=== PATIENT | female | born 1970 | race Caucasian/White ===

== ENCOUNTER 2023-05-10 13:44 | Emergency (ER) | payer OTHER ==
[2023-05-10 14:14] VITALS: RESP 20
[2023-05-10] MEDS ORDERED: IPRATROPIUM-ALBUTEROL 3 ML NEB INHALATION STA (14:31)
[2023-05-10] MEDS ORDERED: methylPREDNISolone SOD SUCCI 125 MG/2 ML VIAL IV STA (14:32)
--- NOTE | 2023-05-10 14:54 | ED ---
General Adult HPI - General Chief complaint: Shortness of Breath Stated complaint: SOB,Cough,Bodyaches Time Seen by Provider: 05/10/23 14:15 Source: patient, RN notes reviewed Mode of arrival: wheelchair Limitations: no limitations - History of Present Illness Initial comments: 53-year-old female presents emergency Department chief complaint of shortness of breath. Patient states she's been sick for last 10 days has progressively worse she's bilaterally. She states she's had some right-sided chest tightness and discomfort. She does not that she's had prior lung disease including COPD. She reports possible fevers. Denies any GI symptoms. Denies any prior cardiac stents no history of CHF. - Related Data Previous Rx's Medication Instructions Recorded Azithromycin [Zithromax Z Pack] 0 tab PO DIRECTED #6 tab 05/10/23 Ipratropium-Albuterol Nebulize 3 ml INHALATION QID #25 each 05/10/23 [Duoneb 0.5 mg-3 mg/3 ml Soln] predniSONE 50 mg PO DAILY #5 tab 05/10/23 Allergies Allergy/AdvReac Type Severity Reaction Status Date / Time No Known Allergies Allergy Verified 05/10/23 13:54 Review of Systems ROS Statement: Those systems with pertinent positive or pertinent negative responses have been documented in the HPI. ROS Other: All systems not noted in ROS Statement are negative. Past Medical History Past Medical History: COPD, Hypertension History of Any Multi-Drug Resistant Organisms: None Reported Past Surgical History: No Surgical Hx Reported Past Psychological History: Anxiety, Depression Smoking Status: Current every day smoker Past Alcohol Use History: Occasional Past Drug Use History: Marijuana General Exam Limitations: no limitations General appearance: alert, in no apparent distress Head exam: Present: atraumatic, normocephalic, normal inspection Eye exam: Present: normal appearance, PERRL, EOMI. Absent: scleral icterus, conjunctival injection, periorbital swelling ENT exam: Present: normal exam, mucous membranes moist Neck exam: Present: normal inspection. Absent: tenderness, meningismus, lymph adenopathy Respiratory exam: Present: wheezes, decreased breath sounds. Absent: normal lung sounds bilaterally, respiratory distress, rales, rhonchi, stridor Cardiovascular Exam: Present: normal rhythm, tachycardia, normal heart sounds. Absent: systolic murmur, diastolic murmur, rubs, gallop, clicks GI/Abdominal exam: Present: soft, normal bowel sounds. Absent: distended, tenderness, guarding, rebound, rigid Extremities exam: Present: pedal edema Neurological exam: Present: alert Course Vital Signs 05/10/23 05/10/23 05/10/23 13:49 14:45 16:11 Temperature Pulse Rate 107 H 109 H Respiratory 20 20 22 Rate Blood Pressure 172/87 O2 Sat by Pulse 93 L Oximetry 05/10/23 05/10/23 05/10/23 16:22 16:36 17:18 Temperature 97.8 F 97.8 F Pulse Rate 111 H 112 H 72 Respiratory 20 20 20 Rate Blood Pressure 187/104 178/92 O2 Sat by Pulse 93 L 97 Oximetry EKG Findings - EKG Comments: EKG Findings:: EKG poor at 14:40 sinus tachycardia rate of 12 [place] 136 QRS 65 QT/QTC 333/392 - EKG Results: EKG: interpreted by CONSUELO Medical Decision Making - Medical Decision Making Was pt. sent in by a medical professional or institution (, PA, [employer], urgent care, hospital, or prison...) When possible be specific @ -No Did you speak to anyone other than the patient for history (EMS, parent, family, police, friend...)? What history was obtained from this source @ -No Did you review nursing and triage notes (agree or disagree)? Why? @ -I reviewed and agree with nursing and triage notes Were old charts reviewed (outside hosp., previous admission, EMS record, old EKG, old radiological studies, urgent care reports/EKG's, prison records)? Report findings @ -No old charts were reviewed Differential Diagnosis (chest pain, altered mental status, abdominal pain women, abdominal pain men, vaginal bleeding, weakness, fever, dyspnea, syncope, headache, dizziness, GI bleed, back pain, seizure, CVA, palpatations, mental health, musculoskeletal)? @ -COVID 19, RSV, influenza, pneumonia, acute bronchitis, URI, this list is not all inclusive EKG interpreted by me (3pts min.). @ -None X-rays interpreted by me (1pt min.). @ -Chest x-ray shows right lower lobe, possible nodule CT interpreted by me (1pt min.). @ -None done U/S interpreted by me (1pt. min.). @ -None done What testing was considered but not performed or refused? (CT, X-rays, U/S, labs)? Why? @ -None What meds were considered but not given or refused? Why? @ -None Did you discuss the management of the patient with other professionals (professionals i.e. , PA, [employer], lab, RT, psych nurse, social work professor, internet media planner, teacher, custody officer, counter caser)? Give summary @ -No Was smoking cessation discussed for >3mins.? @ -No Was critical care preformed (if so, how long)? @ -No Were there social determinants of health that impacted care today? How? (Homelessness, low income, unemployed, alcoholism, drug addiction, transportation, low edu. Level, literacy, decrease access to med. care, shelter, rehab)? @ -No Was there de-escalation of care discussed even if they declined (Discuss DNR or withdrawal of care, Hospice)? DNR status @ -No What co-morbidities impacted this encounter? (DM, HTN, Smoking, COPD, CAD, Cancer, CVA, ARF, Chemo, Hep., AIDS, mental health diagnosis, sleep apnea, morbid obesity)? @ -COPD Was patient admitted / discharged? Hospital course, mention meds given and route, prescriptions, significant lab abnormalities, going to OR and other pertinent info. @ -Discharge patient's found to have RSV positive, chest x-ray shows right lower lobe pneumonia. Patient is a 9 COPD pulse ox around 93%. Patient is given breathing treatment, steroids states she feels greatly improved and did offer admission for further treatment, management workup of her lung nodule patient declines stating that she felt improved she felt comfortable close follow palpation. Undiagnosed new problem with uncertain prognosis? @ -No Drug Therapy requiring intensive monitoring for toxicity (Heparin, Nitro, Insulin, Cardizem)? @ -No Were any procedures done? @ -No Diagnosis/symptom? @ -RSV, pneumonia, COPD exacerbation Acute, or Chronic, or Acute on Chronic? @ -Acute Uncomplicated (without systemic symptoms) or Complicated (systemic symptoms)? @ -[Complicated Side effects of treatment? @ -No Exacerbation, Progression, or Severe Exacerbation? @ -Exacerbation Poses a threat to life or bodily function? How? (Chest pain, [place], [place], pneumonia, PE, COPD, DKA, ARF, appy, cholecystitis, CVA, Diverticulitis, Homicidal, Suicidal, threat to staff... and all critical care pts) @ -Yes pneumonia, COPD - Lab Data Result diagrams: 05/10/23 14:59 05/10/23 14:59 Lab Results 05/10/23 05/10/23 05/10/23 Range/Units 14:59 14:59 14:59 WBC 12.4 H (3.8-10.6) k/uL RBC 4.66 (3.80-5.40) m/uL Hgb 16.1 H (11.4-16.0) gm/dL Hct 46.7 H (34.0-46.0) % MCV 100.1 H (80.0-100.0) fL MCH 34.5 (25.0-35.0) pg MCHC 34.4 (31.0-37.0) g/dL RDW 13.3 (11.5-15.5) % Plt Count 305 (150-450) k/uL MPV 7.7 Neutrophils % 73 % Lymphocytes % 19 % Monocytes % 5 % Eosinophils % 1 % Basophils % 1 % Neutrophils # 9.1 H (1.3-7.7) k/uL Lymphocytes # 2.4 (1.0-4.8) k/uL Monocytes # 0.6 (0-1.0) k/uL Eosinophils # 0.1 (0-0.7) k/uL Basophils # 0.1 (0-0.2) k/uL PT 9.4 L (10.0-12.5) sec INR 0.8 (<1.2) APTT 24.0 (22.0-30.0) sec Sodium 139 (137-145) mmol/L Potassium 4.0 (3.5-5.1) mmol/L Chloride 101 (98-107) mmol/L Carbon Dioxide 28 (22-30) mmol/L Anion Gap 10 mmol/L BUN 3 L (7-17) mg/dL Creatinine 0.51 L (0.52-1.04) mg/dL Est GFR (CKD-EPI)AfAm >90 (>60 ml/min/1.73 sqM) Est GFR (CKD-EPI)NonAf >90 (>60 ml/min/1.73 sqM) Glucose 91 (74-99) mg/dL Calcium 8.9 (8.4-10.2) mg/dL Magnesium 2.1 (1.6-2.3) mg/dL Total Bilirubin 0.8 (0.2-1.3) mg/dL AST 139 H (14-36) U/L ALT 141 H (4-34) U/L Alkaline Phosphatase 257 H (38-126) U/L Troponin I (0.000-0.034) ng/mL NT-Pro-B Natriuret Pep 308 pg/mL Total Protein 7.3 (6.3-8.2) g/dL Albumin 3.7 (3.5-5.0) g/dL Influenza Type A (PCR) (Not Detectd) Influenza Type B (PCR) (Not Detectd) RSV (PCR) (Not Detectd) SARS-CoV-2 (PCR) (Not Detectd) 05/10/23 05/10/23 Range/Units 14:59 14:59 WBC (3.8-10.6) k/uL RBC (3.80-5.40) m/uL Hgb (11.4-16.0) gm/dL Hct (34.0-46.0) % MCV (80.0-100.0) fL MCH (25.0-35.0) pg MCHC (31.0-37.0) g/dL RDW (11.5-15.5) % Plt Count (150-450) k/uL MPV Neutrophils % % Lymphocytes % % Monocytes % % Eosinophils % % Basophils % % Neutrophils # (1.3-7.7) k/uL Lymphocytes # (1.0-4.8) k/uL Monocytes # (0-1.0) k/uL Eosinophils # (0-0.7) k/uL Basophils # (0-0.2) k/uL PT (10.0-12.5) sec INR (<1.2) APTT (22.0-30.0) sec Sodium (137-145) mmol/L Potassium (3.5-5.1) mmol/L Chloride (98-107) mmol/L Carbon Dioxide (22-30) mmol/L Anion Gap mmol/L BUN (7-17) mg/dL Creatinine (0.52-1.04) mg/dL Est GFR (CKD-EPI)AfAm (>60 ml/min/1.73 sqM) Est GFR (CKD-EPI)NonAf (>60 ml/min/1.73 sqM) Glucose (74-99) mg/dL Calcium (8.4-10.2) mg/dL Magnesium (1.6-2.3) mg/dL Total Bilirubin (0.2-1.3) mg/dL AST (14-36) U/L ALT (4-34) U/L Alkaline Phosphatase (38-126) U/L Troponin I <0.012 (0.000-0.034) ng/mL NT-Pro-B Natriuret Pep pg/mL Total Protein (6.3-8.2) g/dL Albumin (3.5-5.0) g/dL Influenza Type A (PCR) Not Detected (Not Detectd) Influenza Type B (PCR) Not Detected (Not Detectd) RSV (PCR) Detected A (Not Detectd) SARS-CoV-2 (PCR) Not Detected (Not Detectd) Disposition Clinical Impression: Pneumonia, COPD exacerbation, RSV infection Disposition: HOME SELF-CARE Condition: Stable Instructions (If sedation given, give patient instructions): Respiratory Syncytial Virus (ED) Additional Instructions: Please return to the Emergency Department if symptoms worsen or any other concerns. Prescriptions: Ipratropium-Albuterol Nebulize [Duoneb 0.5 mg-3 mg/3 ml Soln] 3 ml INHALATION QID #25 each predniSONE 50 mg PO DAILY #5 tab Azithromycin [Zithromax Z Pack] 0 tab PO DIRECTED #6 tab Is patient prescribed a controlled substance at d/c from ED?: No Referrals: Lashay Coello MD [Primary Care Provider] - 1-2 days Forms: Work/School Release / Restrict Time of Disposition: 16:45
[2023-05-10 15:15] LABS: Basophils # (A) 0.1 k/uL (0-0.2); Basophils % (A) 1 %; Eosinophils # (A) 0.1 k/uL (0-0.7); Eosinophils % (A) 1 %; HCT 46.7 % (34.0-46.0); HGB 16.1 gm/dL (11.4-16.0); Lymphocytes # (A) 2.4 k/uL (1.0-4.8); Lymphocytes % (A) 19 %; MCH 34.5 pg (25.0-35.0); MCHC 34.4 g/dL (31.0-37.0); MCV 100.1 fL (80.0-100.0); Mean Platelet Volume 7.7; Monocytes # (A) 0.6 k/uL (0-1.0); Monocytes % (A) 5 %; Neutrophils # (A) 9.1 k/uL (1.3-7.7); Neutrophils % (A) 73 %; Platelet Count 305 k/uL (150-450); RBC 4.66 m/uL (3.80-5.40); RDW 13.3 % (11.5-15.5); WBC 12.4 k/uL (3.8-10.6)
[2023-05-10 15:22] LABS: INR 0.8 (<1.2); Prothrombin Time 9.4 sec (10.0-12.5)
--- NOTE | 2023-05-10 15:30 | XR ---
EXAMINATION TYPE: XR chest 2V DATE OF EXAM: 05/10/2023 COMPARISON: 11/13/2012 INDICATION: Difficulty breathing cough congestion short of breath TECHNIQUE: Frontal and lateral views of the chest are obtained. FINDINGS: The heart size is normal. The pulmonary vasculature is normal. Right lower lobe infiltrate is present. There is a rounded filtrate or nodule measuring 2.9 cm in the right peripheral midlung. Findings are an interval change.. IMPRESSION: 1. Right lower lobe infiltrate. Correlate for pneumonia. 2. Additional rounded density lateral right midlung may be an infiltrate or nodule. Follow-up to [facility] is recommended.
[2023-05-10 15:36] LABS: NT-Pro-B-Type Natriuretic Pept 308 pg/mL
[2023-05-10 16:04] LABS: ALT 141 U/L (4-34); AST 139 U/L (14-36); African American GFR (CKD) >90 (>60 ml/min/1.73 sqM); Albumin 3.7 g/dL (3.5-5.0); Alkaline Phosphatase 257 U/L (38-126); Anion Gap 10 mmol/L; Blood Urea Nitrogen 3 mg/dL (7-17); Calcium 8.9 mg/dL (8.4-10.2); Carbon Dioxide 28 mmol/L (22-30); Chloride 101 mmol/L (98-107); Glucose 91 mg/dL (74-99); Magnesium 2.1 mg/dL (1.6-2.3); Non-African American GFR(CKD) >90 (>60 ml/min/1.73 sqM); Sodium 139 mmol/L (137-145); Total Bilirubin 0.8 mg/dL (0.2-1.3); Total Protein 7.3 g/dL (6.3-8.2)
[2023-05-10] MEDS ORDERED: cefTRIAXone IN SWFI 1,000 MG/10 ML SYRINGE IVP STA (16:43)
[2023-05-10 16:56] VITALS: TEMP 97.8
[2023-05-10 19:06] VITALS: BP 178/92; PULSE 72
== END 2023-05-10 17:18 | disposition home or self-care (01) ==
LOC: EC 13:44
DX: J44.1 Chronic obstructive pulmonary disease with (acute) exacerbation (principal); J18.9 Pneumonia, unspecified organism; B97.4 Respiratory syncytial virus as the cause of diseases classified elsewhere; R00.0 Tachycardia, unspecified; I10 Essential (primary) hypertension; F17.200 Nicotine dependence, unspecified, uncomplicated; F12.90 Cannabis use, unspecified, uncomplicated; Z20.822 Contact with and (suspected) exposure to COVID-19
CPT/HCPCS: 36415; 94640; 93005; 83880; 80053; 83735; 84484; 85025; 85610; 85730; 87636; 71046; 99285; 96374; 96375; J2930; J0696

== ENCOUNTER 2023-07-06 15:29 | Inpatient (IN) | payer OTHER ==
--- NOTE | 2023-07-06 17:33 | ED ---
Alcohol HPI - General Source: patient, RN notes reviewed Mode of arrival: ambulatory Limitations: no limitations <Stefani Mcgrath - Last Filed: 07/06/23 17:35> <Armani Richard - Last Filed: 07/06/23 20:53> - General Chief Complaint: Alcohol Stated Complaint: withdrawl from alcohol/ seizure Time Seen by Provider: 07/06/23 17:33 - History of Present Illness Initial Comments: Quick note: Patient is a 53-year-old female presented to ER with a chief complaint of alcohol intoxication. Patient sent here from PCPs office for evaluation. She reports she has a history of seizures with alcohol withdrawal. (Stefani Mcgrath) This is a 53-year-old female who presents to the emergency department c omplaining that she is an alcoholic and thinks she has been having withdrawals. Patient states she did have a drink at noon today because she started having the shakes and become nauseated and just not feeling well. Patient also complains of some epigastric abdominal pain. Patient denies any fever chills per patient is any back pain. Patient has any recent trauma. (Armani Richard) - Related Data Previous Rx's Medication Instructions Recorded Azithromycin [Zithromax Z Pack] 0 tab PO DIRECTED #6 tab 05/10/23 Ipratropium-Albuterol Nebulize 3 ml INHALATION QID #25 each 05/10/23 [Duoneb 0.5 mg-3 mg/3 ml Soln] predniSONE 50 mg PO DAILY #5 tab 05/10/23 Allergies Allergy/AdvReac Type Severity Reaction Status Date / Time No Known Allergies Allergy Verified 07/06/23 15:58 Review of Systems ROS Other: All systems not noted in ROS Statement are negative. <Stefani Mcgrath - Last Filed: 07/06/23 17:35> ROS Other: All systems not noted in ROS Statement are negative. <Armani Richard - Last Filed: 07/06/23 20:53> ROS Statement: Those systems with pertinent positive or pertinent negative responses have been documented in the HPI. Past Medical History Past Medical History: COPD, Hypertension Additional Past Medical History / Comment(s): seizures. alcohol abuse. History of Any Multi-Drug Resistant Organisms: None Reported Past Surgical History: No Surgical Hx Reported Past Psychological History: Anxiety, Depression Smoking Status: Current every day smoker Past Alcohol Use History: Occasional Past Drug Use History: Marijuana <Stefani Mcgrath - Last Filed: 07/06/23 17:35> General Exam Limitations: no limitations <Stefani Mcgrath - Last Filed: 07/06/23 17:35> <Armani Richard - Last Filed: 07/06/23 20:53> - General Exam Comments Initial Comments: Visual Physical Exam Vital signs reviewed General: Well-appearing, nontoxic, no acute distress. Head: Normocephalic, atraumatic Eyes: PERRLA, EOMI ENT: Airway patent Chest: Nonlabored breathing Skin: No visual rash, normal skin tone Neuro: Alert and oriented 3 Musculoskeletal: No gross abnormalities (Stefani Mcgrath) GENERAL: Patient is well-developed and well-nourished. Patient is nontoxic and well- hydrated and is in mild distress. ENT: Neck is soft and supple. No significant lymphadenopathy is noted. Oropharynx is clear. Moist mucous membranes. Neck has full range of motion without eliciting any pain. EYES: The sclera were anicteric and conjunctiva were pink and moist. Extraocular movements were intact and pupils were equal round and reactive to light. Eyelids were unremarkable. PULMONARY: Unlabored respirations. Good breath sounds bilaterally. No audible rales rhonchi or wheezing was noted. CARDIOVASCULAR: There is a regular rate and rhythm without any murmurs gallops or rubs. ABDOMEN: Patient has mild epigastric abdominal pain SKIN: Skin is clear with no lesions or rashes and otherwise unremarkable. NEUROLOGIC: Patient is alert and oriented x3. Cranial nerves II through XII are grossly intact. Motor and sensory are also intact. Normal speech, volume and content. Symmetrical smile. MUSCULOSKELETAL: Normal extremities with adequate strength and full range of motion. No lower extremity swelling or edema. No calf tenderness. LYMPHATICS: No significant lymphadenopathy is noted PSYCHIATRIC: Normal psychiatric evaluation. (Armani Richard) Course Vital Signs 07/06/23 07/06/23 07/06/23 15:55 18:54 19:23 Temperature 98.4 F 98.7 F Pulse Rate 102 H 99 103 H Respiratory 20 18 18 Rate Blood Pressure 182/130 185/127 185/118 O2 Sat by Pulse 95 98 92 L Oximetry 07/06/23 20:25 Temperature Pulse Rate 117 H Respiratory 20 Rate Blood Pressure 184/97 O2 Sat by Pulse 93 L Oximetry Medical Decision Making <Stefani Mcgrath - Last Filed: 07/06/23 17:35> - Lab Data Result diagrams: 07/06/23 18:46 07/06/23 19:30 <Armani Richard - Last Filed: 07/06/23 20:53> - Medical Decision Making I performed the quick note portion of this chart. Electronically signed by Stefani Mcgrath PA-C (Stefani Mcgrath) EKG is interpreted by myself read EKG shows a sinus rhythm at 93 bpm DC interval 143 QRS of 66 QT interval 351 QTc is 402. Patient EKG shows no ST segment ovation or depression. Was pt. sent in by a medical professional or institution ([facility], [employer], urgent care, hospital, or penitentiary...) When possible be specific @ -No Did you speak to anyone other than the patient for history (EMS, parent, family, police, friend...)? What history was obtained from this source @ -No Did you review nursing and triage notes (agree or disagree)? Why? @ -I reviewed and agree with nursing and triage notes Were old charts reviewed (outside hosp., previous admission, EMS record, old EKG, old radiological studies, urgent care reports/EKG's, penitentiary records)? Report findings @ -I reviewed prior charts and prior lab work on this patient Differential Diagnosis (chest pain, altered mental status, abdominal pain women, abdominal pain men, vaginal bleeding, weakness, fever, dyspnea, syncope, headache, dizziness, GI bleed, back pain, seizure, CVA, palpatations, mental health, musculoskeletal)? @ -Hypertensive urgency, alcohol withdrawal, alcohol intoxication, intercerebral bleed, subarachnoid, this is not an all-inclusive list EKG interpreted by me (3pts min.). @ -As above X-rays interpreted by me (1pt min.). @ -None done CT interpreted by me (1pt min.). @ -CT of the brain shows no acute abnormality U/S interpreted by me (1pt. min.). @ -None done What testing was considered but not performed or refused? (CT, X-rays, U/S, labs)? Why? @ -None What meds were considered but not given or refused? Why? @ -None Did you discuss the management of the patient with other professionals (professionals i.e. , PA, [employer], lab, RT, psych nurse, older adult social work specialist, fulfillment associate, teacher, health officer, pillowcase folder)? Give summary @ -I spoke with Dr. Donis and he agreed to admit the patient admit the patient wrote admitting orders Was smoking cessation discussed for >3mins.? @ -No Was critical care preformed (if so, how long)? @ -No Were there social determinants of health that impacted care today? How? (Homelessness, low income, unemployed, alcoholism, drug addiction, transportation, low edu. Level, literacy, decrease access to med. care, senior living, rehab)? @ -No Was there de-escalation of care discussed even if they declined (Discuss DNR or withdrawal of care, Hospice)? DNR status @ -No What co-morbidities impacted this encounter? (DM, HTN, Smoking, COPD, CAD, Cancer, CVA, ARF, Chemo, Hep., AIDS, mental health diagnosis, sleep apnea, morbid obesity)? @ -None Was patient admitted / discharged? Hospital course, mention meds given and route, prescriptions, significant lab abnormalities, going to OR and other pertinent info. @ -Patient was having the shakes and so I gave the patient Ativan which did not help her. Patient also got some fluid because she is an alcoholic. Patient blood pressure was elevated I did give her 20 of hyd[address]azine. Patient had CT scans and showed no acute abnormality. Patient told nursing that she sometimes has thoughts of harming her grandkids so psychiatric services will be contacted Undiagnosed new problem with uncertain prognosis? @ -No Drug Therapy requiring intensive monitoring for toxicity (Heparin, Nitro, Insulin, Cardizem)? @ -No Were any procedures done? @ -No Diagnosis/symptom? @ -Alcohol withdrawal Acute, or Chronic, or Acute on Chronic? @ -Acute Uncomplicated (without systemic symptoms) or Complicated (systemic symptoms)? @ -Complicated Side effects of treatment? @ -No Exacerbation, Progression, or Severe Exacerbation? @ -No Poses a threat to life or bodily function? How? (Chest pain, [place], [place], pneumonia, PE, COPD, DKA, ARF, appy, cholecystitis, CVA, Diverticulitis, Homicidal, Suicidal, threat to staff... and all critical care pts) @ -Patient could have alcohol withdrawal seizures. Diagnosis/symptom? @ -Hypertensive urgency Acute, or Chronic, or Acute on Chronic? @ -Acute Uncomplicated (without systemic symptoms) or Complicated (systemic symptoms)? @ -Complicated Side effects of treatment? @ -None Exacerbation, Progression, or Severe Exacerbation] @ -No Poses a threat to life or bodily function? @ -No Diagnosis/symptom? @ -Homicidal ideations Acute, or Chronic, or Acute on Chronic? @ -Acute Uncomplicated (without systemic symptoms) or Complicated (systemic symptoms)? @ -Complicated Side effects of treatment? @ -None Exacerbation, Progression, or Severe Exacerbation] @ -No Poses a threat to life or bodily function? @ -No (Armani Richard) - Lab Data Lab Results 07/06/23 07/06/23 Range/Units 18:46 19:30 WBC 7.7 (3.8-10.6) k/uL RBC 4.45 (3.80-5.40) m/uL Hgb 15.3 (11.4-16.0) gm/dL Hct 45.2 (34.0-46.0) % MCV 101.6 H (80.0-100.0) fL MCH 34.4 (25.0-35.0) pg MCHC 33.9 (31.0-37.0) g/dL RDW 13.9 (11.5-15.5) % Plt Count 306 (150-450) k/uL MPV 9.0 Macrocytosis Slight Sodium 140 (137-145) mmol/L Potassium 4.3 (3.5-5.1) mmol/L Chloride 106 (98-107) mmol/L Carbon Dioxide 31 H (22-30) mmol/L Anion Gap 3 mmol/L BUN 13 (7-17) mg/dL Creatinine 0.62 (0.52-1.04) mg/dL Est GFR (CKD-EPI)AfAm >90 (>60 ml/min/1.73 sqM) Est GFR (CKD-EPI)NonAf >90 (>60 ml/min/1.73 sqM) Glucose 94 (74-99) mg/dL Calcium 8.6 (8.4-10.2) mg/dL Magnesium 1.8 (1.6-2.3) mg/dL Total Bilirubin 0.8 (0.2-1.3) mg/dL AST 118 H (14-36) U/L ALT 89 H (4-34) U/L Alkaline Phosphatase 191 H (38-126) U/L Total Protein 7.2 (6.3-8.2) g/dL Albumin 3.7 (3.5-5.0) g/dL Amylase 67 (30-110) U/L Lipase 178 (23-300) U/L Serum Alcohol 55 mg/dL Disposition <Stefani Mcgrath - Last Filed: 07/06/23 17:35> Time of Disposition: 20:53 <Armani Richard - Last Filed: 07/06/23 20:53> Clinical Impression: Alcohol withdrawal syndrome, Hypertensive urgency, Homicidal ideation Disposition: ADMITTED IP TO THIS HOSP Referrals: Lashay Coello MD [Primary Care Provider] - 1-2 days
[2023-07-06] MEDS: SODIUM CHLORIDE 0.9% 1,000 ML IV ONE ×3 (19:12→22:22)
[2023-07-06] MEDS: LORazepam 2 MG/ML INJ IV STA ×2 (19:12→20:51)
[2023-07-06 19:13] LABS: HCT 45.2 % (34.0-46.0); HGB 15.3 gm/dL (11.4-16.0); MCH 34.4 pg (25.0-35.0); MCHC 33.9 g/dL (31.0-37.0); MCV 101.6 fL (80.0-100.0); Macrocytosis Slight; Platelet Count 306 k/uL (150-450); RBC 4.45 m/uL (3.80-5.40); RDW 13.9 % (11.5-15.5); WBC 7.7 k/uL (3.8-10.6)
[2023-07-06] MEDS: ONDANSETRON 4 MG/2 ML VIAL IVP STA (19:17)
[2023-07-06 20:03] LABS: ALT 89 U/L (4-34); AST 118 U/L (14-36); African American GFR (CKD) >90 (>60 ml/min/1.73 sqM); Albumin 3.7 g/dL (3.5-5.0); Alcohol 55 mg/dL; Alkaline Phosphatase 191 U/L (38-126); Amylase 67 U/L (30-110); Anion Gap 3 mmol/L; Blood Urea Nitrogen 13 mg/dL (7-17); Calcium 8.6 mg/dL (8.4-10.2); Carbon Dioxide 31 mmol/L (22-30); Chloride 106 mmol/L (98-107); Glucose 94 mg/dL (74-99); Lipase 178 U/L (23-300); Magnesium 1.8 mg/dL (1.6-2.3); Non-African American GFR(CKD) >90 (>60 ml/min/1.73 sqM); Potassium 4.3 mmol/L (3.5-5.1); Sodium 140 mmol/L (137-145); Total Bilirubin 0.8 mg/dL (0.2-1.3); Total Protein 7.2 g/dL (6.3-8.2)
[2023-07-06] MEDS: hydrALAZINE HCL 20 MG/ML 1 ML VIAL IVP STA (20:51)
--- NOTE | 2023-07-06 20:51 | CT ---
EXAMINATION TYPE: CT brain wo con DATE OF EXAM: 07/06/2023 HISTORY: headache, ETOH CT DLP: 1150.4 mGycm. Automated Exposure Control for Dose Reduction was Utilized. TECHNIQUE: CT scan of the head is performed without contrast. COMPARISON: None. FINDINGS: There is no acute intracranial hemorrhage. No mass or mass effect. No definite acute attenuation defe ct. The globes are intact and the paranasal sinuses and middle ear cavities and mastoid sinus air terrence ls are clear. IMPRESSION: No acute process.
[2023-07-06] MEDS ORDERED: LORazepam 1 MG TAB PO PRN (20:54)
[2023-07-06] MEDS ORDERED: LORazepam 2 MG/ML INJ IV PRN (20:54)
[2023-07-07] MEDS: LORazepam 2 MG/ML INJ IV PRN ×2 (01:10→07:03)
[2023-07-07] MEDS: THIAMINE 100 MG/ML 2 ML VIAL IM STA (01:10)
--- NOTE | 2023-07-07 01:43 | P.HPIM ---
History of Present Illness H&P Date: 07/06/23 Chief Complaint: Alcohol withdrawal 53-year-old female with COPD not on home oxygen Patient coming in for alcohol withdrawal she quit drinking around noon yesterday she has history of withdrawal seizures and severe withdrawal symptoms in the past she admits to alcohol dependence with heavy drinking Currently patient seems to be feeling okay she denies any headache changes in vision or any new focal neurodeficits denies any chest pain trouble breathing denies abdominal pain changes in bowel or urinary habit denies any GI bleeding ER noted that she was sent in here from her PCP office for evaluation. She also added having negative thoughts toward her granddaughter who she loves dearly but when she is intoxicated she starts ruminating with negative thoughts regarding hurting her she claims that she never tried to do anything to hurt her granddaughter Patient also admits to tobacco smoking and marijuana review of systems Pertinent positives as noted in HPI. All other systems were reviewed and are negative on exam Constitutional: No acute distress, cooperative Eyes: Anicteric sclerae, moist conjunctiva, Pupils equal round reactive to light ENMT: NC/AT Oropharynx clear, no erythema, or exudates Neck: Supple, no masses, or JVD No carotid bruits No thyromegaly Lungs: Diffuse wheezing otherwise audible breath sounds throughout Clear to percussion Normal respiratory effort, no accessory muscle use Cardiovascular: Heart regular in rate and rhythm, No murmurs, gallops, or rubs No peripheral edema Abdominal: Soft Nontender, no guarding, rebound or rigidity Abdomen moving with respiration Normoactive bowel sounds v Extremities: No digital cyanosis No clubbing Pedal pulses intact and symmetrical Radial pulses intact and symmetrical No calf tenderness Psychiatric: Alert and oriented to person, place and time Neuro Muscles Strength 5/5 in all 4 extremities Sensation to light touch grossly present throughout Cranial nerves II-XII grossly intact Past Medical History Past Medical History: COPD, Hypertension Additional Past Medical History / Comment(s): seizures. alcohol abuse. History of Any Multi-Drug Resistant Organisms: None Reported Past Surgical History: No Surgical Hx Reported Past Psychological History: Anxiety, Depression Smoking Status: Current every day smoker Past Alcohol Use History: Occasional Past Drug Use History: Marijuana Medications and Allergies Home Medications Medication Instructions Recorded Confirmed Type Unable To Assess [Unable to Assess] 07/06/23 07/06/23 History Allergies Allergy/AdvReac Type Severity Reaction Status Date / Time No Known Allergies Allergy Verified 07/06/23 15:58 Physical Exam Vitals: Vital Signs Temp Pulse Resp BP Pulse Ox 07/06/23 22:15 119 H 22 94/65 94 L 07/06/23 22:00 115 H 21 105/64 94 L 07/06/23 21:45 109 H 19 104/79 94 L 07/06/23 21:30 109 H 20 125/78 94 L 07/06/23 21:15 103/78 07/06/23 20:59 117 H 22 158/83 96 07/06/23 20:54 120 H 176/116 90 L 07/06/23 20:25 117 H 20 184/97 93 L 07/06/23 19:23 103 H 18 185/118 92 L 07/06/23 18:54 98.7 F 99 18 185/127 98 07/06/23 15:55 98.4 F 102 H 20 182/130 95 Intake and Output 07/06/23 07/06/23 07/06/23 06:59 14:59 22:59 Other: Weight 107.955 kg Results CBC & Chem 7: 07/06/23 18:46 07/06/23 19:30 Labs: Abnormal Lab Results - Last 24 Hours (Table) 07/06/23 07/06/23 Range/Units 18:46 19:30 MCV 101.6 H (80.0-100.0) fL Carbon Dioxide 31 H (22-30) mmol/L AST 118 H (14-36) U/L ALT 89 H (4-34) U/L Alkaline Phosphatase 191 H (38-126) U/L Assessment and Plan Assessment: 53-year-old female with COPD not on home oxygen, alcohol dependence with history of severe withdrawal symptoms and withdrawal seizures she was sent in here from her primary care doctor office for evaluation as she was trying to quit alcohol and already having severe withdrawal symptoms feeling nauseous anxious and restless I discussed case with ED doctor and accepted the admission for alcohol withdrawal symptoms and for psych evaluation due to report of negative thoughts toward her granddaughter when intoxicated with anticipated length of stay more than 2 midnights Alcohol dependence with alcohol withdrawal symptoms History of severe alcohol withdrawal with seizures Seizure precautions Fall precautions Benzos per CIWA scale IV fluid hydration with normal saline Thiamine p.o. daily Patient counseled to quit drinking EtOH level 55 Blood work overall unremarkable white count 7.7 hemoglobin 15.3 Renal function unremarkable to 140 potassium 4.3 BUN 13 creatinine 0.6 Transaminitis most likely secondary to alcohol abuse AST 118 ALT 89 continue to monitor liver enzymes Full code DVT prophylaxis heparin subcu 3 times daily GI prophylaxis Protonix p.o. 40 mg daily
[2023-07-07] MEDS: IPRATROPIUM-ALBUTEROL 3 ML NEB INHALATION PRN (07:44)
[2023-07-07 09:32] LABS: HCT 42.8 % (34.0-46.0); HGB 14.1 gm/dL (11.4-16.0); MCH 34.6 pg (25.0-35.0); MCHC 32.8 g/dL (31.0-37.0); MCV 105.6 fL (80.0-100.0); Macrocytosis Moderate; Mean Platelet Volume 7.6; Platelet Count 247 k/uL (150-450); RBC 4.06 m/uL (3.80-5.40); WBC 8.8 k/uL (3.8-10.6)
[2023-07-07 09:54] LABS: ALT 66 U/L (4-34); AST 100 U/L (14-36); African American GFR (CKD) >90 (>60 ml/min/1.73 sqM); Albumin 3.2 g/dL (3.5-5.0); Alkaline Phosphatase 177 U/L (38-126); Anion Gap 5 mmol/L; Blood Urea Nitrogen 16 mg/dL (7-17); Carbon Dioxide 24 mmol/L (22-30); Chloride 109 mmol/L (98-107); Glucose 108 mg/dL (74-99); Magnesium 1.6 mg/dL (1.6-2.3); Non-African American GFR(CKD) >90 (>60 ml/min/1.73 sqM); Potassium 3.8 mmol/L (3.5-5.1); Sodium 138 mmol/L (137-145); Total Bilirubin 1.3 mg/dL (0.2-1.3); Total Protein 6.2 g/dL (6.3-8.2)
[2023-07-07] MEDS: MULTIVITAMINS, THERA 1 EACH TAB PO SCH (09:54)
[2023-07-07] MEDS: NICOTINE 21MG/24HR PATCH TRANSDERM SCH (09:54)
[2023-07-07] MEDS: FOLIC ACID 1 MG TAB PO SCH (09:54)
[2023-07-07] MEDS: HEPARIN SODIUM,PORCINE 5,000 UNIT/ML 1 ML VIAL SQ SCH (09:54)
[2023-07-07] MEDS: PANTOPRAZOLE 40 MG TABLET PO SCH (09:54)
[2023-07-07] MEDS: THIAMINE 100 MG TAB PO SCH (09:54)
--- NOTE | 2023-07-07 10:14 | P.CN ---
Psychiatric Consult - . Consult date: 07/07/23 Consult:: 07/07/23 10:07 This is a psychiatric consultation on Sendy Humphrey who is a 53-year-old female and was currently hospitalized on the unit for alcohol detox Patient admits that she has a long history of alcohol dependency for years and that she cannot keep track of how much she drinks She states that she also has a history of depression and anxiety in the past but is most likely related to her alcohol use She says that she had seen a psychiatrist in the past and have attended few AA meetings She also reports that she has gone through an inpatient treatment program but did not stick with the program She admits that she needs to get back into some help She says that she has 4 adult children and 8 grandchildren and she enjoys her time with them She denies any thoughts of wanting to hurt herself or others but states that she occasionally had thoughts of lashing out when she was drunk but denies that she would do anything to harm herself Patient denies any history of any self abusive behavior or hurting anyone else Patient also uses marijuana gum is from time to time but did not give any exact amount She reports that she is really motivated to get proper treatment for alcohol abuse and is open to going into inpatient programs Mental status examination: Reveals a middle-aged female who looks much older for age Patient was sleeping soundly but was easily aroused She was able to interact fairly well and comes across as somewhat tremulous and anxious anxious Patient is alert and oriented to time place and person Speech is clear coherent and relevant Thought processes are goal-directed sequential and logical There is no evidence of any overt psychosis Formal judgment appears to be fair Operational judgment appears to be fair Patient admits to having low self esteem and confidence in control and request for appropriate intervention for her substance use problems Patient denies any suicidal or homicidal ideations Suicide risk assessment: Remains low Diagnostic impression: Adjustment disorder with mixed emotional features Mood disorder by history Alcohol use disorder chronic severe Plan: The patient does not meet the criteria for inpatient psychiatric hospitalization Would recommend continuation of the intervention for detox with close monitoring with the CIWA score an appropriate intervention Recommend inpatient substance use program after medical stabilization and detox patient services specialist should be involved to start making those arrangements at this time Thank you very much for your kind referral please feel free to contact me if any further questions Mark Cardenas M.D.
--- NOTE | 2023-07-07 15:35 | P.PN ---
Subjective Progress Note Date: 07/07/23 Hospital course: Patient is a very pleasant 53-year-old female with a past medical history of hypertension, COPD not home oxygen dependent, anxiety and depression, alcohol abuse with previous alcohol withdrawal seizures, cannabinoid use, and nicotine dependence. She presented to the emergency department 07/06/2023 for alcohol withdrawal and experiencing negative thoughts of harming her granddaughter. She underwent full evaluation in the emergency department. Vital signs upon arrival show blood pressure 182/130, heart rate 102, respiratory rate 20, temp 98.4 F, and SpO2 of 95% on room air. EKG completed showing normal sinus rhythm at [address] head completed negative for acute intracranial process. Labs completed and reviewed. CBC showing macrocytosis with MCV of 101.6 otherwise normal findings. BMP revealing hypercarbia with bicarb of 31. Liver profile showing transaminitis with AST of 118, ALT of 89, and alkaline phosphatase of 191. Lipase normal findings at 178. Serum alcohol 55. Patient was admitted under our services for alcohol withdrawal and consultation was placed to psychiatry for evaluation due to reported homicidal ideations. Physical exam: Patient seen and fully evaluated at the bedside. She reports having bad thoughts about harming her 2-year-old granddaughter. She reports she does not live with her granddaughter. Sitter remains at bedside maintaining patient's safety. Psychiatry consulted. Vital signs reviewed and stable. General: Nontoxic, no distress and appears stated age. Derm: Skin warm and dry, normal coloration for ethnicity. Head: Atraumatic, normocephalic and symmetric. Eyes: EOMs intact, no lid lag, and anicteric sclera Mouth: no lip lesions, mucus membranes moist Cardiovascular: regular rate and rhythm with normal S1S2, no murmur, positive posterior tibial pulses bilaterally, and cap refill < 2 seconds. Lungs: Respirations even, regular, and unlabored on room air. Lungs CTA bilaterally, no rhonchi, no rales, no wheezing, and no accessory muscle usage. Abdominal: soft, nontender to palpation, no guarding, no appreciable organomegaly Ext: ROM intact. No gross muscle atrophy, no edema, no contractures Neuro: Speech clear, face symmetrical and CN II-XII grossly intact with no noted focal neuro deficits Psych: Alert and oriented to person, place, time, and situation. Appropriate and pleasant affect. Assessment and Plan of Care: Alcohol withdrawal and active alcoholic with history of detox tremens and withdrawal seizures Transaminitis, secondary to daily alcohol abuse -Continue monitoring of CIWA scores and patient to be medicated with Ativan 0.5 mg every 4 hours as needed for CIWA score of 4-5, Ativan 1 mg every 4 hours for CIWA score of 6-7, Ativan 2 mg every 3 hours CIWA score of 8-9, and Ativan 2 mg every 2 hours forr CIWA score of 10 or greater. -Continuous IV hydration. -Thiamine 100 mg daily, Multivitamin daily, and Folate 1 mg daily. -Continue seizure, fall, elopement and suicide precautions. -Urine drug screen, TSH with reflex free T4, and repeat CBC, CMP, and magnesium were ordered.. -Continued close monitoring of electrolytes and replace as needed. -Telemetry monitoring. Homicidal ideations -Per documentation in chart patient reported having negative thoughts towards her granddaughter and thoughts of harming her. -Consult placed to psychiatry for evaluation -Patient was placed on suicide precautions and elopement precautions. Hypomagnesemia Magnesium 1.6 orders placed for magnesium sulfate 2 g IVPB x 1 dose. We will continue to monitor with repeat a.m. labs and replace abnormal electrolyte values if indicated based upon these results. Nicotine dependence Cannabinoid use disorder -Recommend stopping smoking as well as quitting cannabis use. -Order placed for nicotine patch 21 mg daily. Hypertensive urgency -Patient with hypertensive urgency upon arrival with initial blood pressure 182/130 and heart rate 102. This was likely secondary to alcohol withdraw with current blood pressure stable with blood pressure 128/79 and heart rate 116. -Recommend continued treatment for alcohol withdraw with symptom triggered benzodiazepines for administration. Data reviewed: -Morning labs reviewed. CBC showing macrocytosis with MCV of 105.6 otherwise normal findings. BMP showing mild hyperchloremia with chloride of 109 and resolution of hypercarbia with bicarb decreasing from 31 down to 24. Magnesium slightly low at 1.6. Liver profile showing AST 100, ALT 66, and alkaline phosphatase of 177. TSH was 2.670. -Vital signs reviewed. Blood pressure 128/79, heart rate 116, respiratory rate 19, temp 97.7 F, and SpO2 of 94% on 2 L. CODE STATUS: Full code DVT prophylaxis: Heparin Anticipated discharge date: Clinical course to determine Anticipated discharge place: Clinical course to determine Patient was seen independently by Nurse Pracitioner. This document was prepared using [employer] dictation software. Please allow for errors in maintenance worker house trailer, while rare they do occur. José Antonio Cosme, BOX COVERER HAND rendered care for this patient independently, reviewed the findings and plan as documented in the note above. I did not physically speak with or examine the patient on this date. Objective - Vital Signs Vital signs: Vital Signs Temp 97.7 F 07/07/23 05:02 Pulse 112 H 07/07/23 07:55 Resp 19 07/07/23 05:02 BP 128/79 07/07/23 07:01 Pulse Ox 94 L 07/07/23 07:48 FiO2 Intake & Output 07/06/23 07/07/23 07/07/23 18:59 06:59 18:59 Weight 107.955 kg - Labs CBC & Chem 7: 07/07/23 09:16 07/07/23 09:16 Labs: Abnormal Lab Results - Last 24 Hours (Table) 07/06/23 07/06/23 Range/Units 18:46 19:30 MCV 101.6 H (80.0-100.0) fL Carbon Dioxide 31 H (22-30) mmol/L AST 118 H (14-36) U/L ALT 89 H (4-34) U/L Alkaline Phosphatase 191 H (38-126) U/L
[2023-07-07] MEDS: MAGNESIUM SULFATE-D5W PMX 1 GM in DEXTROSE/WATER 1 100ML.BAG IVPB SCH (16:24)
[2023-07-07 21:43] LABS: Amphetamine Screen,Urine Not Detected (NotDetected); Barbiturate Screen,Urine Not Detected (NotDetected); Benzodiazepines Screen,Urine Detected (NotDetected); Cocaine Screen,Urine Not Detected (NotDetected); Methadone Screen, Urine Not Detected (NotDetected); Opiate Screen,Urine Not Detected (NotDetected); Oxycodone Screen, Urine Not Detected (NotDetected); Phencyclidine Screen,Urine Not Detected (NotDetected); Tricyclic Antidepressant,Urine Not Detected (NotDetected); Urn Cannabinoid Scrn Detected (NotDetected)
[2023-07-08 09:39] LABS: HCT 40.2 % (37.2-46.3); HGB 13.2 g/dL (12.0-15.0); MCH 34.3 pg (27.0-32.0); MCHC 32.8 g/dL (32.0-37.0); MCV 104.4 FL (80.0-97.0); Mean Platelet Volume 9.9 FL (9.5-12.2); NRBC Per 100 WBC 0 X 10*3/uL (0.00-0.01); Platelet Count 217 X 10*3/uL (140-440); RBC 3.85 X 10*6/uL (4.10-5.20); RDW 14.3 % (11.5-14.5); WBC 7.31 X 10*3/uL (4.50-10.00)
[2023-07-08 10:16] LABS: ALT 62 U/L (8-44); AST 100 U/L (13-35); Albumin 3.3 g/dL (3.8-4.9); Albumin/Globulin Ratio 1.18 Ratio (1.60-3.17); Alkaline Phosphatase 168 U/L (41-126); BUN/Creat Ratio 17.43 Ratio (12.00-20.00); Blood Urea Nitrogen 12.2 mg/dL (9.0-27.0); Calcium 8.3 mg/dL (8.7-10.3); Chloride 104 mmol/L (96-109); Globulin 2.8 g/dL (1.6-3.3); Glucose 121 mg/dL (70-110); Magnesium 2.1 mg/dL (1.5-2.4); Sodium 139 mmol/L (135-145); Total Bilirubin 0.7 mg/dL (0.3-1.2); Total Protein 6.1 g/dL (6.2-8.2)
--- NOTE | 2023-07-08 15:21 | XR ---
EXAMINATION TYPE: XR chest 1V portable DATE OF EXAM: 07/08/2023 Comparison: 05/10/2023 Clinical History: 53-year-old female wheezing Findings: Heart upper limits of normal in size. Aorta and pulmonary vasculature are within normal limits. Hazy bilateral lung densities without consolidation or pleural effusion. Impression: Borderline heart size. No acute process seen.
[2023-07-08] MEDS: IPRATROPIUM-ALBUTEROL 3 ML NEB INHALATION SCH (15:29)
[2023-07-08] MEDS: ACETAMINOPHEN TAB 325 MG TAB PO PRN (15:35)
--- NOTE | 2023-07-08 15:35 | P.PN ---
Subjective Progress Note Date: 07/08/23 Hospital course: Patient is a very pleasant 53-year-old female with a past medical history of hypertension, COPD not home oxygen dependent, anxiety and depression, alcohol abuse with previous alcohol withdrawal seizures, cannabinoid use, and nicotine dependence. She presented to the emergency department 07/06/2023 for alcohol withdrawal and experiencing negative thoughts of harming her granddaughter. She underwent full evaluation in the emergency department. Vital signs upon arrival show blood pressure 182/130, heart rate 102, respiratory rate 20, temp 98.4 F, and SpO2 of 95% on room air. EKG completed showing normal sinus rhythm at [address] head completed negative for acute intracranial process. Labs completed and reviewed. CBC showing macrocytosis with MCV of 101.6 otherwise normal findings. BMP revealing hypercarbia with bicarb of 31. Liver profile showing transaminitis with AST of 118, ALT of 89, and alkaline phosphatase of 191. Lipase normal findings at 178. Serum alcohol 55. Patient was admitted under our services for alcohol withdrawal and consultation was placed to psychiatry for evaluation due to reported homicidal ideations. Physical exam: Patient seen and fully evaluated at the bedside. She reports having bad thoughts about harming her 2-year-old granddaughter. She reports she does not live with her granddaughter. Sitter remains at bedside maintaining patient's safety. Psychiatry consulted. Vital signs reviewed and stable. General: Nontoxic, no distress and appears stated age. Derm: Skin warm and dry, normal coloration for ethnicity. Head: Atraumatic, normocephalic and symmetric. Eyes: EOMs intact, no lid lag, and anicteric sclera Mouth: no lip lesions, mucus membranes moist Cardiovascular: regular rate and rhythm with normal S1S2, no murmur, positive posterior tibial pulses bilaterally, and cap refill < 2 seconds. Lungs: Respirations even, regular, and unlabored on room air. Lungs CTA bilaterally, no rhonchi, no rales, no wheezing, and no accessory muscle usage. Abdominal: soft, nontender to palpation, no guarding, no appreciable organomegaly Ext: ROM intact. No gross muscle atrophy, no edema, no contractures Neuro: Speech clear, face symmetrical and CN II-XII grossly intact with no noted focal neuro deficits Psych: Alert and oriented to person, place, time, and situation. Appropriate and pleasant affect. Assessment and Plan of Care: Alcohol withdrawal and active alcoholic with history of detox tremens and withdrawal seizures Transaminitis, secondary to daily alcohol abuse -Continue monitoring of CIWA scores and patient to be medicated with Ativan 0.5 mg every 4 hours as needed for CIWA score of 4-5, Ativan 1 mg every 4 hours for CIWA score of 6-7, Ativan 2 mg every 3 hours CIWA score of 8-9, and Ativan 2 mg every 2 hours forr CIWA score of 10 or greater. Patient has had a total of 7 mg of Ativan over the past 24 hours. -Thiamine 100 mg daily, Multivitamin daily, and Folate 1 mg daily. -Continue seizure, fall, elopement and suicide precautions. -Urine drug screen, TSH with reflex free T4, and repeat CBC, CMP, and magnesium were ordered.. -Continued close monitoring of electrolytes and replace as needed. -Telemetry monitoring. Low-grade temp and tachycardia -Believed to be signs/symptoms of acute alcohol withdrawal, however we will rule out other causes of low-grade temp and tachycardia. -TSH normal findings at 2.670. -Influenza A, influenza B, RSV, and COVID PCR were negative. -Order placed for chest x-ray, which was negative for acute cardiopulmonary process. -Order placed for D-dimer, urinalysis and blood culture. Will follow-up on results once available. -Tylenol 650 mg p.o. as needed for mild pain/fever. Homicidal ideations -Per documentation in chart patient reported having negative thoughts towards her granddaughter and thoughts of harming her. -Consult placed to psychiatry for evaluation -Patient was placed on suicide precautions and elopement precautions. Hypomagnesemia Magnesium 1.6 orders placed for magnesium sulfate 2 g IVPB x 1 dose. We will continue to monitor with repeat a.m. labs and replace abnormal electrolyte values if indicated based upon these results. COPD with continued nicotine dependence, not in acute exacerbation Cannabinoid use disorder -Recommend stopping smoking as well as quitting cannabis use. -DuoNebs as needed for wheezing/shortness of breath. -Order placed for nicotine patch 21 mg daily. Hypertensive urgency, improved -Patient with hypertensive urgency upon arrival with initial blood pressure 182/130 and heart rate 102. This was likely secondary to alcohol withdraw with current blood pressure stable with blood pressure 128/79 and heart rate 116. -Recommend continued treatment for alcohol withdraw with symptom triggered benzodiazepines for administration. Data reviewed: -Morning labs reviewed. CBC showing macrocytosis with MCV of 104.4 otherwise normal findings. BMP unremarkable. Magnesium normal findings at 2.1. Liver profile elevated but stable showing AST 100, ALT 62, and alkaline phosphatase of 168. -Vital signs reviewed. Blood pressure 143/83, heart rate 113, respiratory rate 22, temp 98.7 F, and SpO2 of 97% on 2 L. CODE STATUS: Full code DVT prophylaxis: Heparin Anticipated discharge date: Clinical course to determine Anticipated discharge place: Clinical course to determine Patient was seen independently by Nurse Pracitioner. This document was prepared using [employer]olphin dictation software. Please allow for errors in corporate executive, while rare they do occur. José Antonio Cosme NP rendered care for this patient independently, reviewed the findings and plan as documented in the note above. I did not physically speak with or examine the patient on this date. Objective - Vital Signs Vital signs: Vital Signs Temp 98.7 F 07/08/23 07:13 Pulse 113 H 07/08/23 07:13 Resp 22 07/08/23 07:13 BP 143/83 07/08/23 07:13 Pulse Ox 96 07/08/23 08:27 FiO2 Intake & Output 07/07/23 07/08/23 07/08/23 18:59 06:59 18:59 Intake Total 180 240 Output Total 300 Balance -120 240 Weight 107.955 kg Intake: Oral 180 240 Output: Urine 300 Other: Voiding Method Bedside Commode # Voids 2 3 1 # Bowel Movements 1 - Labs CBC & Chem 7: 07/08/23 05:24 07/08/23 05:24 Labs: Abnormal Lab Results - Last 24 Hours (Table) 07/07/23 07/07/23 07/07/23 Range/Units 09:16 09:16 21:20 MCV 105.6 H (80.0-100.0) fL Chloride 109 H (98-107) mmol/L Glucose 108 H (74-99) mg/dL Calcium 8.0 L (8.4-10.2) mg/dL AST 100 H (14-36) U/L ALT 66 H (4-34) U/L Alkaline Phosphatase 177 H (38-126) U/L Total Protein 6.2 L (6.3-8.2) g/dL Albumin 3.2 L (3.5-5.0) g/dL U Benzodiazepines Scrn Detected H (NotDetected) U Marijuana (THC) Screen Detected H (NotDetected)
[2023-07-08 23:22] LABS: Appearance,Urine Clear (Clear); Bilirubin,Urine Negative (Negative); Blood,Urine Negative (Negative); Color,Urine Yellow; Glucose,Urine (UA) Negative (Negative); Ketones,Urine Negative (Negative); Leukocyte Esterase,Urine Negative (Negative); Nitrite,Urine Negative (Negative); Protein,Urine Trace (Negative); Specific Gravity,Urine 1.029 (1.001-1.035)
[2023-07-08] MEDS: MELATONIN 5 MG TABLET PO PRN (23:42)
[2023-07-09] MEDS: LORazepam 0.5 MG TAB PO PRN (10:19)
--- NOTE | 2023-07-09 11:28 | P.PN ---
Subjective Progress Note Date: 07/09/23 Hospital course: Patient is a very pleasant 53-year-old female with a past medical history of hypertension, COPD not home oxygen dependent, anxiety and depression, alcohol abuse with previous alcohol withdrawal seizures, cannabinoid use, and nicotine dependence. She presented to the emergency department 07/06/2023 for alcohol withdrawal and experiencing negative thoughts of harming her granddaughter. She underwent full evaluation in the emergency department. Vital signs upon arrival show blood pressure 182/130, heart rate 102, respiratory rate 20, temp 98.4 F, and SpO2 of 95% on room air. EKG completed showing normal sinus rhythm at [address] head completed negative for acute intracranial process. Labs completed and reviewed. CBC showing macrocytosis with MCV of 101.6 otherwise normal findings. BMP revealing hypercarbia with bicarb of 31. Liver profile showing transaminitis with AST of 118, ALT of 89, and alkaline phosphatase of 191. Lipase normal findings at 178. Serum alcohol 55. Patient was admitted under our services for alcohol withdrawal and consultation was placed to psychiatry for evaluation due to reported homicidal ideations. Physical exam: Patient seen and fully evaluated at the bedside. Patient sitting up on the bedside this morning. She appears to be doing much better today. More awake and alert and showing less signs of withdrawal this morning. Patient currently adamantly denies having any homicidal or harmful thoughts towards her granddaughter. Patient reports she has 4 children and 8 grandchildren and has never laid a hand on any of them. Patient states that she had these awful thoughts in the past but that has only been when she was drinking and her mind was not right from withdrawal. Patient currently ANO x 4 and denies having any suicidal or homicidal ideations at this time. Patient was evaluated by psychiatry and psychiatry is clearing patient from their perspective. Vital signs reviewed and stable. General: Nontoxic, no distress and appears stated age. Derm: Skin warm and dry, normal coloration for ethnicity. Head: Atraumatic, normocephalic and symmetric. Eyes: EOMs intact, no lid lag, and anicteric sclera Mouth: no lip lesions, mucus membranes moist Cardiovascular: regular rate and rhythm with normal S1S2, no murmur, positive posterior tibial pulses bilaterally, and cap refill < 2 seconds. Lungs: Respirations even, regular, and unlabored on room air. Lungs CTA bilaterally, no rhonchi, no rales, no wheezing, and no accessory muscle usage. Abdominal: soft, nontender to palpation, no guarding, no appreciable organomegaly Ext: ROM intact. No gross muscle atrophy, no edema, no contractures Neuro: Speech clear, face symmetrical and CN II-XII grossly intact with no noted focal neuro deficits Psych: Alert and oriented to person, place, time, and situation. Appropriate and pleasant affect. Assessment and Plan of Care: Alcohol withdrawal and active alcoholic with history of detox tremens and withdrawal seizures Transaminitis, secondary to daily alcohol abuse -Continue monitoring of CIWA scores and patient to be medicated with Ativan 0.5 mg every 4 hours as needed for CIWA score of 4-5, Ativan 1 mg every 4 hours for CIWA score of 6-7, Ativan 2 mg every 3 hours CIWA score of 8-9, and Ativan 2 mg every 2 hours forr CIWA score of 10 or greater. Patient has had a total of 9 mg of Ativan over the past 24 hours. -Thiamine 100 mg daily, Multivitamin daily, and Folate 1 mg daily. -Continue seizure, fall, elopement and suicide precautions. -Urine drug screen, TSH with reflex free T4, and repeat CBC, CMP, and magnesium were ordered.. -Continued close monitoring of electrolytes and replace as needed. -Telemetry monitoring. Low-grade temp and tachycardia -Believed to be signs/symptoms of acute alcohol withdrawal, however we will rule out other causes of low-grade temp and tachycardia. -TSH normal findings at 2.670. -Influenza A, influenza B, RSV, and COVID PCR were negative. -Order placed for chest x-ray, which was negative for acute cardiopulmonary process. -Order placed for D-dimer, urinalysis and blood culture. Will follow-up on results once available. -Tylenol 650 mg p.o. as needed for mild pain/fever. Homicidal ideations, resolved. -Per documentation in chart patient reported having negative thoughts towards her granddaughter and thoughts of harming her. Patient states that she had these awful thoughts in the past but that has only been when she was drinking and her mind was not right from withdrawal. Patient currently A&O x 4 and denies having any suicidal or homicidal ideations at this time. -Patient was evaluated by psychiatry and psychiatry is clearing patient from their perspective. Hypomagnesemia, resolved Magnesium 2.1. COPD with continued nicotine dependence, not in acute exacerbation Cannabinoid use disorder -Recommend stopping smoking as well as quitting cannabis use. -DuoNebs as needed for wheezing/shortness of breath. -Order placed for nicotine patch 21 mg daily. Hypertensive urgency, improved -Patient with hypertensive urgency upon arrival with initial blood pressure 182/130 and heart rate 102. This was likely secondary to alcohol withdraw with current blood pressure elevated but stable at 150/92 with heart rate of 102. -We will continue to treat with alcohol withdrawal and patient has been started on metoprolol 25 mg twice daily. Data reviewed: -Vital signs reviewed. Blood pressure 150/92, heart rate 102, respiratory rate 20, temp 98.2 F, and SpO2 of 97% on 2 L. CODE STATUS: Full code DVT prophylaxis: Heparin Anticipated discharge date: Likely within the next 24 to [address]: Home versus drug and alcohol rehabilitation facility Patient was seen independently by Nurse Pracitioner. This document was prepared using [employer] dictation software. Please allow for errors in duck operator, while rare they do occur. José Antonio Cosme NP rendered care for this patient independently, reviewed the findings and plan as documented in the note above. I did not physically speak with or examine the patient on this date. Objective - Vital Signs Vital signs: Vital Signs Temp 98.2 F 07/09/23 07:09 Pulse 102 H 07/09/23 07:09 Resp 20 07/09/23 07:09 BP 150/92 07/09/23 07:09 Pulse Ox 96 07/09/23 08:34 FiO2 Intake & Output 07/08/23 07/09/23 07/09/23 17:59 06:59 18:59 Other: Voiding Method Toilet Bedside Commode # Voids # Bowel Movements - Labs CBC & Chem 7: 07/08/23 05:24 07/08/23 05:24 Labs: Abnormal Lab Results - Last 24 Hours (Table) 07/08/23 07/08/23 07/08/23 Range/Units 05:24 05:24 15:53 RBC 3.85 L (4.10-5.20) X 10*6/uL MCV 104.4 H (80.0-97.0) FL MCH 34.3 H (27.0-32.0) pg D-Dimer 0.85 H (<0.60) mg/L FEU Glucose 121 H (70-110) mg/dL Calcium 8.3 L (8.7-10.3) mg/dL AST 100 H (13-35) U/L ALT 62 H (8-44) U/L Alkaline Phosphatase 168 H (41-126) U/L Total Protein 6.1 L (6.2-8.2) g/dL Albumin 3.3 L (3.8-4.9) g/dL Albumin/Globulin Ratio 1.18 L (1.60-3.17) Ratio Urine Protein (Negative) 07/08/23 Range/Units 22:56 RBC (4.10-5.20) X 10*6/uL MCV (80.0-97.0) FL MCH (27.0-32.0) pg D-Dimer (<0.60) mg/L FEU Glucose (70-110) mg/dL Calcium (8.7-10.3) mg/dL AST (13-35) U/L ALT (8-44) U/L Alkaline Phosphatase (41-126) U/L Total Protein (6.2-8.2) g/dL Albumin (3.8-4.9) g/dL Albumin/Globulin Ratio (1.60-3.17) Ratio Urine Protein Trace H (Negative)
[2023-07-09] MEDS: METOPROLOL TARTRATE 25 MG TAB PO SCH (11:37)
[2023-07-09] MEDS: ONDANSETRON 4 MG/2 ML VIAL IVP PRN (16:11)
--- NOTE | 2023-07-09 16:36 | CT ---
EXAMINATION TYPE: CT chest angio for PE DATE OF EXAM: 07/09/2023 COMPARISON: Radiograph 07/08/2023 TECHNIQUE: Axial scanning of the chest performed with IV Contrast, patient injected with 100 mL of Is ovue 300. Coronal and sagittal MIP reconstructions performed. CT DLP: 612.5 mGycm Automated exposure control for dose reduction was used. FINDINGS: The heart is normal size without pericardial effusion. No flattening of the interventricular septum o r reflux of contrast into the hepatic veins. Aorta is normal caliber with conventional arch vessel branching anatomy. Borderline sized lower right paratracheal node and 9 mm. Right hilar node and 1.5 cm. Right bronchial node at 1.0 cm. These are likely reactive/post inflammatory. Satisfactory opacification the pulmonary canal system with some limitation due to breathing motion. N o definite pulmonary embolus. Scattered mild diffuse groundglass infiltrates throughout. Some reticular changes also present along with moderate diffuse bronchial wall thickening. No jory airspace disease or pleural effusion. Backg round moderate upper lung emphysema. Visualized upper abdomen shows generalized anasarca change in marked diminished attenuation of the he patic parenchyma. There is a lipid rich left adrenal adenoma measuring 2.0 cm. Similar finding on the right measuring 1 .8 cm. Bones: Scattered mild degenerative disc disease. IMPRESSION: 1. NO EVIDENCE FOR PULMONARY EMBOLUS. 2. DIFFUSE PATCHY GROUNDGLASS INFILTRATES THROUGHOUT WITH MODERATE DIFFUSE BRONCHIAL WALL THICKENING. CONSIDER POSSIBILITIES SUCH ATYPICAL/COVID PNEUMONIA, HYPERSENSITIVITY PNEUMONITIS, AND INTERSTIT IAL PNEUMONITIS (SUCH NSIP AND DAUB COLOR MIXER) SOME POSSIBLE DIFFERENTIALS. 3. BACKGROUND COPD WITH MODERATE UPPER LUNG EMPHYSEMA. 4. SUSPECT SOME REACTIVE/POST INFLAMMATORY RIGHT HILAR NODES MEASURING UP TO 1.5 CM. FOLLOW-UP IN 2-3 MONTHS TO ENSURE STABILITY/RESOLUTION. 5. MODERATE TO SEVERE HEPATIC STEATOSIS AND BILATERAL LIPID RICH ADRENAL ADENOMAS INCIDENTALLY NOTED.
[2023-07-10 03:14] VITALS: RESP 16
[2023-07-10 08:49] VITALS: BP 171/92; TEMP 98.3
[2023-07-10 12:20] VITALS: PULSE 89
--- NOTE | 2023-07-10 17:30 | P.DS ---
Providers Date of admission: 07/06/23 20:57 Expected date of discharge: 07/10/23 Attending physician: Dara Donis MD Consults: 07/06/23 20:53 Consult Physician Urgent Consulting Provider: Mesfin Quintero Consult Reason/Comments: Homicidal ideations Do you want consulting provider notified?: Already Contacted Primary care physician: [facility] Course: Discharge Diagnosis: Alcohol withdrawal in an active alcoholic with history of detox tremens and withdrawal seizures. Strongly recommended inpatient drug and alcohol rehabilitation facility, patient adamantly declines stating she is going home. Transaminitis, secondary to daily alcohol abuse. Low-grade temp and tachycardia, Believed to be secondary to alcohol withdrawal. Homicidal ideations, resolved. Patient was evaluated by psychiatry and psychiatry is clearing patient from their perspective. Hypomagnesemia, resolved. Magnesium 2.1. COPD with continued nicotine dependence, not in acute exacerbation. Strongly recommended smoking cessation. Cannabinoid use disorder. Strongly recommended cessation of use.. Hypertensive urgency, improved. Likely combination of alcohol withdraw and noncompliance with home medication losartan. Patient was prescribed 50 mg daily, however was only taking on an as needed basis. Patient educated on taking medication as prescribed 50 mg daily of losartan and metoprolol 25 mg twice daily. Hospital Course: Patient is a very pleasant 53-year-old female with a past medical history of hypertension, COPD not home oxygen dependent, anxiety and depression, alcohol abuse with previous alcohol withdrawal seizures, cannabinoid use, and nicotine dependence. She presented to the emergency department 07/06/2023 for alcohol withdrawal and experiencing negative thoughts of harming her granddaughter. She underwent full evaluation in the emergency department. Vital signs upon arrival show blood pressure 182/130, heart rate 102, respiratory rate 20, temp 98.4 F, and SpO2 of 95% on room air. EKG completed showing normal sinus rhythm at [address] head completed negative for acute intracranial process. Labs completed and reviewed. CBC showing macrocytosis with MCV of 101.6 otherwise normal findings. BMP revealing hypercarbia with bicarb of 31. Liver profile showing transaminitis with AST of 118, ALT of 89, and alkaline phosphatase of 191. Lipase normal findings at 178. Serum alcohol 55. Patient was admitted under our services for alcohol withdrawal and consultation was placed to psychiatry for evaluation due to reported homicidal ideations. Patient had 2 isolated episodes of low-grade temp it was believed to be secondary to alcohol withdrawal however other causes were ruled out for low-grade temp and tachycardia including TSH which was normal at 2.60. Influenza A, influenza B, RSV, and COVID PCR were negative. Chest x-ray which was negative for acute cardiopulmonary process. Urinalysis was negative for infection. And blood cultures showing no growth to date. Patient sitting up in chair this morning. Slightly agitated and states she is ready to go home. Patient now declining wanting to go to drug and alcohol rehabilitation facility. Discussed this with psychiatrist, and he again reported clearing patient from psychiatry standpoint. Patient is medically stable for discharge. She adamantly denies having any suicidal or homicidal ideations. She reports understanding of strong recommendations to avoid any and all alcohol use, cannabis use, and nicotine use. Patient educated on the importance of taking antihypertensive medications as prescribed and to follow-up outpatient with PCP in 1 to 2 days. Physical exam: Patient seen and fully evaluated at the bedside. Patient sitting up on the bedside this morning. She appears to be doing much better today. More awake and alert and showing less signs of withdrawal this morning. Patient currently adamantly denies having any homicidal or harmful thoughts towards her granddaughter. Patient reports she has 4 children and 8 grandchildren and has never laid a hand on any of them. Patient states that she had these awful thoughts in the past but that has only been when she was drinking and her mind was not right from withdrawal. Patient currently ANO x 4 and denies having any suicidal or homicidal ideations at this time. Patient was evaluated by psychiatry and psychiatry is clearing patient from their perspective. Vital signs reviewed and stable. General: Nontoxic, no distress and appears stated age. Derm: Skin warm and dry, normal coloration for ethnicity. Head: Atraumatic, normocephalic and symmetric. Eyes: EOMs intact, no lid lag, and anicteric sclera Mouth: no lip lesions, mucus membranes moist Cardiovascular: regular rate and rhythm with normal S1S2, no murmur, positive posterior tibial pulses bilaterally, and cap refill < 2 seconds. Lungs: Respirations even, regular, and unlabored on room air. Lungs CTA bilaterally, no rhonchi, no rales, no wheezing, and no accessory muscle usage. Abdominal: soft, nontender to palpation, no guarding, no appreciable organomegaly Ext: ROM intact. No gross muscle atrophy, no edema, no contractures Neuro: Speech clear, face symmetrical and CN II-XII grossly intact with no noted focal neuro deficits Psych: Alert and oriented to person, place, time, and situation. Appropriate and pleasant affect. A total of 35 minutes of time were spent preparing this complex discharge summary. Pt was discharged on 07/10/2023 at 11:51 AM. Patient was seen independently by Nurse Practitioner. This document was prepared using [employer] dictation software. Please allow for errors in instrumentation controls engineer while rare they do occur. José Antonio Cosme NP rendered care for this patient independently, reviewed the findings and plan as documented in the note above. I did not physically speak with or examine the patient on this date. Patient Condition at Discharge: Stable Plan - Discharge Summary Discharge Rx Participant: Yes New Discharge Prescriptions: New Nicotine 21Mg/24Hr Patch [Habitrol] 1 patch TRANSDERM DAILY 30 Days #30 patch Metoprolol Tartrate [Lopressor] 25 mg PO BID 30 Days #60 tab Continue Acetaminophen [Tylenol] 325 - 350 mg PO Q6H PRN PRN Reason: Fever And/ Or Pain Acamprosate Calcium [Campral] 666 mg PO DIRECTED ARIPiprazole [Abilify] 2 mg PO DIRECTED Montelukast Sodium 10 mg PO DIRECTED Ergocalciferol (Vitamin D2) [Drisdol (50,000 Iu)] 1,250 mcg PO DIRECTED Sertraline [Zoloft] 200 mg PO DIRECTED Pantoprazole [Protonix] 40 mg PO DIRECTED Changed Losartan [Cozaar] 50 mg PO DAILY 30 Days #30 tab Discharge Medication List ARIPiprazole [Abilify] 2 mg PO DIRECTED 07/07/23 [History] Acamprosate Calcium [Campral] 666 mg PO DIRECTED 07/07/23 [History] Acetaminophen [Tylenol] 325 - 350 mg PO Q6H PRN 07/07/23 [History] Ergocalciferol (Vitamin D2) [Drisdol (50,000 Iu)] 1,250 mcg PO DIRECTED 07/07/23 [History] Montelukast Sodium 10 mg PO DIRECTED 07/07/23 [History] Pantoprazole [Protonix] 40 mg PO DIRECTED 07/07/23 [History] Sertraline [Zoloft] 200 mg PO DIRECTED 07/07/23 [History] Losartan [Cozaar] 50 mg PO DAILY 30 Days #30 tab 07/10/23 [Rx] Metoprolol Tartrate [Lopressor] 25 mg PO BID 30 Days #60 tab 07/10/23 [Rx] Nicotine 21Mg/24Hr Patch [Habitrol] 1 patch TRANSDERM DAILY 30 Days #30 patch 07/10/23 [Rx] Follow up Appointment(s)/Referral(s): Lashay Coello MD [Primary Care Provider] - 1-2 days Patient Instructions/Handouts: Metoprolol (By mouth), Losartan (By mouth) Activity/Diet/Wound Care/Special Instructions: Activity: As tolerated. Take breaks as needed. Diet: Heart healthy and carb consistent diet. Avoid salts, or foods with hidden salts such as canned or boxed foods and frozen dinners. Extra salt makes your heart work harder and traps the fluid in your body for longer. Special Instructions: As we strongly discussed at bedside it is highly recommended you go to an inpatient drug and alcohol rehabilitation facility. At this time you are adamant on your discharge home and not to inpatient facility. Strongly advise you to stay away from any and all alcohol use and as discussed strongly recommend smoking cessation as the next step in your COPD will likely be home oxygen if you continue to smoke. Discharge/Stand Alone Forms: AA Meetings [facility] - [facility], AA Meetings [facility], Community Resources, Outpatient Counseling, Inp Substance Abuse Facilities Discharge Disposition: HOME SELF-CARE
== END 2023-07-10 12:45 | disposition home or self-care (01) | DRG 775 ==
LOC: EC 15:29 → 3SCARD 20:57 → 5NMEDONC 07-07 19:58
PROVIDERS: ADMIT Internal Medicine; ATTEND Internal Medicine
DX: F10.239 Alcohol dependence with withdrawal, unspecified (principal); I16.0 Hypertensive urgency; R45.850 Homicidal ideations; E83.42 Hypomagnesemia; F43.23 Adjustment disorder with mixed anxiety and depressed mood; J44.9 Chronic obstructive pulmonary disease, unspecified; F12.10 Cannabis abuse, uncomplicated; Z71.51 Drug abuse counseling and surveillance of drug abuser; T46.5X6A Underdosing of other antihypertensive drugs, initial encounter; Z91.128 Patient's intentional underdosing of medication regimen for other reason; Z71.6 Tobacco abuse counseling; F17.200 Nicotine dependence, unspecified, uncomplicated; F32.A Depression, unspecified; F41.9 Anxiety disorder, unspecified; I10 Essential (primary) hypertension; Y90.2 Blood alcohol level of 40-59 mg/100 ml; Z71.41 Alcohol abuse counseling and surveillance of alcoholic
CPT/HCPCS: 36415; 70450; 71045; 71275; 80053; 80306; 80320; 81003; 82150; 83690; 83735; 84443; 85027; 85379; 87040; 87636; 93005; 94640; 94760; 96361; 96365; 96366; 96372; 96375; 96376; 99285

== ENCOUNTER 2023-07-13 10:14 | Inpatient (IN) | payer OTHER ==
--- NOTE | 2023-07-13 11:01 | ED ---
SOB HPI - General Chief Complaint: Shortness of Breath Stated Complaint: SOB Time Seen by Provider: 07/13/23 10:25 Source: patient, family Mode of arrival: wheelchair Limitations: no limitations - History of Present Illness Initial Comments: 53-year-old female with past medical history of alcohol abuse, COPD not on home O2 who presents to the emergency department reporting shortness of breath. States that she has been short of breath which started 3 days ago and was worse today. She has a history of COPD. She took 3 breathing treatments at home continue to remain short of breath and therefore came into the hospital. Original oxygen saturations were found to be 80% with an increased respiratory rate. Patient has a low-grade fever. She denies any cardiac history. No history of congestive heart failure but does admit to lower extremity swelling. Recent hospitalization demonstrated that the patient was negative for viral panel. No other alleviating, precipitating modifying factors - Related Data Home Medications Medication Instructions Recorded Confirmed ARIPiprazole [Abilify] 2 mg PO DIRECTED 07/07/23 07/13/23 Acamprosate Calcium [Campral] 666 mg PO DIRECTED 07/07/23 07/13/23 Acetaminophen [Tylenol] 325 - 350 mg PO Q6H PRN 07/07/23 07/13/23 Ergocalciferol (Vitamin D2) 1,250 mcg PO DIRECTED 07/07/23 07/13/23 [Drisdol (50,000 Iu)] Montelukast Sodium 10 mg PO DIRECTED 07/07/23 07/13/23 Pantoprazole [Protonix] 40 mg PO DIRECTED 07/07/23 07/13/23 Sertraline [Zoloft] 200 mg PO DIRECTED 07/07/23 07/13/23 Previous Rx's Medication Instructions Recorded Losartan [Cozaar] 50 mg PO DAILY 30 Days #30 tab 07/10/23 Metoprolol Tartrate [Lopressor] 25 mg PO BID 30 Days #60 tab 07/10/23 Nicotine 21Mg/24Hr Patch [Habitrol] 1 patch TRANSDERM DAILY 30 Days 07/10/23 #30 patch Allergies Allergy/AdvReac Type Severity Reaction Status Date / Time No Known Allergies Allergy Verified 07/13/23 11:42 Review of Systems ROS Statement: Those systems with pertinent positive or pertinent negative responses have been documented in the HPI. ROS Other: All systems not noted in ROS Statement are negative. Past Medical History Past Medical History: COPD, Hypertension Additional Past Medical History / Comment(s): seizures. alcohol abuse. History of Any Multi-Drug Resistant Organisms: None Reported Past Surgical History: No Surgical Hx Reported Past Psychological History: Anxiety, Depression Smoking Status: Current every day smoker Past Alcohol Use History: Occasional General Exam Limitations: physical limitation General appearance: alert, in distress Head exam: Present: atraumatic, normocephalic, normal inspection Eye exam: Present: normal appearance, PERRL, EOMI. Absent: scleral icterus, conjunctival injection, periorbital swelling ENT exam: Present: normal exam, mucous membranes moist Neck exam: Present: normal inspection. Absent: tenderness, meningismus, lymphadenopathy Respiratory exam: Present: wheezes, accessory muscle use, decreased breath sounds Cardiovascular Exam: Present: normal rhythm, tachycardia GI/Abdominal exam: Present: soft, normal bowel sounds. Absent: distended, tenderness, guarding, rebound, rigid Neurological exam: Present: alert Psychiatric exam: Present: anxious Course Vital Signs 07/13/23 07/13/23 07/13/23 10:22 10:34 10:41 Temperature 100.2 F H Pulse Rate 113 H 110 H Respiratory 32 H 24 36 H Rate Blood Pressure 182/78 172/108 O2 Sat by Pulse 80 L 94 L Oximetry Fraction of Inspired Oxygen (FIO2) 07/13/23 07/13/23 07/13/23 10:55 11:00 11:02 Temperature Pulse Rate 108 H Respiratory 23 Rate Blood Pressure 172/105 O2 Sat by Pulse 98 Oximetry Fraction of 40 40 Inspired Oxygen (FIO2) 07/13/23 07/13/23 07/13/23 11:16 11:28 11:30 Temperature Pulse Rate 112 H 112 H 109 H Respiratory 28 H Rate Blood Pressure 151/101 O2 Sat by Pulse 98 Oximetry Fraction of Inspired Oxygen (FIO2) 07/13/23 07/13/23 07/13/23 12:00 12:13 12:30 Temperature Pulse Rate 101 H 104 H 101 H Respiratory 27 H 22 27 H Rate Blood Pressure 149/96 137/90 137/90 O2 Sat by Pulse 96 95 Oximetry Fraction of Inspired Oxygen (FIO2) 07/13/23 07/13/23 07/13/23 12:52 13:00 13:14 Temperature Pulse Rate 100 98 104 H Respiratory 19 Rate Blood Pressure 140/84 O2 Sat by Pulse 99 Oximetry Fraction of Inspired Oxygen (FIO2) 07/13/23 13:30 Temperature Pulse Rate 101 H Respiratory 34 H Rate Blood Pressure 141/94 O2 Sat by Pulse Oximetry Fraction of Inspired Oxygen (FIO2) Procedures - ABG Interpretation Ph: 7.37 PCO2: 54 PO2: 102 Bicarbonate: 31 Interpretation: normal Medical Decision Making - Medical Decision Making Was pt. sent in by a medical professional or institution (, PA, DOOR TO DOOR FUNDRAISING COLLECTOR, urgent care, hospital, or usp...) When possible be specific @ -No Did you speak to anyone other than the patient for history (EMS, parent, family, police, friend...)? What history was obtained from this source @ -No Did you review nursing and triage notes (agree or disagree)? Why? @ -I reviewed and agree with nursing and triage notes Were old charts reviewed (outside hosp., previous admission, EMS record, old EKG, old radiological studies, urgent care reports/EKG's, usp records)? Report findings @ -I reviewed patient's recent discharge summary from [facility] Differential Diagnosis (chest pain, altered mental status, abdominal pain women, abdominal pain men, vaginal bleeding, weakness, fever, dyspnea, syncope, headache, dizziness, GI bleed, back pain, seizure, CVA, palpatations, mental health, musculoskeletal)? @ -Differential Dyspnea: Coronary syndrome, arrhythmia, tamponade, asthma, COPD, pulmonary embolism, pneumonia, pneumothorax, pulmonary effusion, anaphylaxis, diabetic ketoacidosis, flailed chest, pulmonary contusion, diaphragmatic rupture, anemia, n euromuscular, this is not meant to be an all-inclusive list. EKG interpreted by me (3pts min.). @ -Yes and demonstrates sinus tachycardia with a rate of 114. [place] interval 129. QRS 68. QTc of 386. No acute ST segment elevation or depression X-rays interpreted by me (1pt min.). @ -Yes and demonstrates diffuse interstitial change CT interpreted by me (1pt min.). @ -None done U/S interpreted by me (1pt. min.). @ -None done What testing was considered but not performed or refused? (CT, X-rays, U/S, labs)? Why? @ -CT of the chest however patient just recently had imaging done What meds were considered but not given or refused? Why? @ -None Did you discuss the management of the patient with other professionals (professionals i.e. , PA, DOOR TO DOOR FUNDRAISING COLLECTOR, lab, RT, psych nurse, social welfare administrator, crochet machine operator, teacher, principal gifts officer, telephonic case manager)? Give summary @ -Spoke with Dr. Natarajan for admission Was smoking cessation discussed for >3mins.? @ -No Was critical care preformed (if so, how long)? @ -35 minutes for BiPAP management Were there social determinants of health that impacted care today? How? (Homelessness, low income, unemployed, alcoholism, drug addiction, transportation, low edu. Level, literacy, decrease access to med. care, [place] [facility], rehab)? @ -No Was there de-escalation of care discussed even if they declined (Discuss DNR or withdrawal of care, Hospice)? DNR status @ -No What co-morbidities impacted this encounter? (DM, HTN, Smoking, COPD, CAD, Cancer, CVA, ARF, Chemo, Hep., AIDS, mental health diagnosis, sleep apnea, morbid obesity)? @ -COPD Was patient admitted / discharged? Hospital course, mention meds given and route, prescriptions, significant lab abnormalities, going to OR and other pertinent info. @ -Upon arrival patient was placed into room 1. She arrives with an oxygen saturation of 80%. She is placed on 4 L of oxygen however has significant increased work of breathing. She is diffusely wheezy. Breathing treatment is ordered. Patient is placed on BiPAP. IV is established and laboratory studies are conducted. Chest x-ray was performed which demonstrates diffuse infiltrates. Patient is swabbed for influenza, COVID and RSV. She was given 125 mg Solu-Medrol and 1 g of magnesium. She is reevaluated and does have improved work of breathing. ABG was performed. Patient continues to be tachypneic and therefore BiPAP is left on. Patient will require admission. Spoke with Dr. Natarajan. Viral swab pending at this time. Antibiotics are considered however awaiting viral swab results. Patient was agreeable to admission and is awaiting a bed on the floor in stable condition Undiagnosed new problem with uncertain prognosis? @ -No Drug Therapy requiring intensive monitoring for toxicity (Heparin, Nitro, Insulin, Cardizem)? @ -No Were any procedures done? @ -No Diagnosis/symptom? @ -Acute BiPAP dependent respiratory failure, acute hypoxia, acute exacerbation of COPD, acute influenza Acute, or Chronic, or Acute on Chronic? @ -Acute Uncomplicated (without systemic symptoms) or Complicated (systemic symptoms)? @ -Complicated Side effects of treatment? @ -No Exacerbation, Progression, or Severe Exacerbation? @ -Yes Poses a threat to life or bodily function? How? (Chest pain, [place], NH, pneumonia, PE, COPD, DKA, ARF, appy, cholecystitis, CVA, Diverticulitis, Homicidal, Suicidal, threat to staff... and all critical care pts) @ -Yes as patient requires BiPAP - Lab Data Result diagrams: 07/13/23 10:48 07/13/23 10:48 Lab Results 07/13/23 07/13/23 07/13/23 Range/Units 10:48 10:48 10:48 WBC 5.6 (3.8-10.6) k/uL RBC 3.67 L (3.80-5.40) m/uL Hgb 12.8 (11.4-16.0) gm/dL Hct 38.1 (34.0-46.0) % MCV 103.8 H (80.0-100.0) fL MCH 34.7 (25.0-35.0) pg MCHC 33.5 (31.0-37.0) g/dL RDW 14.4 (11.5-15.5) % Plt Count 205 (150-450) k/uL MPV 8.3 Neutrophils % 80 % Lymphocytes % 12 % Monocytes % 6 % Eosinophils % 0 % Basophils % 1 % Neutrophils # 4.5 (1.3-7.7) k/uL Lymphocytes # 0.7 L (1.0-4.8) k/uL Monocytes # 0.3 (0-1.0) k/uL Eosinophils # 0.0 (0-0.7) k/uL Basophils # 0.1 (0-0.2) k/uL Macrocytosis Slight PT 9.8 L (10.0-12.5) sec INR 0.9 (<1.2) APTT 25.0 (22.0-30.0) sec Sodium 136 L (137-145) mmol/L Potassium 3.8 (3.5-5.1) mmol/L Chloride 101 (98-107) mmol/L Carbon Dioxide 24 (22-30) mmol/L Anion Gap 11 mmol/L BUN 5 L (7-17) mg/dL Creatinine 0.43 L (0.52-1.04) mg/dL Est GFR (CKD-EPI)AfAm >90 (>60 ml/min/1.73 sqM) Est GFR (CKD-EPI)NonAf >90 (>60 ml/min/1.73 sqM) Glucose 130 H (74-99) mg/dL Plasma Lactic Acid Chente (0.7-2.0) mmol/L Calcium 7.9 L (8.4-10.2) mg/dL Total Bilirubin 0.8 (0.2-1.3) mg/dL AST 91 H (14-36) U/L ALT 118 H (4-34) U/L Alkaline Phosphatase 155 H (38-126) U/L Troponin I (0.000-0.034) ng/mL NT-Pro-B Natriuret Pep 580 pg/mL Total Protein 6.6 (6.3-8.2) g/dL Albumin 3.4 L (3.5-5.0) g/dL Influenza Type A (PCR) (Not Detectd) Influenza Type B (PCR) (Not Detectd) RSV (PCR) (Not Detectd) SARS-CoV-2 (PCR) (Not Detectd) 07/13/23 07/13/23 07/13/23 Range/Units 10:48 10:48 12:14 WBC (3.8-10.6) k/uL RBC (3.80-5.40) m/uL Hgb (11.4-16.0) gm/dL Hct (34.0-46.0) % MCV (80.0-100.0) fL MCH (25.0-35.0) pg MCHC (31.0-37.0) g/dL RDW (11.5-15.5) % Plt Count (150-450) k/uL MPV Neutrophils % % Lymphocytes % % Monocytes % % Eosinophils % % Basophils % % Neutrophils # (1.3-7.7) k/uL Lymphocytes # (1.0-4.8) k/uL Monocytes # (0-1.0) k/uL Eosinophils # (0-0.7) k/uL Basophils # (0-0.2) k/uL Macrocytosis PT (10.0-12.5) sec INR (<1.2) APTT (22.0-30.0) sec Sodium (137-145) mmol/L Potassium (3.5-5.1) mmol/L Chloride (98-107) mmol/L Carbon Dioxide (22-30) mmol/L Anion Gap mmol/L BUN (7-17) mg/dL Creatinine (0.52-1.04) mg/dL Est GFR (CKD-EPI)AfAm (>60 ml/min/1.73 sqM) Est GFR (CKD-EPI)NonAf (>60 ml/min/1.73 sqM) Glucose (74-99) mg/dL Plasma Lactic Acid Chente 1.5 (0.7-2.0) mmol/L Calcium (8.4-10.2) mg/dL Total Bilirubin (0.2-1.3) mg/dL AST (14-36) U/L ALT (4-34) U/L Alkaline Phosphatase (38-126) U/L Troponin I 0.035 H* (0.000-0.034) ng/mL NT-Pro-B Natriuret Pep pg/mL Total Protein (6.3-8.2) g/dL Albumin (3.5-5.0) g/dL Influenza Type A (PCR) Detected A (Not Detectd) Influenza Type B (PCR) Not Detected (Not Detectd) RSV (PCR) Not Detected (Not Detectd) SARS-CoV-2 (PCR) Not Detected (Not Detectd) Disposition Clinical Impression: BiPAP (biphasic positive airway pressure) dependence, COPD (chronic obstructive pulmonary disease), CAP (community acquired pneumonia) Disposition: ADMITTED IP TO THIS [facility] Condition: Stable Is patient prescribed a controlled substance at d/c from ED?: No Time of Disposition: 12:19 Decision to Admit Reason: Admit from EC Decision Date: 07/13/23 Decision Time: 12:19
[2023-07-13 11:02] LABS: Basophils # (A) 0.1 k/uL (0-0.2); Basophils % (A) 1 %; Eosinophils % (A) 0 %; HCT 38.1 % (34.0-46.0); HGB 12.8 gm/dL (11.4-16.0); Lymphocytes # (A) 0.7 k/uL (1.0-4.8); Lymphocytes % (A) 12 %; MCH 34.7 pg (25.0-35.0); MCHC 33.5 g/dL (31.0-37.0); MCV 103.8 fL (80.0-100.0); Macrocytosis Slight; Mean Platelet Volume 8.3; Monocytes # (A) 0.3 k/uL (0-1.0); Monocytes % (A) 6 %; Neutrophils # (A) 4.5 k/uL (1.3-7.7); Neutrophils % (A) 80 %; Platelet Count 205 k/uL (150-450); RBC 3.67 m/uL (3.80-5.40); RDW 14.4 % (11.5-15.5); WBC 5.6 k/uL (3.8-10.6)
[2023-07-13] MEDS: LORazepam 2 MG/ML INJ IV STA (11:09)
[2023-07-13] MEDS: MAGNESIUM SULFATE-D5W PMX 1 GM in DEXTROSE/WATER 1 100ML.BAG IVPB ONE (11:10)
[2023-07-13] MEDS: methylPREDNISolone SOD SUCCI 125 MG/2 ML VIAL IV STA (11:11)
[2023-07-13 11:12] LABS: INR 0.9 (<1.2); Prothrombin Time 9.8 sec (10.0-12.5)
[2023-07-13] MEDS: ACETAMINOPHEN TAB 500 MG TAB PO STA (11:13)
[2023-07-13] MEDS: IPRATROPIUM-ALBUTEROL 3 ML NEB INHALATION STA ×2 (11:15→12:52)
[2023-07-13 11:17] LABS: ALT 118 U/L (4-34); AST 91 U/L (14-36); African American GFR (CKD) >90 (>60 ml/min/1.73 sqM); Albumin 3.4 g/dL (3.5-5.0); Alkaline Phosphatase 155 U/L (38-126); Anion Gap 11 mmol/L; Blood Urea Nitrogen 5 mg/dL (7-17); Calcium 7.9 mg/dL (8.4-10.2); Carbon Dioxide 24 mmol/L (22-30); Chloride 101 mmol/L (98-107); Glucose 130 mg/dL (74-99); Non-African American GFR(CKD) >90 (>60 ml/min/1.73 sqM); Potassium 3.8 mmol/L (3.5-5.1); Sodium 136 mmol/L (137-145); Total Bilirubin 0.8 mg/dL (0.2-1.3); Total Protein 6.6 g/dL (6.3-8.2)
[2023-07-13 11:25] LABS: NT-Pro-B-Type Natriuretic Pept 580 pg/mL
--- NOTE | 2023-07-13 11:57 | XR ---
EXAMINATION TYPE: XR chest 1V portable DATE OF EXAM: 07/13/2023 Comparison: 07/08/2023 Clinical History: 53 year-old female shortness of breath Findings: Heart upper limits of normal in size. Diffuse interstitial density. Additional hazy lower lung densit ies likely relating to overlying soft tissue. No consolidation or pleural effusion. Impression: Diffuse interstitial density has developed. Correlate for etiologies such as mild pulmonary vascular congestion, bronchitis, or atypical pneumonias.
[2023-07-13] MEDS ORDERED: NALOXONE 0.4 MG/ML 1 ML VIAL IV PRN (12:31)
[2023-07-13 13:42] LABS: ABG Base Excess 6.1 mmol/L; ABG HCO3 31 mmol/L (21-25); ABG PCO2 54 mmHg (35-45); ABG PH 7.37 (7.35-7.45); ABG PO2 102 mmHg (83-108); ABG TCO2 33 mmol/L (19-24); Allen Test Performed? Yes
[2023-07-13] MEDS ORDERED: IPRATROPIUM-ALBUTEROL 3 ML NEB INHALATION PRN (14:39)
[2023-07-13] MEDS ORDERED: LORazepam 2 MG/ML INJ IV PRN ×2 (14:41)
--- NOTE | 2023-07-13 14:53 | P.CNPUL ---
History of Present Illness Consult date: 07/13/23 Requesting physician: Caryn Lowe Reason for consult: dyspnea, COPD, hypoxemia Chief complaint: Shortness of breath History of present illness: This is a 53-year-old female patient with a known history of hypertension, schizophrenia, bipolar disorder, chronic and ongoing tobacco dependence, chronic alcohol abuse, obesity, chronic obstructive pulmonary disease. She presented here to the emergency room earlier today with complaints of increasing shortness of breath for the past 3 days. She took several breathing treatments at home without much improvement. Initial presentation on room air her O2 saturation was 80%. She was placed on BiPAP 12/6 and 40% FiO2. Chest x-ray reveals di ffuse interstitial densities. Mild pulmonary vascular congestion, bronchitis or atypical pneumonia is within the differential. White count 5.6. Hemoglobin 12.8. Platelets 205. INR 0.9. Sodium 136. Potassium 3.8. Bicarb 24. BUN 5. Creatinine 0.53. Glucose 130. AST 91. ALT 118. Troponin 0.035. proBNP 580. Viral screen is positive for influenza A. She is seen today in consultation in the emergency department. She is currently sitting up on the stretcher. Awake and alert. She is dyspneic with conversation. Dyspneic with minimal exertion. She is febrile with a temperature of 100.2. Slightly tachycardic. Arterial blood gases revealed a PaO2 of 102, pCO2 54 and a pH of 7.37. Continue BiPAP support for now. Review of Systems REVIEW OF SYSTEMS: CONSTITUTIONAL: Denies any recent significant weight loss or weight gain. EYES: Denies change in vision. EARS, NOSE, MOUTH, THROAT: Denies headaches, denies sore throat. CARDIOVASCULAR: Denies chest pain, palpitations or syncopal episodes. RESPIRATORY: Positive for shortness of breath, cough, congestion no hemoptysis. GASTROINTESTINAL: Denies change in appetite, denies abdominal pain GENITOURINARY: Denies hematuria, denies infections. MUSKULOSKELETAL: Denies pain, denies swelling. INTEGUMENTARY: Denies rash, denies eczema. NEUROLOGICAL: Denies recent memory loss, no recent seizure activity. PSYCHIATRIC: Denies anxiety, denies depression. HEMATOLOGIC/LYMPHATIC: Denies anemia, denies enlarged lymph nodes. Past Medical History Past Medical History: COPD, Hypertension Additional Past Medical History / Comment(s): seizures. alcohol abuse. History of Any Multi-Drug Resistant Organisms: None Reported Past Surgical History: No Surgical Hx Reported Past Psychological History: Anxiety, Depression Smoking Status: Current every day smoker Past Alcohol Use History: Occasional Medications and Allergies Home Medications Medication Instructions Recorded Confirmed Type ARIPiprazole [Abilify] 2 mg PO DIRECTED 07/07/23 07/13/23 History Acamprosate Calcium [Campral] 666 mg PO DIRECTED 07/07/23 07/13/23 History Acetaminophen [Tylenol] 325 - 350 mg PO Q6H PRN 07/07/23 07/13/23 History Ergocalciferol (Vitamin D2) 1,250 mcg PO DIRECTED 07/07/23 07/13/23 History [Drisdol (50,000 Iu)] Montelukast Sodium 10 mg PO DIRECTED 07/07/23 07/13/23 History Pantoprazole [Protonix] 40 mg PO DIRECTED 07/07/23 07/13/23 History Sertraline [Zoloft] 200 mg PO DIRECTED 07/07/23 07/13/23 History Losartan [Cozaar] 50 mg PO DAILY 30 Days #30 tab 07/10/23 07/13/23 Rx Metoprolol Tartrate [Lopressor] 25 mg PO BID 30 Days #60 tab 07/10/23 07/13/23 Rx Nicotine 21Mg/24Hr Patch [Habitrol] 1 patch TRANSDERM DAILY 30 Days 07/10/23 07/13/23 Rx #30 patch Allergies Allergy/AdvReac Type Severity Reaction Status Date / Time No Known Allergies Allergy Verified 07/13/23 11:42 Physical Exam Vitals: Vital Signs Temp Pulse Resp BP Pulse Ox FiO2 07/13/23 13:30 101 H 34 H 141/94 07/13/23 13:14 104 H 07/13/23 13:00 98 19 140/84 99 07/13/23 12:52 100 07/13/23 12:30 101 H 27 H 137/90 07/13/23 12:13 104 H 22 137/90 95 07/13/23 12:00 101 H 27 H 149/96 96 07/13/23 11:30 109 H 28 H 151/101 98 07/13/23 11:28 112 H 07/13/23 11:16 112 H 07/13/23 11:02 40 07/13/23 11:00 108 H 23 172/105 98 07/13/23 10:55 40 07/13/23 10:41 36 H 07/13/23 10:34 110 H 24 172/108 94 L 07/13/23 10:22 100.2 F H 113 H 32 H 182/78 80 L Intake and Output 07/12/23 07/13/23 07/13/23 22:59 06:59 14:59 Other: Weight 99.79 kg GENERAL EXAM: Alert, obese 53-year-old female on BiPAP 12/6 and 40% FiO2, fairly comfortable in mild respiratory distress. HEAD: Normocephalic. EYES: Normal reaction of pupils, equal size. NOSE: Clear with pink turbinates. THROAT: No erythema or exudates. NECK: No masses, no JVD. CHEST: No chest wall deformity. LUNGS: Equal air entry with coarse rhonchi bilaterally. CVS: S1 and S2 normal with no audible murmur, regular rhythm. ABDOMEN: No hepatosplenomegaly, normal bowel sounds, no guarding or rigidity. SPINE: No scoliosis or deformity SKIN: No rashes CENTRAL NERVOUS SYSTEM: No focal deficits, tone is normal in all 4 extremities. EXTREMITIES: There is no peripheral edema. No clubbing, no cyanosis. Peripheral pulses are intact. Results - Laboratory Findings CBC and BMP: 07/13/23 10:48 07/13/23 10:48 ABG ABG pH 7.37 (7.35-7.45) 07/13/23 13:39 ABG pCO2 54 mmHg (35-45) H 07/13/23 13:39 ABG pO2 102 mmHg (83-108) 07/13/23 13:39 ABG O2 Saturation 97.0 % (94-97) 07/13/23 13:39 PT/INR, D-dimer PT 9.8 sec (10.0-12.5) L 07/13/23 10:48 INR 0.9 (<1.2) 07/13/23 10:48 Abnormal lab findings: Abnormal Labs 07/13/23 07/13/23 07/13/23 10:48 10:48 10:48 RBC 3.67 L MCV 103.8 H Lymphocytes # 0.7 L PT 9.8 L ABG pCO2 ABG HCO3 ABG Total CO2 Sodium 136 L BUN 5 L Creatinine 0.43 L Glucose 130 H Calcium 7.9 L AST 91 H ALT 118 H Alkaline Phosphatase 155 H Troponin I Albumin 3.4 L Influenza Type A (PCR) 07/13/23 07/13/23 07/13/23 10:48 12:14 13:39 RBC MCV Lymphocytes # PT ABG pCO2 54 H ABG HCO3 31 H ABG Total CO2 33 H Sodium BUN Creatinine Glucose Calcium AST ALT Alkaline Phosphatase Troponin I 0.035 H* Albumin Influenza Type A (PCR) Detected A - Diagnostic Findings Chest x-ray: image reviewed Assessment and Plan Assessment: Acute hypoxemic respiratory failure secondary to an acute exacerbation of chronic obstructive pulmonary disease complicated by influenza A infection Influenza A Chronic and ongoing tobacco dependence History of significant alcohol use Transaminitis secondary to above Troponin leak, suspect oxygen supply and demand mismatch History of schizophrenia new History of bipolar disorder Hypertension Gastroesophageal reflux disease Obesity with a BMI of 35.5 kg/m Plan: The patient was seen and evaluated Chest x-ray, ABGs, labs and medications reviewed Continue BiPAP support / and 40% FiO2 Titrate the FiO2 as tolerated Initiate DuoNeb inhalations 4 times daily and as needed Add Symbicort, Singulair Add Solu-Medrol 60 mg every 6 hours Add Tamiflu Continue ceftriaxone and azithromycin Check a procalcitonin Educated regarding the importance of complete smoking cessation NicoDerm patch will be offered We will continue to follow and make further recommendations based on her clinical status I have personally seen and examined the patient, performed the documentation and the assessment and plan as written. Number of minutes spent on the visit: 20.
[2023-07-13] MEDS ORDERED: ACETAMINOPHEN TAB 325 MG TAB PO PRN (14:54)
--- NOTE | 2023-07-13 15:00 | P.HPIM ---
History of Present Illness H&P Date: 07/13/23 53-year-old female with a past medical history of hypertension, COPD not home oxygen dependent, anxiety and depression, alcohol abuse with previous alcohol withdrawal seizures, cannabinoid use, and nicotine dependence. Patient presents to the ED for shortness of breath. Patient was recently hospitalized from 07/05- 07/09 for alcohol withdrawal. Breathing has progressively getting worse over the past 3 days. Attempted nebulized treatments without relief. In the ED, she underwent extensive evaluation. BP 182/78, RR 32, HR 113, T1 100.2 F, 80% on RA. She was placed on BiPAP in the ED. CBC, coag panel and CMP was done significant for RBC 3.67, MCV 103.8, PT 9.8, sodium 136, BUN 5, creatinine 0.43, glucose 130, calcium 7.9, AST 91, ALT 118, alkaline phosphatase 155, albumin 3.3. BNP 580. Troponin 0.035. Lactic acid 1.5. ABG showed pH 7.37 with pCO2 of 54. Influenza A positive. EKG showed sinus tachycardia with PVCs. Chest x- ray showed diffuse interstitial density concerning for pneumonia. Patient is admitted for acute on chronic hypoxic respiratory failure secondary to pneumonia and COPD exacerbation with pulmonary on consult. General: non toxic, mild distress, appears at stated age on BiPAP Derm: warm, dry Head: atraumatic, normocephalic, symmetric Eyes: EOMI, no lid lag, anicteric sclera Mouth: no lip lesion, mucus membranes moist Cardiovascular: S1S2 tachy, no murmur Lungs: Diffuse expiratory wheezing bilateral, no rhonchi, no rales , + accessory muscle use Abdominal: soft, nontender to palpation, no guarding, no appreciable organomegaly Ext: no gross muscle atrophy, no edema, no contractures Neuro: CN II-XI grossly intact, no focal neuro deficits Psych: Alert, oriented, appropriate affect Based on my assessment of this patient, this patient meets a high complexity level of care. Patient has an acute diagnosis of acute hypoxic respiratory failure secondary to COPD exacerbation due to influenza A and possible bacterial pneumonia which poses a threat to life or bodily function. Acute hypoxic respiratory failure: Likely due to below. Sepsis: Likely due to below. Blood culture. Sputum culture. Legionella antigen. Normal sinus 75 mL per hour. Telemetry monitoring. Pro-calcitonin. Empirically start Rocephin 2 g IV and azithromycin 500 mg by mouth daily. Influenza A pneumonia: Tamiflu 75 mg by mouth twice a day. Acute on chronic COPD exacerbation: Solu-Medrol 40 mg IV every 8 hours. DuoNeb every 4 hours scheduled and as needed for shortness of breath and wheezing. Pulmonary consult. Troponin elevation: Likely demand ischemia from sepsis. Trend troponin/EKG to rule out acute coronary syndrome. Obtain echocardiogram. Transaminitis: Likely due to alcohol abuse. History of alcohol abuse: CIWA protocol with Ativan as needed. CODE STATUS: FULL CODE DVT Prophylaxis: Lovenox SQ GI Prophylaxis: Protonix Designated medical POA if patient is not able to make medical decisions for themselves: I have reviewed the following compensation consultant notes: ED note. I have reviewed the results of the following tests: As above. I have ordered the following tests: As above. I have discussed the care of this patient with the following independent histori an: I have independently interpreted the following test below: EKG I have discussed the management of this patient with the following physician: Past Medical History Past Medical History: COPD, Hypertension Additional Past Medical History / Comment(s): seizures. alcohol abuse. History of Any Multi-Drug Resistant Organisms: None Reported Past Surgical History: No Surgical Hx Reported Past Psychological History: Anxiety, Depression Smoking Status: Current every day smoker Past Alcohol Use History: Occasional Medications and Allergies Home Medications Medication Instructions Recorded Confirmed Type ARIPiprazole [Abilify] 2 mg PO DIRECTED 07/07/23 07/13/23 History Acamprosate Calcium [Campral] 666 mg PO DIRECTED 07/07/23 07/13/23 History Acetaminophen [Tylenol] 325 - 350 mg PO Q6H PRN 07/07/23 07/13/23 History Ergocalciferol (Vitamin D2) 1,250 mcg PO DIRECTED 07/07/23 07/13/23 History [Drisdol (50,000 Iu)] Montelukast Sodium 10 mg PO DIRECTED 07/07/23 07/13/23 History Pantoprazole [Protonix] 40 mg PO DIRECTED 07/07/23 07/13/23 History Sertraline [Zoloft] 200 mg PO DIRECTED 07/07/23 07/13/23 History Losartan [Cozaar] 50 mg PO DAILY 30 Days #30 tab 07/10/23 07/13/23 Rx Metoprolol Tartrate [Lopressor] 25 mg PO BID 30 Days #60 tab 07/10/23 07/13/23 Rx Nicotine 21Mg/24Hr Patch [Habitrol] 1 patch TRANSDERM DAILY 30 Days 07/10/23 07/13/23 Rx #30 patch Allergies Allergy/AdvReac Type Severity Reaction Status Date / Time No Known Allergies Allergy Verified 07/13/23 11:42 Physical Exam Vitals: Vital Signs Temp Pulse Resp BP Pulse Ox FiO2 07/13/23 13:30 101 H 34 H 141/94 07/13/23 13:14 104 H 07/13/23 13:00 98 19 140/84 99 07/13/23 12:52 100 07/13/23 12:30 101 H 27 H 137/90 07/13/23 12:13 104 H 22 137/90 95 07/13/23 12:00 101 H 27 H 149/96 96 07/13/23 11:30 109 H 28 H 151/101 98 07/13/23 11:28 112 H 07/13/23 11:16 112 H 07/13/23 11:02 40 07/13/23 11:00 108 H 23 172/105 98 07/13/23 10:55 40 07/13/23 10:41 36 H 07/13/23 10:34 110 H 24 172/108 94 L 07/13/23 10:22 100.2 F H 113 H 32 H 182/78 80 L Intake and Output 07/12/23 07/13/23 07/13/23 22:59 06:59 14:59 Other: Weight 99.79 kg Results CBC & Chem 7: 07/13/23 10:48 07/13/23 10:48 Labs: Abnormal Lab Results - Last 24 Hours (Table) 07/13/23 07/13/23 07/13/23 Range/Units 10:48 10:48 10:48 RBC 3.67 L (3.80-5.40) m/uL MCV 103.8 H (80.0-100.0) fL Lymphocytes # 0.7 L (1.0-4.8) k/uL PT 9.8 L (10.0-12.5) sec ABG pCO2 (35-45) mmHg ABG HCO3 (21-25) mmol/L ABG Total CO2 (19-24) mmol/L Sodium 136 L (137-145) mmol/L BUN 5 L (7-17) mg/dL Creatinine 0.43 L (0.52-1.04) mg/dL Glucose 130 H (74-99) mg/dL Calcium 7.9 L (8.4-10.2) mg/dL AST 91 H (14-36) U/L ALT 118 H (4-34) U/L Alkaline Phosphatase 155 H (38-126) U/L Troponin I (0.000-0.034) ng/mL Albumin 3.4 L (3.5-5.0) g/dL Influenza Type A (PCR) (Not Detectd) 07/13/23 07/13/23 07/13/23 Range/Units 10:48 12:14 13:39 RBC (3.80-5.40) m/uL MCV (80.0-100.0) fL Lymphocytes # (1.0-4.8) k/uL PT (10.0-12.5) sec ABG pCO2 54 H (35-45) mmHg ABG HCO3 31 H (21-25) mmol/L ABG Total CO2 33 H (19-24) mmol/L Sodium (137-145) mmol/L BUN (7-17) mg/dL Creatinine (0.52-1.04) mg/dL Glucose (74-99) mg/dL Calcium (8.4-10.2) mg/dL AST (14-36) U/L ALT (4-34) U/L Alkaline Phosphatase (38-126) U/L Troponin I 0.035 H* (0.000-0.034) ng/mL Albumin (3.5-5.0) g/dL Influenza Type A (PCR) Detected A (Not Detectd)
[2023-07-13] MEDS: IPRATROPIUM-ALBUTEROL 3 ML NEB INHALATION SCH (15:14)
[2023-07-13] MEDS: AZITHROMYCIN 500 MG TAB PO SCH (15:41)
[2023-07-13] MEDS: OSELTAMIVIR 75 MG CAP PO SCH (15:41)
[2023-07-13] MEDS: SODIUM CHLORIDE 0.9% 1,000 ML IV SCH (15:44)
[2023-07-13] MEDS ORDERED: IPRATROPIUM-ALBUTEROL 3 ML NEB INHALATION SCH (16:00)
[2023-07-13] MEDS ORDERED: methylPREDNISolone SOD SUCCI 40 MG/ML 1 ML VIAL IV SCH (17:00)
[2023-07-13] MEDS: methylPREDNISolone SOD SUCCI 125 MG/2 ML VIAL IV SCH (17:30)
[2023-07-13] MEDS: LORazepam 2 MG/ML INJ IV PRN (18:45)
[2023-07-13] MEDS: MONTELUKAST 10 MG TAB PO SCH (21:24)
[2023-07-13] MEDS: METOPROLOL TARTRATE 25 MG TAB PO SCH (21:24)
[2023-07-14] MEDS: PANTOPRAZOLE 40 MG TABLET PO SCH (06:47)
[2023-07-14] MEDS: SERTRALINE 100 MG TAB PO SCH (08:02)
[2023-07-14] MEDS: THIAMINE 100 MG TAB PO SCH (08:02)
[2023-07-14] MEDS: NICOTINE 21MG/24HR PATCH TRANSDERM SCH (08:02)
[2023-07-14] MEDS: LOSARTAN 50 MG TAB PO SCH (08:02)
[2023-07-14] MEDS: ENOXAPARIN 40 MG/0.4 ML SYRINGE SQ SCH (08:02)
--- NOTE | 2023-07-14 10:52 | P.PN ---
Subjective Progress Note Date: 07/14/23 Principal diagnosis: Shortness of breath. This is a 53-year-old female patient with a known history of hypertension, schizophrenia, bipolar disorder, chronic and ongoing tobacco dependence, chronic alcohol abuse, obesity, chronic obstructive pulmonary disease. She presented here to the emergency room earlier today with complaints of increasing shortness of breath for the past 3 days. She took several breathing treatments at home without much improvement. Initial presentation on room air her O2 saturation was 80%. She was placed on BiPAP 12/6 and 40% FiO2. Chest x-ray reveals diffuse interstitial densities. Mild pulmonary vascular congestion, bronchitis or atypical pneumonia is within the differential. White count 5.6. Hemoglobin 12.8. Platelets 205. INR 0.9. Sodium 136. Potassium 3.8. Bicarb 24. BUN 5. Creatinine 0.53. Glucose 130. AST 91. ALT 118. Troponin 0.035. proBNP 580. Viral screen is positive for influenza A. She is seen today in consultation in the emergency department. She is currently sitting up on the stretcher. Awake and alert. She is dyspneic with conversation. Dyspneic with minimal exertion. She is febrile with a temperature of 100.2. Slightly tachycardic. Arterial blood gases revealed a PaO2 of 102, pCO2 54 and a pH of 7.37. Continue BiPAP support for now. Progress note dated July 14, 2023. 53-year-old female seen yesterday in the emergency department, and seen today, in room 369. The patient has a history of hypertension, schizophrenia, bipolar disorder, ongoing tobacco dependence, chronic alcohol abuse, obesity, and COPD. The patient did test positive for influenza. She was started on Tamiflu. Yest erday, she was on BiPAP, today she is on 4 L. BiPAP settings of 12/6, and 40%. She is receiving saline at 75 cc an hour. She looks a bit more comfortable today than she did yesterday, in the emergency department. There is no new laboratory data to speak up. Urine Legionella antigen was negative. Objective - Vital Signs Vital signs: Vital Signs Temp 98.8 F 07/14/23 08:00 Pulse 100 07/14/23 08:30 Resp 22 07/14/23 08:00 BP 140/81 07/14/23 08:00 Pulse Ox 93 L 07/14/23 08:12 FiO2 40 07/13/23 11:02 Intake & Output 07/13/23 07/14/23 07/14/23 18:59 06:59 18:59 Intake Total 393 462 Output Total 200 Balance 193 462 Weight 99.79 kg Intake: Intake, IV Titration 275 Amount Sodium Chloride 0.9% 1, 225 000 ml @ 75 mls/hr IV . [id number] COLE Rx#:[id number] cefTRIAXone 2 gm In 50 Sodium Chloride 0.9% 50 ml @ 100 mls/hr IVPB Q24HR COLE Rx#:[id number] Oral 118 462 Output: Urine 200 Other: Voiding Method Bedside Commode Bedside Commode # Voids 3 1 # Bowel Movements 1 - Exam No acute distress, oriented 3. Currently on 4 L of oxygen. Saturations are 93%. No conversational dyspnea or use of accessory muscles. HEENT examination is grossly unremarkable. Mucous membranes are moist. No oral lesions. Neck supple. Full range of motion. No adenopathy thyromegaly or neck vein distention. Cardiovascular examination reveals regular rhythm rate. S1-S2 normal. No S3 or S4. No discernible murmur noted. Heart sounds are distant. Heart rate 100 bpm. Lungs reveal scattered inspiratory and expiratory rhonchi. Mild expiratory wheezes. No crackles. Breath sounds equal bilaterally. Abdomen soft bowel sounds are heard. No masses or tenderness. Extremities are intact. No cyanosis clubbing or edema. Skin is without rash or lesion. Neurologic examination is brief but nonfocal. - Labs CBC & Chem 7: 07/13/23 10:48 07/13/23 10:48 Labs: Abnormal Lab Results - Last 24 Hours (Table) 07/13/23 07/13/23 07/13/23 Range/Units 10:48 10:48 10:48 RBC 3.67 L (3.80-5.40) m/uL MCV 103.8 H (80.0-100.0) fL Lymphocytes # 0.7 L (1.0-4.8) k/uL PT 9.8 L (10.0-12.5) sec ABG pCO2 (35-45) mmHg ABG HCO3 (21-25) mmol/L ABG Total CO2 (19-24) mmol/L Sodium 136 L (137-145) mmol/L BUN 5 L (7-17) mg/dL Creatinine 0.43 L (0.52-1.04) mg/dL Glucose 130 H (74-99) mg/dL Calcium 7.9 L (8.4-10.2) mg/dL AST 91 H (14-36) U/L ALT 118 H (4-34) U/L Alkaline Phosphatase 155 H (38-126) U/L Troponin I (0.000-0.034) ng/mL Albumin 3.4 L (3.5-5.0) g/dL Influenza Type A (PCR) (Not Detectd) 07/13/23 07/13/23 07/13/23 Range/Units 10:48 12:14 13:39 RBC (3.80-5.40) m/uL MCV (80.0-100.0) fL Lymphocytes # (1.0-4.8) k/uL PT (10.0-12.5) sec ABG pCO2 54 H (35-45) mmHg ABG HCO3 31 H (21-25) mmol/L ABG Total CO2 33 H (19-24) mmol/L Sodium (137-145) mmol/L BUN (7-17) mg/dL Creatinine (0.52-1.04) mg/dL Glucose (74-99) mg/dL Calcium (8.4-10.2) mg/dL AST (14-36) U/L ALT (4-34) U/L Alkaline Phosphatase (38-126) U/L Troponin I 0.035 H* (0.000-0.034) ng/mL Albumin (3.5-5.0) g/dL Influenza Type A (PCR) Detected A (Not Detectd) 07/13/23 Range/Units 15:34 RBC (3.80-5.40) m/uL MCV (80.0-100.0) fL Lymphocytes # (1.0-4.8) k/uL PT (10.0-12.5) sec ABG pCO2 (35-45) mmHg ABG HCO3 (21-25) mmol/L ABG Total CO2 (19-24) mmol/L Sodium (137-145) mmol/L BUN (7-17) mg/dL Creatinine (0.52-1.04) mg/dL Glucose (74-99) mg/dL Calcium (8.4-10.2) mg/dL AST (14-36) U/L ALT (4-34) U/L Alkaline Phosphatase (38-126) U/L Troponin I 0.050 H* (0.000-0.034) ng/mL Albumin (3.5-5.0) g/dL Influenza Type A (PCR) (Not Detectd) Assessment and Plan Assessment: Acute hypoxemic respiratory failure secondary to an acute exacerbation of chronic obstructive pulmonary disease complicated by influenza A infection. Influenza A. Chronic and ongoing tobacco dependence. History of significant alcohol use. Transaminitis secondary to above. Troponin leak, suspect oxygen supply and demand mismatch History of schizophrenia. History of bipolar disorder. Hypertension. Gastroesophageal reflux disease. Obesity with a BMI of 35.5 kg/m. Plan: Plan dated July 14, 2023. The patient is currently on Zithromax and Rocephin. The patient is also receiving updrafts, with albuterol sulfate, and ipratropium bromide, and, getting Solu-Medrol 60 mg every 6 hours. The patient is also on a nicotine patch, and receiving Tamiflu, 75 mg twice a day for 5 days. Labs, x-rays, and medications are reviewed. Procalcitonin level is 0.07. We will discontinue the antibiotics. We add Symbicort to her regimen. Prognosis is guarded. The patient is counseled about the importance of smoking cessation. Time with Patient: Less than 30
--- NOTE | 2023-07-14 11:06 | CA ---
Transthoracic Echo Report Name: Dayana Humphrey Age: 53 Gender: F : 1970 Exam Date: 07/13/2023 14:47 Exam Location: [place] [facility] Ht (in): 66 Wt (lb): 220 Ordering Physician: Lester Wells MD Attending/Referring Phys: Solar Energy Consultant And Designer Alison Pal RCS Procedure CPT: Indications: trop Cardiac Hx: Technical Quality: Technically difficult study Contrast 1: Definity Total Dose (mL): 6 Contrast 2: Total Dose (mL): MEASUREMENTS (Male / Female) Normal Values 2D ECHO LA Volume 42.8 cm??? 18 - 58 / 22 - 52 cm??? LA Volume Index 19.5 cm???/m??? 16 - 28 cm???/m??? DOPPLER AV Peak Velocity 169.9 cm/s AV Peak Gradient 11.6 mmHg AV Mean Velocity 114.5 cm/s AV Mean Gradient 5.9 mmHg AV Velocity Time Integral 24.8 cm LVOT Peak Velocity 136.5 cm/s LVOT Peak Gradient 7.5 mmHg LVOT Velocity Time Integral 21.7 cm MV Area PHT 5.3 cm??? Mitral E Point Velocity 87.7 cm/s Mitral A Point Velocity 71.3 cm/s Mitral E to A Ratio 1.2 MV Deceleration Time 143.8 ms FINDINGS Left Ventricle Left ventricular ejection fraction is estimated at 55-60 %. Left ventricular cavity size normal. No obvious regional wall motion abnormalities. Right Ventricle Right ventricle not well visualized. Unable to estimate right ventricular systolic pressure. Right Atrium Normal right atrial size. Left Atrium Normal left atrial size. Mitral Valve Structurally normal mitral valve. No mitral stenosis, regurgitation or prolapse. Aortic Valve Trileaflet aortic valve. No aortic valve stenosis or regurgitation. Tricuspid Valve Structurally normal tricuspid valve. No tricuspid stenosis, regurgitation or prolapse. Pulmonic Valve Pulmonic valve not well visualized. No pulmonic stenosis. No pulmonic regurgitation. Pericardium No pericardial effusion. Aorta Aortic root and proximal ascending aorta not well visualized. CONCLUSIONS Technically difficult study for interpretation Normal LV systolic function The visualized intracardiac valves Previewed by: Dr. Kiran Hernandez MD (Electronically Signed) Final Date: 14 July 2023 11:05
--- NOTE | 2023-07-14 11:28 | P.PN ---
Subjective Progress Note Date: 07/14/23 53-year-old female with a past medical history of hypertension, COPD not home oxygen dependent, anxiety and depression, alcohol abuse with previous alcohol withdrawal seizures, cannabinoid use, and nicotine dependence. Patient presents to the ED for shortness of breath. Patient was recently hospitalized from 07/05- 07/09 for alcohol withdrawal. Breathing has progressively getting worse over the past 3 days. Attempted nebulized treatments without relief. In the ED, she underwent extensive evaluation. BP 182/78, RR 32, HR 113, T1 100.2 F, 80% on RA. She was placed on BiPAP in the ED. CBC, coag panel and CMP was done significant for RBC 3.67, MCV 103.8, PT 9.8, sodium 136, BUN 5, creatinine 0.43, glucose 130, calcium 7.9, AST 91, ALT 118, alkaline phosphatase 155, albumin 3.3. BNP 580. Troponin 0.035. Lactic acid 1.5. ABG showed pH 7.37 with pCO2 of 54. Influenza A positive. EKG showed sinus tachycardia with PVCs. Chest x- ray showed diffuse interstitial density concerning for pneumonia. Patient is admitted for acute on chronic hypoxic respiratory failure secondary to pneumonia and COPD exacerbation with pulmonary on consult. 07/13 Patient was seen and examined. No 4L NC. Improved breathing. Echo shows EF 55-60%. CBC and CMP pending. Procalcitonin negative. Troponin 0.05, 0.035. General: non toxic, no distress, appears at stated age on BiPAP Derm: warm, dry Head: atraumatic, normocephalic, symmetric Eyes: EOMI, no lid lag, anicteric sclera Mouth: no lip lesion, mucus membranes moist Cardiovascular: S1S2 tachy, no murmur Lungs: Diffuse expiratory wheezing bilateral, no rhonchi, no rales , no accessory muscle use Abdominal: soft, nontender to palpation, no guarding, no appreciable organomegaly Ext: no gross muscle atrophy, no edema, no contractures Neuro: CN II-XI grossly intact, no focal neuro deficits Psych: Alert, oriented, appropriate affect Based on my assessment of this patient, this patient meets a high complexity level of care. Patient has an acute diagnosis of acute hypoxic respiratory failure secondary to COPD exacerbation due to influenza A and possible bacterial pneumonia which poses a threat to life or bodily function. Acute hypoxic respiratory failure: Likely due to below. Sepsis: Likely due to below. Blood culture. Sputum culture. Legionella antigen. Normal sinus 75 mL per hour. Telemetry monitoring. Pro-calcitonin is negative, stop Rocephin/Azithromycin. Influenza A pneumonia: Tamiflu 75 mg by mouth twice a day. Acute on chronic COPD exacerbation: Solu-Medrol 40 mg IV every 8 hours. DuoNeb every 4 hours scheduled and as needed for shortness of breath and wheezing. Pulmonary consult. Troponin elevation: Likely demand ischemia from sepsis. Transaminitis: Likely due to alcohol abuse. History of alcohol abuse: CINC protocol with Ativan as needed. CODE STATUS: FULL CODE DVT Prophylaxis: Lovenox SQ GI Prophylaxis: Protonix Designated medical POA if patient is not able to make medical decisions for themselves: I have reviewed the following home sales consultant notes: Pulmonary note. I have reviewed the results of the following tests: Troponin x 2, Pro-marlin, Echo. I have ordered the following tests: CBC and CMP pending. I have discussed the care of this patient with the following independent historian: I have independently interpreted the following test below: I have discussed the management of this patient with the following physician: Objective - Vital Signs Vital signs: Vital Signs Temp 98.8 F 07/14/23 08:00 Pulse 83 07/14/23 11:09 Resp 20 07/14/23 11:09 BP 115/70 07/14/23 11:09 Pulse Ox 94 L 07/14/23 11:09 FiO2 40 07/13/23 11:02 Intake & Output 07/13/23 07/14/23 07/14/23 18:59 06:59 18:59 Intake Total 393 462 Output Total 200 Balance 193 462 Weight 99.79 kg Intake: Intake, IV Titration 275 Amount Sodium Chloride 0.9% 1, 225 000 ml @ 75 mls/hr IV . [id number] COLE Rx#:[id number] cefTRIAXone 2 gm In 50 Sodium Chloride 0.9% 50 ml @ 100 mls/hr IVPB Q24HR COLE Rx#:[id number] Oral 118 462 Output: Urine 200 Other: Voiding Method Bedside Commode Bedside Commode # Voids 3 1 # Bowel Movements 1 - Labs CBC & Chem 7: 07/13/23 10:48 07/13/23 10:48 Labs: Abnormal Lab Results - Last 24 Hours (Table) 07/13/23 07/13/23 07/13/23 Range/Units 10:48 12:14 13:39 ABG pCO2 54 H (35-45) mmHg ABG HCO3 31 H (21-25) mmol/L ABG Total CO2 33 H (19-24) mmol/L Troponin I 0.035 H* (0.000-0.034) ng/mL Influenza Type A (PCR) Detected A (Not Detectd) 07/13/23 Range/Units 15:34 ABG pCO2 (35-45) mmHg ABG HCO3 (21-25) mmol/L ABG Total CO2 (19-24) mmol/L Troponin I 0.050 H* (0.000-0.034) ng/mL Influenza Type A (PCR) (Not Detectd)
[2023-07-14 11:55] VITALS: BMI 35.5
[2023-07-14 13:01] LABS: ALT 110 U/L (4-34); AST 102 U/L (14-36); African American GFR (CKD) >90 (>60 ml/min/1.73 sqM); Albumin 3.3 g/dL (3.5-5.0); Alkaline Phosphatase 154 U/L (38-126); Anion Gap 7 mmol/L; Blood Urea Nitrogen 14 mg/dL (7-17); Calcium 8.3 mg/dL (8.4-10.2); Carbon Dioxide 29 mmol/L (22-30); Chloride 102 mmol/L (98-107); Glucose 142 mg/dL (74-99); Non-African American GFR(CKD) >90 (>60 ml/min/1.73 sqM); Potassium 4.7 mmol/L (3.5-5.1); Sodium 138 mmol/L (137-145); Total Bilirubin 0.6 mg/dL (0.2-1.3); Total Protein 6.4 g/dL (6.3-8.2)
[2023-07-14 13:17] LABS: Basophils % (A) 0 %; Eosinophils % (A) 0 %; HCT 42.5 % (34.0-46.0); Hypochromasia Slight; Lymphocytes # (A) 0.7 k/uL (1.0-4.8); Lymphocytes % (A) 11 %; MCH 33.1 pg (25.0-35.0); MCHC 30.5 g/dL (31.0-37.0); MCV 108.4 fL (80.0-100.0); Macrocytosis Marked; Mean Platelet Volume 8.5; Monocytes # (A) 0.4 k/uL (0-1.0); Monocytes % (A) 7 %; Neutrophils # (A) 4.9 k/uL (1.3-7.7); Neutrophils % (A) 80 %; Platelet Count 251 k/uL (150-450); RBC 3.92 m/uL (3.80-5.40); RDW 14.5 % (11.5-15.5); WBC 6.2 k/uL (3.8-10.6)
[2023-07-14] MEDS: SYMBICORT 160-4.5 MCG INHALER INHALATION SCH (20:57)
[2023-07-15 08:05] LABS: HCT 39.4 % (34.0-46.0); HGB 12.1 gm/dL (11.4-16.0); Hypochromasia Slight; MCH 32.9 pg (25.0-35.0); MCHC 30.6 g/dL (31.0-37.0); MCV 107.8 fL (80.0-100.0); Macrocytosis Moderate; Mean Platelet Volume 8.1; Platelet Count 258 k/uL (150-450); RBC 3.66 m/uL (3.80-5.40); RDW 14.1 % (11.5-15.5); WBC 5.7 k/uL (3.8-10.6)
[2023-07-15 08:41] LABS: ALT 110 U/L (4-34); AST 95 U/L (14-36); African American GFR (CKD) >90 (>60 ml/min/1.73 sqM); Albumin 3.1 g/dL (3.5-5.0); Alkaline Phosphatase 138 U/L (38-126); Anion Gap 4 mmol/L; Blood Urea Nitrogen 16 mg/dL (7-17); Calcium 8.2 mg/dL (8.4-10.2); Carbon Dioxide 31 mmol/L (22-30); Chloride 105 mmol/L (98-107); Glucose 141 mg/dL (74-99); Magnesium 2.6 mg/dL (1.6-2.3); Non-African American GFR(CKD) >90 (>60 ml/min/1.73 sqM); Potassium 4.9 mmol/L (3.5-5.1); Sodium 140 mmol/L (137-145); Total Bilirubin 0.5 mg/dL (0.2-1.3); Total Protein 6.2 g/dL (6.3-8.2)
--- NOTE | 2023-07-15 11:01 | P.PN ---
Subjective Progress Note Date: 07/15/23 53-year-old female with a past medical history of hypertension, COPD not home oxygen dependent, anxiety and depression, alcohol abuse with previous alcohol withdrawal seizures, cannabinoid use, and nicotine dependence. Patient presents to the ED for shortness of breath. Patient was recently hospitalized from 07/05- 07/09 for alcohol withdrawal. Breathing has progressively getting worse over the past 3 days. Attempted nebulized treatments without relief. In the ED, she underwent extensive evaluation. BP 182/78, RR 32, HR 113, T1 100.2 F, 80% on RA. She was placed on BiPAP in the ED. CBC, coag panel and CMP was done significant for RBC 3.67, MCV 103.8, PT 9.8, sodium 136, BUN 5, creatinine 0.43, glucose 130, calcium 7.9, AST 91, ALT 118, alkaline phosphatase 155, albumin 3.3. BNP 580. Troponin 0.035. Lactic acid 1.5. ABG showed pH 7.37 with pCO2 of 54. Influenza A positive. EKG showed sinus tachycardia with PVCs. Chest x- ray showed diffuse interstitial density concerning for pneumonia. Patient is admitted for acute on chronic hypoxic respiratory failure secondary to pneumonia and COPD exacerbation with pulmonary on consult. 07/13 Patient was seen and examined. On 4L NC. Improved breathing. Echo shows EF 55-60%. CBC MCV 108.4. CMP glu 142, Ca 8.3, AST 102, ALT 110, alk phos 154, alb 3.3. Urine legionella negative. Procalcitonin negative. Troponin 0.05, 0.035. 07/14 Patient was seen and examined. On 4L NC. Breathing more comfortably. CBC RBC 3.66, MCV 107.8. CMP bicarb 31, glu 141, Ca 8.2, AST 95, ALT 110, alk phos 138, alb 3.1. General: non toxic, no distress, appears at stated age on BiPAP Derm: warm, dry Head: atraumatic, normocephalic, symmetric Eyes: EOMI, no lid lag, anicteric sclera Mouth: no lip lesion, mucus membranes moist Cardiovascular: S1S2 tachy, no murmur Lungs: Decreased BS bilateral, no rhonchi, no rales , no accessory muscle use Abdominal: soft, nontender to palpation, no guarding, no appreciable organomegaly Ext: no gross muscle atrophy, no edema, no contractures Neuro: no focal neuro deficits Psych: Alert, oriented, appropriate affect Based on my assessment of this patient, this patient meets a high complexity level of care. Patient has an acute diagnosis of acute hypoxic respiratory failure secondary to COPD exacerbation due to influenza A and possible bacterial pneumonia which poses a threat to life or bodily function. Acute hypoxic respiratory failure: Likely due to below. Sepsis: Likely due to below. Blood culture prelim negative. Sputum culture. Legionella antigen negative. Normal sinus 75 mL per hour. Telemetry monitori ng. Pro-calcitonin is negative, stop Rocephin/Azithromycin. Influenza A pneumonia: Tamiflu 75 mg by mouth twice a day. Acute on chronic COPD exacerbation: Solu-Medrol 40 mg IV every 8 hours. DuoNeb every 4 hours scheduled and as needed for shortness of breath and wheezing. Pulmonary consult. Troponin elevation: Likely demand ischemia from sepsis. Transaminitis: Likely due to alcohol abuse. History of alcohol abuse: CIWA protocol with Ativan as needed. CODE STATUS: FULL CODE DVT Prophylaxis: Lovenox SQ GI Prophylaxis: Protonix Designated medical POA if patient is not able to make medical decisions for themselves: I have reviewed the following food consultant notes: Pulmonary note. I have reviewed the results of the following tests: CBC, CMP, BCx. I have ordered the following tests: I have discussed the care of this patient with the following independent historian: I have independently interpreted the following test below: I have discussed the management of this patient with the following physician: This patient meets a high level of care for the following reasons: Patient has increasing oxygen requirements more than baseline. Patient will need to be closely monitored for respiratory depression. Objective - Vital Signs Vital signs: Vital Signs Temp 98.5 F 07/15/23 08:00 Pulse 92 07/15/23 08:00 Resp 24 07/15/23 08:00 BP 129/86 07/15/23 08:00 Pulse Ox 96 07/15/23 08:00 FiO2 40 07/13/23 11:02 Intake & Output 07/14/23 07/15/23 07/15/23 18:59 06:59 18:59 Intake Total 684 180 Balance 684 180 Weight 99.79 kg Intake: Oral 684 180 Other: Voiding Method Bedside Commode Bedside Commode Bedside Commode # Voids 1 1 # Bowel Movements 1 - Labs CBC & Chem 7: 07/15/23 07:27 07/15/23 07:27 Labs: Abnormal Lab Results - Last 24 Hours (Table) 07/14/23 07/14/23 07/15/23 Range/Units 11:42 11:47 07:27 RBC 3.66 L (3.80-5.40) m/uL MCV 108.4 H 107.8 H (80.0-100.0) fL MCHC 30.5 L 30.6 L (31.0-37.0) g/dL Lymphocytes # 0.7 L (1.0-4.8) k/uL Macrocytosis Marked A Carbon Dioxide (22-30) mmol/L Glucose 142 H (74-99) mg/dL Calcium 8.3 L (8.4-10.2) mg/dL Magnesium (1.6-2.3) mg/dL AST 102 H (14-36) U/L ALT 110 H (4-34) U/L Alkaline Phosphatase 154 H (38-126) U/L Total Protein (6.3-8.2) g/dL Albumin 3.3 L (3.5-5.0) g/dL 07/15/23 Range/Units 07:27 RBC (3.80-5.40) m/uL MCV (80.0-100.0) fL MCHC (31.0-37.0) g/dL Lymphocytes # (1.0-4.8) k/uL Macrocytosis Carbon Dioxide 31 H (22-30) mmol/L Glucose 141 H (74-99) mg/dL Calcium 8.2 L (8.4-10.2) mg/dL Magnesium 2.6 H (1.6-2.3) mg/dL AST 95 H (14-36) U/L ALT 110 H (4-34) U/L Alkaline Phosphatase 138 H (38-126) U/L Total Protein 6.2 L (6.3-8.2) g/dL Albumin 3.1 L (3.5-5.0) g/dL Microbiology - Last 24 Hours (Table) 07/13/23 15:34 Blood Culture - Preliminary Blood
--- NOTE | 2023-07-15 11:39 | P.PN ---
Subjective Progress Note Date: 07/15/23 Principal diagnosis: Shortness of breath. This is a 53-year-old female patient with a known history of hypertension, schizophrenia, bipolar disorder, chronic and ongoing tobacco dependence, chronic alcohol abuse, obesity, chronic obstructive pulmonary disease. She presented here to the emergency room earlier today with complaints of increasing shortness of breath for the past 3 days. She took several breathing treatments at home without much improvement. Initial presentation on room air her O2 saturation was 80%. She was placed on BiPAP 12/6 and 40% FiO2. Chest x-ray reveals diffuse interstitial densities. Mild pulmonary vascular congestion, bronchitis or atypical pneumonia is within the differential. White count 5.6. Hemoglobin 12.8. Platelets 205. INR 0.9. Sodium 136. Potassium 3.8. Bicarb 24. BUN 5. Creatinine 0.53. Glucose 130. AST 91. ALT 118. Troponin 0.035. proBNP 580. Viral screen is positive for influenza A. She is seen today in consultation in the emergency department. She is currently sitting up on the stretcher. Awake and alert. She is dyspneic with conversation. Dyspneic with minimal exertion. She is febrile with a temperature of 100.2. Slightly tachycardic. Arterial blood gases revealed a PaO2 of 102, pCO2 54 and a pH of 7.37. Continue BiPAP support for now. Progress note dated July 14, 2023. 53-year-old female seen yesterday in the emergency department, and seen today, in room 369. The patient has a history of hypertension, schizophrenia, bipolar disorder, ongoing tobacco dependence, chronic alcohol abuse, obesity, and COPD. The patient did test positive for influenza. She was started on Tamiflu. Yest erday, she was on BiPAP, today she is on 4 L. BiPAP settings of 12/6, and 40%. She is receiving saline at 75 cc an hour. She looks a bit more comfortable today than she did yesterday, in the emergency department. There is no new laboratory data to speak up. Urine Legionella antigen was negative. Progress note dated July 15, 2023. This is a 53-year-old female who was initially seen in the emergency department, but is seen today in room 369. The patient remains on oxygen at 4 L by nasal c annula. She did not wear the BiPAP device last night, and refuses it, so it will be discontinued. In addition, the patient was getting saline IV, but she is refused that. She is getting Tamiflu 75 mg twice a day. The Solu-Medrol will be changed to prednisone. Labs today include a white count 5.7, hemoglobin 12.1, hematocrit 39.4, and a platelet count of 258,000. Sodium 140, potassium 4.9, chlorides 105, CO2 31, BUN 16, creatinine 0.55. Glucose is 141 calcium 8.2 magnesium 2.6 AST is 95, ALT 110, and alkaline phosphatase was 138. The patient's albumin is 3.1. Urine Legionella antigen was negative. Objective - Vital Signs Vital signs: Vital Signs Temp 98.5 F 07/15/23 08:00 Pulse 92 07/15/23 08:00 Resp 24 07/15/23 08:00 BP 129/86 07/15/23 08:00 Pulse Ox 96 07/15/23 08:00 FiO2 40 07/13/23 11:02 Intake & Output 07/14/23 07/15/23 07/15/23 18:59 06:59 18:59 Intake Total 684 180 Balance 684 180 Weight 99.79 kg Intake: Oral 684 180 Other: Voiding Method Bedside Commode Bedside Commode Bedside Commode # Voids 1 1 # Bowel Movements 1 - Exam No acute distress, oriented 3. Currently on 4 L of oxygen. Saturations are 93%. No conversational dyspnea or use of accessory muscles. HEENT examination is grossly unremarkable. Mucous membranes are moist. No oral lesions. Neck supple. Full range of motion. No adenopathy thyromegaly or neck vein distention. Cardiovascular examination reveals regular rhythm rate. S1-S2 normal. No S3 or S4. No discernible murmur noted. Heart sounds are distant. Heart rate 92 bpm. Lungs reveal scattered inspiratory and expiratory rhonchi. Mild expiratory wheezes. Breath sounds are much improved. No crackles. Breath sounds equal bilaterally. Abdomen soft bowel sounds are heard. No masses or tenderness. Extremities are intact. No cyanosis clubbing or edema. Skin is without rash or lesion. Neurologic examination is brief but nonfocal. - Labs CBC & Chem 7: 07/15/23 07:27 07/15/23 07:27 Labs: Abnormal Lab Results - Last 24 Hours (Table) 07/14/23 07/14/23 07/15/23 Range/Units 11:42 11:47 07:27 RBC 3.66 L (3.80-5.40) m/uL MCV 108.4 H 107.8 H (80.0-100.0) fL MCHC 30.5 L 30.6 L (31.0-37.0) g/dL Lymphocytes # 0.7 L (1.0-4.8) k/uL Macrocytosis Marked A Carbon Dioxide (22-30) mmol/L Glucose 142 H (74-99) mg/dL Calcium 8.3 L (8.4-10.2) mg/dL Magnesium (1.6-2.3) mg/dL AST 102 H (14-36) U/L ALT 110 H (4-34) U/L Alkaline Phosphatase 154 H (38-126) U/L Total Protein (6.3-8.2) g/dL Albumin 3.3 L (3.5-5.0) g/dL 07/15/23 Range/Units 07:27 RBC (3.80-5.40) m/uL MCV (80.0-100.0) fL MCHC (31.0-37.0) g/dL Lymphocytes # (1.0-4.8) k/uL Macrocytosis Carbon Dioxide 31 H (22-30) mmol/L Glucose 141 H (74-99) mg/dL Calcium 8.2 L (8.4-10.2) mg/dL Magnesium 2.6 H (1.6-2.3) mg/dL AST 95 H (14-36) U/L ALT 110 H (4-34) U/L Alkaline Phosphatase 138 H (38-126) U/L Total Protein 6.2 L (6.3-8.2) g/dL Albumin 3.1 L (3.5-5.0) g/dL Microbiology - Last 24 Hours (Table) 07/13/23 15:34 Blood Culture - Preliminary Blood Assessment and Plan Assessment: Acute hypoxemic respiratory failure secondary to an acute exacerbation of chronic obstructive pulmonary disease complicated by influenza A infection. Influenza A. Chronic and ongoing tobacco dependence. History of significant alcohol use. Transaminitis secondary to above. Troponin leak, suspect oxygen supply and demand mismatch History of schizophrenia. History of bipolar disorder. Hypertension. Gastroesophageal reflux disease. Obesity with a BMI of 35.5 kg/m. Plan: Plan dated July 14, 2023. The patient is currently on Zithromax and Rocephin. The patient is also receiving updrafts, with albuterol sulfate, and ipratropium bromide, and, getting Solu-Medrol 60 mg every 6 hours. The patient is also on a nicotine patch, and receiving Tamiflu, 75 mg twice a day for 5 days. Labs, x-rays, and medications are reviewed. Procalcitonin level is 0.07. We will discontinue the antibiotics. We add Symbicort to her regimen. Prognosis is guarded. The patient is counseled about the importance of smoking cessation. Plan dated July 15, 2023. The patient's procalcitonin level was normal, and so antibiotics were di scontinued. The patient does continue on Tamiflu. Labs, x-rays, and medications are reviewed. The patient is refusing her IV. The patient is also refusing BiPAP. Solu-Medrol is changed to prednisone p.o. We will continue to follow and make recommendations along the way. Prognosis is guarded. Clinically, the patient is improved. Time with Patient: Less than 30
[2023-07-16] MEDS: predniSONE 20 MG TAB PO SCH (08:14)
--- NOTE | 2023-07-16 10:07 | P.PN ---
Subjective Progress Note Date: 07/16/23 Principal diagnosis: Shortness of breath. This is a 53-year-old female patient with a known history of hypertension, schizophrenia, bipolar disorder, chronic and ongoing tobacco dependence, chronic alcohol abuse, obesity, chronic obstructive pulmonary disease. She presented here to the emergency room earlier today with complaints of increasing shortness of breath for the past 3 days. She took several breathing treatments at home without much improvement. Initial presentation on room air her O2 saturation was 80%. She was placed on BiPAP 12/6 and 40% FiO2. Chest x-ray reveals diffuse interstitial densities. Mild pulmonary vascular congestion, bronchitis or atypical pneumonia is within the differential. White count 5.6. Hemoglobin 12.8. Platelets 205. INR 0.9. Sodium 136. Potassium 3.8. Bicarb 24. BUN 5. Creatinine 0.53. Glucose 130. AST 91. ALT 118. Troponin 0.035. proBNP 580. Viral screen is positive for influenza A. She is seen today in consultation in the emergency department. She is currently sitting up on the stretcher. Awake and alert. She is dyspneic with conversation. Dyspneic with minimal exertion. She is febrile with a temperature of 100.2. Slightly tachycardic. Arterial blood gases revealed a PaO2 of 102, pCO2 54 and a pH of 7.37. Continue BiPAP support for now. Progress note dated July 14, 2023. 53-year-old female seen yesterday in the emergency department, and seen today, in room 369. The patient has a history of hypertension, schizophrenia, bipolar disorder, ongoing tobacco dependence, chronic alcohol abuse, obesity, and COPD. The patient did test positive for influenza. She was started on Tamiflu. Yest erday, she was on BiPAP, today she is on 4 L. BiPAP settings of 12/6, and 40%. She is receiving saline at 75 cc an hour. She looks a bit more comfortable today than she did yesterday, in the emergency department. There is no new laboratory data to speak up. Urine Legionella antigen was negative. Progress note dated July 15, 2023. This is a 53-year-old female who was initially seen in the emergency department, but is seen today in room 369. The patient remains on oxygen at 4 L by nasal c annula. She did not wear the BiPAP device last night, and refuses it, so it will be discontinued. In addition, the patient was getting saline IV, but she is refused that. She is getting Tamiflu 75 mg twice a day. The Solu-Medrol will be changed to prednisone. Labs today include a white count 5.7, hemoglobin 12.1, hematocrit 39.4, and a platelet count of 258,000. Sodium 140, potassium 4.9, chlorides 105, CO2 31, BUN 16, creatinine 0.55. Glucose is 141 calcium 8.2 magnesium 2.6 AST is 95, ALT 110, and alkaline phosphatase was 138. The patient's albumin is 3.1. Urine Legionella antigen was negative. Progress note dated July 16, 2023. 53-year-old female seen and examined, in room 369. The patient was seen in consultation, on July 12. The patient is currently doing much better. She is on 2 L of oxygen. Saturations are in the low 90s. She is not receiving any IV fluids. According to her nurse, she does get shortness of breath on exertion. Overall though, she is feeling much better. She continues on prednisone, Tamiflu, Symbicort, and DuoNebs. No new labs today. Labs from July 14 are reviewed. Chest x-ray today. Blood cultures are negative. Objective - Vital Signs Vital signs: Vital Signs Temp 98.4 F 07/16/23 08:05 Pulse 92 07/16/23 08:11 Resp 24 07/16/23 08:05 BP 167/90 07/16/23 08:05 Pulse Ox 96 07/16/23 08:05 FiO2 40 07/13/23 11:02 Intake & Output 07/15/23 07/16/23 07/16/23 18:59 06:59 18:59 Intake Total 180 120 Balance 180 120 Intake: Oral 180 120 Other: Voiding Method Bedside Commode Bedside Commode Bedside Commode # Voids 1 1 - Exam No acute distress, oriented 3. Currently on 2 L of oxygen. Saturations are 96 %. No conversational dyspnea or use of accessory muscles. HEENT examination is grossly unremarkable. Mucous membranes are moist. No oral lesions. Neck supple. Full range of motion. No adenopathy thyromegaly or neck vein distention. Cardiovascular examination reveals regular rhythm rate. S1-S2 normal. No S3 or S4. No discernible murmur noted. Heart sounds are distant. Heart rate 92 bpm. Lungs reveal scattered inspiratory and expiratory rhonchi. Mild expiratory wheezes. Breath sounds are much improved. No crackles. Breath sounds equal bilaterally. Abdomen soft bowel sounds are heard. No masses or tenderness. Extremities are intact. No cyanosis clubbing or edema. Skin is without rash or lesion. Neurologic examination is brief but nonfocal. - Labs CBC & Chem 7: 07/15/23 07:27 07/15/23 07:27 Labs: Microbiology - Last 24 Hours (Table) 07/13/23 15:34 Blood Culture - Preliminary Blood Assessment and Plan Assessment: Acute hypoxemic respiratory failure secondary to an acute exacerbation of chronic obstructive pulmonary disease complicated by influenza A infection. Influenza A. Chronic and ongoing tobacco dependence. History of significant alcohol use. Transaminitis secondary to above. Troponin leak, suspect oxygen supply and demand mismatch History of schizophrenia. History of bipolar disorder. Hypertension. Gastroesophageal reflux disease. Obesity with a BMI of 35.5 kg/m. Plan: Plan dated July 14, 2023. The patient is currently on Zithromax and Rocephin. The patient is also receiving updrafts, with albuterol sulfate, and ipratropium bromide, and, getting Solu-Medrol 60 mg every 6 hours. The patient is also on a nicotine patch, and receiving Tamiflu, 75 mg twice a day for 5 days. Labs, x-rays, and medications are reviewed. Procalcitonin level is 0.07. We will discontinue the antibiotics. We add Symbicort to her regimen. Prognosis is guarded. The patient is counseled about the importance of smoking cessation. Plan dated July 15, 2023. The patient's procalcitonin level was normal, and so antibiotics were discontinued. The patient does continue on Tamiflu. Labs, x-rays, and medications are reviewed. The patient is refusing her IV. The patient is also refusing BiPAP. Solu-Medrol is changed to prednisone p.o. We will continue to follow and make recommendations along the way. Prognosis is guarded. Clinically, the patient is improved. Plan dated July 16, 2023. The patient appears to be doing much better. The patient continues on appropriate medications including DuoNeb, Symbicort, Tamiflu, and prednisone. Labs, x-rays, and medications are reviewed. The patient is no longer using BiPAP. She is actually refusing it. In addition, her oxygen has been weaned down to 2 L. We will continue to follow and make recommendations along the way. Prognosis is guarded. Time with Patient: Less than 30
--- NOTE | 2023-07-16 10:44 | P.PN ---
Subjective Progress Note Date: 07/16/23 53-year-old female with a past medical history of hypertension, COPD not home oxygen dependent, anxiety and depression, alcohol abuse with previous alcohol withdrawal seizures, cannabinoid use, and nicotine dependence. Patient presents to the ED for shortness of breath. Patient was recently hospitalized from 07/05- 07/09 for alcohol withdrawal. Breathing has progressively getting worse over the past 3 days. Attempted nebulized treatments without relief. In the ED, she underwent extensive evaluation. BP 182/78, RR 32, HR 113, T1 100.2 F, 80% on RA. She was placed on BiPAP in the ED. CBC, coag panel and CMP was done significant for RBC 3.67, MCV 103.8, PT 9.8, sodium 136, BUN 5, creatinine 0.43, glucose 130, calcium 7.9, AST 91, ALT 118, alkaline phosphatase 155, albumin 3.3. BNP 580. Troponin 0.035. Lactic acid 1.5. ABG showed pH 7.37 with pCO2 of 54. Influenza A positive. EKG showed sinus tachycardia with PVCs. Chest x- ray showed diffuse interstitial density concerning for pneumonia. Patient is admitted for acute on chronic hypoxic respiratory failure secondary to pneumonia and COPD exacerbation with pulmonary on consult. 07/13 Patient was seen and examined. On 4L NC. Improved breathing. Echo shows EF 55-60%. CBC MCV 108.4. CMP glu 142, Ca 8.3, AST 102, ALT 110, alk phos 154, alb 3.3. Urine legionella negative. Procalcitonin negative. Troponin 0.05, 0.035. 07/14 Patient was seen and examined. On 4L NC. Breathing more comfortably. CBC RBC 3.66, MCV 107.8. CMP bicarb 31, glu 141, Ca 8.2, AST 95, ALT 110, alk phos 138, alb 3.1. 07/15 Patient was seen and examined. On 2L NC. Breathing is stable. No new labs done today. BCx is prelim negative so far. Currently on Tamiflu 75 mg PO BID (Dose 10/08). Maintained on bronchodilators and Prednisone. We will continue to wean down oxygen. She appears debilitated. Awaiting PT and OT evaluation. General: non toxic, no distress, appears at stated age on BiPAP Derm: warm, dry Head: atraumatic, normocephalic, symmetric Eyes: EOMI, no lid lag, anicteric sclera Mouth: no lip lesion, mucus membranes moist Cardiovascular: S1S2 tachy, no murmur Lungs: Decreased BS bilateral, no rhonchi, no rales , no accessory muscle use Abdominal: soft, nontender to palpation, no guarding, no appreciable organomegaly Ext: no gross muscle atrophy, no edema, no contractures Neuro: no focal neuro deficits Psych: Alert, oriented, appropriate affect Based on my assessment of this patient, this patient meets a moderate complexity level of care. Patient has an acute diagnosis of acute hypoxic respiratory failure secondary to COPD exacerbation due to influenza A and possible bacterial pneumonia which poses a threat to life or bodily function. Acute hypoxic respiratory failure: Likely due to below. Sepsis: Likely due to below. Blood culture prelim negative. Sputum culture pending. Legionella antigen negative. Telemetry monitoring. Pro-calcitonin is negative, stop Rocephin/Azithromycin. Influenza A pneumonia: Tamiflu 75 mg by mouth twice a day (dose 10/08). Acute on chronic COPD exacerbation: Prednisone 40 mg PO QD. DuoNeb every 4 ho urs scheduled and as needed for shortness of breath and wheezing. Symbicort 2 puff BID. Pulmonary consult. Troponin elevation: Likely demand ischemia from sepsis. Transaminitis: Likely due to alcohol abuse. History of alcohol abuse: CIWA protocol with Ativan as needed. CODE STATUS: FULL CODE DVT Prophylaxis: Lovenox SQ GI Prophylaxis: Protonix PO Designated medical POA if patient is not able to make medical decisions for themselves: I have reviewed the following mortgage consultant notes: Pulmonary note. I have reviewed the results of the following tests: BCx. I have ordered the following tests: CXR ordered for tomorrow. I have discussed the care of this patient with the following independent historian: I have independently interpreted the following test below: I have discussed the management of this patient with the following physician: Objective - Vital Signs Vital signs: Vital Signs Temp 97.4 F L 07/16/23 04:00 Pulse 84 07/16/23 04:00 Resp 18 07/16/23 04:00 BP 145/90 07/16/23 04:00 Pulse Ox 95 07/16/23 04:00 FiO2 40 07/13/23 11:02 Intake & Output 07/15/23 07/16/23 07/16/23 18:59 06:59 18:59 Intake Total 180 Balance 180 Intake: Oral 180 Other: Voiding Method Bedside Commode Bedside Commode # Voids 1 1 - Labs CBC & Chem 7: 07/15/23 07:27 07/15/23 07:27 Labs: Abnormal Lab Results - Last 24 Hours (Table) 07/15/23 07/15/23 Range/Units 07:27 07:27 RBC 3.66 L (3.80-5.40) m/uL MCV 107.8 H (80.0-100.0) fL MCHC 30.6 L (31.0-37.0) g/dL Carbon Dioxide 31 H (22-30) mmol/L Glucose 141 H (74-99) mg/dL Calcium 8.2 L (8.4-10.2) mg/dL Magnesium 2.6 H (1.6-2.3) mg/dL AST 95 H (14-36) U/L ALT 110 H (4-34) U/L Alkaline Phosphatase 138 H (38-126) U/L Total Protein 6.2 L (6.3-8.2) g/dL Albumin 3.1 L (3.5-5.0) g/dL Microbiology - Last 24 Hours (Table) 07/13/23 15:34 Blood Culture - Preliminary Blood
--- NOTE | 2023-07-17 07:52 | XR ---
EXAMINATION TYPE: XR chest 1V portable DATE OF EXAM: 07/17/2023 7:05 AM CLINICAL INDICATION:Female, 53 years old with history of Flu PNA; [facility] COMPARISON: Chest radiographs from 07/13/2023 TECHNIQUE: XR chest 1V portable Frontal view of the chest. FINDINGS: Lungs/Pleura: Similar airspace opacity/haziness to the lung bases. There is no evidence of pleural ef fusion, focal consolidation, or pneumothorax. Pulmonary vascularity: Unremarkable. Heart/mediastinum: Cardiomediastinal silhouette is unremarkable. Musculoskeletal: No acute osseous pathology. IMPRESSION: Stable exam with haziness to the lung bases.
--- NOTE | 2023-07-17 13:00 | P.PN ---
Subjective Progress Note Date: 07/17/23 53-year-old female with a past medical history of hypertension, COPD not home oxygen dependent, anxiety and depression, alcohol abuse with previous alcohol withdrawal seizures, cannabinoid use, and nicotine dependence. Patient presents to the ED for shortness of breath. Patient was recently hospitalized from 07/05- 07/09 for alcohol withdrawal. Breathing has progressively getting worse over the past 3 days. Attempted nebulized treatments without relief. In the ED, she underwent extensive evaluation. BP 182/78, RR 32, HR 113, T1 100.2 F, 80% on RA. She was placed on BiPAP in the ED. CBC, coag panel and CMP was done significant for RBC 3.67, MCV 103.8, PT 9.8, sodium 136, BUN 5, creatinine 0.43, glucose 130, calcium 7.9, AST 91, ALT 118, alkaline phosphatase 155, albumin 3.3. BNP 580. Troponin 0.035. Lactic acid 1.5. ABG showed pH 7.37 with pCO2 of 54. Influenza A positive. EKG showed sinus tachycardia with PVCs. Chest x- ray showed diffuse interstitial density concerning for pneumonia. Patient is admitted for acute on chronic hypoxic respiratory failure secondary to pneumonia and COPD exacerbation with pulmonary on consult. 07/13 Patient was seen and examined. On 4L NC. Improved breathing. Echo shows EF 55-60%. CBC MCV 108.4. CMP glu 142, Ca 8.3, AST 102, ALT 110, alk phos 154, alb 3.3. Urine legionella negative. Procalcitonin negative. Troponin 0.05, 0.035. 07/14 Patient was seen and examined. On 4L NC. Breathing more comfortably. CBC RBC 3.66, MCV 107.8. CMP bicarb 31, glu 141, Ca 8.2, AST 95, ALT 110, alk phos 138, alb 3.1. 07/15 Patient was seen and examined. On 2L NC. Breathing is stable. No new labs done today. BCx is prelim negative so far. Currently on Tamiflu 75 mg PO BID (Dose 10/08). Maintained on bronchodilators and Prednisone. We will continue to wean down oxygen. She appears debilitated. Awaiting PT and OT evaluation. 07/16 Patient was seen and examined. On 2L NC. Breathing is stable. Complains of cough. Currently on Tamiflu 75 mg PO BID (Dose 12/08). Maintained on bronchodilators and Prednisone. CXR done this morning shows similar bilateral patchy infiltrates. General: non toxic, no distress, appears at stated age on BiPAP Derm: warm, dry Head: atraumatic, normocephalic, symmetric Eyes: EOMI, no lid lag, anicteric sclera Mouth: no lip lesion, mucus membranes moist Cardiovascular: S1S2 tachy, no murmur Lungs: Expiratory wheezing bilateral, no rhonchi, no rales , no accessory muscle use Abdominal: soft, nontender to palpation, no guarding, no appreciable organomegaly Ext: no gross muscle atrophy, no edema, no contractures Neuro: no focal neuro deficits Psych: Alert, oriented, appropriate affect Based on my assessment of this patient, this patient meets a moderate complexity level of care. Patient has an acute diagnosis of acute hypoxic respiratory failure secondary to COPD exacerbation due to influenza A and possible bacterial pneumonia which poses a threat to life or bodily function. Acute hypoxic respiratory failure: Likely due to below. Sepsis: Likely due to below. Blood culture prelim negative. Sputum culture pending. Legionella antigen negative. Telemetry monitoring. Pro-calcitonin is negative, stop Rocephin/Azithromycin. Influenza A pneumonia: Tamiflu 75 mg by mouth twice a day (dose 12/08). Acute on chronic COPD exacerbation: Prednisone 40 mg PO QD. DuoNeb every 4 hours scheduled and as needed for shortness of breath and wheezing. Symbicort 2 puff BID. Pulmonary on board. Troponin elevation: Likely demand ischemia from sepsis. Transaminitis: Likely due to alcohol abuse. History of alcohol abuse: CIPR protocol with Ativan as needed. CODE STATUS: FULL CODE DVT Prophylaxis: Lovenox SQ GI Prophylaxis: Protonix PO Designated medical POA if patient is not able to make medical decisions for themselves: I have reviewed the following technology methodology consultant notes: Pulmonary note. I have reviewed the results of the following tests: I have ordered the following tests: I have discussed the care of this patient with the following independent historian: I have independently interpreted the following test below: CXR. I have discussed the management of this patient with the following physician: Objective - Vital Signs Vital signs: Vital Signs Temp 98.2 F 07/16/23 20:40 Pulse 76 07/17/23 04:00 Resp 20 07/17/23 04:00 BP 148/91 07/17/23 04:00 Pulse Ox 94 L 07/17/23 08:23 FiO2 40 07/13/23 11:02 Intake & Output 07/16/23 07/17/23 07/17/23 18:59 06:59 18:59 Intake Total 360 Balance 360 Intake: Oral 360 Other: Voiding Method Bedside Commode Bedside Commode # Voids 2 1 - Labs CBC & Chem 7: 07/15/23 07:27 07/15/23 07:27 Labs: Microbiology - Last 24 Hours (Table) 07/13/23 15:34 Blood Culture - Preliminary Blood
--- NOTE | 2023-07-17 13:22 | P.PN ---
Subjective Progress Note Date: 07/17/23 This is a 53-year-old female patient with a known history of hypertension, schizophrenia, bipolar disorder, chronic and ongoing tobacco dependence, chronic alcohol abuse, obesity, chronic obstructive pulmonary disease. She presented here to the emergency room earlier today with complaints of increasing shortness of breath for the past 3 days. She took several breathing treatments at home without much improvement. Initial presentation on room air her O2 saturation was 80%. She was placed on BiPAP 12/6 and 40% FiO2. Chest x-ray reveals diffuse interstitial densities. Mild pulmonary vascular congestion, bronchitis or atypical pneumonia is within the differential. White count 5.6. Hemoglobin 12.8. Platelets 205. INR 0.9. Sodium 136. Potassium 3.8. Bicarb 24. BUN 5. Creatinine 0.53. Glucose 130. AST 91. ALT 118. Troponin 0.035. proBNP 580. Viral screen is positive for influenza A. She is seen today in consultation in the emergency department. She is currently sitting up on the stretcher. Awake and alert. She is dyspneic with conversation. Dyspneic with minimal exertion. She is febrile with a temperature of 100.2. Slightly tachycardic. Arterial blood gases revealed a PaO2 of 102, pCO2 54 and a pH of 7.37. Continue BiPAP support for now. Progress note dated July 14, 2023. 53-year-old female seen yesterday in the emergency department, and seen today, in room 369. The patient has a history of hypertension, schizophrenia, bipolar disorder, ongoing tobacco dependence, chronic alcohol abuse, obesity, and COPD. The patient did test positive for influenza. She was started on Tamiflu. Yesterday, she was on BiPAP, today she is on 4 L. BiPAP settings of 12/6, and 40%. She is receiving saline at 75 cc an hour. She looks a bit more comfortable today than she did yesterday, in the emergency department. There is no new laboratory data to speak up. Urine Legionella antigen was negative. Progress note dated July 15, 2023. This is a 53-year-old female who was initially seen in the emergency department, but is seen today in room 369. The patient remains on oxygen at 4 L by nasal cannula. She did not wear the BiPAP device last night, and refuses it, so it will be discontinued. In addition, the patient was getting saline IV, but she is refused that. She is getting Tamiflu 75 mg twice a day. The Solu-Medrol will be changed to prednisone. Labs today include a white count 5.7, hemoglobin 12.1, hematocrit 39.4, and a platelet count of 258,000. Sodium 140, potassium 4.9, chlorides 105, CO2 31, BUN 16, creatinine 0.55. Glucose is 141 calcium 8.2 magnesium 2.6 AST is 95, ALT 110, and alkaline phosphatase was 138. The patient's albumin is 3.1. Urine Legionella antigen was negative. Progress note dated July 16, 2023. 53-year-old female seen and examined, in room 369. The patient was seen in consultation, on July 12. The patient is currently doing much better. She is on 2 L of oxygen. Saturations are in the low 90s. She is not receiving any IV fluids. According to her nurse, she does get shortness of breath on exertion. Overall though, she is feeling much better. She continues on prednisone, Tamiflu, Symbicort, and DuoNebs. No new labs today. Labs from July 14 are reviewed. Chest x-ray today. Blood cultures are negative. On today's evaluation of 07/17/2023, seen the patient for a follow-up. The patient is a 53-year-old female who is currently being treated for an acute COPD exacerbation acute influenza A infection. She is quite short of breath bronchospastic and wheezy and she is still on a combination of treatment including DuoNeb updrafts and she is also on a prednisone at a dose of 40 mg p.o. daily. She is also maintained on Symbicort. Blood work from 07/15/2023 was reviewed and the patient a hemoglobin of 12, electrolytes and renal function were normal, and mild disturbance in the liver function test. Unable to bring up much of sputum. Blood culture from this current admission is negative and the patient is currently on 2 L of O2 nasal cannula with a pulse ox of 94%. She is known to have schizophrenia/bipolar disorder patient is a chronic smoker along with history of COPD. She has previous history of alcohol abuse and she is obese with a BMI of 35. She is known to have COPD and hypertension. Objective - Vital Signs Vital signs: Vital Signs Temp 96.9 F L 07/17/23 09:35 Pulse 89 03/18/24 09:35 Resp 18 07/17/23 09:35 BP 195/105 07/17/23 09:35 Pulse Ox 92 L 07/17/23 09:55 FiO2 40 07/13/23 11:02 Intake & Output 07/16/23 07/17/23 07/17/23 18:59 06:59 18:59 Intake Total 360 Balance 360 Intake: Oral 360 Other: Voiding Method Bedside Commode Bedside Commode # Voids 2 1 1 - Exam No acute distress, oriented 3. Currently on 2 L of oxygen. Saturations are 96 %. No conversational dyspnea or use of accessory muscles. Head exam was generally normal. There was no scleral icterus or corneal arcus. Mucous membranes were moist. HEENT examination is grossly unremarkable. Mucous membranes are moist. No oral lesions. Neck supple. Full range of motion. No adenopathy thyromegaly or neck vein distention. Cardiovascular examination reveals regular rhythm rate. S1-S2 normal. No S3 or S4. No discernible murmur noted. Heart sounds are distant Lungs reveal scattered inspiratory and expiratory rhonchi. Mild expiratory wheezes. Breath sounds are much improved. No crackles. Breath sounds equal bilaterally. Abdomen soft bowel sounds are heard. No masses or tenderness. Extremities are intact. No cyanosis clubbing or edema. Skin is without rash or lesion. Neurologic examination is brief but nonfocal. - Labs CBC & Chem 7: 07/15/23 07:27 07/15/23 07:27 Labs: Microbiology - Last 24 Hours (Table) 07/13/23 15:34 Blood Culture - Preliminary Blood Assessment and Plan Plan: Acute hypoxemic respiratory failure secondary to an acute exacerbation of chronic obstructive pulmonary disease complicated by influenza A infection. Patient remains on O2 at 2 L/min nasal cannula Influenza A infection with secondary stroke exacerbation, maintained on Tamiflu and prednisone and bronchodilators COPD exacerbation secondary to above Shortness of breath secondary to above Chronic and ongoing tobacco dependence. History of significant alcohol use. Transaminitis secondary to above. Troponin leak, suspect oxygen supply and demand mismatch History of schizophrenia. History of bipolar disorder. Hypertension. Gastroesophageal reflux disease. Obesity with a BMI of 35.5 kg/m Plan Recovery is slow Still bronchospastic and wheezy and the patient will benefit from bronchodilator and steroid treatment and she will be completing her Tamiflu course Continue same management for now. Provide incentive spirometer Will continue to follow
[2023-07-17 20:00] VITALS: RESP 18
--- NOTE | 2023-07-18 10:40 | P.PN ---
Subjective Progress Note Date: 07/18/23 53-year-old female with a past medical history of hypertension, COPD not home oxygen dependent, anxiety and depression, alcohol abuse with previous alcohol withdrawal seizures, cannabinoid use, and nicotine dependence. Patient presents to the ED for shortness of breath. Patient was recently hospitalized from 07/05- 07/09 for alcohol withdrawal. Breathing has progressively getting worse over the past 3 days. Attempted nebulized treatments without relief. In the ED, she underwent extensive evaluation. BP 182/78, RR 32, HR 113, T1 100.2 F, 80% on RA. She was placed on BiPAP in the ED. CBC, coag panel and CMP was done significant for RBC 3.67, MCV 103.8, PT 9.8, sodium 136, BUN 5, creatinine 0.43, glucose 130, calcium 7.9, AST 91, ALT 118, alkaline phosphatase 155, albumin 3.3. BNP 580. Troponin 0.035. Lactic acid 1.5. ABG showed pH 7.37 with pCO2 of 54. Influenza A positive. EKG showed sinus tachycardia with PVCs. Chest x- ray showed diffuse interstitial density concerning for pneumonia. Patient is admitted for acute on chronic hypoxic respiratory failure secondary to pneumonia and COPD exacerbation with pulmonary on consult. 07/13 Patient was seen and examined. On 4L NC. Improved breathing. Echo shows EF 55-60%. CBC MCV 108.4. CMP glu 142, Ca 8.3, AST 102, ALT 110, alk phos 154, alb 3.3. Urine legionella negative. Procalcitonin negative. Troponin 0.05, 0.035. 07/14 Patient was seen and examined. On 4L NC. Breathing more comfortably. CBC RBC 3.66, MCV 107.8. CMP bicarb 31, glu 141, Ca 8.2, AST 95, ALT 110, alk phos 138, alb 3.1. 07/15 Patient was seen and examined. On 2L NC. Breathing is stable. No new labs done today. BCx is prelim negative so far. Currently on Tamiflu 75 mg PO BID (Dose 10/08). Maintained on bronchodilators and Prednisone. We will continue to wean down oxygen. She appears debilitated. Awaiting PT and OT evaluation. 07/16 Patient was seen and examined. On 2L NC. Breathing is stable. Complains of cough. Currently on Tamiflu 75 mg PO BID (Dose 12/08). Maintained on bronchodilators and Prednisone. CXR done this morning shows similar bilateral patchy infiltrates. 07/17 Patient was seen and examined. On 2L NC. She feels better today with regard to her breathing. Pulmonary note reviewed, still bronchospastic and wheezy, continue present management. Completed 10 doses of Tamiflu today. Maintained on bronchodilators and Prednisone. Home O2 eval ordered today. Discussed with Dr. Benavides OK for discharge tomorrow. General: non toxic, no distress, appears at stated age Derm: warm, dry Head: atraumatic, normocephalic, symmetric Eyes: EOMI, no lid lag, anicteric sclera Mouth: no lip lesion, mucus membranes moist Cardiovascular: S1S2 tachy, no murmur Lungs: Expiratory wheezing bilateral, no rhonchi, no rales , no accessory muscle use Ext: no gross muscle atrophy, no edema, no contractures Neuro: no focal neuro deficits Psych: Alert, oriented, appropriate affect Based on my assessment of this patient, this patient meets a moderate complexity level of care. Patient has an acute diagnosis of acute hypoxic respiratory failure secondary to COPD exacerbation due to influenza A and possible bacterial pneumonia which poses a threat to life or bodily function. Acute hypoxic respiratory failure: Likely due to below. Sepsis: Likely due to below. Blood culture negative. Sputum culture pending. Legionella antigen negative. Telemetry monitoring. Pro-calcitonin is negative, stop Rocephin/Azithromycin. Influenza A pneumonia: Completed course of Tamiflu. Acute on chronic COPD exacerbation: Prednisone 40 mg PO QD. DuoNeb every 4 hours scheduled and as needed for shortness of breath and wheezing. Symbicort 2 puff BID. Pulmonary on board. Troponin elevation: Likely demand ischemia from sepsis. Transaminitis: Likely due to alcohol abuse. History of alcohol abuse: CIWA protocol with Ativan as needed. CODE STATUS: FULL CODE DVT Prophylaxis: Lovenox SQ GI Prophylaxis: Protonix PO Designated medical POA if patient is not able to make medical decisions for themselves: I have reviewed the following customer relations consultant notes: Pulmonary note. I have reviewed the results of the following tests: I have ordered the following tests: I have discussed the care of this patient with the following independent historian: I have independently interpreted the following test below: I have discussed the management of this patient with the following physician: Dr. Benavides Objective - Vital Signs Vital signs: Vital Signs Temp 96.9 F L 07/17/23 09:35 Pulse 78 07/18/23 04:00 Resp 18 07/18/23 04:00 BP 158/93 07/18/23 04:00 Pulse Ox 98 07/18/23 04:00 FiO2 40 07/13/23 11:02 Intake & Output 07/17/23 07/18/23 07/18/23 18:59 06:59 18:59 Intake Total 370 Balance 370 Intake: Oral 370 Other: Voiding Method Toilet # Voids 1 - Labs CBC & Chem 7: 07/15/23 07:27 07/15/23 07:27
--- NOTE | 2023-07-18 10:57 | P.PN ---
Subjective Progress Note Date: 07/18/23 This is a 53-year-old female patient with a known history of hypertension, schizophrenia, bipolar disorder, chronic and ongoing tobacco dependence, chronic alcohol abuse, obesity, chronic obstructive pulmonary disease. She presented here to the emergency room earlier today with complaints of increasing shortness of breath for the past 3 days. She took several breathing treatments at home without much improvement. Initial presentation on room air her O2 saturation was 80%. She was placed on BiPAP 12/6 and 40% FiO2. Chest x-ray reveals diffuse interstitial densities. Mild pulmonary vascular congestion, bronchitis or atypical pneumonia is within the differential. White count 5.6. Hemoglobin 12.8. Platelets 205. INR 0.9. Sodium 136. Potassium 3.8. Bicarb 24. BUN 5. Creatinine 0.53. Glucose 130. AST 91. ALT 118. Troponin 0.035. proBNP 580. Viral screen is positive for influenza A. She is seen today in consultation in the emergency department. She is currently sitting up on the stretcher. Awake and alert. She is dyspneic with conversation. Dyspneic with minimal exertion. She is febrile with a temperature of 100.2. Slightly tachycardic. Arterial blood gases revealed a PaO2 of 102, pCO2 54 and a pH of 7.37. Continue BiPAP support for now. Progress note dated July 14, 2023. 53-year-old female seen yesterday in the emergency department, and seen today, in room 369. The patient has a history of hypertension, schizophrenia, bipolar disorder, ongoing tobacco dependence, chronic alcohol abuse, obesity, and COPD. The patient did test positive for influenza. She was started on Tamiflu. Yesterday, she was on BiPAP, today she is on 4 L. BiPAP settings of 12/6, and 40%. She is receiving saline at 75 cc an hour. She looks a bit more comfortable today than she did yesterday, in the emergency department. There is no new laboratory data to speak up. Urine Legionella antigen was negative. Progress note dated July 15, 2023. This is a 53-year-old female who was initially seen in the emergency department, but is seen today in room 369. The patient remains on oxygen at 4 L by nasal cannula. She did not wear the BiPAP device last night, and refuses it, so it will be discontinued. In addition, the patient was getting saline IV, but she is refused that. She is getting Tamiflu 75 mg twice a day. The Solu-Medrol will be changed to prednisone. Labs today include a white count 5.7, hemoglobin 12.1, hematocrit 39.4, and a platelet count of 258,000. Sodium 140, potassium 4.9, chlorides 105, CO2 31, BUN 16, creatinine 0.55. Glucose is 141 calcium 8.2 magnesium 2.6 AST is 95, ALT 110, and alkaline phosphatase was 138. The patient's albumin is 3.1. Urine Legionella antigen was negative. Progress note dated July 16, 2023. 53-year-old female seen and examined, in room 369. The patient was seen in consultation, on July 12. The patient is currently doing much better. She is on 2 L of oxygen. Saturations are in the low 90s. She is not receiving any IV fluids. According to her nurse, she does get shortness of breath on exertion. Overall though, she is feeling much better. She continues on prednisone, Tamiflu, Symbicort, and DuoNebs. No new labs today. Labs from July 14 are reviewed. Chest x-ray today. Blood cultures are negative. On today's evaluation of 07/17/2023, seen the patient for a follow-up. The patient is a 53-year-old female who is currently being treated for an acute COPD exacerbation acute influenza A infection. She is quite short of breath bronchospastic and wheezy and she is still on a combination of treatment including DuoNeb updrafts and she is also on a prednisone at a dose of 40 mg p.o. daily. She is also maintained on Symbicort. Blood work from 07/15/2023 was reviewed and the patient a hemoglobin of 12, electrolytes and renal function were normal, and mild disturbance in the liver function test. Unable to bring up much of sputum. Blood culture from this current admission is negative and the patient is currently on 2 L of O2 nasal cannula with a pulse ox of 94%. She is known to have schizophrenia/bipolar disorder patient is a chronic smoker along with history of COPD. She has previous history of alcohol abuse and she is obese with a BMI of 35. She is known to have COPD and hypertension. On today's evaluation of 07/18/2023, patient is being seen for a follow-up. Clinically improved and the patient is less bronchospastic and wheezy compared to yesterday. No chest pain. No pleurisy or hemoptysis. The patient has no specific complaints otherwise for now. She remains on prednisone orally. She is completing her Tamiflu course today. In terms of her oxygenation, she r emains on 2 L of O2 nasal cannula with a pulse ox of 88%. She is afebrile and hemodynamically stable. The white cell count of 5.7 with a hemoglobin of 12.1 and a platelet count of 258. Sodium is at 140, BUN is at 16 with a creatinine of 0.5. Legionella urine antigen has been negative. Potassium level is at 4.7 with a sodium level 140. Objective - Vital Signs Vital signs: Vital Signs Temp 96.9 F L 07/17/23 09:35 Pulse 78 07/18/23 04:00 Resp 18 07/18/23 04:00 BP 158/93 07/18/23 04:00 Pulse Ox 98 07/18/23 04:00 FiO2 40 07/13/23 11:02 Intake & Output 07/17/23 07/18/23 07/18/23 18:59 06:59 18:59 Intake Total 370 Balance 370 Intake: Oral 370 Other: Voiding Method Toilet # Voids 1 - Exam No acute distress, oriented 3. Currently on 2 L of oxygen. Saturations are 96 %. No conversational dyspnea or use of accessory muscles. Head exam was generally normal. There was no scleral icterus or corneal arcus. Mucous membranes were moist. HEENT examination is grossly unremarkable. Mucous membranes are moist. No oral lesions. Neck supple. Full range of motion. No adenopathy thyromegaly or neck vein distention. Cardiovascular examination reveals regular rhythm rate. S1-S2 normal. No S3 or S4. No discernible murmur noted. Heart sounds are distant Lungs reveal scattered inspiratory and expiratory rhonchi. Mild expiratory wheezes. Breath sounds are much improved. No crackles. Breath sounds equal bilaterally. Abdomen soft bowel sounds are heard. No masses or tenderness. Extremities are intact. No cyanosis clubbing or edema. Skin is without rash or lesion. Neurologic examination is brief but nonfocal. - Labs CBC & Chem 7: 07/15/23 07:27 07/15/23 07:27 Assessment and Plan Plan: Acute hypoxemic respiratory failure secondary to an acute exacerbation of chronic obstructive pulmonary disease complicated by influenza A infection. Patient remains on O2 at 2 L/min nasal cannula Influenza A infection with secondary stroke exacerbation, maintained on Tamiflu and prednisone and bronchodilators COPD exacerbation secondary to above, improving Shortness of breath secondary to above, improving Chronic and ongoing tobacco dependence. History of significant alcohol use. Transaminitis secondary to above. Troponin leak, suspect oxygen supply and demand mismatch History of schizophrenia. History of bipolar disorder. Hypertension. Gastroesophageal reflux disease. Obesity with a BMI of 35.5 kg/m Plan Clinically much improved compared to yesterday and the patient is currently on oral prednisone Still bronchospastic and wheezy and the patient continues to benefit from bronchodilator and steroid treatment and she will be completing her Tamiflu course today Continue same management for now. Provide incentive spirometer Will continue to follow
[2023-07-19 09:41] VITALS: TEMP 98.4
--- NOTE | 2023-07-19 10:47 | P.DS ---
Providers Date of admission: 07/13/23 12:35 Expected date of discharge: 07/19/23 Attending physician: Caryn Lowe DO Consults: 07/13/23 12:31 Consult Physician Urgent Consulting Provider: Jesus Negrete Reason/Comments: acute bipap dependant resp failure, aecopd Do you want consulting provider notified?: Yes Primary care physician: Stated None Hospital Course: 53-year-old female with a past medical history of hypertension, COPD not home oxygen dependent, anxiety and depression, alcohol abuse with previous alcohol withdrawal seizures, cannabinoid use, and nicotine dependence. Patient presents to the ED for shortness of breath. Patient was recently hospitalized from 07/05- 07/09 for alcohol withdrawal. Breathing has progressively getting worse over the past 3 days. Attempted nebulized treatments without relief. In the ED, she underwent extensive evaluation. BP 182/78, RR 32, HR 113, T1 100.2 F, 80% on RA. She was placed on BiPAP in the ED. CBC, coag panel and CMP was done significant for RBC 3.67, MCV 103.8, PT 9.8, sodium 136, BUN 5, creatinine 0.43, glucose 130, calcium 7.9, AST 91, ALT 118, alkaline phosphatase 155, albumin 3.3. BNP 580. Troponin 0.035. Lactic acid 1.5. ABG showed pH 7.37 with pCO2 of 54. Influenza A positive. EKG showed sinus tachycardia with PVCs. Chest x- ray showed diffuse interstitial density concerning for pneumonia. Patient is admitted for acute on chronic hypoxic respiratory failure secondary to pneumonia and COPD exacerbation with pulmonary on consult. 07/13 On 4L NC. Improved breathing. Echo shows EF 55-60%. Urine legionella negative. Procalcitonin negative. Troponin 0.05, 0.035. 07/14 On 4L NC. Breathing more comfortably. 07/15 On 2L NC. Breathing is stable. Currently on Tamiflu 75 mg PO BID (Dose 10/08 ). Maintained on bronchodilators and Prednisone. 07/16 On 2L NC. Breathing is stable. Complains of cough. Currently on Tamiflu 75 mg PO BID (Dose /). Maintained on bronchodilators and Prednisone. CXR done this morning shows similar bilateral patchy infiltrates. 07/17 On 2L NC. Pulmonary note reviewed, still bronchospastic and wheezy, continue present management. Completed 10 doses of Tamiflu today. Maintained on bronchodilators and Prednisone. 07/18 Patient was seen and examined. Currently 99% on 2L NC. Finished course of Tamiflu. Home O2 eval done, she will need home oxygen to go home with. Discussed with Dr. Benavides, cleared for discharge. Plans for discharge home today. General: non toxic, no distress, appears at stated age Derm: warm, dry Head: atraumatic, normocephalic, symmetric Eyes: EOMI, no lid lag, anicteric sclera Mouth: no lip lesion, mucus membranes moist Cardiovascular: S1S2 reg, no murmur Lungs: End expiratory wheezing bilateral, no rhonchi, no rales , no accessory muscle use Ext: no gross muscle atrophy, no edema, no contractures Neuro: no focal neuro deficits Psych: Alert, oriented, appropriate affect Discharge Diagnosis: Acute hypoxic respiratory failure Sepsis due to Influenza A pneumonia Acute on chronic COPD exacerbation Troponin elevation Transaminitis History of alcohol abuse This complex discharge took 35 minutes to complete. Patient Condition at Discharge: Stable Plan - Discharge Summary Discharge Rx Participant: No New Discharge Prescriptions: New Ipratropium-Albuterol Nebulize [Duoneb 0.5 mg-3 mg/3 ml Soln] 3 ml INHALATION RT-QID PRN #120 each PRN Reason: Shortness Of Breath Or Wheezing Budesonide-Formot 160-4.5 Mcg [Symbicort 160-4.5 Mcg Inhaler] 2 puff INHALATION RT-BID #1 each predniSONE See Taper PO DIRECTED #30 tab Continue Acetaminophen [Tylenol] 325 - 350 mg PO Q6H PRN PRN Reason: Fever And/ Or Pain Acamprosate Calcium [Campral] 666 mg PO DIRECTED ARIPiprazole [Abilify] 2 mg PO DIRECTED Montelukast Sodium 10 mg PO DIRECTED Nicotine 21Mg/24Hr Patch [Habitrol] 1 patch TRANSDERM DAILY 30 Days #30 patch Ergocalciferol (Vitamin D2) [Drisdol (50,000 Iu)] 1,250 mcg PO DIRECTED Sertraline [Zoloft] 200 mg PO DIRECTED Pantoprazole [Protonix] 40 mg PO DIRECTED Metoprolol Tartrate [Lopressor] 25 mg PO BID 30 Days #60 tab Losartan [Cozaar] 50 mg PO DAILY 30 Days #30 tab Discharge Medication List ARIPiprazole [Abilify] 2 mg PO DIRECTED 07/07/23 [History] Acamprosate Calcium [Campral] 666 mg PO DIRECTED 07/07/23 [History] Acetaminophen [Tylenol] 325 - 350 mg PO Q6H PRN 07/07/23 [History] Ergocalciferol (Vitamin D2) [Drisdol (50,000 Iu)] 1,250 mcg PO DIRECTED 07/07/23 [History] Montelukast Sodium 10 mg PO DIRECTED 07/07/23 [History] Pantoprazole [Protonix] 40 mg PO DIRECTED 07/07/23 [History] Sertraline [Zoloft] 200 mg PO DIRECTED 07/07/23 [History] Losartan [Cozaar] 50 mg PO DAILY 30 Days #30 tab 07/10/23 [Rx] Metoprolol Tartrate [Lopressor] 25 mg PO BID 30 Days #60 tab 07/10/23 [Rx] Nicotine 21Mg/24Hr Patch [Habitrol] 1 patch TRANSDERM DAILY 30 Days #30 patch 07/10/23 [Rx] Budesonide-Formot 160-4.5 Mcg [Symbicort 160-4.5 Mcg Inhaler] 2 puff INHALATION RT-BID #1 each 07/19/23 [Rx] Ipratropium-Albuterol Nebulize [Duoneb 0.5 mg-3 mg/3 ml Soln] 3 ml INHALATION RT-QID PRN #120 each 07/19/23 [Rx] predniSONE See Taper PO DIRECTED #30 tab 07/19/23 [Rx] Follow up Appointment(s)/Referral(s): Jesus Negrete DO [Doctor of Osteopathic Medicine] - 07/28/23 9:15 am None,Stated [Primary Care Provider] - 1-2 days Discharge Disposition: HOME SELF-CARE
--- NOTE | 2023-07-19 11:43 | P.PN ---
Subjective Progress Note Date: 07/19/23 This is a 53-year-old female patient with a known history of hypertension, schizophrenia, bipolar disorder, chronic and ongoing tobacco dependence, chronic alcohol abuse, obesity, chronic obstructive pulmonary disease. She presented here to the emergency room earlier today with complaints of increasing shortness of breath for the past 3 days. She took several breathing treatments at home without much improvement. Initial presentation on room air her O2 saturation was 80%. She was placed on BiPAP 12/6 and 40% FiO2. Chest x-ray reveals diffuse interstitial densities. Mild pulmonary vascular congestion, bronchitis or atypical pneumonia is within the differential. White count 5.6. Hemoglobin 12.8. Platelets 205. INR 0.9. Sodium 136. Potassium 3.8. Bicarb 24. BUN 5. Creatinine 0.53. Glucose 130. AST 91. ALT 118. Troponin 0.035. proBNP 580. Viral screen is positive for influenza A. She is seen today in consultation in the emergency department. She is currently sitting up on the stretcher. Awake and alert. She is dyspneic with conversation. Dyspneic with minimal exertion. She is febrile with a temperature of 100.2. Slightly tachycardic. Arterial blood gases revealed a PaO2 of 102, pCO2 54 and a pH of 7.37. Continue BiPAP support for now. Progress note dated July 14, 2023. 53-year-old female seen yesterday in the emergency department, and seen today, in room 369. The patient has a history of hypertension, schizophrenia, bipolar disorder, ongoing tobacco dependence, chronic alcohol abuse, obesity, and COPD. The patient did test positive for influenza. She was started on Tamiflu. Yesterday, she was on BiPAP, today she is on 4 L. BiPAP settings of 12/6, and 40%. She is receiving saline at 75 cc an hour. She looks a bit more comfortable today than she did yesterday, in the emergency department. There is no new laboratory data to speak up. Urine Legionella antigen was negative. Progress note dated July 15, 2023. This is a 53-year-old female who was initially seen in the emergency department, but is seen today in room 369. The patient remains on oxygen at 4 L by nasal cannula. She did not wear the BiPAP device last night, and refuses it, so it will be discontinued. In addition, the patient was getting saline IV, but she is refused that. She is getting Tamiflu 75 mg twice a day. The Solu-Medrol will be changed to prednisone. Labs today include a white count 5.7, hemoglobin 12.1, hematocrit 39.4, and a platelet count of 258,000. Sodium 140, potassium 4.9, chlorides 105, CO2 31, BUN 16, creatinine 0.55. Glucose is 141 calcium 8.2 magnesium 2.6 AST is 95, ALT 110, and alkaline phosphatase was 138. The patient's albumin is 3.1. Urine Legionella antigen was negative. Progress note dated July 16, 2023. 53-year-old female seen and examined, in room 369. The patient was seen in consultation, on July 12. The patient is currently doing much better. She is on 2 L of oxygen. Saturations are in the low 90s. She is not receiving any IV fluids. According to her nurse, she does get shortness of breath on exertion. Overall though, she is feeling much better. She continues on prednisone, Tamiflu, Symbicort, and DuoNebs. No new labs today. Labs from July 14 are reviewed. Chest x-ray today. Blood cultures are negative. On today's evaluation of 07/17/2023, seen the patient for a follow-up. The patient is a 53-year-old female who is currently being treated for an acute COPD exacerbation acute influenza A infection. She is quite short of breath bronchospastic and wheezy and she is still on a combination of treatment including DuoNeb updrafts and she is also on a prednisone at a dose of 40 mg p.o. daily. She is also maintained on Symbicort. Blood work from 07/15/2023 was reviewed and the patient a hemoglobin of 12, electrolytes and renal function were normal, and mild disturbance in the liver function test. Unable to bring up much of sputum. Blood culture from this current admission is negative and the patient is currently on 2 L of O2 nasal cannula with a pulse ox of 94%. She is known to have schizophrenia/bipolar disorder patient is a chronic smoker along with history of COPD. She has previous history of alcohol abuse and she is obese with a BMI of 35. She is known to have COPD and hypertension. On today's evaluation of 07/18/2023, patient is being seen for a follow-up. Clinically improved and the patient is less bronchospastic and wheezy compared to yesterday. No chest pain. No pleurisy or hemoptysis. The patient has no specific complaints otherwise for now. She remains on prednisone orally. She is completing her Tamiflu course today. In terms of her oxygenation, she r emains on 2 L of O2 nasal cannula with a pulse ox of 88%. She is afebrile and hemodynamically stable. The white cell count of 5.7 with a hemoglobin of 12.1 and a platelet count of 258. Sodium is at 140, BUN is at 16 with a creatinine of 0.5. Legionella urine antigen has been negative. Potassium level is at 4.7 with a sodium level 140. On today's evaluation of 07/19/2023, the patient is feeling much better and she has no specific complaints. Her shortness of breath is improved considerably. No fever. No chills. No altered mentation. The patient is currently on prednisone as part of a burst taper and the patient also on Symbicort. The patient completed the course of Tamiflu. Objective - Vital Signs Vital signs: Vital Signs Temp 98.5 F 07/18/23 19:50 Pulse 76 07/19/23 04:32 Resp 18 07/19/23 04:32 BP 144/80 07/19/23 04:32 Pulse Ox 94 L 07/19/23 07:44 FiO2 40 07/13/23 11:02 Intake & Output 07/18/23 07/19/23 07/19/23 18:59 06:59 18:59 Intake Total 720 540 Balance 720 540 Intake: Oral 720 540 Other: Voiding Method Bedside Commode # Voids 3 - Exam No acute distress, oriented 3. Currently on room air oxygen. Saturations are 96 %. No conversational dyspnea or use of accessory muscles. Head exam was generally normal. There was no scleral icterus or corneal arcus. Mucous membranes were moist. HEENT examination is grossly unremarkable. Mucous membranes are moist. No oral lesions. Neck supple. Full range of motion. No adenopathy thyromegaly or neck vein distention. Cardiovascular examination reveals regular rhythm rate. S1-S2 normal. No S3 or S4. No discernible murmur noted. Heart sounds are distant Lungs reveal scattered inspiratory and expiratory rhonchi. Mild expiratory wheezes. Breath sounds are much improved. No crackles. Breath sounds equal bilaterally. Abdomen soft bowel sounds are heard. No masses or tenderness. Extremities are intact. No cyanosis clubbing or edema. Skin is without rash or lesion. Neurologic examination is brief but nonfocal. - Labs CBC & Chem 7: 07/15/23 07:27 07/15/23 07:27 Labs: Microbiology - Last 24 Hours (Table) 07/18/23 21:44 Gram Stain - Preliminary Sputum 07/13/23 15:34 Blood Culture - Final Blood Assessment and Plan Plan: Acute hypoxemic respiratory failure secondary to an acute exacerbation of chronic obstructive pulmonary disease complicated by influenza A infection. Patient remains on room air oxygen Influenza A infection with secondary stroke exacerbation, maintained on Tamiflu and prednisone and bronchodilators, completed course of Tamiflu and the patient is currently on a prednisone burst taper starting with 40 mg. COPD exacerbation secondary to above, improving Shortness of breath secondary to above, improving Chronic and ongoing tobacco dependence. History of significant alcohol use. Transaminitis secondary to above. Troponin leak, suspect oxygen supply and demand mismatch History of schizophrenia. History of bipolar disorder. Hypertension. Gastroesophageal reflux disease. Obesity with a BMI of 35.5 kg/m Plan Clinically much improved compared to yesterday and the patient is currently on oral prednisone, the patient can be discharged home on a prednisone burst taper. She completed a course of Tamiflu. Overall respiratory status is back to her baseline. Continue same management for now. Provide incentive spirometer Will continue to follow, possible discharge home today.
[2023-07-19 12:14] VITALS: BP 145/87; PULSE 66
== END 2023-07-19 15:07 | disposition home or self-care (01) | DRG 720 ==
LOC: EC 10:14 → 3SCARD 12:35
PROVIDERS: ADMIT Internal Medicine; ATTEND Internal Medicine
PROC: 5A09357 Assistance with Respiratory Ventilation, Less than 24 Consecutive Hours, Continuous Positive Airway Pressure (ICD-10-PCS; principal; 2023-07-13)
DX: A41.89 Other specified sepsis (principal); J44.1 Chronic obstructive pulmonary disease with (acute) exacerbation; J96.21 Acute and chronic respiratory failure with hypoxia; F20.9 Schizophrenia, unspecified; F31.9 Bipolar disorder, unspecified; I24.89 Other forms of acute ischemic heart disease; I10 Essential (primary) hypertension; F10.10 Alcohol abuse, uncomplicated; E66.9 Obesity, unspecified; J10.1 Influenza due to other identified influenza virus with other respiratory manifestations; J10.01 Influenza due to other identified influenza virus with the same other identified influenza virus pneumonia; F17.210 Nicotine dependence, cigarettes, uncomplicated; F41.9 Anxiety disorder, unspecified; I49.3 Ventricular premature depolarization; K21.9 Gastro-esophageal reflux disease without esophagitis; Z68.35 Body mass index [BMI] 35.0-35.9, adult; Z79.899 Other long term (current) drug therapy
CPT/HCPCS: 36415; 36600; 71045; 80053; 82805; 83605; 83735; 83880; 84145; 84484; 85025; 85027; 85610; 85730; 87040; 87070; 87205; 87449; 87636; 93005; 93306; 94640; 94660; 94760; 96365; 96367; 96375; 99291

== ENCOUNTER 2023-07-27 16:15 | Emergency (ER) | payer OTHER ==
[2023-07-27 16:41] VITALS: RESP 20
--- NOTE | 2023-07-27 17:04 | ED ---
General Adult HPI - General Chief complaint: Skin/Abscess/Foreign Body Stated complaint: L arm numbness Time Seen by Provider: 07/27/23 16:33 Source: patient Mode of arrival: ambulatory Limitations: no limitations - History of Present Illness Initial comments: 53-year-old female with a past medical history significant for hypertension, schizophrenia, bipolar disorder, ongoing tobacco dependence, chronic alcohol abuse, obesity, COPD presenting to the ED with a chief complaint of skin problem. Patient previously seen here and discharged on 07/19/2023 secondary to COPD exacerbation due to influenza infection requiring BiPAP. Throughout her course here had improvement of dyspnea and was discharged home after completing course of Tamiflu with prednisone burst taper and incentive spirometer. Patient reports at discharge had some dry, cracked skin of her left palm. States over the last 2 days has noticed pain and redness of her left upper extremity. States that 2 days ago noticed some pain and swelling to her left elbow with some redness. States since then this redness has spread up and down her left arm. Reports that secondary to pain is having difficulties moving her left arm. Also states that the dry and cracked skin of her palms have significantly worsened over the past 4 to 5 days. However denies pain of this. Denies any vesicle or blister formation prior to skin changes. Does note some associated chills. No fever. In terms of breathing, she reports feeling overall improved however still some ongoing issues with dyspnea on exertion. No chest pain. No other complaints at this time - Related Data Home Medications Medication Instructions Recorded Confirmed ARIPiprazole [Abilify] 2 mg PO DIRECTED 07/07/23 07/13/23 Acamprosate Calcium [Campral] 666 mg PO DIRECTED 07/07/23 07/13/23 Acetaminophen [Tylenol] 325 - 350 mg PO Q6H PRN 07/07/23 07/13/23 Ergocalciferol (Vitamin D2) 1,250 mcg PO DIRECTED 07/07/23 07/13/23 [Drisdol (50,000 Iu)] Montelukast Sodium 10 mg PO DIRECTED 07/07/23 07/13/23 Pantoprazole [Protonix] 40 mg PO DIRECTED 07/07/23 07/13/23 Sertraline [Zoloft] 200 mg PO DIRECTED 07/07/23 07/13/23 Previous Rx's Medication Instructions Recorded Losartan [Cozaar] 50 mg PO DAILY 30 Days #30 tab 07/10/23 Metoprolol Tartrate [Lopressor] 25 mg PO BID 30 Days #60 tab 07/10/23 Nicotine 21Mg/24Hr Patch [Habitrol] 1 patch TRANSDERM DAILY 30 Days 07/10/23 #30 patch Budesonide-Formot 160-4.5 Mcg 2 puff INHALATION RT-BID #1 each 07/19/23 [Symbicort 160-4.5 Mcg Inhaler] Ipratropium-Albuterol Nebulize 3 ml INHALATION RT-QID PRN #120 07/19/23 [Duoneb 0.5 mg-3 mg/3 ml Soln] each predniSONE See Taper PO DIRECTED #30 tab 07/19/23 Apixaban [Eliquis Starter Pack 0 mg PO DIRECTED 30 Days #1 07/27/23 (for VTE)] packet Apixaban [Eliquis] 0 mg PO DIRECTED #60 tablet 07/27/23 Allergies Allergy/AdvReac Type Severity Reaction Status Date / Time No Known Allergies Allergy Verified 07/27/23 16:22 Review of Systems ROS Statement: Those systems with pertinent positive or pertinent negative responses have been documented in the HPI. ROS Other: All systems not noted in ROS Statement are negative. Past Medical History Past Medical History: COPD, Hypertension Additional Past Medical History / Comment(s): seizures. alcohol abuse. History of Any Multi-Drug Resistant Organisms: None Reported Past Surgical History: No Surgical Hx Reported Past Anesthesia/Blood Transfusion Reactions: No Reported Reaction Past Psychological History: Anxiety, Depression Smoking Status: Current every day smoker Past Alcohol Use History: Daily Past Drug Use History: Marijuana - Past Family History Mother History Unknown: Yes General Exam Limitations: no limitations General appearance: alert, in no apparent distress Eye exam: Present: normal appearance ENT exam: Present: other (No intraoral lesions.) Neck exam: Present: normal inspection Respiratory exam: Present: wheezes. Absent: accessory muscle use Cardiovascular Exam: Present: regular rate GI/Abdominal exam: Present: soft Extremities exam: Present: other (Erythema, warmth, tenderness to palpation on the anterior aspect of the left upper extremity. There does appear to be a fluctuant area to the left AC.) Neurological exam: Present: alert, oriented X3 Skin exam: Present: warm, dry Course Vital Signs 07/27/23 16:18 Temperature 98.0 F Pulse Rate 122 H Respiratory 20 Rate Blood Pressure 133/76 O2 Sat by Pulse 95 Oximetry Medical Decision Making - Medical Decision Making Was pt. sent in by a medical professional or institution (, [facility], INJECTION MOLDING OPERATOR, urgent care, hospital, or usp...) When possible be specific @ -No Did you speak to anyone other than the patient for history (EMS, parent, family, police, friend...)? What history was obtained from this source @ -No Did you review nursing and triage notes (agree or disagree)? Why? @ -I reviewed and agree with nursing and triage notes Were old charts reviewed (outside hosp., previous admission, EMS record, old EKG, old radiological studies, urgent care reports/EKG's, usp records)? Report findings @ -Reviewed prior admission. For further details please HPI. Differential Diagnosis (chest pain, altered mental status, abdominal pain women, abdominal pain men, vaginal bleeding, weakness, fever, dyspnea, syncope, headache, dizziness, GI bleed, back pain, seizure, CVA, palpatations, mental health, musculoskeletal)? @ -SJS, TEN, cellulitis, MRSA, scalded skin syndrome, TSS, DVT, SVT, phlebitis. This not meant to be an all-inclusive list. EKG interpreted by me (3pts min.). @ -None X-rays interpreted by me (1pt min.). @ -Chest x-ray interpreted me which revealed no evidence of acute finding. CT interpreted by me (1pt min.). @ -None done U/S interpreted by me (1pt. min.). @ -Ultrasound of the left upper extremity inter by me which does show findings consistent with venous thrombosis of the left brachial and basilic veins as well as vein on the left forearm. What testing was considered but not performed or refused? (CT, X-rays, U/S, labs)? Why? @ -None What meds were considered but not given or refused? Why? @ -None Did you discuss the management of the patient with other professionals (professionals i.e. CARROL Whitney, INJECTION MOLDING OPERATOR, lab, RT, psych nurse, social science instructor, print room worker, teacher, weapons officer naval activity, immigration case worker)? Give summary @ -No Was smoking cessation discussed for >3mins.? @ -No Was critical care preformed (if so, how long)? @ -No Were there social determinants of health that impacted care today? How? (Homelessness, low income, unemployed, alcoholism, drug addiction, transportation, low edu. Level, literacy, decrease access to med. care, longterm, rehab)? @ -No Was there de-escalation of care discussed even if they declined (Discuss DNR or withdrawal of care, Hospice)? DNR status @ -No What co-morbidities impacted this encounter? (DM, HTN, Smoking, COPD, CAD, Cancer, CVA, ARF, Chemo, Hep., AIDS, mental health diagnosis, sleep apnea, morbid obesity)? @ -Obesity, recent hospitalization Was patient admitted / discharged? Hospital course, mention meds given and route, prescriptions, significant lab abnormalities, going to OR and other pertinent info. @ -Discharge 53-year-old female presenting to the ED with complaints of left upper extremity warmth and swelling over the last 2 days. Laboratory studies reviewed. CBC does show some elevations in white blood cell count at 15.4, chemistry panel shows some transaminitis as well. Ultrasound of the left upper extremity does show findings consistent with venous thrombosis of the left brachial and basilic veins as well as vein of the left forearm. On examination radial pulse is palpable. Left upper extremity does have warmth, erythema and tenderness to palpation to the anterior aspect of her left upper extremity. Patient was provided a dose of Lovenox here in the ED. Discharged home with Lovenox and advised close follow-up with her primary care provider. Discussed strict return precautions with patient who verbalized agreement. Undiagnosed new problem with uncertain prognosis? @ -No Drug Therapy requiring intensive monitoring for toxicity (Heparin, Nitro, Insulin, Cardizem)? @ -No Were any procedures done? @ -No Diagnosis/symptom? @ -Venous thrombosis of the left brachial and basilic veins Acute, or Chronic, or Acute on Chronic? @ -Acute Uncomplicated (without systemic symptoms) or Complicated (systemic symptoms)? @ -Uncomplicated Side effects of treatment? @ -No Exacerbation, Progression, or Severe Exacerbation? @ -No Poses a threat to life or bodily function? How? (Chest pain, [place], ID, pneumonia, PE, COPD, DKA, ARF, appy, cholecystitis, CVA, Diverticulitis, Homicidal, Suicidal, threat to staff... and all critical care pts) @ -Possibly, however at this time unlikely. - Lab Data Result diagrams: 07/27/23 17:42 07/27/23 17:42 Lab Results 07/27/23 07/27/23 07/27/23 Range/Units 17:42 17:42 17:42 WBC 15.4 H (3.8-10.6) k/uL RBC 4.57 (3.80-5.40) m/uL Hgb 15.1 D (11.4-16.0) gm/dL Hct 46.0 (34.0-46.0) % MCV 100.6 H D (80.0-100.0) fL MCH 33.0 (25.0-35.0) pg MCHC 32.8 (31.0-37.0) g/dL RDW 14.2 (11.5-15.5) % Plt Count 358 (150-450) k/uL MPV 8.2 Neutrophils % 77 % Lymphocytes % 17 % Monocytes % 4 % Eosinophils % 1 % Basophils % 0 % Neutrophils # 11.8 H (1.3-7.7) k/uL Lymphocytes # 2.6 (1.0-4.8) k/uL Monocytes # 0.7 (0-1.0) k/uL Eosinophils # 0.1 (0-0.7) k/uL Basophils # 0.1 (0-0.2) k/uL Macrocytosis Slight ESR Cancelled Sodium 139 (137-145) mmol/L Potassium 3.8 (3.5-5.1) mmol/L Chloride 106 (98-107) mmol/L Carbon Dioxide 21 L (22-30) mmol/L Anion Gap 12 mmol/L BUN 7 (7-17) mg/dL Creatinine 0.52 (0.52-1.04) mg/dL Est GFR (CKD-EPI)AfAm >90 (>60 ml/min/1.73 sqM) Est GFR (CKD-EPI)NonAf >90 (>60 ml/min/1.73 sqM) Glucose 111 H (74-99) mg/dL Calcium 8.8 (8.4-10.2) mg/dL Total Bilirubin 0.6 (0.2-1.3) mg/dL AST 37 H (14-36) U/L ALT 53 H (4-34) U/L Alkaline Phosphatase 185 H (38-126) U/L C-Reactive Protein 3.2 H (<1.0) mg/dL Total Protein 6.7 (6.3-8.2) g/dL Albumin 3.5 (3.5-5.0) g/dL Group A Strep (PCR) NOT DETECTED (Not Detectd) Disposition Clinical Impression: Deep vein thrombosis (DVT) of brachial vein Disposition: HOME SELF-CARE Condition: Good Additional Instructions: Please return to the Emergency Department if symptoms worsen or any other concerns. Please take Eliquis as prescribed and follow-up with your primary care provider. Prescriptions: Apixaban [Eliquis] 0 mg PO DIRECTED #60 tablet Apixaban [Eliquis Starter Pack (for VTE)] 0 mg PO DIRECTED 30 Days #1 packet Is patient prescribed a controlled substance at d/c from ED?: No Referrals: Lashay Coello MD [Primary Care Provider] - 1-2 days Time of Disposition: 20:30
[2023-07-27] MEDS: HYDROmorphone 0.5 MG/0.5 ML SYRINGE IVP STA (17:49)
--- NOTE | 2023-07-27 18:05 | XR ---
EXAMINATION TYPE: XR chest 2V DATE OF EXAM: 07/27/2023 5:55 PM CLINICAL INDICATION:Female, 53 years old with history of r/o pna; [facility] COMPARISON: Chest radiographs from 07/17/2023 TECHNIQUE: XR chest 2V Frontal and lateral views of the chest. FINDINGS: Lungs/Pleura: There is no evidence of pleural effusion, focal consolidation, or pneumothorax. Pulmonary vascularity: Unremarkable. Heart/mediastinum: Cardiomediastinal silhouette is unremarkable. Musculoskeletal: No acute osseous pathology. IMPRESSION: No acute cardiopulmonary disease/process.
[2023-07-27 18:18] LABS: ALT 53 U/L (4-34); AST 37 U/L (14-36); African American GFR (CKD) >90 (>60 ml/min/1.73 sqM); Albumin 3.5 g/dL (3.5-5.0); Alkaline Phosphatase 185 U/L (38-126); Anion Gap 12 mmol/L; Blood Urea Nitrogen 7 mg/dL (7-17); C Reactive Protein 3.2 mg/dL (<1.0); Calcium 8.8 mg/dL (8.4-10.2); Carbon Dioxide 21 mmol/L (22-30); Chloride 106 mmol/L (98-107); Glucose 111 mg/dL (74-99); Non-African American GFR(CKD) >90 (>60 ml/min/1.73 sqM); Potassium 3.8 mmol/L (3.5-5.1); Sodium 139 mmol/L (137-145); Total Bilirubin 0.6 mg/dL (0.2-1.3); Total Protein 6.7 g/dL (6.3-8.2)
[2023-07-27 18:51] LABS: Basophils # (A) 0.1 k/uL (0-0.2); Basophils % (A) 0 %; Eosinophils # (A) 0.1 k/uL (0-0.7); Eosinophils % (A) 1 %; Lymphocytes # (A) 2.6 k/uL (1.0-4.8); Lymphocytes % (A) 17 %; MCHC 32.8 g/dL (31.0-37.0); Macrocytosis Slight; Mean Platelet Volume 8.2; Monocytes # (A) 0.7 k/uL (0-1.0); Monocytes % (A) 4 %; Neutrophils # (A) 11.8 k/uL (1.3-7.7); Neutrophils % (A) 77 %; Platelet Count 358 k/uL (150-450); RBC 4.57 m/uL (3.80-5.40); RDW 14.2 % (11.5-15.5); WBC 15.4 k/uL (3.8-10.6)
[2023-07-27 18:56] LABS: HGB 15.1 gm/dL (11.4-16.0); MCV 100.6 fL (80.0-100.0)
--- NOTE | 2023-07-27 19:42 | US ---
EXAMINATION TYPE: US venous doppler duplex UE LT DATE OF EXAM: 07/27/2023 COMPARISON: NONE CLINICAL INDICATION: Female, 53 years old with history of r/o dvt; Pain, redness, and swelling in lef t arm x 3 days. Pt was in the hospital and had an IV in her left arm a few days ago. No hx of DVT. SIDE PERFORMED: Left Grayscale, color doppler, spectral doppler imaging performed of the deep veins of the upper extremiti es. Left Arm: Echogenic material with absence of color Doppler flow seen in the brachial veins down to th e elbow and basilic vein down to the elbow. There are echoes seen in a vein in the forearm as well. N oncompressibility also demonstrated. IMPRESSION: Findings consistent with venous thrombosis of the left brachial and basilic veins, as well as vein in the left forearm.
[2023-07-27 21:02] LABS: INR 0.9 (<1.2); Partial Thromboplastin Time 23.1 sec (22.0-30.0); Prothrombin Time 10.3 sec (10.0-12.5)
[2023-07-27] MEDS: ENOXAPARIN 100 MG/ML SYRINGE SQ STA (21:04)
[2023-07-27 21:37] VITALS: BP 111/71; PULSE 115; TEMP 98.4
== END 2023-07-27 21:11 | disposition home or self-care (01) ==
LOC: EC 16:15
DX: I82.622 Acute embolism and thrombosis of deep veins of left upper extremity (principal); R74.01 Elevation of levels of liver transaminase levels; E66.9 Obesity, unspecified; F17.200 Nicotine dependence, unspecified, uncomplicated; Z68.38 Body mass index [BMI] 38.0-38.9, adult
CPT/HCPCS: 36415; 87651; 80053; 85652; 85025; 85610; 85730; 86140; 87040; 87081; 71046; 93971; 99284; 96374; 96372; J1650; J1170

== ENCOUNTER 2023-08-14 15:21 | Emergency (ER) | payer OTHER ==
--- NOTE | 2023-08-14 15:52 | ED ---
General Adult HPI - General Chief complaint: Dizziness Stated complaint: Hypertension Time Seen by Provider: 08/14/23 15:38 Source: patient, RN notes reviewed Mode of arrival: ambulatory Limitations: no limitations - History of Present Illness Initial comments: 53-year-old female presents emergency department for elevated blood pressures. Patient states that she was sent by her primary care provider. Patient reports feelings of dizziness, lightheadedness, and changes in vision the last few days. Patient is on Eliquis for DVT of the left arm. Patient has history of COPD and wears 2 L of oxygen nasal cannula at home while ambulating. She states that at home blood pressure medication regimen was recently changed and increasing the dosage of losartan. Additionally patient has reporting feelings of chills associated worsening cough and pruritus, congestion for the past few days. - Related Data Home Medications Medication Instructions Recorded Confirmed ARIPiprazole [Abilify] 2 mg PO HS 07/07/23 08/14/23 Acetaminophen [Tylenol] 325 - 650 mg PO Q6H PRN 07/07/23 08/14/23 Ergocalciferol (Vitamin D2) 1,250 mcg PO HUTCHINSON 07/07/23 08/14/23 [Drisdol (50,000 Iu)] Montelukast Sodium 10 mg PO DAILY 07/07/23 08/14/23 Pantoprazole [Protonix] 40 mg PO DIRECTED 07/07/23 08/14/23 Sertraline [Zoloft] 200 mg PO DAILY 07/07/23 08/14/23 Apixaban [Eliquis] See Taper PO DIRECTED 08/14/23 08/14/23 Nicotine 14Mg/24Hr Patch [Habitrol 1 patch TRANSDERM DAILY 08/14/23 08/14/23 14Mg/24Hr Patch] amLODIPine [Norvasc] 5 mg PO DAILY 08/14/23 08/14/23 Previous Rx's Medication Instructions Recorded Losartan [Cozaar] 50 mg PO DAILY 30 Days #30 tab 07/10/23 Metoprolol Tartrate [Lopressor] 25 mg PO BID 30 Days #60 tab 07/10/23 Budesonide-Formot 160-4.5 Mcg 2 puff INHALATION RT-BID #1 each 07/19/23 [Symbicort 160-4.5 Mcg Inhaler] Ipratropium-Albuterol Nebulize 3 ml INHALATION RT-QID PRN #120 07/19/23 [Duoneb 0.5 mg-3 mg/3 ml Soln] each Amoxic-Pot Clav 875-125Mg 1 tab PO Q12HR #20 tab 08/14/23 [Augmentin 875-125] Azithromycin [Zithromax] 500 mg PO DAILY #5 tab 08/14/23 predniSONE 50 mg PO DAILY #5 tab 08/14/23 Allergies Allergy/AdvReac Type Severity Reaction Status Date / Time No Known Allergies Allergy Verified 08/14/23 17:34 Review of Systems ROS Statement: Those systems with pertinent positive or pertinent negative responses have been documented in the HPI. ROS Other: All systems not noted in ROS Statement are negative. Past Medical History Past Medical History: COPD, Hypertension Additional Past Medical History / Comment(s): seizures. alcohol abuse. History of Any Multi-Drug Resistant Organisms: None Reported Past Surgical History: No Surgical Hx Reported Past Anesthesia/Blood Transfusion Reactions: No Reported Reaction Past Psychological History: Anxiety, Depression Smoking Status: Current every day smoker Past Alcohol Use History: Daily Past Drug Use History: Marijuana - Past Family History Mother History Unknown: Yes General Exam - General Exam Comments Initial Comments: Visual Physical Exam Vital signs reviewed General: Well-appearing, nontoxic, no acute distress. Head: Normocephalic, atraumatic Eyes: PERRLA, EOMI ENT: Airway patent Chest: Nonlabored breathing Skin: No visual rash, normal skin tone Neuro: Alert and oriented 3 Musculoskeletal: No gross abnormalities Limitations: no limitations General appearance: alert, in no apparent distress Head exam: Present: atraumatic, normocephalic, normal inspection Eye exam: Present: normal appearance, PERRL, EOMI. Absent: scleral icterus, conjunctival injection, periorbital swelling ENT exam: Present: normal exam, mucous membranes moist Neck exam: Present: normal inspection. Absent: tenderness, meningismus, lymphadenopathy Respiratory exam: Present: wheezes, decreased breath sounds. Absent: normal jason ng sounds bilaterally Cardiovascular Exam: Present: regular rate, normal rhythm, tachycardia, normal heart sounds. Absent: systolic murmur, diastolic murmur, rubs, gallop, clicks GI/Abdominal exam: Present: soft, normal bowel sounds. Absent: distended, tenderness, guarding, rebound, rigid Extremities exam: Present: normal inspection, full ROM, normal capillary refill. Absent: tenderness, pedal edema, joint swelling, calf tenderness Back exam: Present: normal inspection Neurological exam: Present: alert, oriented X3, CN II-XII intact Psychiatric exam: Present: normal affect, normal mood Skin exam: Present: warm, dry, intact, normal color. Absent: rash Course Vital Signs 08/14/23 08/14/23 08/14/23 15:31 16:55 17:00 Temperature 98.2 F Pulse Rate 105 H 98 99 Respiratory 18 24 20 Rate Blood Pressure 159/86 151/101 165/104 O2 Sat by Pulse 94 L 97 97 Oximetry 08/14/23 08/14/23 08/14/23 17:30 18:00 18:18 Temperature Pulse Rate 101 H 95 98 Respiratory 20 22 20 Rate Blood Pressure 151/101 170/113 166/99 O2 Sat by Pulse 97 96 97 Oximetry 08/14/23 18:49 Temperature 97.8 F Pulse Rate 91 Respiratory 16 Rate Blood Pressure 170/98 O2 Sat by Pulse Oximetry Medical Decision Making - Medical Decision Making Was pt. sent in by a medical professional or institution (, PA, ROLL UP OPERATOR, urgent care, hospital, or usp...) When possible be specific @ -No Did you speak to anyone other than the patient for history (EMS, parent, family, police, friend...)? What history was obtained from this source @ -No Did you review nursing and triage notes (agree or disagree)? Why? @ -I reviewed and agree with nursing and triage notes Were old charts reviewed (outside hosp., previous admission, EMS record, old EKG, old radiological studies, urgent care reports/EKG's, usp records)? Report findings @ -No old charts were reviewed Differential Diagnosis (chest pain, altered mental status, abdominal pain women, abdominal pain men, vaginal bleeding, weakness, fever, dyspnea, syncope, headache, dizziness, GI bleed, back pain, seizure, CVA, palpatations, mental health, musculoskeletal)? @ -Differential Dyspnea: Coronary syndrome, arrhythmia, tamponade, asthma, COPD, pulmonary embolism, pneumonia, pneumothorax, pulmonary effusion, anaphylaxis, diabetic ketoacidosis, flailed chest, pulmonary contusion, diaphragmatic rupture, anemia, bishnu romuscular, this is not meant to be an all-inclusive list. EKG interpreted by me (3pts min.). @ -As above X-rays interpreted by me (1pt min.). @ -Patient's chest x-ray reveals a possible early developing right basilar pneumonia with background COPD CT interpreted by me (1pt min.). @ -None done U/S interpreted by me (1pt. min.). @ -None done What testing was considered but not performed or refused? (CT, X-rays, U/S, labs)? Why? @ -None What meds were considered but not given or refused? Why? @ -None Did you discuss the management of the patient with other professionals ( professionals i.e. DrJacek, PA, ROLL UP OPERATOR, lab, RT, psych nurse, social work supervisor, reproduction production manager, teacher, building drafting officer, child support case officer)? Give summary @ -No Was smoking cessation discussed for >3mins.? @ -No Was critical care preformed (if so, how long)? @ -No Were there social determinants of health that impacted care today? How? (Homelessness, low income, unemployed, alcoholism, drug addiction, transportation, low edu. Level, literacy, decrease access to med. care, correction, rehab)? @ -No Was there de-escalation of care discussed even if they declined (Discuss DNR or withdrawal of care, Hospice)? DNR status @ -No What co-morbidities impacted this encounter? (DM, HTN, Smoking, COPD, CAD, Cancer, CVA, ARF, Chemo, Hep., AIDS, mental health diagnosis, sleep apnea, morbid obesity)? @ -smoking, COPD, obesity Was patient admitted / discharged? Hospital course, mention meds given and route, prescriptions, significant lab abnormalities, going to OR and other pertinent info. @ -53-year-old female with complaint of elevated blood pressures. On physical examination patient was noted to be tachycardic no murmurs appreciated. Pulmonary examination revealed decreased breath sounds diffusely. Patient's lab oratory results remarkable for leukocytosis of 11.8 and left shift of 8.8 neutrophils. Patient presents urinalysis negative. Chemistry profile results reveal kidney liver function within normal limits, no evidence for acute organ dysfunction. Physical examination of the patient reveals no acute neurological deficits. Due to patient send hypertension emergency department given dose of IV labetalol helped to slightly normalize her pressures. Upon reviewing with the patient it was reported by her primary care physician to continue the dose of Norvasc, metoprolol, losartan. Patient was instructed to increase her losartan to 2 times a day. Discussed with patient states that she has not sta rted taking this medication 2 times a day. Recommend that patient continue with at home regimen prescribed by her primary care provider for hypertensive control and follow-up within the next week for reevaluation. Additionally, due to patient's clinical presentation chest x-ray she will be treated for pneumonia outpatient. Patient given shot of Rocephin in addition to Solu-Medrol. She will be discharged home with biotics and steroids. Patient states that she has adequate albuterol for breathing treatments at home. Strict return parameters with the patient in regard to her blood pressure and pulmonary symptoms, she is in agreement and understanding. Discussed with Dr. Judge Undiagnosed new problem with uncertain prognosis? @ -No Drug Therapy requiring intensive monitoring for toxicity (Heparin, Nitro, Insulin, Cardizem)? @ -No Were any procedures done? @ -No Diagnosis/symptom? @ -pneumonia, hypertension Acute, or Chronic, or Acute on Chronic? @ -acute Uncomplicated (without systemic symptoms) or Complicated (systemic symptoms)? @ -uncomplicated Side effects of treatment? @ -No Exacerbation, Progression, or Severe Exacerbation? @ -No Poses a threat to life or bodily function? How? (Chest pain, [place], [place], pneumonia, PE, COPD, DKA, ARF, appy, cholecystitis, CVA, Diverticulitis, Homicidal, Suicidal, threat to staff... and all critical care pts) @ -No - Lab Data Result diagrams: 08/14/23 15:57 08/14/23 15:57 Lab Results 08/14/23 08/14/23 08/14/23 Range/Units 15:57 15:57 15:57 WBC 11.8 H (3.8-10.6) k/uL RBC 4.71 (3.80-5.40) m/uL Hgb 15.0 (11.4-16.0) gm/dL Hct 46.8 H (34.0-46.0) % MCV 99.4 (80.0-100.0) fL MCH 31.8 (25.0-35.0) pg MCHC 32.0 (31.0-37.0) g/dL RDW 14.6 (11.5-15.5) % Plt Count 388 (150-450) k/uL MPV 7.9 Neutrophils % 75 % Lymphocytes % 19 % Monocytes % 3 % Eosinophils % 1 % Basophils % 1 % Neutrophils # 8.8 H (1.3-7.7) k/uL Lymphocytes # 2.2 (1.0-4.8) k/uL Monocytes # 0.4 (0-1.0) k/uL Eosinophils # 0.1 (0-0.7) k/uL Basophils # 0.1 (0-0.2) k/uL PT 10.2 (10.0-12.5) sec INR 0.9 (<1.2) APTT 23.1 (22.0-30.0) sec Sodium 140 (137-145) mmol/L Potassium 4.2 (3.5-5.1) mmol/L Chloride 108 H (98-107) mmol/L Carbon Dioxide 23 (22-30) mmol/L Anion Gap 9 mmol/L BUN 6 L (7-17) mg/dL Creatinine 0.52 (0.52-1.04) mg/dL Est GFR (CKD-EPI)AfAm >90 (>60 ml/min/1.73 sqM) Est GFR (CKD-EPI)NonAf >90 (>60 ml/min/1.73 sqM) Glucose 117 H (74-99) mg/dL Calcium 8.9 (8.4-10.2) mg/dL Magnesium 1.6 (1.6-2.3) mg/dL Total Bilirubin 0.7 (0.2-1.3) mg/dL AST 55 H (14-36) U/L ALT 53 H (4-34) U/L Alkaline Phosphatase 123 (38-126) U/L Troponin I (0.000-0.034) ng/mL Total Protein 7.4 (6.3-8.2) g/dL Albumin 3.8 (3.5-5.0) g/dL Urine Color Urine Appearance (Clear) Urine pH (5.0-8.0) Ur Specific [place] (1.001-1.035) Urine Protein (Negative) Urine Glucose (UA) (Negative) Urine Ketones (Negative) Urine Blood (Negative) Urine Nitrite (Negative) Urine Bilirubin (Negative) Urine Urobilinogen (<2.0) mg/dL Ur Leukocyte Esterase (Negative) 08/14/23 08/14/23 Range/Units 15:57 16:52 WBC (3.8-10.6) k/uL RBC (3.80-5.40) m/uL Hgb (11.4-16.0) gm/dL Hct (34.0-46.0) % MCV (80.0-100.0) fL MCH (25.0-35.0) pg MCHC (31.0-37.0) g/dL RDW (11.5-15.5) % Plt Count (150-450) k/uL MPV Neutrophils % % Lymphocytes % % Monocytes % % Eosinophils % % Basophils % % Neutrophils # (1.3-7.7) k/uL Lymphocytes # (1.0-4.8) k/uL Monocytes # (0-1.0) k/uL Eosinophils # (0-0.7) k/uL Basophils # (0-0.2) k/uL PT (10.0-12.5) sec INR (<1.2) APTT (22.0-30.0) sec Sodium (137-145) mmol/L Potassium (3.5-5.1) mmol/L Chloride (98-107) mmol/L Carbon Dioxide (22-30) mmol/L Anion Gap mmol/L BUN (7-17) mg/dL Creatinine (0.52-1.04) mg/dL Est GFR (CKD-EPI)AfAm (>60 ml/min/1.73 sqM) Est GFR (CKD-EPI)NonAf (>60 ml/min/1.73 sqM) Glucose (74-99) mg/dL Calcium (8.4-10.2) mg/dL Magnesium (1.6-2.3) mg/dL Total Bilirubin (0.2-1.3) mg/dL AST (14-36) U/L ALT (4-34) U/L Alkaline Phosphatase (38-126) U/L Troponin I <0.012 (0.000-0.034) ng/mL Total Protein (6.3-8.2) g/dL Albumin (3.5-5.0) g/dL Urine Color Light Yellow Urine Appearance Clear (Clear) Urine pH 6.5 (5.0-8.0) Ur Specific [place] 1.011 (1.001-1.035) Urine Protein Negative (Negative) Urine Glucose (UA) Negative (Negative) Urine Ketones Negative (Negative) Urine Blood Negative (Negative) Urine Nitrite Negative (Negative) Urine Bilirubin Negative (Negative) Urine Urobilinogen <2.0 (<2.0) mg/dL Ur Leukocyte Esterase Negative (Negative) Disposition Clinical Impression: Pneumonia, Hypertension Narrative: Please return to the Emergency Department if symptoms worsen or any other co ncerns. Please complete full course of both antibiotics as prescribed in addition to steroids. Follow-up with your primary care provider within the next week for further evaluation of blood pressure control and resolution of pneumonia. Continue with regimen prescribed by primary care provider for blood pressure control as follows: losartan 50 mg two times a day, amlodipine 5 mg once a day, and metoprolol titrate 25 mg two times a day. Disposition: HOME SELF-CARE Condition: Good Instructions (If sedation given, give patient instructions): Hypertension (ED) Prescriptions: Amoxic-Pot Clav 875-125Mg [Augmentin 875-125] 1 tab PO Q12HR #20 tab predniSONE 50 mg PO DAILY #5 tab Azithromycin [Zithromax] 500 mg PO DAILY #5 tab Is patient prescribed a controlled substance at d/c from ED?: No Referrals: Lashay Coello MD [Primary Care Provider] - 1-2 days Time of Disposition: 18:45
[2023-08-14 16:11] LABS: Basophils # (A) 0.1 k/uL (0-0.2); Basophils % (A) 1 %; Eosinophils # (A) 0.1 k/uL (0-0.7); Eosinophils % (A) 1 %; HCT 46.8 % (34.0-46.0); Lymphocytes # (A) 2.2 k/uL (1.0-4.8); Lymphocytes % (A) 19 %; MCH 31.8 pg (25.0-35.0); MCV 99.4 fL (80.0-100.0); Mean Platelet Volume 7.9; Monocytes # (A) 0.4 k/uL (0-1.0); Monocytes % (A) 3 %; Neutrophils # (A) 8.8 k/uL (1.3-7.7); Neutrophils % (A) 75 %; Platelet Count 388 k/uL (150-450); RBC 4.71 m/uL (3.80-5.40); RDW 14.6 % (11.5-15.5); WBC 11.8 k/uL (3.8-10.6)
[2023-08-14 16:19] LABS: INR 0.9 (<1.2); Partial Thromboplastin Time 23.1 sec (22.0-30.0); Prothrombin Time 10.2 sec (10.0-12.5)
[2023-08-14 16:21] LABS: ALT 53 U/L (4-34); African American GFR (CKD) >90 (>60 ml/min/1.73 sqM); Anion Gap 9 mmol/L; Blood Urea Nitrogen 6 mg/dL (7-17); Calcium 8.9 mg/dL (8.4-10.2); Carbon Dioxide 23 mmol/L (22-30); Chloride 108 mmol/L (98-107); Glucose 117 mg/dL (74-99); Non-African American GFR(CKD) >90 (>60 ml/min/1.73 sqM); Sodium 140 mmol/L (137-145)
--- NOTE | 2023-08-14 16:27 | XR ---
EXAMINATION TYPE: XR chest 2V DATE OF EXAM: 08/14/2023 COMPARISON: 07/27/2023 HISTORY: 53-year-old female with chest pain TECHNIQUE: PA and lateral views FINDINGS: Heart normal size. Aorta and pulmonary vasculature within normal limits. Mild bronchial cuffing. Some patchy opacity at the right lower lung without pleural effusion. Hyperinflation. IMPRESSION: Possible early developing right basilar pneumonia. Background COPD.
[2023-08-14 16:28] LABS: AST 55 U/L (14-36); Albumin 3.8 g/dL (3.5-5.0); Alkaline Phosphatase 123 U/L (38-126); Magnesium 1.6 mg/dL (1.6-2.3); Potassium 4.2 mmol/L (3.5-5.1); Total Bilirubin 0.7 mg/dL (0.2-1.3); Total Protein 7.4 g/dL (6.3-8.2)
[2023-08-14 17:05] LABS: Appearance,Urine Clear (Clear); Bilirubin,Urine Negative (Negative); Blood,Urine Negative (Negative); Color,Urine Light Yellow; Glucose,Urine (UA) Negative (Negative); Ketones,Urine Negative (Negative); Leukocyte Esterase,Urine Negative (Negative); Nitrite,Urine Negative (Negative); PH, Urine 6.5 (5.0-8.0); Protein,Urine Negative (Negative); Specific Gravity,Urine 1.011 (1.001-1.035); Urobilinogen,Urine <2.0 mg/dL (<2.0)
[2023-08-14] MEDS: methylPREDNISolone SOD SUCCI 125 MG/2 ML VIAL IV STA (17:54)
[2023-08-14] MEDS: cefTRIAXone IN SWFI 1,000 MG/10 ML SYRINGE IVP STA (17:54)
[2023-08-14] MEDS: KETOROLAC 15 MG/ML 1 ML VIAL IVP STA (17:54)
[2023-08-14] MEDS: LABETALOL 5 MG/ML VIAL MDV IVP STA (18:04)
[2023-08-14] MEDS: SODIUM CHLORIDE 0.9% 500 ML 500 ML IV STA (18:06)
[2023-08-14 19:21] VITALS: BP 170/98; PULSE 91; RESP 16; TEMP 97.8
== END 2023-08-14 18:50 | disposition home or self-care (01) ==
LOC: EC 15:21
DX: J18.9 Pneumonia, unspecified organism (principal); I10 Essential (primary) hypertension; F17.200 Nicotine dependence, unspecified, uncomplicated; F12.90 Cannabis use, unspecified, uncomplicated; J44.9 Chronic obstructive pulmonary disease, unspecified; E66.9 Obesity, unspecified; Z68.35 Body mass index [BMI] 35.0-35.9, adult
CPT/HCPCS: 36415; 93005; 80053; 83735; 84484; 85025; 85610; 85730; 81003; 71046; 99284; 96374; 96375 ×3; 96361; J0696; J1885; J1920; J2919

== ENCOUNTER 2023-09-24 01:46 | Observation (INO) | payer OTHER ==
[2023-09-24 02:31] LABS: Anisocytosis Slight; Basophils # (A) 0.1 k/uL (0-0.2); Basophils % (A) 1 %; Eosinophils # (A) 0.2 k/uL (0-0.7); Eosinophils % (A) 2 %; HCT 42.1 % (34.0-46.0); HGB 13.4 gm/dL (11.4-16.0); Lymphocytes % (A) 23 %; MCH 32.1 pg (25.0-35.0); MCHC 31.9 g/dL (31.0-37.0); MCV 100.8 fL (80.0-100.0); Macrocytosis Moderate; Mean Platelet Volume 7.8; Monocytes # (A) 0.5 k/uL (0-1.0); Monocytes % (A) 5 %; Neutrophils # (A) 5.9 k/uL (1.3-7.7); Neutrophils % (A) 67 %; Platelet Count 209 k/uL (150-450); RBC 4.17 m/uL (3.80-5.40); RDW 19.4 % (11.5-15.5); WBC 8.7 k/uL (3.8-10.6)
[2023-09-24 02:44] LABS: ALT 39 U/L (4-34); AST 46 U/L (14-36); African American GFR (CKD) >90 (>60 ml/min/1.73 sqM); Albumin 3.5 g/dL (3.5-5.0); Alkaline Phosphatase 176 U/L (38-126); Anion Gap 5 mmol/L; Blood Urea Nitrogen 12 mg/dL (7-17); Calcium 8.4 mg/dL (8.4-10.2); Carbon Dioxide 26 mmol/L (22-30); Chloride 105 mmol/L (98-107); Glucose 98 mg/dL (74-99); Lipase 177 U/L (23-300); Magnesium 1.8 mg/dL (1.6-2.3); Non-African American GFR(CKD) >90 (>60 ml/min/1.73 sqM); Potassium 3.4 mmol/L (3.5-5.1); Sodium 136 mmol/L (137-145); Total Bilirubin 0.7 mg/dL (0.2-1.3); Total Protein 6.6 g/dL (6.3-8.2)
[2023-09-24 02:51] LABS: NT-Pro-B-Type Natriuretic Pept 79 pg/mL
--- NOTE | 2023-09-24 03:18 | XR ---
EXAM: XR Chest, 2 Views CLINICAL HISTORY: ITS.REASON XR Reason: Chest Pain TECHNIQUE: Frontal and lateral views of the chest. COMPARISON: No relevant prior studies available. FINDINGS: Lungs: No consolidation or mass. Pleural space: No effusion. Heart: No cardiomegaly. Bones/joints: No acute findings. IMPRESSION: No acute cardiopulmonary process.
[2023-09-24 04:06] LABS: INR 0.9 (<1.2); Prothrombin Time 9.8 sec (10.0-12.5)
--- NOTE | 2023-09-24 04:49 | ED ---
Chest Pain HPI - General Chief Complaint: Chest Pain Stated Complaint: Chest Pain Time Seen by Provider: 09/24/23 02:09 Source: EMS Mode of arrival: EMS Limitations: no limitations - History of Present Illness Initial Comments: Barbara is a 53-year-old female with a history of COPD oxygen dependent, obesity who presents the ER today via ambulance for evaluation of chest pain. Patient reports she was relaxing at home when she had sudden onset of severe pressure and stabbing-like pain in the middle of her chest. Pain was associated with nausea without vomiting patient also reports she is feeling more short of breath and got lightheaded during this pain. Patient reports the pain resolved spontaneously and she is pain-free upon arrival. - Related Data Home Medications Medication Instructions Recorded Confirmed ARIPiprazole [Abilify] 2 mg PO HS 07/07/23 08/14/23 Acetaminophen [Tylenol] 325 - 650 mg PO Q6H PRN 07/07/23 08/14/23 Ergocalciferol (Vitamin D2) 1,250 mcg PO HUTCHINSON 07/07/23 08/14/23 [Drisdol (50,000 Iu)] Montelukast Sodium 10 mg PO DAILY 07/07/23 08/14/23 Pantoprazole [Protonix] 40 mg PO DIRECTED 07/07/23 08/14/23 Sertraline [Zoloft] 200 mg PO DAILY 07/07/23 08/14/23 Apixaban [Eliquis] See Taper PO DIRECTED 08/14/23 08/14/23 Nicotine 14Mg/24Hr Patch [Habitrol 1 patch TRANSDERM DAILY 08/14/23 08/14/23 14Mg/24Hr Patch] amLODIPine [Norvasc] 5 mg PO DAILY 08/14/23 08/14/23 Previous Rx's Medication Instructions Recorded Losartan [Cozaar] 50 mg PO DAILY 30 Days #30 tab 07/10/23 Metoprolol Tartrate [Lopressor] 25 mg PO BID 30 Days #60 tab 07/10/23 Budesonide-Formot 160-4.5 Mcg 2 puff INHALATION RT-BID #1 each 07/19/23 [Symbicort 160-4.5 Mcg Inhaler] Ipratropium-Albuterol Nebulize 3 ml INHALATION RT-QID PRN #120 07/19/23 [Duoneb 0.5 mg-3 mg/3 ml Soln] each Amoxic-Pot Clav 875-125Mg 1 tab PO Q12HR #20 tab 08/14/23 [Augmentin 875-125] Azithromycin [Zithromax] 500 mg PO DAILY #5 tab 08/14/23 predniSONE 50 mg PO DAILY #5 tab 08/14/23 Allergies Allergy/AdvReac Type Severity Reaction Status Date / Time No Known Allergies Allergy Verified 08/14/23 17:34 Review of Systems ROS Statement: Those systems with pertinent positive or pertinent negative responses have been documented in the HPI. ROS Other: All systems not noted in ROS Statement are negative. EKG Findings - EKG Comments: EKG Findings:: EKG interpreted by me, EKG obtained due to complaint of chest pain EKG obtained at 155 rate is 87 rhythm is sinus normal axis normal intervals, CA 136 QRS 92 QTc [address] elevations or depressions no evidence of ischemia or infarction. Past Medical History Past Medical History: COPD, Hypertension Additional Past Medical History / Comment(s): seizures. alcohol abuse. History of Any Multi-Drug Resistant Organisms: None Reported Past Surgical History: No Surgical Hx Reported Past Anesthesia/Blood Transfusion Reactions: No Reported Reaction Past Psychological History: Anxiety, Depression Smoking Status: Current every day smoker Past Alcohol Use History: Daily Past Drug Use History: Marijuana - Past Family History Mother History Unknown: Yes General Exam - General Exam Comments Initial Comments: Physical Exam GENERAL: Obese female no acute distress HENT: Normocephalic, Atraumatic. EYES: PERRL, EOMI PULMONARY: Unlabored respirations. No audible rales rhonchi or wheezing was noted. CARDIOVASCULAR: There is a regular rate and rhythm without any murmurs gallops or rubs. ABDOMEN: Soft and nontender with normal bowel sounds. SKIN: Skin is clear with no lesions or rashes and otherwise unremarkable. : Deferred NEUROLOGIC: Patient is alert and oriented x3. Moving all extremities spontaneously MUSCULOSKELETAL: Normal extremities with adequate strength and full range of motion. No lower extremity swelling or edema. No calf tenderness. PSYCHIATRIC: Normal psychiatric evaluation. Limitations: no limitations Course Vital Signs 09/24/23 01:47 Temperature 98.3 F Pulse Rate 92 Respiratory 22 Rate Blood Pressure 116/76 O2 Sat by Pulse 97 Oximetry Chest Pain MDM - MDM Was pt. sent in by a medical professional or institution (CARROL Whitney, FAMILY SPECIALIST, urgent care, hospital, or assisted...) When possible be specific @ -No Did you speak to anyone other than the patient for history (EMS, parent, family, police, friend...)? What history was obtained from this source @ -EMS Did you review nursing and triage notes (agree or disagree)? Why? @ -I reviewed and agree with nursing and triage notes Were old charts reviewed (outside hosp., previous admission, EMS record, old EKG, old radiological studies, urgent care reports/EKG's, assisted records)? Report findings @ -No old charts were reviewed Differential Diagnosis (chest pain, altered mental status, abdominal pain women, abdominal pain men, vaginal bleeding, weakness, fever, dyspnea, syncope, headache, dizziness, GI bleed, back pain, seizure, CVA, palpatations, mental health)? @ -Not applicable EKG interpreted by me (3pts min.). @ -As above X-rays interpreted by me (1pt min.). @ -No acute findings CT interpreted by me (1pt min.). @ -None done U/S interpreted by me (1pt. min.). @ -None done What testing was considered but not performed or refused? (CT, X-rays, U/S, labs)? Why? @ -None What meds were considered but not given or refused? Why? @ -None Did you discuss the management of the patient with other professionals (pro fessionals i.e. CARROL Whitney, FAMILY SPECIALIST, lab, RT, psych nurse, director social, remote mortgage underwriter, teacher, emergency communications officer, behavioral health case manager)? Give summary @ -No Was smoking cessation discussed for >3mins.? @ -No Was critical care preformed (if so, how long)? @ -No Were there social determinants of health that impacted care today? How? (Homelessness, low income, unemployed, alcoholism, drug addiction, transportation, low edu. Level, literacy, decrease access to med. care, retirement, rehab)? @ -No Was there de-escalation of care discussed even if they declined (Discuss DNR or withdrawal of care, Hospice)? DNR status @ -No What co-morbidities impacted this encounter? (DM, HTN, Smoking, COPD, CAD, Cancer, CVA, ARF, Chemo, Hep., AIDS, mental health diagnosis, sleep apnea, morbid obesity)? @ -None Was patient admitted / discharged? Hospital course, mention meds given and route, prescriptions, significant lab abnormalities, going to OR and other pertinent info. @ -Admit to observation Patient was seen and evaluated history was obtained from patient. Patient with multiple risk factors for cardiac disease including 2 brothers and father who have had MIs, patient presenting after episode of chest pain. Cardiac workup initially was negative however given the patient's risk factors we will place the patient in observation to trend troponin and have evaluation by cardiology. Dr. Moore accepts the admission. Undiagnosed new problem with uncertain prognosis? @ -No Drug Therapy requiring intensive monitoring for toxicity (Heparin, Nitro, Insulin, Cardizem)? @ -No Were any procedures done? @ -No Diagnosis/symptom? @ -High risk chest pain Acute, or Chronic, or Acute on Chronic? @ -Acute Uncomplicated (without systemic symptoms) or Complicated (systemic symptoms)? @ -Default Side effects of treatment? @ -No Exacerbation, Progression, or Severe Exacerbation? @ -No Poses a threat to life or bodily function? How? (Chest pain, [place], [place], pneumonia, PE, COPD, DKA, ARF, appy, cholecystitis, CVA, Diverticulitis, Homicidal, Suicidal, threat to staff... and all critical care pts) @ Potentially Disposition Clinical Impression: Chest pain Disposition: ADMITTED IP TO THIS HOSP Condition: Stable Is patient prescribed a controlled substance at d/c from ED?: No Referrals: Lashay Coello MD [Primary Care Provider] - 1-2 days
[2023-09-24 04:51] LABS: Partial Thromboplastin Time 19.8 sec (22.0-30.0)
[2023-09-24] MEDS ORDERED: NITROGLYCERIN SL TABS 0.4 MG TAB SUBLINGUAL PRN (05:04)
[2023-09-24] MEDS ORDERED: IPRATROPIUM-ALBUTEROL 3 ML NEB INHALATION PRN (05:54)
--- NOTE | 2023-09-24 05:56 | P.HPIM ---
History of Present Illness H&P Date: 09/24/23 Chief Complaint: Chest pain 53-year-old female with hypertension, COPD oxygen dependent Patient coming in for sudden onset chest pain that started around 10 PM last night described as central chest pain stabbing in nature with retrosternal pressure radiating to the back. It was getting worse by laying down episodes usually last for few minutes eases down and then comes back associated with worsening shortness of breath, which also has been getting worse recently with a ctivity just walking to the bathroom and back. With the recurrent episodes she started feeling dizzy and weak but denies any nausea vomiting denies any GI bleeding denies any abdominal pain denies any history of coronary artery disease denies any diabetes mellitus. She also endorses bilateral lower extremity edema which is new to her this been going on for the past 3 days, today she noticed both legs are slightly red and getting heavy difficult to walk around. At baseline she has exertional dyspnea which was getting worse, she also endorses orthopnea but this is not new to her. Patient was recently admitted in June 2023 for viral pneumonia and COPD exacerbation later that month she was diagnosed with acute deep vein thrombosis of the left upper extremity for which she has been on Eliquis since then Otherwise patient denies any fevers chills runny nose sore throat denies any changes in her baseline cough from COPD denies any abdominal pain changes in urinary or bowel habits Patient does admit to tobacco smoking denies any alcohol or drugs review of systems Pertinent positives as noted in HPI. All other systems were reviewed and are negative on exam Constitutional: No acute distress, cooperative Eyes: Anicteric sclerae, moist conjunctiva, Pupils equal round reactive to light ENMT: NC/AT Oropharynx clear, no erythema, or exudates Neck: Supple, no masses, or JVD No carotid bruits No thyromegaly Lungs: Diminished breath sounds with expiratory rhonchi Clear to percussion Normal respiratory effort, no accessory muscle use Cardiovascular: Heart regular in rate and rhythm, No murmurs, gallops, or rubs +2 peripheral edema bilateral legs Abdominal: Soft Nontender, no guarding, rebound or rigidity Abdomen moving with respiration Normoactive bowel sounds Extremities: No digital cyanosis Pedal pulses intact and symmetrical Radial pulses intact and symmetrical No calf tenderness, however she was tender bilateral legs and feet with severe edema Psychiatric: Alert and oriented to person, place and time Appropriate affect fair judgement Neuro Muscles Strength 4/5 in all 4 extremities Sensation to light touch grossly present throughout Cranial nerves II-XII grossly intact Past Medical History Past Medical History: COPD, Hypertension Additional Past Medical History / Comment(s): seizures. alcohol abuse. History of Any Multi-Drug Resistant Organisms: None Reported Past Surgical History: No Surgical Hx Reported Past Anesthesia/Blood Transfusion Reactions: No Reported Reaction Past Psychological History: Anxiety, Depression Smoking Status: Current every day smoker Past Alcohol Use History: Daily Past Drug Use History: Marijuana - Past Family History Mother History Unknown: Yes Medications and Allergies Home Medications Medication Instructions Recorded Confirmed Type ARIPiprazole [Abilify] 2 mg PO HS 07/07/23 08/14/23 History Acetaminophen [Tylenol] 325 - 650 mg PO Q6H PRN 07/07/23 08/14/23 History Ergocalciferol (Vitamin D2) 1,250 mcg PO [place]SON 07/07/23 08/14/23 History [Drisdol (50,000 Iu)] Montelukast Sodium 10 mg PO DAILY 07/07/23 08/14/23 History Pantoprazole [Protonix] 40 mg PO DIRECTED 07/07/23 08/14/23 History Sertraline [Zoloft] 200 mg PO DAILY 07/07/23 08/14/23 History Losartan [Cozaar] 50 mg PO DAILY 30 Days #30 tab 07/10/23 08/14/23 Rx Metoprolol Tartrate [Lopressor] 25 mg PO BID 30 Days #60 tab 07/10/23 08/14/23 Rx Budesonide-Formot 160-4.5 Mcg 2 puff INHALATION RT-BID #1 each 07/19/23 08/14/23 Rx [Symbicort 160-4.5 Mcg Inhaler] Ipratropium-Albuterol Nebulize 3 ml INHALATION RT-QID PRN #120 07/19/23 08/14/23 Rx [Duoneb 0.5 mg-3 mg/3 ml Soln] each Amoxic-Pot Clav 875-125Mg 1 tab PO Q12HR #20 tab 08/14/23 Rx [Augmentin 875-125] Apixaban [Eliquis] See Taper PO DIRECTED 08/14/23 08/14/23 History Azithromycin [Zithromax] 500 mg PO DAILY #5 tab 08/14/23 Rx Nicotine 14Mg/24Hr Patch [Habitrol 1 patch TRANSDERM DAILY 08/14/23 08/14/23 History 14Mg/24Hr Patch] amLODIPine [Norvasc] 5 mg PO DAILY 08/14/23 08/14/23 History predniSONE 50 mg PO DAILY #5 tab 08/14/23 Rx Allergies Allergy/AdvReac Type Severity Reaction Status Date / Time No Known Allergies Allergy Verified 08/14/23 17:34 Physical Exam Vitals: Vital Signs Temp Pulse Resp BP Pulse Ox 09/24/23 01:47 98.3 F 92 22 116/76 97 Intake and Output 09/23/23 09/23/23 09/24/23 14:59 22:59 06:59 Other: Weight 104.326 kg Results CBC & Chem 7: 09/24/23 02:12 09/24/23 02:12 Labs: Abnormal Lab Results - Last 24 Hours (Table) 09/24/23 09/24/23 09/24/23 Range/Units 02:12 02:12 03:35 MCV 100.8 H (80.0-100.0) fL RDW 19.4 H (11.5-15.5) % PT 9.8 L (10.0-12.5) sec APTT 19.8 L (22.0-30.0) sec D-Dimer 0.61 H (<0.60) mg/L FEU Sodium 136 L (137-145) mmol/L Potassium 3.4 L (3.5-5.1) mmol/L AST 46 H (14-36) U/L ALT 39 H (4-34) U/L Alkaline Phosphatase 176 H (38-126) U/L Assessment and Plan Assessment: 53-year-old female with COPD on home oxygen hypertension, recently diagnosed with left upper extremity DVT 2 months ago currently on Eliquis, she is coming in for new onset chest pain and bilateral lower extremity edema I discussed the case with ED doctor and accepted the admission for chest pain to rule out acute coronary syndrome with anticipated length of stay less than 2 midnights Atypical chest pain rule out ACS EKG shows no acute ST changes Troponins negative continue to trend Cardiac monitoring Monitor vital signs Elevated D-dimer Venous Doppler ultrasound bilateral lower extremity due to new onset bilateral edema Continue with Eliquis which was started 2 months ago for left upper extremity DVT Continue with aspirin 325 mg p.o. daily Cardiology consult Check lipid panel Nitro as needed for chest pain Continue with metoprolol 25 mg p.o. twice daily One-time dose of Lasix 40 mg IV push to help with bilateral lower extremity kenn ma Check echocardiogram Daily weights Fluid restriction 2 L daily Hypertension, controlled Continue amlodipine and metoprolol and losartan home medications COPD with chronic hypoxic respiratory failure, currently compensated Continue supplemental oxygen Continue with Symbicort twice daily Continue with Singulair daily DuoNebs scheduled and as needed Blood work showing white count 8.7 hemoglobin 13.4 unremarkable Sodium 136 potassium 3.4 BUN 12 creatinine 0.7 unremarkable Chest x-ray shows no acute cardiopulmonary process Full code DVT prophylaxis on Eliquis 5 mg p.o. twice daily for recent diagnosis of left upper extremity DVT GI prophylaxis continue with Protonix 40 mg p.o. daily
[2023-09-24] MEDS: PANTOPRAZOLE 40 MG TABLET PO SCH (06:23)
[2023-09-24] MEDS: FUROSEMIDE 10 MG/ML 4 ML VIAL IV STA (06:23)
[2023-09-24] MEDS: ASPIRIN 81 MG PO STA (06:25)
[2023-09-24] MEDS: amLODIPine 5 MG TAB PO SCH (08:43)
[2023-09-24] MEDS: APIXABAN 5 MG TAB PO SCH (08:43)
[2023-09-24] MEDS: MONTELUKAST 10 MG TAB PO SCH (08:43)
[2023-09-24] MEDS: LOSARTAN 50 MG TAB PO SCH (08:43)
[2023-09-24] MEDS: IPRATROPIUM-ALBUTEROL 3 ML NEB INHALATION SCH (08:52)
[2023-09-24] MEDS: SYMBICORT 160-4.5 MCG INHALER INHALATION SCH (08:53)
--- NOTE | 2023-09-24 10:00 | US ---
EXAMINATION TYPE: US venous doppler duplex LE DATE OF EXAM: 09/24/2023 9:34 AM COMPARISON: NONE CLINICAL INDICATION: Female, 53 years old with history of rule out DVT; Hx of DVT on blood thinners SIDE PERFORMED: Bilateral TECHNIQUE: The lower extremity deep venous system is examined utilizing real time linear array sonog mak with graded compression, doppler sonography and color-flow sonography. VESSELS IMAGED: Common Femoral Vein Deep Femoral Vein Greater Saphenous Vein * Femoral Vein Popliteal Vein Small Saphenous Vein * Proximal Calf Veins (* superficial vessels) Right Leg: Negative for DVT Left Leg: Negative for DVT IMPRESSION: 1. Bilateral lower extremity ultrasound negative for deep venous thrombosis.
[2023-09-24] MEDS: NICOTINE 21MG/24HR PATCH TRANSDERM SCH (10:25)
--- NOTE | 2023-09-24 11:26 | P.CRDCN ---
History of Present Illness Consult date: 09/24/23 Consult reason: chest pain Chief complaint: Chest pain and shortness of breath History of present illness: History of present illness: Patient is a pleasant 53-year-old female with significant past medical history of hypertension, COPD on home oxygen, left upper extremity DVT who presented with complaints of chest pain. 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 She smokes about 4 cig a day, + ETOH use. She reports that yesterday evening around 10 PM she was playing on her phone and she developed severe chest pain and pressure. This pain was worse with deep breathing. The episode lasted approximately 30 minutes. She also had worsening shortness of breath. She has been having swelling in her legs that has been getting worse over the past 2 weeks. He feels like her breathing is terrible today, she reports that she does have good days and bad days with her breathing. She has been on home oxygen for the past 2 months. She is feeling better in regards to chest pain today. She does have a significant family history of dad having an ND at age 45 and her brother having an ND at the age 55. She did have a prior echocardiogram during admission in June 2023 with a EF 55-60%, no significant valve issues. She has not had any prior stress testing. EKG today shows sinus rhythm. Labs reviewed: Sodium 136, potassium 3.4, creatinine 0.7, AST 46, ALT 39, alk phos 176, troponin negative x 2, BNP 79. Chest x-ray with no acute findings. She reports that she has only missed 12 doses of her Eliquis. REVIEW OF SYSTEMS: No fever or chills. No diaphoresis. Patient denies headache, dizziness, blurred vision, double vision. Patient denies any stomach discomfort. No nausea, vomiting. No hematochezia. No hematemesis. Denies any black stools or blood in his stools. Denies dysuria or hematuria. No muscle weakness or numbness. Reports chest pain or pressure. Reports shortness of breath and lower extremity edema. PHYSICAL EXAMINATION: This is a 53-year-old female in no apparent distress at the time of my examination. HEENT: Head is atraumatic, normocephalic. Pupils are equal, round. Sclerae anicteric. Conjunctivae are clear. Mucous membranes of the mouth are moist. Neck is supple. There is no jugular venous distention. No carotid bruit is heard. CHEST EXAMINATION: Lungs with rhonchi and scattered wheezes, breath sounds throughout. Slight chest wall tenderness is noted on palpation. HEART EXAMINATION: Heart regular rate and rhythm. S1, S2 heard. No murmurs, gallops or rub. ABDOMEN: Soft, nontender. Bowel sounds are heard. EXTREMITIES: 2+ peripheral pulses, +1 bilateral lower extremity edema. NEUROLOGIC EXAMINATION: Patient is awake, alert and oriented x3. IMPRESSION AND PLAN: Hypertension COPD Remedy DVT, on Eliquis currently Chest pain Shortness of breath Lower extremity edema PLAN: She did have lower extremity venous ultrasound that was negative for bilat LE DVT. Lower extremity edema may be related to amlodipine or prednisone. Stop amlodipine, monitor blood pressure at home. BNP normal. Discussed outpatient follow up for stress testing or staying in hospital and planning for stress testing on Monday. Smoking cessation strongly advised. OK to DC home with outpatient stress test. If symptoms worsen, return to ER. Follow up in office in 1 week. I am dictating on behalf of Dr. Olu Lord's history/physical and assessment/plan. Past Medical History Past Medical History: COPD, Hypertension Additional Past Medical History / Comment(s): seizures. alcohol abuse. History of Any Multi-Drug Resistant Organisms: None Reported Past Surgical History: No Surgical Hx Reported Past Anesthesia/Blood Transfusion Reactions: No Reported Reaction Past Psychological History: Anxiety, Depression Smoking Status: Current every day smoker Past Alcohol Use History: Daily Past Drug Use History: Marijuana - Past Family History Mother History Unknown: Yes Medications and Allergies Home Medications Medication Instructions Recorded Confirmed Type Acetaminophen [Tylenol] 325 - 650 mg PO Q6H PRN 07/07/23 09/24/23 History Ergocalciferol (Vitamin D2) 1,250 mcg PO [place]SON 07/07/23 09/24/23 History [Drisdol (50,000 Iu)] Montelukast Sodium 10 mg PO DAILY 07/07/23 09/24/23 History Pantoprazole [Protonix] 40 mg PO DAILY 07/07/23 09/24/23 History Sertraline [Zoloft] 200 mg PO DAILY 07/07/23 09/24/23 History Losartan [Cozaar] 50 mg PO DAILY 30 Days #30 tab 07/10/23 09/24/23 Rx Metoprolol Tartrate [Lopressor] 25 mg PO BID 30 Days #60 tab 07/10/23 09/24/23 Rx Budesonide-Formot 160-4.5 Mcg 2 puff INHALATION RT-BID #1 each 07/19/23 09/24/23 Rx [Symbicort 160-4.5 Mcg Inhaler] Apixaban [Eliquis] 5 mg PO BID 08/14/23 09/24/23 History Nicotine 14Mg/24Hr Patch [Habitrol 1 patch TRANSDERM DAILY 08/14/23 09/24/23 History 14Mg/24Hr Patch] ARIPiprazole [Abilify] 5 mg PO HS 09/24/23 09/24/23 History Furosemide [Lasix] 20 mg PO BID 09/24/23 09/24/23 History Ipratropium-Albuterol Nebulize 3 ml INHALATION RT-Q4H 09/24/23 09/24/23 History [Duoneb 0.5 mg-3 mg/3 ml Soln] Potassium Chloride ER [K-Dur 20] 20 meq PO DAILY 09/24/23 09/24/23 History amLODIPine [Norvasc] 10 mg PO DAILY 09/24/23 09/24/23 History Allergies Allergy/AdvReac Type Severity Reaction Status Date / Time No Known Allergies Allergy Verified 09/24/23 09:40 Physical Exam Vitals: Vital Signs Temp Pulse Pulse Resp BP BP Pulse Ox 09/24/23 09:04 76 09/24/23 08:54 73 09/24/23 06:55 97.9 F 91 19 117/65 96 09/24/23 06:00 83 22 111/64 95 09/24/23 05:00 83 21 105/66 95 09/24/23 04:00 77 22 105/90 95 09/24/23 03:00 81 23 116/76 97 09/24/23 01:47 98.3 F 92 22 116/76 97 Intake and Output 09/23/23 09/24/23 09/24/23 22:59 06:59 14:59 Other: # Voids 1 Weight 104.326 kg Results 09/24/23 02:12 09/24/23 02:12 Cardiac Enzymes 09/24/23 09/24/23 09/24/23 Range/Units 02:12 02:12 05:49 AST 46 H (14-36) U/L Troponin I <0.012 <0.012 (0.000-0.034) ng/mL Coagulation 09/24/23 Range/Units 03:35 PT 9.8 L (10.0-12.5) sec APTT 19.8 L (22.0-30.0) sec CBC 09/24/23 Range/Units 02:12 WBC 8.7 (3.8-10.6) k/uL RBC 4.17 (3.80-5.40) m/uL Hgb 13.4 (11.4-16.0) gm/dL Hct 42.1 (34.0-46.0) % Plt Count 209 (150-450) k/uL Comprehensive Metabolic Panel 09/24/23 Range/Units 02:12 Sodium 136 L (137-145) mmol/L Potassium 3.4 L (3.5-5.1) mmol/L Chloride 105 (98-107) mmol/L Carbon Dioxide 26 (22-30) mmol/L BUN 12 (7-17) mg/dL Creatinine 0.70 (0.52-1.04) mg/dL Glucose 98 (74-99) mg/dL Calcium 8.4 (8.4-10.2) mg/dL AST 46 H (14-36) U/L ALT 39 H (4-34) U/L Alkaline Phosphatase 176 H (38-126) U/L Total Protein 6.6 (6.3-8.2) g/dL Albumin 3.5 (3.5-5.0) g/dL Current Medications Generic Name Dose Route Start Last Admin Trade Name Freq PRN Reason Stop Dose Admin Albuterol/Ipratropium 3 ml 09/24/23 05:54 Ipratropium-Albuterol 3 Ml Neb INHALATION RT-QID PRN Shortness Of Breath Or Wheezing Albuterol/Ipratropium 3 ml 09/24/23 08:00 09/24/23 08:52 Ipratropium-Albuterol 3 Ml Neb INHALATION 3 ml RT-QID COLE Administration Amlodipine Besylate 5 mg 09/24/23 09:00 09/24/23 08:43 Amlodipine 5 Mg Tab PO 5 mg DAILY [facility]LE Administration Apixaban 5 mg 09/24/23 09:00 09/24/23 08:43 Apixaban 5 Mg Tab PO 5 mg BID [facility] Administration Protocol Aspirin 81 mg 09/25/23 09:00 Aspirin 81 Mg PO DAILY [facility] Budesonide/Formoterol Fumarate 2 puff 09/24/23 08:00 09/24/23 08:53 Symbicort 160-4.5 Mcg Inhaler INHALATION 2 puff RT-BID [facility] Administration Losartan Potassium 50 mg 09/24/23 09:00 09/24/23 08:43 Losartan 50 Mg Tab PO 50 mg DAILY [facility] Administration Metoprolol Tartrate 25 mg 09/24/23 09:00 Metoprolol Tartrate 25 Mg Tab PO BID [facility] Montelukast Sodium 10 mg 09/24/23 09:00 09/24/23 08:43 Montelukast 10 Mg Tab PO 10 mg DAILY [facility] Administration Nicotine 1 patch 09/24/23 09:00 Nicotine 21mg/24hr Patch TRANSDERM DAILY [facility] Nitroglycerin 0.4 mg 09/24/23 05:04 Nitroglycerin Sl Tabs 0.4 Mg Tab SUBLINGUAL Q5M PRN Chest Pain Pantoprazole Sodium 40 mg 09/24/23 05:45 09/24/23 06:23 Pantoprazole 40 Mg Tablet PO 40 mg DIRECTED [facility] Administration Intake and Output 09/23/23 09/24/23 09/24/23 22:59 06:59 14:59 Other: # Voids 1 Weight 104.326 kg 09/24/23 02:12 09/24/23 02:12
[2023-09-24] MEDS: METOPROLOL TARTRATE 25 MG TAB PO SCH (12:17)
--- NOTE | 2023-09-24 12:34 | P.PN ---
Subjective Progress Note Date: 09/24/23 Hospital course: Patient is a 53-year-old female with a past medical history of hypertension, COPD with continued nicotine dependence, history of DVT on anticoagulation with Eliquis and chronic hypoxic respiratory failure home oxygen dependent. She presented to the emergency department with a chief complaint of chest pain to midsternal/subcentral chest described as stabbing in nature accompanied by retrosternal pressure radiating into her back, worsening shortness of breath, and newly developed lower extremity edema. Patient reported this pain and shortness of breath is worse when lying down. Upon arrival to our facility, patient underwent evaluation in the emergency department. Vital signs upon arrival show blood pressure 116/76, heart rate 92, respiratory rate 22, temp 98.3 F, and SpO2 of 97% on 2 L. EKG was completed showing normal sinus rhythm at 87 bpm with no noted T wave or ST abnormalities showing no signs of acute ischemia upon personal review and interpretation. Chest x-ray was negative for acute cardiopulmonary process. Labs were completed and reviewed. CBC showing macrocytosis with MCV of 100.8 otherwise normal findings. BMP revealing mild hypokalemia with potassium of 3.4. Magnesium normal findings at 1.8. Liver profile showing transaminitis with AST of 46, ALT of 39, and alkaline phosphatase of 176. Troponin was negative at less than 0.012 and proBNP was 79. Coagulation profile showing PT of 9.8, PTT of 19.8, and D-dimer of 0.61. Patient was admitted under our services with consultation to cardiology. Troponins trended resulting at less than 0.012 x 3 draws.Venous Doppler negative for lower extremity DVTs bilaterally. Physical exam: Vital signs reviewed and stable. General: Nontoxic, no distress and appears stated age. Derm: Skin warm and dry, normal coloration for ethnicity. Head: Atraumatic, normocephalic and symmetric. Eyes: EOMs intact, no lid lag, and anicteric sclera Mouth: no lip lesions, mucus membranes moist Cardiovascular: regular rate and rhythm with normal S1S2, no murmur, positive posterior tibial pulses bilaterally, and cap refill < 2 seconds. Lungs: Respirations even, regular, and unlabored on 2 L O2. Lungs with diffuse expiratory wheezes bilaterally. No rhonchi, rales, or crackles noted. Abdominal: soft, nontender to palpation, no guarding, no appreciable organ omegaly Ext: ROM intact. No gross muscle atrophy, no edema, no contractures Neuro: Speech clear, face symmetrical and CN II-XII grossly intact with no noted focal neuro deficits Psych: Alert and oriented to person, place, time, and situation. Appropriate and pleasant affect. Assessment and Plan of Care: Chest pain and shortness of breath, acute coronary event ruled out Minimally elevated D-dimer COPD with chronic hypoxic respiratory failure, not in acute exacerbation Hypertension Nicotine dependence Transaminitis, chronic History of DVT -Cardiology consulted, appreciate recommendations -Telemetry monitoring -Troponins trended and negative at less than 0.012 x 3 draws. EKG showing normal sinus mechanism with no significant T wave or ST abnormalities. -Cardiac diet with fluid restriction of 2 L daily -Continue daily medication regimen with aspirin 81 mg daily, Eliquis 5 mg twice daily, amlodipine 5 mg daily, losartan 50 mg daily, and metoprolol 25 mg twice daily. -Patient received single dose of Lasix 40 mg IVP. -Patient started on DuoNebs scheduled 4 times daily and as needed for wheezing/shortness of breath. -Continue Symbicort 160-4.5 mcg inhaler 2 puffs twice daily and montelukast 10 mg daily. -Continue supplemental oxygen to maintain SpO2 equal to or greater than 90%. -Lipid profile with a.m. labs. -Echocardiogram -Bilateral lower extremity Dopplers were completed and negative for DVT. -Recommend smoking cessation and order placed for nicotine patch 21 mg daily. Data and imaging reviewed: Vital signs reviewed. Blood pressure 117/65, heart rate 91, respiratory rate 19, temp 97.9 F, and SpO2 of 96% on 2 L. Labs reviewed. Troponins trended resulting at less than 0.012 x 3 draws. Venous Doppler negative for lower extremity DVTs bilaterally. CODE STATUS: Full code DVT prophylaxis: Eliquis Anticipated discharge date: Pending clinical course Anticipated discharge place: Home Patient was seen independently by Nurse Pracitioner. This document was prepared using [employer] dictation software. Please allow for errors in security control room officer, while rare they do occur. José Antonio Cosme NP rendered care for this patient independently, reviewed the findings and plan as documented in the note above. I did not physically speak with or examine the patient on this date. Objective - Vital Signs Vital signs: Vital Signs Temp 97.9 F 09/24/23 06:55 Pulse 91 09/24/23 06:55 Resp 19 09/24/23 06:55 BP 117/65 09/24/23 06:55 Pulse Ox 96 09/24/23 06:55 FiO2 Intake & Output 09/23/23 09/24/23 09/24/23 18:59 06:59 18:59 Weight 104.326 kg Other: # Voids 1 - Labs CBC & Chem 7: 09/24/23 02:12 09/24/23 02:12 Labs: Abnormal Lab Results - Last 24 Hours (Table) 09/24/23 09/24/23 09/24/23 Range/Units 02:12 02:12 03:35 MCV 100.8 H (80.0-100.0) fL RDW 19.4 H (11.5-15.5) % PT 9.8 L (10.0-12.5) sec APTT 19.8 L (22.0-30.0) sec D-Dimer 0.61 H (<0.60) mg/L FEU Sodium 136 L (137-145) mmol/L Potassium 3.4 L (3.5-5.1) mmol/L AST 46 H (14-36) U/L ALT 39 H (4-34) U/L Alkaline Phosphatase 176 H (38-126) U/L
[2023-09-25] MEDS ORDERED: ASPIRIN 325 MG TAB PO SCH (09:00)
[2023-09-25 09:24] LABS: HCT 41.1 % (37.2-46.3); HGB 13.2 g/dL (12.0-15.0); MCH 32.2 pg (27.0-32.0); MCHC 32.1 g/dL (32.0-37.0); MCV 100.2 FL (80.0-97.0); Mean Platelet Volume 9.8 FL (9.5-12.2); NRBC Per 100 WBC 0 X 10*3/uL (0.00-0.01); Platelet Count 208 X 10*3/uL (140-440); WBC 8.22 X 10*3/uL (4.50-10.00)
[2023-09-25 09:35] LABS: ALT 38 U/L (8-44); AST 46 U/L (13-35); Albumin 3.6 g/dL (3.8-4.9); Albumin/Globulin Ratio 1.33 Ratio (1.60-3.17); Alkaline Phosphatase 163 U/L (41-126); BUN/Creat Ratio 13.43 Ratio (12.00-20.00); Blood Urea Nitrogen 9.4 mg/dL (9.0-27.0); Calcium 8.8 mg/dL (8.7-10.3); Carbon Dioxide 31.5 mmol/L (21.6-31.8); Chloride 102 mmol/L (96-109); Chol/HDL Ratio 3.28 Ratio; Globulin 2.7 g/dL (1.6-3.3); Glucose 102 mg/dL (70-110); LDL Cholesterol,Calculated 150.1 mg/dL (0.0-131.0); Magnesium 2.1 mg/dL (1.5-2.4); Potassium 3.7 mmol/L (3.5-5.5); Sodium 143 mmol/L (135-145); Total Bilirubin 0.5 mg/dL (0.3-1.2); Total Protein 6.3 g/dL (6.2-8.2)
[2023-09-25] MEDS: ASPIRIN 81 MG PO SCH (09:57)
[2023-09-25] MEDS ORDERED: REGADENOSON 0.4 MG/5 ML SYRINGE IV PRN (12:53)
--- NOTE | 2023-09-25 13:05 | P.PN ---
Subjective Progress Note Date: 09/25/23 History of present illness: Patient is a pleasant 53-year-old female with significant past medical history of hypertension, COPD on home oxygen, left upper extremity DVT who presented with complaints of chest pain. 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 She smokes about 4 cig a day, + ETOH use. She reports that yesterday evening around 10 PM she was playing on her phone and she developed severe chest pain and pressure. This pain was worse with deep breathing. The episode lasted approximately 30 minutes. She also had worsening shortness of breath. She has been having swelling in her legs that has been getting worse over the past 2 weeks. He feels like her breathing is terrible today, she reports that she does have good days and bad days with her breathing. She has been on home oxygen for the past 2 months. She is feeling better in regards to chest pain today. She does have a significant family history of dad having an IN at age 45 and her brother having an IN at the age 55. She did have a prior echocardiogram during admission in June 2023 with a EF 55-60%, no significant valve issues. She has not had any prior stress testing. EKG today shows sinus rhythm. Labs reviewed: Sodium 136, potassium 3.4, creatinine 0.7, AST 46, ALT 39, alk phos 176, troponin negative x 2, BNP 79. Chest x-ray with no acute findings. She reports that she has only missed 12 doses of her Eliquis. 09/25/23 And out of bed in chair. Reports she is feeling a little better today. Denies any actual chest pain however has had some discomfort. Her breathing is slightly better today. Still with slight edema on bilateral lower extremities. Blood pressure has been controlled. She states she does walk with a walker at home. PHYSICAL EXAMINATION: This is a 53-year-old female in no apparent distress at the time of my examination. HEENT: Head is atraumatic, normocephalic. Pupils are equal, round. Sclerae anicteric. Conjunctivae are clear. Mucous membranes of the mouth are moist. Neck is supple. There is no jugular venous distention. No carotid bruit is heard. CHEST EXAMINATION: Lungs with rhonchi and scattered wheezes, breath sounds throughout. Slight chest wall tenderness is noted on palpation. HEART EXAMINATION: Heart regular rate and rhythm. S1, S2 heard. No murmurs, gallops or rub. ABDOMEN: Soft, nontender. Bowel sounds are heard. EXTREMITIES: 2+ peripheral pulses, +1 bilateral lower extremity edema. NEUROLOGIC EXAMINATION: Patient is awake, alert and oriented x3. IMPRESSION AND PLAN: Hypertension COPD Recent DVT, on Eliquis currently Chest pain Shortness of breath Lower extremity edema PLAN: Continue to hold amlodipine. She would like to stay and have stress testing done tomorrow 09/25. Smoking cessation strongly advised. NPO after midnight for stress testing. Monitor blood pressure. Will follow. I am dictating on behalf of Dr. Olu Lord's history/physical and assessment/plan. Objective - Vital Signs Vital signs: Vital Signs Temp 98.8 F 09/25/23 07:00 Pulse 81 09/25/23 07:00 Resp 18 09/25/23 07:00 BP 116/72 09/25/23 07:00 Pulse Ox 98 09/25/23 07:00 FiO2 Intake & Output 09/24/23 09/25/23 09/25/23 18:59 06:59 18:59 Intake Total 240 Balance 240 Weight 109.7 kg Intake: Oral 240 Other: # Voids 2 3 - Labs CBC & Chem 7: 09/25/23 06:11 09/25/23 06:11 Labs: Abnormal Lab Results - Last 24 Hours (Table) 09/25/23 09/25/23 Range/Units 06:11 06:11 MCV 100.2 H (80.0-97.0) FL MCH 32.2 H (27.0-32.0) pg RDW 20.0 H (11.5-14.5) % AST 46 H (13-35) U/L Alkaline Phosphatase 163 H (41-126) U/L Albumin 3.6 L (3.8-4.9) g/dL Albumin/Globulin Ratio 1.33 L (1.60-3.17) Ratio Cholesterol 248.00 H (0.00-200.00) mg/dL LDL Cholesterol, Calc 150.1 H (0.0-131.0) mg/dL HDL Cholesterol 75.50 H (40.00-60.00) mg/dL
--- NOTE | 2023-09-25 15:02 | P.PN ---
Subjective Progress Note Date: 09/25/23 Hospital course: Patient is a 53-year-old female with a past medical history of hypertension, COPD with continued nicotine dependence, history of DVT on anticoagulation with Eliquis and chronic hypoxic respiratory failure home oxygen dependent. She presented to the emergency department with a chief complaint of chest pain to midsternal/subcentral chest described as stabbing in nature accompanied by retrosternal pressure radiating into her back, worsening shortness of breath, and newly developed lower extremity edema. Patient reported this pain and shortness of breath is worse when lying down. Upon arrival to our facility, patient underwent evaluation in the emergency department. Vital signs upon arrival show blood pressure 116/76, heart rate 92, respiratory rate 22, temp 98.3 F, and SpO2 of 97% on 2 L. EKG was completed showing normal sinus rhythm at 87 bpm with no noted T wave or ST abnormalities showing no signs of acute ischemia upon personal review and interpretation. Chest x-ray was negative for acute cardiopulmonary process. Labs were completed and reviewed. CBC showing macrocytosis with MCV of 100.8 otherwise normal findings. BMP revealing mild hypokalemia with potassium of 3.4. Magnesium normal findings at 1.8. Liver profile showing transaminitis with AST of 46, ALT of 39, and alkaline phosphatase of 176. Troponin was negative at less than 0.012 and proBNP was 79. Coagulation profile showing PT of 9.8, PTT of 19.8, and D-dimer of 0.61. Patient was admitted under our services with consultation to cardiology. Troponins trended resulting at less than 0.012 x 3 draws.Venous Doppler negative for lower extremity DVTs bilaterally. Physical exam: Vital signs reviewed and stable. General: Nontoxic, no distress and appears stated age. Derm: Skin warm and dry, normal coloration for ethnicity. Head: Atraumatic, normocephalic and symmetric. Eyes: EOMs intact, no lid lag, and anicteric sclera Mouth: no lip lesions, mucus membranes moist Cardiovascular: regular rate and rhythm with normal S1S2, no murmur, positive posterior tibial pulses bilaterally, and cap refill < 2 seconds. Lungs: Respirations even, regular, and unlabored on 2 L O2. Lungs with diffuse expiratory wheezes bilaterally. No rhonchi, rales, or crackles noted. Abdominal: soft, nontender to palpation, no guarding, no appreciable organ omegaly Ext: ROM intact. No gross muscle atrophy, no edema, no contractures Neuro: Speech clear, face symmetrical and CN II-XII grossly intact with no noted focal neuro deficits Psych: Alert and oriented to person, place, time, and situation. Appropriate and pleasant affect. Assessment and Plan of Care: Chest pain and shortness of breath, acute coronary event ruled out Minimally elevated D-dimer COPD with chronic hypoxic respiratory failure, not in acute exacerbation Hypertension Nicotine dependence Transaminitis, chronic History of DVT -Cardiology consulted, recommending holding amlodipine secondary to lower extremity edema. Patient scheduled undergo cardiac stress test tomorrow. -Telemetry monitoring -Troponins trended and negative at less than 0.012 x 3 draws. EKG showing normal sinus mechanism with no significant T wave or ST abnormalities. -Cardiac diet with fluid restriction of 2 L daily -Continue daily medication regimen with aspirin 81 mg daily, Eliquis 5 mg twice daily, losartan 50 mg daily, and metoprolol 25 mg twice daily. -Patient received single dose of Lasix 40 mg IVP. -Continue DuoNebs scheduled 4 times daily and as needed for wheezing/shortness of breath. -Continue Symbicort 160-4.5 mcg inhaler 2 puffs twice daily and montelukast 10 mg daily. -Continue supplemental oxygen to maintain SpO2 equal to or greater than 90%. -Lipid profile showing elevated total cholesterol of 248 and LDL of 150.1. Patient started on atorvastatin 20 mg nightly. -Echocardiogram -Bilateral lower extremity Dopplers were completed and negative for DVT. -Recommend smoking cessation and order placed for nicotine patch 21 mg daily. Data and imaging reviewed: Vital signs reviewed. Blood pressure 116/72, heart rate 81, respiratory rate 18, temp 98.8 F, and SpO2 of 98% on 3 L. Labs reviewed. CBC showing macrocytosis with MCV of 100.2. BMP unremarkable. Magnesium 2.1. Liver profile showing elevated AST of 46 and elevated alkaline phosphatase of 163. Lipid profile showing elevated total cholesterol of 248 and LDL of 150.1. Venous Doppler negative for lower extremity DVTs bilaterally. CODE STATUS: Full code DVT prophylaxis: Eliquis Anticipated discharge date: Pending clinical course Anticipated discharge place: Home Patient was seen independently by Nurse Pracitioner. This document was prepared using Enish dictation software. Please allow for errors in veterinary technology instructor, while rare they do occur. I reviewed the documentation as provided by the AURELIANO above, who is the original author of this note. I agree with the documented assessment and plan, with the following changes: none Objective - Vital Signs Vital signs: Vital Signs Temp 98.8 F 09/25/23 07:00 Pulse 81 09/25/23 07:00 Resp 18 09/25/23 07:00 BP 116/72 09/25/23 07:00 Pulse Ox 98 09/25/23 07:00 FiO2 Intake & Output 09/24/23 09/25/23 09/25/23 18:59 06:59 18:59 Weight 109.7 kg Other: # Voids 2 3 - Labs CBC & Chem 7: 09/25/23 06:11 09/25/23 06:11
[2023-09-25] MEDS: ATORVASTATIN 20 MG TAB PO SCH (21:15)
[2023-09-25] MEDS: LIDOCAINE 4% PATCH TOPICAL SCH (22:31)
[2023-09-25] MEDS: valACYclovir HCL 1,000 MG TABLET PO SCH (22:31)
--- NOTE | 2023-09-25 23:23 | P.PN ---
Progress Note - Text Progress Note Date: 09/25/23 left proximal inner thigh vesicular rash, painful tender, no bleeding , no open vesicles. suspicious of zoster initiate valacyclovir 1000 mg PO tid lidocaine patch for pain
[2023-09-26] MEDS ORDERED: CAFFEINE CITRATE 60 MG/3 ML VIAL IV PRN (06:00)
[2023-09-26] MEDS ORDERED: AMINOPHYLLINE 500 MG/20 ML VIAL IV PRN (06:00)
[2023-09-26] MEDS ORDERED: REGADENOSON 0.4 MG/5 ML SYRINGE IV PRN (06:00)
[2023-09-26 08:48] VITALS: RESP 18
--- NOTE | 2023-09-26 10:03 | P.PN ---
Subjective Progress Note Date: 09/26/23 History of present illness: Patient is a pleasant 53-year-old female with significant past medical history of hypertension, COPD on home oxygen, left upper extremity DVT who presented with complaints of chest pain. 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 She smokes about 4 cig a day, + ETOH use. She reports that yesterday evening around 10 PM she was playing on her phone and she developed severe chest pain and pressure. This pain was worse with deep breathing. The episode lasted approximately 30 minutes. She also had worsening shortness of breath. She has been having swelling in her legs that has been getting worse over the past 2 weeks. He feels like her breathing is terrible today, she reports that she does have good days and bad days with her breathing. She has been on home oxygen for the past 2 months. She is feeling better in regards to chest pain today. She does have a significant family history of dad having an OR at age 45 and her brother having an OR at the age 55. She did have a prior echocardiogram during admission in June 2023 with a EF 55-60%, no significant valve issues. She has not had any prior stress testing. EKG today shows sinus rhythm. Labs reviewed: Sodium 136, potassium 3.4, creatinine 0.7, AST 46, ALT 39, alk phos 176, troponin negative x 2, BNP 79. Chest x-ray with no acute findings. She reports that she has only missed 12 doses of her Eliquis. 09/25/23 And out of bed in chair. Reports she is feeling a little better today. Denies any actual chest pain however has had some discomfort. Her breathing is slightly better today. Still with slight edema on bilateral lower extremities. Blood pressure has been controlled. She states she does walk with a walker at home. 09/25 Patient is scheduled for Lexiscan stress test today. She denies having any chest pain. Blood pressure 114/68, heart rate 69, pulse ox 97% on 3 L nasal cannula. PHYSICAL EXAMINATION: This is a 53-year-old female in no apparent distress at the time of my examination. HEENT: Head is atraumatic, normocephalic. Pupils are equal, round. Sclerae anicteric. Conjunctivae are clear. Mucous membranes of the mouth are moist. Neck is supple. There is no jugular venous distention. No carotid bruit is heard. CHEST EXAMINATION: Lungs with rhonchi and scattered wheezes, breath sounds throughout. Slight chest wall tenderness is noted on palpation. HEART EXAMINATION: Heart regular rate and rhythm. S1, S2 heard. No murmurs, gallops or rub. ABDOMEN: Soft, nontender. Bowel sounds are heard. EXTREMITIES: 2+ peripheral pulses, +1 bilateral lower extremity edema. NEUROLOGIC EXAMINATION: Patient is awake, alert and oriented x3. IMPRESSION AND PLAN: Hypertension COPD Recent DVT, on Eliquis currently Chest pain Shortness of breath Lower extremity edema PLAN: Continue to hold amlodipine. Complete Lexiscan Cardiolite stress test. If this is within normal limits, patient is cleared for discharge from cardiology and may follow-up in the office in 1 week. Nurse practitioner note has been reviewed, I agree with documented findings and plan of care. Patient was seen and examined. Objective - Vital Signs Vital signs: Vital Signs Temp 98.3 F 09/26/23 02:00 Pulse 74 09/26/23 07:44 Resp 15 09/26/23 02:00 BP 114/68 09/26/23 02:00 Pulse Ox 100 09/26/23 07:44 FiO2 Intake & Output 09/25/23 09/26/23 09/26/23 18:59 06:59 18:59 Intake Total 980 Balance 980 Weight 109.8 kg Intake: Oral 980 Other: # Voids 7 2 # Bowel Movements 4 - Labs CBC & Chem 7: 09/25/23 06:11 09/25/23 06:11 Labs: Abnormal Lab Results - Last 24 Hours (Table) 09/25/23 09/25/23 Range/Units 06:11 06:11 MCV 100.2 H (80.0-97.0) FL MCH 32.2 H (27.0-32.0) pg RDW 20.0 H (11.5-14.5) % AST 46 H (13-35) U/L Alkaline Phosphatase 163 H (41-126) U/L Albumin 3.6 L (3.8-4.9) g/dL Albumin/Globulin Ratio 1.33 L (1.60-3.17) Ratio Cholesterol 248.00 H (0.00-200.00) mg/dL LDL Cholesterol, Calc 150.1 H (0.0-131.0) mg/dL HDL Cholesterol 75.50 H (40.00-60.00) mg/dL
--- NOTE | 2023-09-26 12:50 | NM ---
EXAMINATION TYPE: NM stress lexiscan cardiolite DATE OF EXAM: 09/26/2023 COMPARISON: NONE CLINICAL INDICATION: Female, 53 years old with history of chest pain; TECHNIQUE: After the intravenous administration of 10.3 mCi Tc 99m Sestamibi - Cardiolite resting SP ECT images acquired 70 minutes post injection. The patient received 0.4mg Lexiscan, 24.5 mCi Tc 99m Sestamibi - Stress images obtained [address] injection FINDINGS: Review of stress and rest SPECT images demonstrates fixed decreased perfusion along the mid to apical anterior wall. No corresponding defect on polar maps. No discrete reversibility is seen. Gated ajay sis shows normal wall motion with an estimated left ventricular ejection fraction of 62 %. TID is ca lculated at 1.11, upper limits of normal. IMPRESSION: Fixed perfusion defect mid to apical anterior wall favored to represent attenuation artifact rather t mckeon old infarct. Clinically correlate. No scintigraphic evidence for reversible ischemia.
--- NOTE | 2023-09-26 14:47 | P.DS ---
Providers Date of admission: 09/24/23 05:04 Expected date of discharge: 09/26/23 Attending physician: Dara Donis MD Consults: 09/24/23 05:04 Consult Physician Urgent Consulting Provider: Olu Lord Consult Reason/Comments: chest pain Do you want consulting provider notified?: Yes, Notify in am 09/24/23 05:40 Consult Physician Routine Consulting Provider: Kiran Hernandez Consult Reason/Comments: chest pain Do you want consulting provider notified?: Yes Primary care physician: [facility] Course: Discharge Diagnosis: Chest pain and shortness of breath, acute coronary event ruled out. Minimally elevated D-dimer and BLE Edema. Bilateral lower extremity Dopplers negative for DVT. Patient to continue with Eliquis 5 mg twice daily as scheduled. Amlodipine was discontinued secondary to lower extremity edema. COPD with chronic hypoxic respiratory failure, not in acute exacerbation. Strongly recommend smoking cessation. Hypertension. Patient to continue losartan 50 mg daily metoprolol 25 mg twice daily. Nicotine dependence. Strongly recommended smoking cessation.. Patient to continue Transaminitis, chronic. History of DVT. Bilateral lower extremity Dopplers negative for DVT. Patient to continue with Eliquis 5 mg twice daily as scheduled. Hospital course: Patient is a 53-year-old female with a past medical history of hypertension, COPD with continued nicotine dependence, history of DVT on anticoagulation with Eliquis and chronic hypoxic respiratory failure home oxygen dependent. She presented to the emergency department with a chief complaint of chest pain to midsternal/subcentral chest described as stabbing in nature accompanied by retrosternal pressure radiating into her back, worsening shortness of breath, and newly developed lower extremity edema. Patient reported this pain and shortness of breath is worse when lying down. Upon arrival to our facility, patient underwent evaluation in the emergency department. Vital signs upon arrival show blood pressure 116/76, heart rate 92, respiratory rate 22, temp 98.3 F, and SpO2 of 97% on 2 L. EKG was completed showing normal sinus rhythm at 87 bpm with no noted T wave or ST abnormalities showing no signs of acute ischemia upon personal review and interpretation. Chest x-ray was negative for acute cardiopulmonary process. Labs were completed and reviewed. CBC showing macrocytosis with MCV of 100.8 otherwise normal findings. BMP revealing mild hypokalemia with potassium of 3.4. Magnesium normal findings at 1.8. Liver profile showing transaminitis with AST of 46, ALT of 39, and alkaline phosphatase of 176. Troponin was negative at less than 0.012 and proBNP was 79. Coagulation profile showing PT of 9.8, PTT of 19.8, and D-dimer of 0.61. Patient was admitted under our services with consultation to cardiology. Troponins trended resulting at less than 0.012 x 3 draws.Venous Doppler negative for lower extremity DVTs bilaterally. Lexiscan stress test was completed showing a fixed perfusion defect mid to apical anterior wall favored to represent attenuation artifact rather than old infarct otherwise showing no scintigraphic evidence for reversible ischemia. Cardiology clearing patient from their perspective recommending outpatient follow-up with PCP in 1 to 2 days and with ribbon lapper tender in 1 week. Cardiology is stating no need to repeat echocardiogram at this time. Physical exam: Vital signs reviewed and stable. General: Nontoxic, no distress and appears stated age. Derm: Skin warm and dry, normal coloration for ethnicity. Head: Atraumatic, normocephalic and symmetric. Eyes: EOMs intact, no lid lag, and anicteric sclera Mouth: no lip lesions, mucus membranes moist Cardiovascular: regular rate and rhythm with normal S1S2, no murmur, positive posterior tibial pulses bilaterally, and cap refill < 2 seconds. Lungs: Respirations even, regular, and unlabored on 2 L O2. Lungs with diffuse expiratory wheezes bilaterally. No rhonchi, rales, or crackles noted. Abdominal: soft, nontender to palpation, no guarding, no appreciable organomegaly Ext: ROM intact. No gross muscle atrophy, no edema, no contractures Neuro: Speech clear, face symmetrical and CN II-XII grossly intact with no noted focal neuro deficits Psych: Alert and oriented to person, place, time, and situation. Appropriate and pleasant affect. A total of 31 minutes of time were spent preparing this complex discharge summary. Pt was discharged on 09/26/2023 at 2:46 PM. Patient was seen independently by Nurse Practitioner. This document was prepared using [employer] dictation software. Please allow for errors in pharmacoepidemiologist while rare they do occur. José Antonio Cosme NP rendered care for this patient independently, reviewed the findings and plan as documented in the note above. I did not physically speak with or examine the patient on this date. Patient Condition at Discharge: Stable Plan - Discharge Summary New Discharge Prescriptions: New Atorvastatin [Lipitor] 20 mg PO HS 30 Days #30 tab valACYclovir HCL [Valtrex] 1,000 mg PO TID 6 Days #18 tab Continue Acetaminophen [Tylenol] 325 - 650 mg PO Q6H PRN PRN Reason: Fever And/ Or Pain Montelukast Sodium 10 mg PO DAILY Budesonide-Formot 160-4.5 Mcg [Symbicort 160-4.5 Mcg Inhaler] 2 puff INHALATION RT-BID #1 each Apixaban [Eliquis] 5 mg PO BID ARIPiprazole [Abilify] 5 mg PO HS Ergocalciferol (Vitamin D2) [Drisdol (50,000 Iu)] 1,250 mcg PO HUTCHINSON Sertraline [Zoloft] 200 mg PO DAILY Pantoprazole [Protonix] 40 mg PO DAILY Metoprolol Tartrate [Lopressor] 25 mg PO BID 30 Days #60 tab Losartan [Cozaar] 50 mg PO DAILY 30 Days #30 tab Nicotine 14Mg/24Hr Patch [Habitrol] 1 patch TRANSDERM DAILY Potassium Chloride ER [K-Dur 20] 20 meq PO DAILY Furosemide [Lasix] 20 mg PO BID Ipratropium-Albuterol Nebulize [Duoneb 0.5 mg-3 mg/3 ml Soln] 3 ml INHALATION RT-Q4H Discontinued amLODIPine [Norvasc] 10 mg PO DAILY Discharge Medication List Acetaminophen [Tylenol] 325 - 650 mg PO Q6H PRN 07/07/23 [History] Ergocalciferol (Vitamin D2) [Drisdol (50,000 Iu)] 1,250 mcg PO HUTCHINSON 07/07/23 [History] Montelukast Sodium 10 mg PO DAILY 07/07/23 [History] Pantoprazole [Protonix] 40 mg PO DAILY 07/07/23 [History] Sertraline [Zoloft] 200 mg PO DAILY 07/07/23 [History] Losartan [Cozaar] 50 mg PO DAILY 30 Days #30 tab 07/10/23 [Rx] Metoprolol Tartrate [Lopressor] 25 mg PO BID 30 Days #60 tab 07/10/23 [Rx] Budesonide-Formot 160-4.5 Mcg [Symbicort 160-4.5 Mcg Inhaler] 2 puff INHALATION RT-BID #1 each 07/19/23 [Rx] Apixaban [Eliquis] 5 mg PO BID 08/14/23 [History] Nicotine 14Mg/24Hr Patch [Habitrol] 1 patch TRANSDERM DAILY 08/14/23 [History] ARIPiprazole [Abilify] 5 mg PO HS 09/24/23 [History] Furosemide [Lasix] 20 mg PO BID 09/24/23 [History] Ipratropium-Albuterol Nebulize [Duoneb 0.5 mg-3 mg/3 ml Soln] 3 ml INHALATION RT-Q4H 09/24/23 [History] Potassium Chloride ER [K-Dur 20] 20 meq PO DAILY 09/24/23 [History] Atorvastatin [Lipitor] 20 mg PO HS 30 Days #30 tab 09/26/23 [Rx] valACYclovir HCL [Valtrex] 1,000 mg PO TID 6 Days #18 tab 09/26/23 [Rx] Follow up Appointment(s)/Referral(s): Ted Ruth MD [Medical Doctor] - 1 Week (Office will call with appointment time and date.) Lashay Coello MD [Primary Care Provider] - 1-2 days Patient Instructions/Handouts: Chest Pain (DC), How to Stop Smoking (DC), Shing les (DC) Activity/Diet/Wound Care/Special Instructions: Activity: As tolerated. Take breaks as needed. Diet: Heart healthy and carb consistent diet. Avoid salts, or foods with hidden salts such as canned or boxed foods and frozen dinners. Extra salt makes your heart work harder and traps the fluid in your body for longer. Special Instructions: Take all of your medications as directed and remember to keep all of your doctor's appointments and follow-up as needed. Thank you for allowing us to participate in your care, it was truly a pleasure having you for our patient!!! Discharge Disposition: HOME SELF-CARE
[2023-09-26 15:41] VITALS: BP 118/80; PULSE 86; TEMP 97.8
--- NOTE | 2023-09-26 18:19 | CA ---
Lexiscan Nuclear Stress Test Report Name: Dayana Humphrey Exam Date: 09/26/2023 10:32 Exam Location: [facility] Ht (in): 65 Wt (lb): 242 BSA: 2.15 Ordering Phys: Samantha Doyt Referring Phys: LISSY Technologist: Miriam Herrera RDCS Age: 53 Gender: F : 1970 Procedure CPT: Indications: Reflex order-Stress test ICD-10 Codes: Patient History: CP, MASHA, PALP, HTN, CHOL, FMAILY HX, TOB, COPD Medications: SEE CHART Meds past 24 hrs: Pretest Chest Pain: STRESS TEST Lexiscan Protocol Exercise Duration (min:sec): 01:[address] Depressions (mm): Angina Score: Heller Score: Resting HR (bpm): 71 Peak HR (bpm): 96 Resting BP (mmHg): 139 / 87 Peak BP (mmHg): 135 / 79 MPHR: 167 Target HR: 142 % MPHR: 57 METS: 1.0 Total Dose: Peak Dose: Atropine: Double Product: 32274 BP Response: Stress Termination: END OF DOSE Stress Symptoms: No chest pain or symptoms Stress Summary: ECG ANALYSIS Resting ECG: Stress ECG: CONCLUSIONS RESTING EKG: [Normal sinus rhythm, normal EKG] , Heart rate 72 BPM Patient recieved IV infusion of Lexiscan 0.4mg and at peak infusion STRESS EKG showed: [No significant ST-T wave changes diagnostic for ischemia by ST segment analysis] ARRYTHMIAS: [No ectopic rhythms or sustained arrythmias] CONCLUSION: 1. Normal hemodynamic and clinical response to Lexiscan infusion. 2. Non-ischemic EKG response to lexiscan infusion Please refer to the nuclear imaging portion of this stress test for complete interpretation of the study. Dr Ted Ruth (Electronically Signed) Final Date: 26 Sep 2023 18:18
== END 2023-09-26 15:58 | disposition home or self-care (01) ==
LOC: EC 01:46 → 6NMEDSUR 05:04
PROVIDERS: ADMIT Internal Medicine; ATTEND Internal Medicine
DX: R07.89 Other chest pain (principal); J96.11 Chronic respiratory failure with hypoxia; E87.6 Hypokalemia; B02.9 Zoster without complications; J44.9 Chronic obstructive pulmonary disease, unspecified; I10 Essential (primary) hypertension; E66.9 Obesity, unspecified; Z68.41 Body mass index [BMI] 40.0-44.9, adult; R60.0 Localized edema; R79.89 Other specified abnormal findings of blood chemistry; D75.89 Other specified diseases of blood and blood-forming organs; R74.01 Elevation of levels of liver transaminase levels; R74.8 Abnormal levels of other serum enzymes; Z99.81 Dependence on supplemental oxygen; F17.210 Nicotine dependence, cigarettes, uncomplicated; Z79.01 Long term (current) use of anticoagulants; Z79.51 Long term (current) use of inhaled steroids; Z79.899 Other long term (current) drug therapy; Z86.718 Personal history of other venous thrombosis and embolism; Z87.01 Personal history of pneumonia (recurrent); Z82.49 Family history of ischemic heart disease and other diseases of the circulatory system
CPT/HCPCS: 96374; 99285; 36415; 94640 ×4; 94760; 93005; 93017; 85379; 83880; 80061; 80053 ×2; 83690; 83735 ×2; 84484; 85025; 85027; 85610; 85730; 71046; 93970; 78452; G0378 ×3; A9500; S4990 ×3; J1940; J2785

== ENCOUNTER 2023-11-09 22:32 | Observation (INO) | payer OTHER ==
[2023-11-10 00:03] LABS: ALT 45 U/L (4-34); AST 86 U/L (14-36); African American GFR (CKD) >90 (>60 ml/min/1.73 sqM); Albumin 3.5 g/dL (3.5-5.0); Alkaline Phosphatase 104 U/L (38-126); Anion Gap 7 mmol/L; Blood Urea Nitrogen 12 mg/dL (7-17); Calcium 8.5 mg/dL (8.4-10.2); Carbon Dioxide 25 mmol/L (22-30); Chloride 110 mmol/L (98-107); Glucose 93 mg/dL (74-99); Lipase 340 U/L (23-300); Magnesium 1.7 mg/dL (1.6-2.3); Non-African American GFR(CKD) >90 (>60 ml/min/1.73 sqM); Potassium 4.6 mmol/L (3.5-5.1); Sodium 142 mmol/L (137-145); Total Bilirubin 0.5 mg/dL (0.2-1.3); Total Protein 6.4 g/dL (6.3-8.2)
[2023-11-10 00:10] LABS: Anisocytosis Slight; Basophils % (A) 1 %; Eosinophils # (A) 0.2 k/uL (0-0.7); Eosinophils % (A) 2 %; HCT 42.5 % (34.0-46.0); HGB 13.6 gm/dL (11.4-16.0); Lymphocytes # (A) 2.5 k/uL (1.0-4.8); Lymphocytes % (A) 36 %; MCH 31.2 pg (25.0-35.0); MCHC 32.1 g/dL (31.0-37.0); MCV 97.3 fL (80.0-100.0); Macrocytosis Slight; Mean Platelet Volume 8.1; Monocytes # (A) 0.4 k/uL (0-1.0); Monocytes % (A) 6 %; Neutrophils # (A) 3.6 k/uL (1.3-7.7); Neutrophils % (A) 53 %; Platelet Count 274 k/uL (150-450); RBC 4.37 m/uL (3.80-5.40); RDW 18.3 % (11.5-15.5); WBC 6.8 k/uL (3.8-10.6)
[2023-11-10 00:15] LABS: INR 0.9 (<1.2); Partial Thromboplastin Time 23.9 sec (22.0-30.0); Prothrombin Time 9.8 sec (10.0-12.5)
[2023-11-10] MEDS ORDERED: NALOXONE 0.4 MG/ML 1 ML VIAL IV PRN (01:32)
--- NOTE | 2023-11-10 01:32 | ED ---
GI Bleed HPI - General Chief complaint: GI Bleed Stated complaint: GI Bleed, Light headed, Dizzy Time Seen by Provider: 11/09/23 22:40 Source: patient Mode of arrival: wheelchair Limitations: no limitations - History of Present Illness Initial comments: 53-year-old female with past medical history of COPD on home O2, DVT on Eliquis who presents emergency department reporting GI bleed. States that she had 3 bowel movements at home all of which were bright red in coloration. Also admits to some dark clots. She has lower, suprapubic abdominal pain. Patient was started on Eliquis 1 month ago due to DVT in her left upper extremity. She d enies history of previous GI bleeding. No history of ulcers. Denies alcohol or NSAID use. She denies any rectal pain. Patient was feeling lightheaded before coming in. Reports to some lower extremity edema. Does have a history of congestive heart failure. Patient takes Lasix at home. No other alleviating, precipitating or modifying factors - Related Data Home Medications Medication Instructions Recorded Confirmed Acetaminophen [Tylenol] 325 - 650 mg PO Q6H PRN 07/07/23 09/24/23 Ergocalciferol (Vitamin D2) 1,250 mcg PO HUTCHINSON 07/07/23 09/24/23 [Drisdol (50,000 Iu)] Montelukast Sodium 10 mg PO DAILY 07/07/23 09/24/23 Pantoprazole [Protonix] 40 mg PO DAILY 07/07/23 09/24/23 Sertraline [Zoloft] 200 mg PO DAILY 07/07/23 09/24/23 Apixaban [Eliquis] 5 mg PO BID 08/14/23 09/24/23 Nicotine 14Mg/24Hr Patch [Habitrol] 1 patch TRANSDERM DAILY 08/14/23 09/24/23 ARIPiprazole [Abilify] 5 mg PO HS 09/24/23 09/24/23 Furosemide [Lasix] 20 mg PO BID 09/24/23 09/24/23 Ipratropium-Albuterol Nebulize 3 ml INHALATION RT-Q4H 09/24/23 09/24/23 [Duoneb 0.5 mg-3 mg/3 ml Soln] Potassium Chloride ER [K-Dur 20] 20 meq PO DAILY 09/24/23 09/24/23 Previous Rx's Medication Instructions Recorded Losartan [Cozaar] 50 mg PO DAILY 30 Days #30 tab 07/10/23 Metoprolol Tartrate [Lopressor] 25 mg PO BID 30 Days #60 tab 07/10/23 Budesonide-Formot 160-4.5 Mcg 2 puff INHALATION RT-BID #1 each 07/19/23 [Symbicort 160-4.5 Mcg Inhaler] Atorvastatin [Lipitor] 20 mg PO HS 30 Days #30 tab 09/26/23 valACYclovir HCL [Valtrex] 1,000 mg PO TID 6 Days #18 tab 09/26/23 Allergies Allergy/AdvReac Type Severity Reaction Status Date / Time No Known Allergies Allergy Verified 09/24/23 09:40 Review of Systems ROS Statement: Those systems with pertinent positive or pertinent negative responses have been documented in the HPI. ROS Other: All systems not noted in ROS Statement are negative. Past Medical History Past Medical History: COPD, Deep Vein Thrombosis (DVT), Hypertension Additional Past Medical History / Comment(s): seizures. alcohol abuse. History of Any Multi-Drug Resistant Organisms: None Reported Past Surgical History: No Surgical Hx Reported Past Anesthesia/Blood Transfusion Reactions: No Reported Reaction Past Psychological History: Anxiety, Depression Smoking Status: Current every day smoker Past Alcohol Use History: Daily Past Drug Use History: Marijuana - Past Family History Mother History Unknown: Yes General Exam Limitations: no limitations General appearance: alert, in no apparent distress Head exam: Present: atraumatic, normocephalic, normal inspection ENT exam: Present: normal exam, mucous membranes moist Respiratory exam: Present: wheezes, decreased breath sounds Cardiovascular Exam: Present: normal rhythm, tachycardia GI/Abdominal exam: Present: soft, tenderness (llq), normal bowel sounds. Absent: distended, guarding, rebound, rigid Rectal exam: Present: heme (+) stool, hemorrhoids (appears to have some mild prolapse of rectum). Absent: black stool, bloody stool Extremities exam: Present: pedal edema Neurological exam: Present: alert, oriented X3, CN II-XII intact Psychiatric exam: Present: normal affect, normal mood Skin exam: Present: warm, dry, intact, normal color. Absent: rash Course Vital Signs 11/09/23 11/09/23 11/09/23 22:36 22:50 23:47 Temperature 98.1 F Pulse Rate 107 H 97 96 Respiratory 20 24 20 Rate Blood Pressure 175/109 128/83 125/71 O2 Sat by Pulse 97 99 97 Oximetry 11/10/23 11/10/23 11/10/23 04:00 04:08 04:15 Temperature Pulse Rate 90 96 100 Respiratory 18 Rate Blood Pressure 130/77 O2 Sat by Pulse 98 Oximetry Medical Decision Making - Medical Decision Making Was pt. sent in by a medical professional or institution (, PA, MOTORS ASSEMBLER, urgent care, hospital, or group home...) When possible be specific @ -No Did you speak to anyone other than the patient for history (EMS, parent, family, police, friend...)? What history was obtained from this source @ -No Did you review nursing and triage notes (agree or disagree)? Why? @ -I reviewed and agree with nursing and triage notes Were old charts reviewed (outside hosp., previous admission, EMS record, old EKG, old radiological studies, urgent care reports/EKG's, group home records)? Report findings @ -No old charts were reviewed Differential Diagnosis (chest pain, altered mental status, abdominal pain women, abdominal pain men, vaginal bleeding, weakness, fever, dyspnea, syncope, headache, dizziness, GI bleed, back pain, seizure, CVA, palpatations, mental health, musculoskeletal)? @ -Differential GI Bleed: Esophageal varices, aortoenteric fistula, Noelle-Rosas, gastritis, peptic ulcer disease, diverticulosis, inflammatory bowel disease, hemorrhoids, fissure, colitis, malignancy, Meckels diverticulum, this is not meant to be an all- inclusive list. EKG interpreted by me (3pts min.). @ -Yes and demonstrates sinus rhythm with a rate of 96. NJ interval 142. QRS 77. QTc of 391. No acute ST segment elevations or depressions X-rays interpreted by me (1pt min.). @ -None done CT interpreted by me (1pt min.). @ -Yes and demonstrates some diverticulosis U/S interpreted by me (1pt. min.). @ -None done What testing was considered but not performed or refused? (CT, X-rays, U/S, labs)? Why? @ -None What meds were considered but not given or refused? Why? @ -None Did you discuss the management of the patient with other professionals (professionals i.e. DrJacek, PA, MOTORS ASSEMBLER, lab, RT, psych nurse, social media analyst, foot press operator, teacher, promotions officer, case management rn)? Give summary @ -Spoke with Dr. Donis for admission Was smoking cessation discussed for >3mins.? @ -No Was critical care preformed (if so, how long)? @ -No Were there social determinants of health that impacted care today? How? (Homelessness, low income, unemployed, alcoholism, drug addiction, transportation, low edu. Level, literacy, decrease access to med. care, [facility], rehab)? @ -No Was there de-escalation of care discussed even if they declined (Discuss DNR or withdrawal of care, Hospice)? DNR status @ -No What co-morbidities impacted this encounter? (DM, HTN, Smoking, COPD, CAD, Cancer, CVA, ARF, Chemo, Hep., AIDS, mental health diagnosis, sleep apnea, morbid obesity)? @ -DVT on Eliquis Was patient admitted / discharged? Hospital course, mention meds given and route, prescriptions, significant lab abnormalities, going to OR and other pertinent info. @ -Upon arrival patient seen and evaluated in room 10. Thorough history and physical exam was performed. Rectal exam was performed. I do get back a scant amount of brown stool. It is occult positive. Laboratory studies are conducted. CT was performed due to abdominal pain which demonstrates some diverticulosis. Patient does have slight rectal prolapse. As the patient is on Eliquis I did recommend admission for observation. I will consult GI and hold the Eliquis at this time. I spoke with Dr. Donis for the admission Undiagnosed new problem with uncertain prognosis? @ -No Drug Therapy requiring intensive monitoring for toxicity (Heparin, Nitro, Insulin, Cardizem)? @ -No Were any procedures done? @ -No Diagnosis/symptom? @ -Acute hematochezia, Eliquis coagulopathy Acute, or Chronic, or Acute on Chronic? @ -Acute Uncomplicated (without systemic symptoms) or Complicated (systemic symptoms)? @ -Complicated Side effects of treatment? @ -No Exacerbation, Progression, or Severe Exacerbation? @ -No Poses a threat to life or bodily function? How? (Chest pain, [place], [place], pneumonia, PE, COPD, DKA, ARF, appy, cholecystitis, CVA, Diverticulitis, Homicidal, Suicidal, threat to staff... and all critical care pts) @ -No - Lab Data Result diagrams: 11/09/23 23:33 11/09/23 23:33 Lab Results 11/09/23 11/09/23 11/09/23 Range/Units 00:24 23:33 23:33 WBC 6.8 (3.8-10.6) k/uL RBC 4.37 (3.80-5.40) m/uL Hgb 13.6 (11.4-16.0) gm/dL Hct 42.5 (34.0-46.0) % MCV 97.3 (80.0-100.0) fL MCH 31.2 (25.0-35.0) pg MCHC 32.1 (31.0-37.0) g/dL RDW 18.3 H (11.5-15.5) % Plt Count 274 (150-450) k/uL MPV 8.1 Neutrophils % 53 % Lymphocytes % 36 % Monocytes % 6 % Eosinophils % 2 % Basophils % 1 % Neutrophils # 3.6 (1.3-7.7) k/uL Lymphocytes # 2.5 (1.0-4.8) k/uL Monocytes # 0.4 (0-1.0) k/uL Eosinophils # 0.2 (0-0.7) k/uL Basophils # 0.0 (0-0.2) k/uL Anisocytosis Slight Macrocytosis Slight PT 9.8 L (10.0-12.5) sec INR 0.9 (<1.2) APTT 23.9 (22.0-30.0) sec Sodium (137-145) mmol/L Potassium (3.5-5.1) mmol/L Chloride (98-107) mmol/L Carbon Dioxide (22-30) mmol/L Anion Gap mmol/L BUN (7-17) mg/dL Creatinine (0.52-1.04) mg/dL Est GFR (CKD-EPI)AfAm (>60 ml/min/1.73 sqM) Est GFR (CKD-EPI)NonAf (>60 ml/min/1.73 sqM) Glucose (74-99) mg/dL Plasma Lactic Acid Chente (0.7-2.0) mmol/L Calcium (8.4-10.2) mg/dL Magnesium (1.6-2.3) mg/dL Total Bilirubin (0.2-1.3) mg/dL AST (14-36) U/L ALT (4-34) U/L Alkaline Phosphatase (38-126) U/L Troponin I (0.000-0.034) ng/mL Total Protein (6.3-8.2) g/dL Albumin (3.5-5.0) g/dL Lipase (23-300) U/L Stool Occult Blood Positive H (Negative) 11/09/23 11/09/23 11/09/23 Range/Units 23:33 23:33 23:33 WBC (3.8-10.6) k/uL RBC (3.80-5.40) m/uL Hgb (11.4-16.0) gm/dL Hct (34.0-46.0) % MCV (80.0-100.0) fL MCH (25.0-35.0) pg MCHC (31.0-37.0) g/dL RDW (11.5-15.5) % Plt Count (150-450) k/uL MPV Neutrophils % % Lymphocytes % % Monocytes % % Eosinophils % % Basophils % % Neutrophils # (1.3-7.7) k/uL Lymphocytes # (1.0-4.8) k/uL Monocytes # (0-1.0) k/uL Eosinophils # (0-0.7) k/uL Basophils # (0-0.2) k/uL Anisocytosis Macrocytosis PT (10.0-12.5) sec INR (<1.2) APTT (22.0-30.0) sec Sodium 142 (137-145) mmol/L Potassium 4.6 (3.5-5.1) mmol/L Chloride 110 H (98-107) mmol/L Carbon Dioxide 25 (22-30) mmol/L Anion Gap 7 mmol/L BUN 12 (7-17) mg/dL Creatinine 0.52 (0.52-1.04) mg/dL Est GFR (CKD-EPI)AfAm >90 (>60 ml/min/1.73 sqM) Est GFR (CKD-EPI)NonAf >90 (>60 ml/min/1.73 sqM) Glucose 93 (74-99) mg/dL Plasma Lactic Acid Chente 1.6 (0.7-2.0) mmol/L Calcium 8.5 (8.4-10.2) mg/dL Magnesium 1.7 (1.6-2.3) mg/dL Total Bilirubin 0.5 (0.2-1.3) mg/dL AST 86 H (14-36) U/L ALT 45 H (4-34) U/L Alkaline Phosphatase 104 (38-126) U/L Troponin I <0.012 (0.000-0.034) ng/mL Total Protein 6.4 (6.3-8.2) g/dL Albumin 3.5 (3.5-5.0) g/dL Lipase 340 H (23-300) U/L Stool Occult Blood (Negative) Disposition Clinical Impression: Hematochezia Disposition: ADMITTED IP TO THIS [facility] Condition: Stable Is patient prescribed a controlled substance at d/c from ED?: No Time of Disposition: Decision to Admit Reason: Admit from EC Decision Date: 11/10/23 Decision Time: 32
[2023-11-10] MEDS ORDERED: IPRATROPIUM-ALBUTEROL 3 ML NEB INHALATION PRN (03:00)
--- NOTE | 2023-11-10 03:18 | CT ---
EXAM: CT Abdomen and Pelvis With Intravenous Contrast CLINICAL HISTORY: ITS.REASON CT Reason: gi bleed, pain, on thinners TECHNIQUE: Axial computed tomography images of the abdomen and pelvis with intravenous contrast. CTDI is 41.4 mGy and DLP is 1966.9 mGy-cm. This CT exam was performed using one or more of the following dose reduction techniques: automated exposure control, adjustment of the mA and/or kV according to patient size, and/or use of iterative reconstruction technique. COMPARISON: No relevant prior studies available. FINDINGS: Lung bases: Unremarkable. No mass. No consolidation. ABDOMEN: Liver: Hepatic steatosis. Gallbladder and bile ducts: Unremarkable. No calcified stones. No ductal dilation. Pancreas: Unremarkable. No mass. No ductal dilation. Spleen: Unremarkable. No splenomegaly. Adrenals: LEFT adrenal nodule measures 2.2 cm, likely an adenoma. This may be confirmed on noncontrast CT scan. Kidneys and ureters: Unremarkable. No solid mass. No hydronephrosis. Stomach and bowel: Diverticulosis, without acute diverticulitis. No small bowel obstruction. No free intraperitoneal air. PELVIS: Appendix: No findings to suggest acute appendicitis. Bladder: Unremarkable. No mass. Reproductive: Unremarkable as visualized. ABDOMEN and PELVIS: Intraperitoneal space: Unremarkable. No free air. No significant fluid collection. Bones/joints: Degenerative changes of the spine. No acute fracture. No dislocation. Soft tissues: Unremarkable. Vasculature: Atherosclerotic changes of the aorta. No abdominal aortic aneurysm. Lymph nodes: Unremarkable. No enlarged lymph nodes. IMPRESSION: 1. LEFT adrenal nodule measures 2.2 cm, likely an adenoma. This may be confirmed on noncontrast CT scan. 2. Diverticulosis, without acute diverticulitis. No small bowel obstruction. No free intraperitoneal air.
[2023-11-10] MEDS: IPRATROPIUM-ALBUTEROL 3 ML NEB INHALATION STA (04:06)
--- NOTE | 2023-11-10 04:11 | P.HPIM ---
History of Present Illness H&P Date: 11/10/23 Chief Complaint: Hematochezia, lower GI bleed Patient is a 53-year-old female with COPD, hypertension, DVT on Eliquis presented to ER with few episodes of hematochezia that started a day ago. Patient reports that in total there were 3 episodes bowel movements with passage of bright red blood and clots with very little amount of stool. Patient states that her bowel movements were very painful with straining and with use of toilet paper, 10/10 radiating to her groin and lower abdomen. Patient also reports associated lightheadedness and nausea but no vomiting. Patient recalls no previous episodes of hematochezia in the past. Patient denies being on NSAIDs but reports using Eliquis for DVT 3 months ago. Patient denies any history of CAD and CVA. Patient stated that she had a colonoscopy in the beginning of this year was diagnosed with diverticulitis treated with antibiotic. Patient has significant smoking and drinking history. Patient drinks a pint of vodka 3-4 times a week since 5 years. Smokes half pack per day since 30 years. Her last menstrual period was 2 years ago. Patient denies any vaginal itching as, vaginal irritation, vaginal bleeding. Otherwise patient denies fever, chills, chest pain, numbness or tingling in upper and lower extremities. Patient reports mild shortness of breath as she has a history of COPD and is on home oxygen 2 L. EKG done in ER shows heart rate of 96 bpm, normal sinus rhythm, no ST/T wave abnormalities, normal RR progression, no QTc prolongation. CT abdomen and pelvis was remarkable for left adrenal nodule measuring 2.2 cm, likely an adenoma. Diverticulosis without acute diverticulitis. No small bowel obstruction. No free intraperitoneal air. Vitals: Tmax 98.1 F, heart rate 96, respiratory rate 20, blood pressure 125/71, O2 saturation 97% on 2 L nasal cannula. Review of systems: Pertinent positives and negatives as discussed in HPI, a complete review of systems was performed and all other systems are negative. Social history: Tobacco: [id number] Alcohol: Vital workout 3-4 times a week x 5 years Recreational drugs: None Travel: None Occupation: None Family History: Significant of blood clots and CAD in siblings Physical examination: Vital signs reviewed General: non toxic, no distress, appears older than stated age, morbidly obese Derm: no unusual rashes/lesions, warm Head: atraumatic, normocephalic, symmetric Eyes: EOMI, no lid lag, anicteric sclera, pupils equal round reactive to light ENT: Nose and ears atraumatic Neck: No cervical lymphadenopathy, trachea midline, supple Mouth: no lip lesion, mucus membranes moist Cardiovascular: S1S2 reg, no murmur, positive dorsalis pedis pulse bilateral, no edema Lungs: Bilateral wheezing, no rhonchi, no rales, no accessory muscle use Abdominal: soft, nontender to palpation, no guarding. Digital rectal examination was deferred because patient was in extreme pain. Ext: muscle strength 5 out of 5 in all 4 extremities grossly, no gross muscle atrophy, no contractures, Neuro: CN II-XI grossly intact, no gross focal neuro deficits Psych: Alert, oriented, appropriate affect Assessment/Plan: 53-year-old female with COPD on 2 L home oxygen , hypertension, left forearm DVT on Eliquis presented to ER with few episodes of hematochezia that started a day ago, admitted to rule out GI bleeding. -Acute lower GI bleed CT of the abdomen showing evidence of her diverticulosis GI consulted Hemoglobin 13.6, hematocrit 42.5 platelet count 274 Continue to monitor CBC for hemoglobin hold Eliquis (patient has received at least 3 months of treatment) npo IV fluid hydration normal saline 75 cc/h Mildly elevated lipase Protonix 40 mg p.o. twice daily left forearm DVT received at least 3 months of eliquis check LUE venous doppler US if DVT persistent , consider restarting Eliquis once GI bleeding is stabilized and serious GI bleed is ruled out chronic hypoxic respiratory failure on home oxygen 2 L COPD Continue on 2 L oxygen with nasal cannula DuoNebs scheduled and as needed Continue to monitor oxygen saturation Continue Symbicort Continue Singulair Elevated liver enzymes Hepatic steatosis, secondary to alcoholism CT abdomen and pelvis show hepatic steatosis Raised LFTs AST 86, ALT 45, ALP 104 Hold statin Renal function unremarkable sodium 142 potassium 4.6 BUN 12 creatinine 0.52 INR 0.9 unremarkable Platelets unremarkable 274 DVT prophylaxis: Mechanical secondary to lower GI bleed The patient is admitted with an anticipated more than 2 midnight stay for evaluation of lower GI bleeding. CODE STATUS: Full Discussed with: Patient Anticipated discharge place: Home Past Medical History Past Medical History: COPD, Deep Vein Thrombosis (DVT), Hypertension Additional Past Medical History / Comment(s): seizures. alcohol abuse. History of Any Multi-Drug Resistant Organisms: None Reported Past Surgical History: No Surgical Hx Reported Past Anesthesia/Blood Transfusion Reactions: No Reported Reaction Past Psychological History: Anxiety, Depression Smoking Status: Current every day smoker Past Alcohol Use History: Daily Past Drug Use History: Marijuana - Past Family History Mother History Unknown: Yes Medications and Allergies Home Medications Medication Instructions Recorded Confirmed Type Acetaminophen [Tylenol] 325 - 650 mg PO Q6H PRN 07/07/23 09/24/23 History Ergocalciferol (Vitamin D2) 1,250 mcg PO HUTCHINSON 07/07/23 09/24/23 History [Drisdol (50,000 Iu)] Montelukast Sodium 10 mg PO DAILY 07/07/23 09/24/23 History Pantoprazole [Protonix] 40 mg PO DAILY 07/07/23 09/24/23 History Sertraline [Zoloft] 200 mg PO DAILY 07/07/23 09/24/23 History Losartan [Cozaar] 50 mg PO DAILY 30 Days #30 tab 07/10/23 09/24/23 Rx Metoprolol Tartrate [Lopressor] 25 mg PO BID 30 Days #60 tab 07/10/23 09/24/23 Rx Budesonide-Formot 160-4.5 Mcg 2 puff INHALATION RT-BID #1 each 07/19/23 09/24/23 Rx [Symbicort 160-4.5 Mcg Inhaler] Apixaban [Eliquis] 5 mg PO BID 08/14/23 09/24/23 History Nicotine 14Mg/24Hr Patch [Habitrol] 1 patch TRANSDERM DAILY 08/14/23 09/24/23 History ARIPiprazole [Abilify] 5 mg PO HS 09/24/23 09/24/23 History Furosemide [Lasix] 20 mg PO BID 09/24/23 09/24/23 History Ipratropium-Albuterol Nebulize 3 ml INHALATION RT-Q4H 09/24/23 09/24/23 History [Duoneb 0.5 mg-3 mg/3 ml Soln] Potassium Chloride ER [K-Dur 20] 20 meq PO DAILY 09/24/23 09/24/23 History Atorvastatin [Lipitor] 20 mg PO HS 30 Days #30 tab 09/26/23 Rx valACYclovir HCL [Valtrex] 1,000 mg PO TID 6 Days #18 tab 09/26/23 Rx Allergies Allergy/AdvReac Type Severity Reaction Status Date / Time No Known Allergies Allergy Verified 09/24/23 09:40 Physical Exam Vitals: Vital Signs Temp Pulse Resp BP Pulse Ox 11/10/23 04:08 96 11/09/23 23:47 96 20 125/71 97 11/09/23 22:50 97 24 128/83 99 11/09/23 22:36 98.1 F 107 H 20 175/109 97 Intake and Output 11/09/23 11/09/23 11/10/23 14:59 22:59 06:59 Other: Weight 104.326 kg Results CBC & Chem 7: 11/09/23 23:33 11/09/23 23:33 Labs: Abnormal Lab Results - Last 24 Hours (Table) 11/09/23 11/09/23 11/09/23 Range/Units 00:24 23:33 23:33 RDW 18.3 H (11.5-15.5) % PT 9.8 L (10.0-12.5) sec Chloride (98-107) mmol/L AST (14-36) U/L ALT (4-34) U/L Lipase (23-300) U/L Stool Occult Blood Positive H (Negative) 11/09/23 Range/Units 23:33 RDW (11.5-15.5) % PT (10.0-12.5) sec Chloride 110 H (98-107) mmol/L AST 86 H (14-36) U/L ALT 45 H (4-34) U/L Lipase 340 H (23-300) U/L Stool Occult Blood (Negative) Assessment and Plan Assessment: I have seen and evaluated the patient today. I Discussed the case with the resident and agree with the resident's findings and I have edited the assessment and plan as necessary as documented in the resident's note.
[2023-11-10] MEDS ORDERED: ACETAMINOPHEN TAB 325 MG TAB PO PRN (06:25)
[2023-11-10] MEDS: IPRATROPIUM-ALBUTEROL 3 ML NEB INHALATION SCH (07:34)
[2023-11-10] MEDS: SYMBICORT 160-4.5 MCG INHALER INHALATION SCH (07:34)
[2023-11-10] MEDS: PANTOPRAZOLE 40 MG TABLET PO SCH (07:35)
[2023-11-10] MEDS: SODIUM CHLORIDE 0.9% 1,000 ML IV SCH (07:36)
[2023-11-10] MEDS ORDERED: LORazepam 1 MG TAB PO PRN (08:38)
[2023-11-10] MEDS ORDERED: LORazepam 2 MG/ML INJ IV PRN (08:38)
[2023-11-10] MEDS: LORazepam 2 MG/ML INJ IV PRN ×2 (08:57→16:54)
[2023-11-10] MEDS ORDERED: PANTOPRAZOLE 40 MG TABLET PO SCH (09:00)
[2023-11-10] MEDS: MONTELUKAST 10 MG TAB PO SCH (09:47)
[2023-11-10] MEDS: METOPROLOL TARTRATE 25 MG TAB PO SCH (09:47)
[2023-11-10] MEDS: polyethylene glycoL 3350 17 GM POWD.PACK PO SCH (09:47)
[2023-11-10] MEDS: FOLIC ACID 1 MG TAB PO SCH (09:47)
[2023-11-10] MEDS: LOSARTAN 50 MG TAB PO SCH (09:47)
[2023-11-10 10:18] LABS: HCT 39.2 % (37.2-46.3); HGB 12.8 g/dL (12.0-15.0); MCH 31.1 pg (27.0-32.0); MCHC 32.7 g/dL (32.0-37.0); MCV 95.4 FL (80.0-97.0); Mean Platelet Volume 10.1 FL (9.5-12.2); NRBC Per 100 WBC 0 X 10*3/uL (0.00-0.01); Platelet Count 256 X 10*3/uL (140-440); RBC 4.11 X 10*6/uL (4.10-5.20); RDW 18.6 % (11.5-14.5); WBC 5.78 X 10*3/uL (4.50-10.00)
[2023-11-10 10:54] LABS: Alcohol <10 mg/dL
[2023-11-10] MEDS: ONDANSETRON 4 MG TAB PO PRN (10:54)
--- NOTE | 2023-11-10 11:08 | P.CONS ---
History of Present Illness - Reason for Consult Consult date: 11/10/23 GI bleed Requesting physician: Keri Medina - Chief Complaint Abdominal pain and rectal bleeding - History of Present Illness This is a pleasant 53-year-old female with a history of alcohol abuse, COPD on home oxygen, deep vein thrombosis on Eliquis who had presented to the emergency department yesterday evening with complaints of having 3-4 episodes of bright red blood per rectum. Patient states that she has been constipated and felt like she had to have a bowel movement and when she was sitting she had noted that it had been blood. She states she felt it was moderate amount. She had a little bit of lower abdominal cramping associated. No nausea or vomiting. She had a recent colonoscopy in the last 4 to 5 months at [facility]. Last dose of Eliquis yesterday. Admitting hemoglobin 13.6 with repeat today of 12.8, INR 0.9 BUN normal. Patient has mild elevation of AST and ALT. Review of Systems REVIEW OF SYSTEMS: CARDIOPULMONARY: No chest pain or shortness of breath. Gastrointestinal: Mild lower abdominal cramping. No nausea or vomiting. No hematemesis, coffee-ground emesis. Rectal bleeding, bright red 4-5 episodes in the last 24 hours. GENITOURINARY: No dysuria or hematuria. MUSCULOSKELETAL: Reports normal range of motion.. SKIN: No rashes. No jaundice. ENDOCRINE: No chills, fevers. No excessive weight gain or loss. No polydipsia or polyuria. PSYCHIATRIC: Alcohol dependence/abuse. NEUROLOGY: No change in mental status. Denies dizziness, headache. ENT: Vision unremarkable. CONSTITUTIONAL: No recent weight loss. No fever, chills, night sweats. Past Medical History Past Medical History: COPD, Deep Vein Thrombosis (DVT), Hypertension Additional Past Medical History / Comment(s): seizures. alcohol abuse. History of Any Multi-Drug Resistant Organisms: None Reported Past Surgical History: No Surgical Hx Reported Past Anesthesia/Blood Transfusion Reactions: No Reported Reaction Past Psychological History: Anxiety, Depression Smoking Status: Current every day smoker Past Alcohol Use History: Daily Past Drug Use History: Marijuana - Past Family History Mother History Unknown: Yes Medications and Allergies Home Medications Medication Instructions Recorded Confirmed Type Acetaminophen [Tylenol] 325 - 650 mg PO Q6H PRN 07/07/23 11/10/23 History Montelukast Sodium 10 mg PO DAILY 07/07/23 11/10/23 History Pantoprazole [Protonix] 40 mg PO DAILY 07/07/23 11/10/23 History Sertraline [Zoloft] 200 mg PO DAILY 07/07/23 11/10/23 History Losartan [Cozaar] 50 mg PO DAILY 30 Days #30 tab 07/10/23 11/10/23 Rx Metoprolol Tartrate [Lopressor] 25 mg PO BID 30 Days #60 tab 07/10/23 11/10/23 Rx Budesonide-Formot 160-4.5 Mcg 2 puff INHALATION RT-BID #1 each 07/19/23 11/10/23 Rx [Symbicort 160-4.5 Mcg Inhaler] Apixaban [Eliquis] 5 mg PO BID 08/14/23 11/10/23 History Nicotine 14Mg/24Hr Patch [Habitrol] 1 patch TRANSDERM DAILY 08/14/23 11/10/23 History ARIPiprazole [Abilify] 5 mg PO HS 09/24/23 11/10/23 History Furosemide [Lasix] 20 mg PO BID 09/24/23 11/10/23 History Ipratropium-Albuterol Nebulize 3 ml INHALATION RT-QID 09/24/23 11/10/23 History [Duoneb 0.5 mg-3 mg/3 ml Soln] Potassium Chloride ER [K-Dur 20] 20 meq PO DAILY 09/24/23 11/10/23 History Atorvastatin [Lipitor] 20 mg PO HS 30 Days #30 tab 09/26/23 11/10/23 Rx Allergies Allergy/AdvReac Type Severity Reaction Status Date / Time No Known Allergies Allergy Verified 11/10/23 07:48 Physical Exam Vitals: Vital Signs Temp Pulse Resp BP Pulse Ox 11/10/23 04:15 100 11/10/23 04:08 96 11/10/23 04:00 90 18 130/77 98 11/09/23 23:47 96 20 125/71 97 11/09/23 22:50 97 24 128/83 99 11/09/23 22:36 98.1 F 107 H 20 175/109 97 Intake and Output 11/09/23 11/09/23 11/10/23 14:59 22:59 06:59 Other: Weight 104.326 kg General appearance: The patient is alert, oriented, appears in no acute distress. Patient is shaky, appears to be in withdrawal. HET: Head is normocephalic and atraumatic. Pupils are equal and reactive. Neck: Supple. Heart: Regular. Lungs: Equal expansion, normal respiratory effort. Abdomen: Soft, lower abdominal tenderness, nondistended. Extremities: Normal skin color and turgor. Neurological: No focal deficits. Strength and sensation are grossly intact. Results CBC & Chem 7: 11/10/23 07:28 11/09/23 23:33 Labs: Abnormal Lab Results - Last 24 Hours (Table) 11/09/23 11/09/23 11/09/23 Range/Units 00:24 23:33 23:33 RDW 18.3 H (11.5-15.5) % PT 9.8 L (10.0-12.5) sec Chloride (98-107) mmol/L AST (14-36) U/L ALT (4-34) U/L Lipase (23-300) U/L Stool Occult Blood Positive H (Negative) 11/09/23 Range/Units 23:33 RDW (11.5-15.5) % PT (10.0-12.5) sec Chloride 110 H (98-107) mmol/L AST 86 H (14-36) U/L ALT 45 H (4-34) U/L Lipase 340 H (23-300) U/L Stool Occult Blood (Negative) Comments: CT abdomen and pelvis with IV contrast reports left adrenal nodule measures 2.2 cm, likely an adenoma. This may be confirmed on noncontrast CT scan. Divert iculosis, without acute diverticulitis. No small bowel obstruction. No free intraperitoneal air. Assessment and Plan (1) Hematochezia Narrative/Plan: 53-year-old female presenting with bright red blood per rectum 3-4 episodes starting on Monday with associated lower abdominal cramping. No nausea or vomiting. Did have complaints of constipation and feeling constipated. States has hard stools usually. She is on Eliquis for deep vein thrombosis. Possible straining and hemorrhoidal bleed versus possible diverticular bleed as patient h as diverticulosis noted on CT scan. She has had recent colonoscopy about 4 to 5 months ago at [facility]. Records not available at this time. Had an episode of bleeding this morning. No plans at this time for endoscopic evaluation. Continue to hold anticoagulation and monitor bleeding. Current Visit: Yes Status: Acute Code(s): K92.1 - MELENA SNOMED Code(s): 129875097 (2) Constipation Current Visit: Yes Status: Acute Code(s): K59.00 - CONSTIPATION, UNSPECIFIED SNOMED Code(s): 51864821 (3) Alcohol abuse Current Visit: Yes Status: Acute Code(s): F10.10 - ALCOHOL ABUSE, UNCOMPLICATED SNOMED Code(s): 07714967 (4) Alcohol withdrawal syndrome Narrative/Plan: Patient on CIWA protocol Current Visit: No Status: Acute Code(s): F10.939 - ALCOHOL USE, UNSPECIFIED WITH WITHDRAWAL, UNSPECIFIED SNOMED Code(s): 169812236 (5) COPD (chronic obstructive pulmonary disease) Current Visit: No Status: Acute Code(s): J44.9 - CHRONIC OBSTRUCTIVE PULMONARY DISEASE, UNSPECIFIED SNOMED Code(s): 02453898 Plan: 1. Continue symptomatic and supportive care 2. Patient may have regular diet 3. Please get colonoscopy records from [facility] 4. Continue to hold Eliquis 5. Continue to monitor patient for bleeding 6. No plans on colonoscopy at this time 7. Agree with CIOH protocol 8. Alcohol abstinence Thank you for allowing us to participate in the care of the patient, the GI service will sign off, gastroenterology will not be available at the hospital this weekend. If further evaluation by gastroenterology is required the patient will need transfer as per the primary team's discretion. Dr. Turner San I agree with the dictator's note, documented as a scribe by Evelia Victor.
[2023-11-10] MEDS: chlordiazePOXIDE 25 MG CAP PO SCH (12:03)
[2023-11-10] MEDS: methylPREDNISolone SOD SUCCI 125 MG/2 ML VIAL IV STA (12:06)
[2023-11-10 15:42] LABS: GGT 172 U/L (0-38); Phosphorus 4.1 mg/dL (2.4-5.1)
[2023-11-10] MEDS: methylPREDNISolone SOD SUCCI 40 MG/ML 1 ML VIAL IV SCH (16:10)
[2023-11-10] MEDS ORDERED: ATORVASTATIN 20 MG TAB PO SCH (21:00)
[2023-11-10] MEDS: LORazepam 1 MG TAB PO PRN (21:14)
[2023-11-11 08:07] VITALS: BP 132/80; RESP 17; TEMP 98.2
[2023-11-11 09:20] LABS: Basophils # (A) 0 X 10*3/uL (0.00-0.10); Basophils % (A) 0 %; Eosinophils # (A) 0 X 10*3/uL (0.04-0.35); Eosinophils % (A) 0 %; HCT 39.6 % (37.2-46.3); HGB 12.7 g/dL (12.0-15.0); Lymphocytes # (A) 0.51 X 10*3/uL (0.90-5.00); Lymphocytes % (A) 10.1 %; MCH 31.4 pg (27.0-32.0); MCHC 32.1 g/dL (32.0-37.0); MCV 97.8 FL (80.0-97.0); Mean Platelet Volume 10.3 FL (9.5-12.2); Monocytes # (A) 0.08 X 10*3/uL (0.20-1.00); Monocytes % (A) 1.6 %; NRBC Per 100 WBC 0 X 10*3/uL (0.00-0.01); Neutrophils # (A) 4.43 X 10*3/uL (1.80-7.70); Neutrophils % (A) 88.1 %; Platelet Count 248 X 10*3/uL (140-440); RBC 4.05 X 10*6/uL (4.10-5.20); RDW 18.6 % (11.5-14.5); WBC 5.03 X 10*3/uL (4.50-10.00)
[2023-11-11 09:38] LABS: Blood Urea Nitrogen 11.1 mg/dL (9.0-27.0); Calcium 8.8 mg/dL (8.7-10.3); Carbon Dioxide 24.1 mmol/L (21.6-31.8); Chloride 103 mmol/L (96-109); Glucose 229 mg/dL (70-110); Potassium 4.5 mmol/L (3.5-5.5); Sodium 138 mmol/L (135-145)
[2023-11-11] MEDS: ENOXAPARIN 40 MG/0.4 ML SYRINGE SQ SCH (10:03)
[2023-11-11] MEDS: THIAMINE 100 MG TAB PO SCH (10:04)
[2023-11-11 10:20] VITALS: PULSE 96
--- NOTE | 2023-11-11 11:57 | P.DS ---
Providers Date of admission: 11/10/23 01:34 Discharge Diagnosis: Acute lower GI bleed Left forearm DVT Chronic hypoxic respiratory failure on home oxygen 2 L due to COPD Transaminitis Alcohol withdrawal Morbidly obese Hospital Course: Patient is a 53-year-old female with COPD, hypertension, DVT on Eliquis presented to ER with few episodes of hematochezia that started a day ago. Patient reports that in total there were 3 episodes bowel movements with passage of bright red blood and clots with very little amount of stool. Patient states that her bowel movements were very painful with straining and with use of toilet paper, 10/10 radiating to her groin and lower abdomen. Patient also reports associated lightheadedness and nausea but no vomiting. Patient recalls no previous episodes of hematochezia in the past. Patient denies being on NSAIDs, but reports using Eliquis for DVT 3 months ago. Patient denies any history of CAD and CVA. Patient stated that she had a colonoscopy in the beginning of this year was diagnosed with diverticulitis treated with antibiotic. Patient has significant smoking and drinking history. Patient drinks a pint of vodka 3-4 times a week since 5 years. Smokes half pack per day since 30 years. Her last menstrual period was 2 years ago. Patient denies any vaginal itching as, vaginal irritation, vaginal bleeding. Otherwise patient denies fever, chills, chest pain, numbness or tingling in upper and lower extremities. Patient reports mild shortness of breath as she has a history of COPD and is on home oxygen 2 L. EKG done in ER shows heart rate of 96 bpm, normal sinus rhythm, no ST/T wave abnormalities, normal RR progression, no QTc prolongation. CT abdomen and pelvis was remarkable for left adrenal nodule measuring 2.2 cm, likely an adenoma. Diverticulosis without acute diverticulitis. No small bowel obstruction. No free intraperitoneal air. Vitals: Tmax 98.1 F, heart rate 96, respiratory rate 20, blood pressure 125/71, O2 saturation 97% on 2 L nasal cannula. GI consulted. Patient was admitted for further evaluation for lower GI bleed. While admitted patient was found tremulous with a heavy history of drinking, last drink was was the day prior before coming to the ED. CIWA protocol started with Ativan PRN and Librium scheduled. While admitted and had multiple bowel movements but minimal to no blood. She was prescribed finish her prednisone regimen. Patient will follow-up with PCP. She is to be discharged home. 11/11/2023: Patient seen and examined at bedside no acute events overnight. She said last bowel movement had no blood. States her symptoms from alcohol withdrawal have improved. Vital signs reviewed and stable. Physical Exam: General: non toxic, no distress, appears older than stated age, morbidly obese Derm: no unusual rashes/lesions, warm Head: atraumatic, normocephalic, symmetric Eyes: EOMI, no lid lag, anicteric sclera, pupils equal round reactive to light ENT: Nose and ears atraumatic Neck: No cervical lymphadenopathy, trachea midline, supple Mouth: no lip lesion, mucus membranes moist Cardiovascular: S1S2 reg, no murmur, positive dorsalis pedis pulse bilateral, no edema Lungs: Bilateral wheezing, no rhonchi, no rales, no accessory muscle use Abdominal: soft, nontender to palpation, no guarding. Digital rectal examination was deferred because patient was in extreme pain. Ext: muscle strength 5 out of 5 in all 4 extremities grossly, no gross muscle atrophy, no contractures, Neuro: CN II-XI grossly intact, no gross focal neuro deficits Psych: Alert, oriented, appropriate affect A total of 15 minutes of time were spent preparing this complex discharge summary. Patient was discharge on 11/11/2023 at 12 PM Expected date of discharge: 11/11/23 Attending physician: Dara Donis MD Consults: 11/10/23 01:32 Consult Physician Urgent Consulting Provider: Trina San Consult Reason/Comments: gi bleed Do you want consulting provider notified?: Yes Primary care physician: [facility] Course: I have seen and evaluated the patient today. Discussed with the resident and agree with the residents subjective and objective as documented in the resident's note. The assessment and plan was discussed and outlined as below. Patient reports improved symptoms of alcohol withdrawal. She has received 3 mg of Ativan over the past 24H. Her CIWA is 4. She reports chronic tremors. Able to ambulate to the bathroom without much difficulties. She has had bowel movements during this hospital stay that is non bloody. GI does not plan on any intervention. Her breathing has improved as well. She is on 2L NC and has a nebulizer at home. Plans for discharge home today. She is advised to quit drinking alcohol. She will be prescribed 4 days of Prednisone to complete a total of 5 days of steroids. Follow up with PCP for further workup of adrenal nodule seen on CT. Discharge Diagnosis: Alcohol withdrawal Acute COPD exacerbation with chronic respiratory failure Lower GI bleed with h/o diverticulosis Adrenal nodule Transaminitis likely due to EtOH abuse Chronic conditions: Hypertension, DVT This complex discharge took 35 minutes to complete. Patient Condition at Discharge: Stable Plan - Discharge Summary Discharge Rx Participant: No New Discharge Prescriptions: New predniSONE 50 mg PO DAILY #4 tab Continue Acetaminophen [Tylenol] 325 - 650 mg PO Q6H PRN PRN Reason: Fever And/ Or Pain Montelukast Sodium 10 mg PO DAILY Budesonide-Formot 160-4.5 Mcg [Symbicort 160-4.5 Mcg Inhaler] 2 puff INHALATION RT-BID #1 each Apixaban [Eliquis] 5 mg PO BID ARIPiprazole [Abilify] 5 mg PO HS Sertraline [Zoloft] 200 mg PO DAILY Pantoprazole [Protonix] 40 mg PO DAILY Metoprolol Tartrate [Lopressor] 25 mg PO BID 30 Days #60 tab Losartan [Cozaar] 50 mg PO DAILY 30 Days #30 tab Nicotine 14Mg/24Hr Patch [Habitrol] 1 patch TRANSDERM DAILY Potassium Chloride ER [K-Dur 20] 20 meq PO DAILY Furosemide [Lasix] 20 mg PO BID Ipratropium-Albuterol Nebulize [Duoneb 0.5 mg-3 mg/3 ml Soln] 3 ml INHALATION RT-QID Atorvastatin [Lipitor] 20 mg PO HS 30 Days #30 tab Discharge Medication List Acetaminophen [Tylenol] 325 - 650 mg PO Q6H PRN 07/07/23 [History] Montelukast Sodium 10 mg PO DAILY 07/07/23 [History] Pantoprazole [Protonix] 40 mg PO DAILY 07/07/23 [History] Sertraline [Zoloft] 200 mg PO DAILY 07/07/23 [History] Losartan [Cozaar] 50 mg PO DAILY 30 Days #30 tab 07/10/23 [Rx] Metoprolol Tartrate [Lopressor] 25 mg PO BID 30 Days #60 tab 07/10/23 [Rx] Budesonide-Formot 160-4.5 Mcg [Symbicort 160-4.5 Mcg Inhaler] 2 puff INHALATION RT-BID #1 each 07/19/23 [Rx] Apixaban [Eliquis] 5 mg PO BID 08/14/23 [History] Nicotine 14Mg/24Hr Patch [Habitrol] 1 patch TRANSDERM DAILY 08/14/23 [History] ARIPiprazole [Abilify] 5 mg PO HS 09/24/23 [History] Furosemide [Lasix] 20 mg PO BID 09/24/23 [History] Ipratropium-Albuterol Nebulize [Duoneb 0.5 mg-3 mg/3 ml Soln] 3 ml INHALATION RT-QID 09/24/23 [History] Potassium Chloride ER [K-Dur 20] 20 meq PO DAILY 09/24/23 [History] Atorvastatin [Lipitor] 20 mg PO HS 30 Days #30 tab 09/26/23 [Rx] predniSONE 50 mg PO DAILY #4 tab 11/11/23 [Rx] Follow up Appointment(s)/Referral(s): Lashay Coello MD [Primary Care Provider] - 1-2 days (Officce is closed at time of discharge. Please call for follow-up appointment.) Patient Instructions/Handouts: Gastrointestinal Bleeding (DC), Rectal Bleeding (DC) Discharge Disposition: HOME SELF-CARE
--- NOTE | 2023-11-11 13:04 | US ---
EXAMINATION TYPE: US venous doppler duplex UE LT DATE OF EXAM: 11/10/2023 COMPARISON: 07/27/23 CLINICAL INDICATION: Female, 53 years old with history of recent DVT; Hx left upper extremity thrombu s within the left basilic and brachial vein on 07/27/23. On eliquis since SIDE PERFORMED: Left Left Arm: No evidence of DVT or SVT today. The brachial veins and basilic vein show no signs of throm bus on today's exam. IMPRESSION: 1. Left upper extremity ultrasound negative for deep venous process.
== END 2023-11-11 13:43 | disposition home or self-care (01) ==
LOC: EC 22:32 → UNDOADMOB 11-10 01:34 → 4SSUR 11-10 01:34 → OBSVTOIN 11-10 01:35 → INTOOBSV 11-10 01:35 → 4SSUR 11-10 01:35 → UNDODISOB 11-11 13:43
PROVIDERS: ADMIT Internal Medicine; ATTEND Internal Medicine
DX: K92.1 Melena (principal); K59.00 Constipation, unspecified; K57.90 Diverticulosis of intestine, part unspecified, without perforation or abscess without bleeding; F10.239 Alcohol dependence with withdrawal, unspecified; Y90.0 Blood alcohol level of less than 20 mg/100 ml; R74.8 Abnormal levels of other serum enzymes; J96.11 Chronic respiratory failure with hypoxia; K76.0 Fatty (change of) liver, not elsewhere classified; J44.1 Chronic obstructive pulmonary disease with (acute) exacerbation; I10 Essential (primary) hypertension; F41.9 Anxiety disorder, unspecified; F32.A Depression, unspecified; F17.200 Nicotine dependence, unspecified, uncomplicated; R74.01 Elevation of levels of liver transaminase levels; E27.8 Other specified disorders of adrenal gland; E66.01 Morbid (severe) obesity due to excess calories; Z68.37 Body mass index [BMI] 37.0-37.9, adult; Z86.718 Personal history of other venous thrombosis and embolism; Z99.81 Dependence on supplemental oxygen; Z79.899 Other long term (current) drug therapy; Z79.01 Long term (current) use of anticoagulants
CPT/HCPCS: 96376 ×2; 96374; 96375; 99285; 36415; 94640 ×4; 94760; 93005; 83880; 80053; 80048; 82977; 83605; 83690; 83735; 84100; 84484; 85025 ×2; 85027; 85610; 85730; 82272; 80320; 93971; 74177; G0378 ×2; J2060; Q9967; J2919 ×3

== ENCOUNTER 2023-11-25 15:03 | Inpatient (IN) | payer OTHER ==
[2023-11-25 16:18] LABS: ALT 78 U/L (4-34); AST 120 U/L (14-36); African American GFR (CKD) >90 (>60 ml/min/1.73 sqM); Albumin 3.7 g/dL (3.5-5.0); Alkaline Phosphatase 150 U/L (38-126); Anion Gap 2 mmol/L; Blood Urea Nitrogen 5 mg/dL (7-17); Carbon Dioxide 35 mmol/L (22-30); Chloride 106 mmol/L (98-107); Glucose 88 mg/dL (74-99); Magnesium 1.7 mg/dL (1.6-2.3); Non-African American GFR(CKD) >90 (>60 ml/min/1.73 sqM); Potassium 3.9 mmol/L (3.5-5.1); Sodium 143 mmol/L (137-145); Total Bilirubin 0.7 mg/dL (0.2-1.3); Total Protein 6.7 g/dL (6.3-8.2)
[2023-11-25 16:19] LABS: INR 0.9 (<1.2); Partial Thromboplastin Time 23.2 sec (22.0-30.0); Prothrombin Time 9.7 sec (10.0-12.5)
[2023-11-25 16:25] LABS: Anisocytosis Slight; Basophils # (A) 0.1 k/uL (0-0.2); Basophils % (A) 1 %; Eosinophils # (A) 0.1 k/uL (0-0.7); Eosinophils % (A) 2 %; HCT 42.3 % (34.0-46.0); HGB 13.5 gm/dL (11.4-16.0); Hypochromasia Moderate; Lymphocytes # (A) 0.8 k/uL (1.0-4.8); Lymphocytes % (A) 13 %; MCH 31.8 pg (25.0-35.0); MCHC 31.8 g/dL (31.0-37.0); MCV 99.9 fL (80.0-100.0); Macrocytosis Moderate; Mean Platelet Volume 6.9; Monocytes # (A) 0.3 k/uL (0-1.0); Monocytes % (A) 5 %; Neutrophils # (A) 4.7 k/uL (1.3-7.7); Neutrophils % (A) 78 %; Platelet Count 264 k/uL (150-450); RBC 4.23 m/uL (3.80-5.40); RDW 19.4 % (11.5-15.5); WBC 6.1 k/uL (3.8-10.6)
[2023-11-25 16:26] LABS: NT-Pro-B-Type Natriuretic Pept 297 pg/mL
--- NOTE | 2023-11-25 16:29 | XR ---
EXAMINATION TYPE: XR chest 2V DATE OF EXAM: 11/25/2023 COMPARISON: 09/24/2023 HISTORY: Shortness of breath TECHNIQUE: Frontal and lateral views of the chest are obtained. FINDINGS: Scattered senescent parenchymal changes noted. Hyperinflation compatible with COPD. No evidence for infiltrate. No evidence for atelectasis. Heart size is stable. Mediastinal structures are stable and grossly unremarkable. No evidence for hilar prominence. Degenerative changes dorsal spine. IMPRESSION: 1. No evidence for acute pulmonary disease.
--- NOTE | 2023-11-25 18:25 | CT ---
EXAMINATION TYPE: CT angio chest CT DLP: 719 mGycm, Automated exposure control for dose reduction was used. DATE OF EXAM: 11/25/2023 6:07 PM COMPARISON: CT chest 0 1024. CLINICAL INDICATION:Female, 53 years old with history of PE suspected; difficulty breathing TECHNIQUE/CONTRAST: CTA scan of the thorax is performed with IV Contrast, patient injected with 100 mL of Isovue 370, MIP images are created and reviewed these are created on a separate workstation.. FINDINGS: Pulmonary Artery: There is no evidence for a filling defect within the pulmonary vasculature to sugge st acute pulmonary embolism. The pulmonary artery is of normal size. Lungs/Pleura: No evidence of focal consolidation, pleural effusion or pneumothorax. Airway: Large airways are patent. Heart: Heart is within normal limits for size. Vasculature: No evidence of aortic aneurysm. Mediastinum: No gross evidence of adenopathy. Musculoskeletal: No acute osseous abnormalities Soft Tissues: Unremarkable. Lower neck: No significant findings. Upper Abdomen: No significant findings. IMPRESSION: 1. NO EVIDENCE FOR PULMONARY EMBOLUS. 2. DIFFUSE PATCHY GROUNDGLASS INFILTRATES THROUGHOUT WITH MODERATE DIFFUSE BRONCHIAL WALL THICKENING. 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 3. BACKGROUND COPD WITH MODERATE UPPER LUNG EMPHYSEMA. 4. SUSPECT SOME REACTIVE/POST INFLAMMATORY RIGHT HILAR NODES MEASURING UP TO 1.5 CM. 5. MODERATE HEPATIC STEATOSIS AND BILATERAL LIPID RICH ADRENAL ADENOMAS INCIDENTALLY NOTED.
[2023-11-25] MEDS ORDERED: AZITHROMYCIN 500 MG VIAL IVPB SCH (19:45)
--- NOTE | 2023-11-25 19:47 | ED ---
SOB HPI - General Chief Complaint: Shortness of Breath Stated Complaint: MASHA Time Seen by Provider: 11/25/23 15:32 Source: patient, EMS, RN notes reviewed Mode of arrival: EMS Limitations: no limitations - History of Present Illness Initial Comments: 53-year-old female with a history of COPD who complains today of shortness of breath fever cough for the last several days. No overt chest pain. She does take updrafts at home she states these are not helping. She was brought in by EMS. MD Complaint: shortness of breath, cough - Related Data Home Medications Medication Instructions Recorded Confirmed Acetaminophen [Tylenol] 325 - 650 mg PO Q6H PRN 07/07/23 11/25/23 Montelukast Sodium 10 mg PO DAILY 07/07/23 11/25/23 Pantoprazole [Protonix] 40 mg PO DAILY 07/07/23 11/25/23 Sertraline [Zoloft] 200 mg PO DAILY 07/07/23 11/25/23 Apixaban [Eliquis] 5 mg PO BID 08/14/23 11/25/23 Nicotine 14Mg/24Hr Patch [Habitrol] 1 patch TRANSDERM DAILY 08/14/23 11/25/23 ARIPiprazole [Abilify] 5 mg PO HS 09/24/23 11/25/23 Furosemide [Lasix] 20 mg PO BID 09/24/23 11/25/23 Ipratropium-Albuterol Nebulize 3 ml INHALATION RT-QID 09/24/23 11/25/23 [Duoneb 0.5 mg-3 mg/3 ml Soln] Potassium Chloride ER [K-Dur 20] 20 meq PO DAILY 09/24/23 11/25/23 Previous Rx's Medication Instructions Recorded Losartan [Cozaar] 50 mg PO DAILY 30 Days #30 tab 07/10/23 Metoprolol Tartrate [Lopressor] 25 mg PO BID 30 Days #60 tab 07/10/23 Budesonide-Formot 160-4.5 Mcg 2 puff INHALATION RT-BID #1 each 07/19/23 [Symbicort 160-4.5 Mcg Inhaler] Atorvastatin [Lipitor] 20 mg PO HS 30 Days #30 tab 09/26/23 Allergies Allergy/AdvReac Type Severity Reaction Status Date / Time No Known Allergies Allergy Verified 11/25/23 17:39 Review of Systems ROS Statement: Those systems with pertinent positive or pertinent negative responses have been documented in the HPI. ROS Other: All systems not noted in ROS Statement are negative. Past Medical History Past Medical History: COPD, Deep Vein Thrombosis (DVT), Hypertension Additional Past Medical History / Comment(s): seizures. alcohol abuse. History of Any Multi-Drug Resistant Organisms: None Reported Past Surgical History: No Surgical Hx Reported Past Anesthesia/Blood Transfusion Reactions: No Reported Reaction Past Psychological History: Anxiety, Depression Smoking Status: Current every day smoker Past Alcohol Use History: Daily Past Drug Use History: Marijuana - Past Family History Mother History Unknown: Yes General Exam - General Exam Comments Initial Comments: Is a well-developed well-nourished awake alert oriented x 4 female Limitations: no limitations General appearance: alert, anxious, in distress Head exam: Present: atraumatic, normocephalic, normal inspection Eye exam: Present: normal appearance, PERRL, EOMI. Absent: scleral icterus, conjunctival injection, periorbital swelling ENT exam: Present: normal exam, mucous membranes moist Neck exam: Present: normal inspection, full ROM, other. Absent: tenderness, meningismus, lymphadenopathy Respiratory exam: Present: wheezes, decreased breath sounds (Better JVD or bruits). Absent: respiratory distress, rales, rhonchi, stridor Cardiovascular Exam: Present: normal rhythm, tachycardia, normal heart sounds. Absent: systolic murmur, diastolic murmur, rubs, gallop, clicks GI/Abdominal exam: Present: soft, normal bowel sounds. Absent: distended, tenderness, guarding, rebound, rigid, bruit, pulsatile mass Extremities exam: Present: normal inspection, full ROM, normal capillary refill. Absent: tenderness, pedal edema, joint swelling, calf tenderness Back exam: Present: normal inspection Neurological exam: Present: alert, oriented X3, CN II-XII intact Psychiatric exam: Present: normal affect, normal mood Skin exam: Present: warm, dry, intact, normal color. Absent: rash Course Vital Signs 11/25/23 11/25/23 11/25/23 15:04 15:10 17:08 Temperature 100.7 F H 99.5 F Pulse Rate 115 H 106 H Respiratory 34 H 30 H 26 H Rate Blood Pressure 104/96 124/69 O2 Sat by Pulse 96 94 L Oximetry 11/25/23 18:21 Temperature 98.6 F Pulse Rate 106 H Respiratory 24 Rate Blood Pressure 124/69 O2 Sat by Pulse 95 Oximetry Medical Decision Making - Medical Decision Making I did discuss findings with the patient. Patient still demonstrating wheezing in spite of treatment. I did discuss the case with Dr. Amador patient will be admitted IV antibiotics [facility]. Was pt. sent in by a medical professional or institution (, PA, [employer] FINDER, urgent care, hospital, or custodial...) When possible be specific @ -No Did you speak to anyone other than the patient for history (EMS, parent, family, police, friend...)? What history was obtained from this source @ -EMS personnel Did you review nursing and triage notes (agree or disagree)? Why? @ -I reviewed and agree with nursing and triage notes Were old charts reviewed (outside hosp., previous admission, EMS record, old EKG, old radiological studies, urgent care reports/EKG's, custodial records)? Report findings @ -Old charts were reviewed Differential Diagnosis (chest pain, altered mental status, abdominal pain women, abdominal pain men, vaginal bleeding, weakness, fever, dyspnea, syncope, headache, dizziness, GI bleed, back pain, seizure, CVA, palpatations, mental health, musculoskeletal)? @ -Dyspnea EKG interpreted by me (3pts min.). @ -As above EKG interpreted by me sinus tachycardia rate 113 parable 131 QRS duration 76 QT/QTc 303/[address]-T wave changes X-rays interpreted by me (1pt min.). @ -Chest x-ray interpreted by me no definitive acute process. CT interpreted by me (1pt min.). @ -CT Angio interpreted by me evidence of thickening of the bronchus groundglass appearance consistent with pneumonitis U/S interpreted by me (1pt. min.). @ -None done What testing was considered but not performed or refused? (CT, X-rays, U/S, labs)? Why? @ -None What meds were considered but not given or refused? Why? @ -None Did you discuss the management of the patient with other professionals (professionals i.e. , [facility], [employer] FINDER, lab, RT, psych nurse, high school social science teacher, concreting supervisor, teacher, stream control officer, case investigator)? Give summary @ -No Was smoking cessation discussed for >3mins.? @ -No Was critical care preformed (if so, how long)? @ -31 minutes Were there social determinants of health that impacted care today? How? (Homelessness, low income, unemployed, alcoholism, drug addiction, t ransportation, low edu. Level, literacy, decrease access to med. care, correction, rehab)? @ -No Was there de-escalation of care discussed even if they declined (Discuss DNR or withdrawal of care, Hospice)? DNR status @ -No What co-morbidities impacted this encounter? (DM, HTN, Smoking, COPD, CAD, Cance r, CVA, ARF, Chemo, Hep., AIDS, mental health diagnosis, sleep apnea, morbid obesity)? @ -OPD, smoking Was patient admitted / discharged? Hospital course, mention meds given and route, prescriptions, significant lab abnormalities, going to OR and other pertinent info. @ -Hospital course was admitted for IV antibiotics and treatment Undiagnosed new problem with uncertain prognosis? @ -No Drug Therapy requiring intensive monitoring for toxicity (Heparin, Nitro, Insulin, Cardizem)? @ -No Were any procedures done? @ -No Diagnosis/symptom? @ -Acute COPD exacerbation, bronchitis, febrile illness, leukocytosis Acute, or Chronic, or Acute on Chronic? @ -Acute Uncomplicated (without systemic symptoms) or Complicated (systemic symptoms)? @ -Complicated Side effects of treatment? @ -No Exacerbation, Progression, or Severe Exacerbation? @ -No Poses a threat to life or bodily function? How? (Chest pain, USA, ID, pneumonia, PE, COPD, DKA, ARF, appy, cholecystitis, CVA, Diverticulitis, Homicidal, Suicidal, threat to staff... and all critical care pts) @ -Potential - Lab Data Result diagrams: 11/25/23 15:52 11/25/23 15:52 Lab Results 11/25/23 11/25/23 11/25/23 Range/Units 15:52 15:52 15:52 WBC 6.1 (3.8-10.6) k/uL RBC 4.23 (3.80-5.40) m/uL Hgb 13.5 (11.4-16.0) gm/dL Hct 42.3 (34.0-46.0) % MCV 99.9 (80.0-100.0) fL MCH 31.8 (25.0-35.0) pg MCHC 31.8 (31.0-37.0) g/dL RDW 19.4 H (11.5-15.5) % Plt Count 264 (150-450) k/uL MPV 6.9 Neutrophils % 78 % Lymphocytes % 13 % Monocytes % 5 % Eosinophils % 2 % Basophils % 1 % Neutrophils # 4.7 (1.3-7.7) k/uL Lymphocytes # 0.8 L (1.0-4.8) k/uL Monocytes # 0.3 (0-1.0) k/uL Eosinophils # 0.1 (0-0.7) k/uL Basophils # 0.1 (0-0.2) k/uL Hypochromasia Moderate Anisocytosis Slight Macrocytosis Moderate PT 9.7 L (10.0-12.5) sec INR 0.9 (<1.2) APTT 23.2 (22.0-30.0) sec D-Dimer 1.24 H (<0.60) mg/L FEU Sodium 143 (137-145) mmol/L Potassium 3.9 (3.5-5.1) mmol/L Chloride 106 (98-107) mmol/L Carbon Dioxide 35 H (22-30) mmol/L Anion Gap 2 mmol/L BUN 5 L (7-17) mg/dL Creatinine 0.57 (0.52-1.04) mg/dL Est GFR (CKD-EPI)AfAm >90 (>60 ml/min/1.73 sqM) Est GFR (CKD-EPI)NonAf >90 (>60 ml/min/1.73 sqM) Glucose 88 (74-99) mg/dL Lactic Ac Sepsis Rflx Plasma Lactic Acid Chente (0.7-2.0) mmol/L Calcium 8.0 L (8.4-10.2) mg/dL Magnesium 1.7 (1.6-2.3) mg/dL Total Bilirubin 0.7 (0.2-1.3) mg/dL AST 120 H (14-36) U/L ALT 78 H (4-34) U/L Alkaline Phosphatase 150 H (38-126) U/L Troponin I (0.000-0.034) ng/mL NT-Pro-B Natriuret Pep 297 pg/mL Total Protein 6.7 (6.3-8.2) g/dL Albumin 3.7 (3.5-5.0) g/dL Influenza Type A (PCR) (Not Detectd) Influenza Type B (PCR) (Not Detectd) RSV (PCR) (Not Detectd) SARS-CoV-2 (PCR) (Not Detectd) 11/25/23 11/25/23 11/25/23 Range/Units 15:52 15:52 15:52 WBC (3.8-10.6) k/uL RBC (3.80-5.40) m/uL Hgb (11.4-16.0) gm/dL Hct (34.0-46.0) % MCV (80.0-100.0) fL MCH (25.0-35.0) pg MCHC (31.0-37.0) g/dL RDW (11.5-15.5) % Plt Count (150-450) k/uL MPV Neutrophils % % Lymphocytes % % Monocytes % % Eosinophils % % Basophils % % Neutrophils # (1.3-7.7) k/uL Lymphocytes # (1.0-4.8) k/uL Monocytes # (0-1.0) k/uL Eosinophils # (0-0.7) k/uL Basophils # (0-0.2) k/uL Hypochromasia Anisocytosis Macrocytosis PT (10.0-12.5) sec INR (<1.2) APTT (22.0-30.0) sec D-Dimer (<0.60) mg/L FEU Sodium (137-145) mmol/L Potassium (3.5-5.1) mmol/L Chloride (98-107) mmol/L Carbon Dioxide (22-30) mmol/L Anion Gap mmol/L BUN (7-17) mg/dL Creatinine (0.52-1.04) mg/dL Est GFR (CKD-EPI)AfAm (>60 ml/min/1.73 sqM) Est GFR (CKD-EPI)NonAf (>60 ml/min/1.73 sqM) Glucose (74-99) mg/dL Lactic Ac Sepsis Rflx Plasma Lactic Acid Chente 2.5 H* (0.7-2.0) mmol/L Calcium (8.4-10.2) mg/dL Magnesium (1.6-2.3) mg/dL Total Bilirubin (0.2-1.3) mg/dL AST (14-36) U/L ALT (4-34) U/L Alkaline Phosphatase (38-126) U/L Troponin I <0.012 (0.000-0.034) ng/mL NT-Pro-B Natriuret Pep pg/mL Total Protein (6.3-8.2) g/dL Albumin (3.5-5.0) g/dL Influenza Type A (PCR) Not Detected (Not Detectd) Influenza Type B (PCR) Not Detected (Not Detectd) RSV (PCR) Not Detected (Not Detectd) SARS-CoV-2 (PCR) Not Detected (Not Detectd) 11/25/23 11/25/23 Range/Units 16:23 18:36 WBC (3.8-10.6) k/uL RBC (3.80-5.40) m/uL Hgb (11.4-16.0) gm/dL Hct (34.0-46.0) % MCV (80.0-100.0) fL MCH (25.0-35.0) pg MCHC (31.0-37.0) g/dL RDW (11.5-15.5) % Plt Count (150-450) k/uL MPV Neutrophils % % Lymphocytes % % Monocytes % % Eosinophils % % Basophils % % Neutrophils # (1.3-7.7) k/uL Lymphocytes # (1.0-4.8) k/uL Monocytes # (0-1.0) k/uL Eosinophils # (0-0.7) k/uL Basophils # (0-0.2) k/uL Hypochromasia Anisocytosis Macrocytosis PT (10.0-12.5) sec INR (<1.2) APTT (22.0-30.0) sec D-Dimer (<0.60) mg/L FEU Sodium (137-145) mmol/L Potassium (3.5-5.1) mmol/L Chloride (98-107) mmol/L Carbon Dioxide (22-30) mmol/L Anion Gap mmol/L BUN (7-17) mg/dL Creatinine (0.52-1.04) mg/dL Est GFR (CKD-EPI)AfAm (>60 ml/min/1.73 sqM) Est GFR (CKD-EPI)NonAf (>60 ml/min/1.73 sqM) Glucose (74-99) mg/dL Lactic Ac Sepsis Rflx Y Plasma Lactic Acid Chente 2.4 H* (0.7-2.0) mmol/L Calcium (8.4-10.2) mg/dL Magnesium (1.6-2.3) mg/dL Total Bilirubin (0.2-1.3) mg/dL AST (14-36) U/L ALT (4-34) U/L Alkaline Phosphatase (38-126) U/L Troponin I (0.000-0.034) ng/mL NT-Pro-B Natriuret Pep pg/mL Total Protein (6.3-8.2) g/dL Albumin (3.5-5.0) g/dL Influenza Type A (PCR) (Not Detectd) Influenza Type B (PCR) (Not Detectd) RSV (PCR) (Not Detectd) SARS-CoV-2 (PCR) (Not Detectd) Critical Care Time Critical Care Time: Yes Total Critical Care Time: 31 Disposition Clinical Impression: Acute exacerbation of chronic obstructive pulmonary disease, Bronchitis, Febrile illness, acute, Smoker, Leukocytosis Disposition: ADMITTED IP TO THIS HOSP Condition: Fair Referrals: Lashay Coello MD [Primary Care Provider] - 1-2 days Time of Disposition: 19:30 Decision Date: 11/25/23 Decision Time: 19:30
[2023-11-25] MEDS ORDERED: ACETAMINOPHEN TAB 325 MG TAB PO PRN (19:49)
[2023-11-25] MEDS ORDERED: NALOXONE 0.4 MG/ML 1 ML VIAL IVP PRN (19:49)
[2023-11-25] MEDS: cefTRIAXone IN SWFI 1,000 MG/10 ML SYRINGE IVP STA (20:05)
[2023-11-25] MEDS: SODIUM CHLORIDE 0.9% 1,000 ML IV ONE (20:05)
[2023-11-25] MEDS: IPRATROPIUM-ALBUTEROL 3 ML NEB INHALATION SCH ×2 (20:09→21:34)
[2023-11-25] MEDS: methylPREDNISolone SOD SUCCI 125 MG/2 ML VIAL IV STA (20:10)
[2023-11-25] MEDS: methylPREDNISolone SOD SUCCI 125 MG/2 ML VIAL IV SCH (20:17)
[2023-11-25] MEDS: AZITHROMYCIN 500 MG in SODIUM CHLORIDE 0.9% 250 ML IVPB SCH (21:24)
[2023-11-25] MEDS: ATORVASTATIN 20 MG TAB PO SCH (21:28)
[2023-11-25] MEDS: APIXABAN 5 MG TAB PO SCH (21:28)
[2023-11-25] MEDS: METOPROLOL TARTRATE 25 MG TAB PO SCH (21:28)
[2023-11-25] MEDS: ARIPiprazole 5 MG TAB PO SCH (21:28)
[2023-11-25] MEDS: FUROSEMIDE 20 MG TAB PO SCH (21:28)
--- NOTE | 2023-11-25 21:39 | P.HPIM ---
History of Present Illness H&P Date: 11/25/23 Chief Complaint: SOB Patient is a 53-year-old female with PMH of COPD with chronic hypoxemic respiratory failure (on 2 L home oxygen), DVT on Eliquis, and hypertension came to the ER with progressively worsening shortness of breath. Patient woke up this morning feeling short of breath with some chest tightness worse on exertion. Patient reports that it was a challenge for her to get up and take few steps to get to the bathroom. Patient also endorsed lightheadedness and almost felt like passing out because of worsening dyspnea. Denies loss of consciousness, head trauma, or fall. Patient called the EMS who found her O2 sat in 60s. Patient reported that she is on a continuous home oxygen therapy which is 2 L by nasal cannula and has been stable with no increase in oxygen level. Patient denies overt chest pain, palpitation, and peripheral edema. No recent travel. No recent upper respite tract infection. However she has been feeling mild chills with tremors for the last 1 week. Patient has a history of alcohol and tobacco dependence. Patient currently smokes a pack every other day; used to smoke 3 packs/day x 30 years. She drinks 1 pint of vodka a day x 6 years. Her last drink was yesterday. Patient denies auditory, visual, tactile hallucination. Denies seizure, tongue bite, urinary or bowel incontinence. EKG done in the ER shows sinus tachycardia with heart rate of 130 bpm, CA interval 131 ms, not prolonged. QTc 370 ms, not prolonged. No STT wave changes noted. Chest x-ray in the ER shows no evidence of infiltrate, consolidation or atelectasis. Chest x-ray is consistent with history of COPD. CT angiogram of the chest shows no evidence for pulmonary embolus. Diffuse patchy groundglass infiltrates throughout with moderate diffuse bronchial wall thickening. Concerning for atypical pneumonia. Vitals: Tmax 100.7 F, heart rate 106, respiration rate 24, blood pressure 124/69, O2 saturation 95% via 4 L nasal cannula Review of systems: Pertinent positives and negatives as discussed in HPI, a complete review of systems was performed and all other systems are negative. Social history: Tobacco: A pack every other day; history of 3 packs/day x 30 years Alcohol: A pint of vodka daily Recreational drugs: None Travel: None Occupation: Unemployed Family History: Nonsignificant Physical examination: Vital signs reviewed General: non toxic, no distress, appears older than stated age, morbidly obese Derm: no unusual rashes/lesions, warm Head: atraumatic, normocephalic, symmetric Eyes: EOMI, no lid lag, anicteric sclera, pupils equal round reactive to light Neck: No cervical lymphadenopathy, trachea midline, supple Mouth: no lip lesion, mucus membranes moist Cardiovascular: S1S2 reg, no murmur, positive dorsalis pedis pulse bilateral, bilateral grade 1 pitting edema Lungs: Diffuse inspiratory and expiratory wheezing with bibasilar rhonchi, no rales, no accessory muscle use Abdominal: soft, nontender to palpation, no guarding Ext: muscle strength 5 out of 5 in all 4 extremities grossly, no gross muscle atrophy, no contractures, Neuro: Diffuse upper and lower extremity tremors, CN II-XI grossly intact, no gross focal neuro deficits Psych: Alert, oriented, appropriate affect Assessment/Plan: 53-year-old female with COPD with chronic hypoxemic respiratory failure (on 2 L home oxygen), DVT on Eliquis, and hypertension came to the ER with progressively worsening shortness of breath, likely acute COPD exacerbation and suspected community acquired pneumonia. #Acute COPD exacerbation Continue with DuoNebs as scheduled and as needed Continue with oxygen with 2 L via nasal cannula Continue with Solu-Medrol 60 mg IV every 6 hours Ordered ABG D-dimer: 124 (CTA chest ruled out PE) #Sepsis secondary to suspected community-acquired pneumonia vs acute bronchitis CTA of the chest shows diffuse patchy groundglass infiltrates throughout. SIRS: 3 points (vitals on ER arrival: Temperature 100.7 F, heart rate 115 bpm, respiratory rate 34, BP 104/96) WBC 6.1 with neutrophil count of 4.7 Lactic acid 2.5, continue to trend Ordered ceftriaxone 1 g IV PB every 24 hours Ordered Zithromax 500 mg IVPB q24h Order blood culture Order Legionella urine antigen Ordered procalcitonin Ordered sputum culture Continue with IV normal saline 130 cc/h (cautious use of fluids in light of mild edema) #Tremors, likely secondary to alcohol withdrawal Treatment as per CIWA protocol Fall precautions Seizure precaution Thiamine, MV C/w IVFs Monitor electrolytes daily #Metabolic alkalosis suspected secondary to hypercapnia in light of COPD Bicarb 35 Continue monitor bicarb levels #Transaminitis secondary to alcoholic hepatitis AST 120, ALT 78, alkaline phosphatase 150 Continue monitor CMP #Hypocalcemia Total serum calcium 8.0 and serum albumin 3.6 Corrected calcium is 8.2 #Chronic condition: Anxiety: Resume Abilify 5 mg p.o. nightly, sertraline 200 mg p.o. daily Hypertension: Losartan 50 mg p.o. daily Peripheral edema: Hold off on Lasix for now in setting of Sepsis. Consider restarting as soon as patients fluid resuscitation needs are met Hyperlipidemia: Resume Lipitor 20 mg p.o. nightly DVT prophylaxis: Eliquis 5 mg p.o. twice daily The patient is admitted with an anticipated greater than 2 midnight stay for evaluation of COPD exacerbation CODE STATUS: Full code Discussed with: Patient Anticipated discharge place: Home Past Medical History Past Medical History: COPD, Deep Vein Thrombosis (DVT), Hypertension Additional Past Medical History / Comment(s): seizures. alcohol abuse. History of Any Multi-Drug Resistant Organisms: None Reported Past Surgical History: No Surgical Hx Reported Past Anesthesia/Blood Transfusion Reactions: No Reported Reaction Past Psychological History: Anxiety, Depression Smoking Status: Current every day smoker Past Alcohol Use History: Daily Past Drug Use History: Marijuana - Past Family History Mother History Unknown: Yes Medications and Allergies Home Medications Medication Instructions Recorded Confirmed Type Acetaminophen [Tylenol] 325 - 650 mg PO Q6H PRN 07/07/23 11/25/23 History Montelukast Sodium 10 mg PO DAILY 07/07/23 11/25/23 History Pantoprazole [Protonix] 40 mg PO DAILY 07/07/23 11/25/23 History Sertraline [Zoloft] 200 mg PO DAILY 07/07/23 11/25/23 History Losartan [Cozaar] 50 mg PO DAILY 30 Days #30 tab 07/10/23 11/25/23 Rx Metoprolol Tartrate [Lopressor] 25 mg PO BID 30 Days #60 tab 07/10/23 11/25/23 Rx Budesonide-Formot 160-4.5 Mcg 2 puff INHALATION RT-BID #1 each 07/19/23 11/25/23 Rx [Symbicort 160-4.5 Mcg Inhaler] Apixaban [Eliquis] 5 mg PO BID 08/14/23 11/25/23 History Nicotine 14Mg/24Hr Patch [Habitrol] 1 patch TRANSDERM DAILY 08/14/23 11/25/23 History ARIPiprazole [Abilify] 5 mg PO HS 09/24/23 11/25/23 History Furosemide [Lasix] 20 mg PO BID 09/24/23 11/25/23 History Ipratropium-Albuterol Nebulize 3 ml INHALATION RT-QID 09/24/23 11/25/23 History [Duoneb 0.5 mg-3 mg/3 ml Soln] Potassium Chloride ER [K-Dur 20] 20 meq PO DAILY 09/24/23 11/25/23 History Atorvastatin [Lipitor] 20 mg PO HS 30 Days #30 tab 09/26/23 11/25/23 Rx Allergies Allergy/AdvReac Type Severity Reaction Status Date / Time No Known Allergies Allergy Verified 11/25/23 17:39 Physical Exam Vitals: Vital Signs Temp Pulse Resp BP Pulse Ox 11/25/23 18:21 98.6 F 106 H 24 124/69 95 11/25/23 17:08 99.5 F 106 H 26 H 124/69 94 L 11/25/23 15:10 30 H 11/25/23 15:04 100.7 F H 115 H 34 H 104/96 96 Intake and Output 11/25/23 11/25/23 11/25/23 06:59 14:59 22:59 Other: Weight 108.862 kg Results CBC & Chem 7: 11/25/23 15:52 11/25/23 15:52 Labs: Abnormal Lab Results - Last 24 Hours (Table) 11/25/23 11/25/23 11/25/23 Range/Units 15:52 15:52 15:52 RDW 19.4 H (11.5-15.5) % Lymphocytes # 0.8 L (1.0-4.8) k/uL PT 9.7 L (10.0-12.5) sec D-Dimer 1.24 H (<0.60) mg/L FEU Carbon Dioxide 35 H (22-30) mmol/L BUN 5 L (7-17) mg/dL Plasma Lactic Acid Chente (0.7-2.0) mmol/L Calcium 8.0 L (8.4-10.2) mg/dL AST 120 H (14-36) U/L ALT 78 H (4-34) U/L Alkaline Phosphatase 150 H (38-126) U/L 11/25/23 11/25/23 Range/Units 15:52 18:36 RDW (11.5-15.5) % Lymphocytes # (1.0-4.8) k/uL PT (10.0-12.5) sec D-Dimer (<0.60) mg/L FEU Carbon Dioxide (22-30) mmol/L BUN (7-17) mg/dL Plasma Lactic Acid Chente 2.5 H* 2.4 H* (0.7-2.0) mmol/L Calcium (8.4-10.2) mg/dL AST (14-36) U/L ALT (4-34) U/L Alkaline Phosphatase (38-126) U/L
[2023-11-25] MEDS ORDERED: LORazepam 1 MG TAB PO PRN (23:10)
[2023-11-25] MEDS: THIAMINE 100 MG/ML 2 ML VIAL IM STA (23:29)
[2023-11-26] MEDS ORDERED: LORazepam 2 MG/ML INJ IV PRN (00:14)
[2023-11-26] MEDS: LORazepam 2 MG/ML INJ IV PRN ×2 (00:38→21:28)
[2023-11-26] MEDS: SODIUM CHLORIDE 0.9% 1,000 ML IV STA (00:52)
[2023-11-26] MEDS: methylPREDNISolone SOD SUCCI 125 MG/2 ML VIAL IV SCH (02:26)
[2023-11-26] MEDS: SERTRALINE 100 MG TAB PO SCH (09:24)
[2023-11-26] MEDS: LOSARTAN 50 MG TAB PO SCH (09:25)
[2023-11-26] MEDS: PANTOPRAZOLE 40 MG TABLET PO SCH (09:25)
[2023-11-26] MEDS: MONTELUKAST 10 MG TAB PO SCH (09:25)
[2023-11-26] MEDS: FOLIC ACID 1 MG TAB PO SCH (09:25)
[2023-11-26] MEDS: MULTIVITAMINS, THERA 1 EACH TAB PO SCH (09:25)
[2023-11-26] MEDS: POTASSIUM CHLORIDE ER 20 MEQ TAB.ER PO SCH (09:25)
[2023-11-26] MEDS: NICOTINE 21MG/24HR PATCH TRANSDERM SCH (09:25)
--- NOTE | 2023-11-26 14:33 | P.PN ---
Subjective Progress Note Date: 11/26/23 Hospital course Patient is a 53-year-old female with PMH of COPD with chronic hypoxemic respiratory failure (on 2 L home oxygen), DVT on Eliquis, and hypertension came to the ER with progressively worsening shortness of breath. Patient woke up this morning feeling short of breath with some chest tightness worse on exertion. Patient reports that it was a challenge for her to get up and take few steps to get to the bathroom. Patient also endorsed lightheadedness and almost felt like passing out because of worsening dyspnea. Denies loss of consciousness, head trauma, or fall. Patient called the EMS who found her O2 sat in 60s. Patient reported that she is on a continuous home oxygen therapy which is 2 L by nasal cannula and has been stable with no increase in oxygen l evel. Patient denies overt chest pain, palpitation, and peripheral edema. No recent travel. No recent upper respite tract infection. However she has been feeling mild chills with tremors for the last 1 week. Patient has a history of alcohol and tobacco dependence. Patient currently smokes a pack every other day; used to smoke 3 packs/day x 30 years. She drinks 1 pint of vodka a day x 6 years. Her last drink was yesterday. Patient denies auditory, visual, tactile hallucination. Denies seizure, tongue bite, urinary or bowel incontinence. CT angiogram of the chest shows no evidence for pulmonary embolus. Diffuse patchy groundglass infiltrates throughout with moderate diffuse bronchial wall thickening. Concerning for atypical pneumonia. Patient also did have a fever in the ED of 100.7. Patient was started on broad-spectrum antibiotics with IV Rocephin and azithromycin. Patient was also started on IV steroids and breathing treatments for COPD exacerbation. Patient also started on CIWA protocol. Subjective Patient seen this morning. She states that her breathing is improving. She states that she still having some hallucinations. 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 Patient on 2 L home O2 at home Continue with IV Solu-Medrol 60 mg every 6 hours Continue with DuoNeb Wean O2 as tolerated. Patient currently on 3 L nasal cannula Community-acquired pneumonia Sepsis on admission Continue with azithromycin 1 g every 24 hours and azithromycin 500 mg every 24 hours Follow-up on blood culture Alcohol withdrawal CIWA protocol Mild transaminitis likely due to alcoholic hepatitis Trend CMP Anxiety and depression Continue psych meds Hypertension Continue losartan 50 mg p.o. daily Lymphedema Hold off on Lasix for now due to sepsis Hyperlipidemia Continue Lipitor History of DVT Continue with Eliquis DVT prophylaxis: Eliquis Objective - Vital Signs Vital signs: Vital Signs Temp 97.3 F L 11/26/23 07:46 Pulse 85 11/26/23 12:08 Resp 18 11/26/23 07:46 BP 124/73 11/26/23 07:46 Pulse Ox 98 11/26/23 08:03 FiO2 Intake & Output 11/25/23 11/26/23 11/26/23 18:59 06:59 18:59 Weight 108.862 kg 118.1 kg Other: Voiding Method Toilet Toilet Bedside Commode Bedside Commode # Voids 2 - Labs CBC & Chem 7: 11/25/23 15:52 11/25/23 15:52 Labs: Abnormal Lab Results - Last 24 Hours (Table) 11/25/23 11/25/23 11/25/23 Range/Units 15:52 15:52 15:52 RDW 19.4 H (11.5-15.5) % Lymphocytes # 0.8 L (1.0-4.8) k/uL PT 9.7 L (10.0-12.5) sec D-Dimer 1.24 H (<0.60) mg/L FEU Carbon Dioxide 35 H (22-30) mmol/L BUN 5 L (7-17) mg/dL Plasma Lactic Acid Chente (0.7-2.0) mmol/L Calcium 8.0 L (8.4-10.2) mg/dL AST 120 H (14-36) U/L ALT 78 H (4-34) U/L Alkaline Phosphatase 150 H (38-126) U/L 11/25/23 11/25/23 Range/Units 15:52 18:36 RDW (11.5-15.5) % Lymphocytes # (1.0-4.8) k/uL PT (10.0-12.5) sec D-Dimer (<0.60) mg/L FEU Carbon Dioxide (22-30) mmol/L BUN (7-17) mg/dL Plasma Lactic Acid Chente 2.5 H* 2.4 H* (0.7-2.0) mmol/L Calcium (8.4-10.2) mg/dL AST (14-36) U/L ALT (4-34) U/L Alkaline Phosphatase (38-126) U/L
[2023-11-26] MEDS: IPRATROPIUM-ALBUTEROL 3 ML NEB INHALATION PRN (23:35)
[2023-11-27] MEDS: THIAMINE 100 MG TAB PO SCH (09:38)
--- NOTE | 2023-11-27 11:06 | CDI ---
Documentation Clarification Form Date: 11/27/2023 From: Gretchen Chery Phone: [phone] Admit Date: 11/25/2023 07:49:00 PM Patient Name: Dayana Humphrey Visit Number: [id number] Discharge Date: ATTENTION: The Clinical Documentation Specialists (CDI) and [facility] Coding Staff appreciate your assistance in clarifying documentation. Please respond to the clarification below the line at the bottom and electronically sign. The CDI & [facility] Coding staff will review the response and follow-up if needed. Please note: Queries are made part of the Legal Health Record. If you have any questions, please contact the author of this message via ITS. Doctor/Provider: Zachary De La Fuente DO: Patient has a documented BMI of 43.3 on 11/24. Additional clarification is requested. History/Risk Factors: 53-year-old female with a history of alcohol abuse, COPD with chronic hypoxic respiratory failure, DVT and HTN who presents with exacerbation of COPD and alcohol withdrawal Clinical Indicators: 11/24 Patients weight is 118.1 kg Patients height is 5ft 5in Calculated BMI is 43.3 Treatments: Healthy heart diet Please clarify if patients BMI indicates an additional diagnosis: [ ] Morbid (Extreme) (severe) obesity [ ] No additional diagnosis/not clinically significant [ ] Other, please specify ____ [ ] Unable to determine Reference: NIH Classification for BMI Overweight BMI 2529.9 Obesity (Class 1) BMI 3034.9 Obesity (Class 2) BMI 3539.9 Morbid obesity (Class 3/Extreme/severe) BMI =40 Answered in Pulmonary consult 11/27- Morbid obesity MTDD
--- NOTE | 2023-11-27 14:30 | P.PN ---
Subjective Progress Note Date: 11/27/23 Hospital course Patient is a 53-year-old female with PMH of COPD with chronic hypoxemic respiratory failure (on 2 L home oxygen), DVT on Eliquis, and hypertension came to the ER with progressively worsening shortness of breath. Patient woke up this morning feeling short of breath with some chest tightness worse on exertion. Patient reports that it was a challenge for her to get up and take few steps to get to the bathroom. Patient also endorsed lightheadedness and almost felt like passing out because of worsening dyspnea. Denies loss of consciousness, head trauma, or fall. Patient called the EMS who found her O2 sat in 60s. Patient reported that she is on a continuous home oxygen therapy which is 2 L by nasal cannula and has been stable with no increase in oxygen l evel. Patient denies overt chest pain, palpitation, and peripheral edema. No recent travel. No recent upper respite tract infection. However she has been feeling mild chills with tremors for the last 1 week. Patient has a history of alcohol and tobacco dependence. Patient currently smokes a pack every other day; used to smoke 3 packs/day x 30 years. She drinks 1 pint of vodka a day x 6 years. Her last drink was yesterday. Patient denies auditory, visual, tactile hallucination. Denies seizure, tongue bite, urinary or bowel incontinence. CT angiogram of the chest shows no evidence for pulmonary embolus. Diffuse patchy groundglass infiltrates throughout with moderate diffuse bronchial wall thickening. Concerning for atypical pneumonia. Patient also did have a fever in the ED of 100.7. Patient was started on broad-spectrum antibiotics with IV Rocephin and azithromycin. Patient was also started on IV steroids and breathing treatments for COPD exacerbation. Patient also started on CIWA protocol. Subjective Patient seen this morning. She is feeling better. She states that she still gets "winded" when she gets out of bed last night patient did receive a total of 4 mg of IV Ativan. 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 Patient on 2 L home O2 at home Continue with IV Solu-Medrol 60 mg every 6 hours Continue with DuoNeb Wean O2 as tolerated. Patient currently on 3 L nasal cannula Community-acquired pneumonia Sepsis on admission Continue with Rocephin 1 g every 24 hours and azithromycin 500 mg every 24 hours Follow-up on blood culture Alcohol withdrawal CIWA protocol Mild transaminitis likely due to alcoholic hepatitis Trend CMP Anxiety and depression Continue psych meds Hypertension Continue losartan 50 mg p.o. daily Lymphedema Resume Lasix Hyperlipidemia Continue Lipitor History of DVT Continue with Eliquis DVT prophylaxis: Eliquis Objective - Vital Signs Vital signs: Vital Signs Temp 98.2 F 11/27/23 11:59 Pulse 84 11/27/23 12:23 Resp 16 11/27/23 11:59 BP 120/84 11/27/23 11:59 Pulse Ox 92 L 11/27/23 11:59 FiO2 Intake & Output 11/26/23 11/27/23 11/27/23 18:59 06:59 18:59 Other: Voiding Method Toilet Toilet Toilet Bedside Commode Bedside Commode Bedside Commode Diaper # Voids 1 2 - Labs CBC & Chem 7: 11/25/23 15:52 11/25/23 15:52 Labs: Microbiology - Last 24 Hours (Table) 11/25/23 20:00 Blood Culture - Preliminary Blood 11/25/23 19:59 Blood Culture - Preliminary Blood
--- NOTE | 2023-11-28 07:54 | XR ---
EXAMINATION TYPE: XR chest 1V portable DATE OF EXAM: 11/28/2023 HISTORY: Shortness of breath. COMPARISON: 11/25/2023 TECHNIQUE: Single view of the chest is submitted. FINDINGS: Demonstrated are scattered senescent parenchymal change. There is no evidence for focal infiltrate. The heart is stable. Hilar and mediastinal structures are within normal limits. Degenerative changes are seen of the dorsal spine. IMPRESSION: 1. Chronic changes without evidence for acute pulmonary disease.
[2023-11-28 08:03] LABS: VBG PH 7.42 (7.31-7.41)
[2023-11-28 08:14] LABS: ALT 74 U/L (4-34); AST 65 U/L (14-36); African American GFR (CKD) >90 (>60 ml/min/1.73 sqM); Albumin 3.8 g/dL (3.5-5.0); Albumin/Globulin Ratio 1.3; Alkaline Phosphatase 125 U/L (38-126); Anion Gap 3 mmol/L; Blood Urea Nitrogen 17 mg/dL (7-17); Calcium 8.4 mg/dL (8.4-10.2); Carbon Dioxide 35 mmol/L (22-30); Chloride 101 mmol/L (98-107); Globulin 2.9 g/dL; Glucose 131 mg/dL (74-99); Non-African American GFR(CKD) >90 (>60 ml/min/1.73 sqM); Potassium 4.5 mmol/L (3.5-5.1); Sodium 139 mmol/L (137-145); Total Bilirubin 0.7 mg/dL (0.2-1.3); Total Protein 6.7 g/dL (6.3-8.2)
[2023-11-28 08:21] LABS: Anisocytosis Slight; Basophils % (A) 0 %; Eosinophils % (A) 0 %; HCT 39.1 % (34.0-46.0); HGB 12.2 gm/dL (11.4-16.0); Hypochromasia Marked; Lymphocytes # (A) 0.7 k/uL (1.0-4.8); Lymphocytes % (A) 11 %; MCH 31.5 pg (25.0-35.0); MCHC 31.1 g/dL (31.0-37.0); MCV 101.1 fL (80.0-100.0); Macrocytosis Moderate; Monocytes # (A) 0.3 k/uL (0-1.0); Monocytes % (A) 5 %; Neutrophils # (A) 5.2 k/uL (1.3-7.7); Neutrophils % (A) 81 %; Platelet Count 246 k/uL (150-450); RBC 3.87 m/uL (3.80-5.40); RDW 19.5 % (11.5-15.5); WBC 6.4 k/uL (3.8-10.6)
--- NOTE | 2023-11-28 14:02 | P.PN ---
Subjective Progress Note Date: 11/28/23 Hospital Course: Patient is a 53-year-old female with PMH of COPD with chronic hypoxemic respir atory failure (on 2 L home oxygen), DVT on Eliquis, and hypertension came to the ER with progressively worsening shortness of breath. Patient woke up this morning feeling short of breath with some chest tightness worse on exertion. Patient reports that it was a challenge for her to get up and take few steps to get to the bathroom. Patient also endorsed lightheadedness and almost felt like passing out because of worsening dyspnea. Denies loss of consciousness, head trauma, or fall. Patient called the EMS who found her O2 sat in 60s. Patient reported that she is on a continuous home oxygen therapy which is 2 L by nasal cannula and has been stable with no increase in oxygen level. Patient denies overt chest pain, palpitation, and peripheral edema. No recent travel. No recent upper respite tract infection. However she has been feeling mild chills with tremors for the last 1 week. Patient has a history of alcohol and tobacco dependence. Patient currently smokes a pack every other day; used to smoke 3 packs/day x 30 years. She drinks 1 pint of vodka a day x 6 years. Her last drink was day before coming to the hospital. Patient denies auditory, visual, tactile hallucination. Denies seizure, tongue bite, urinary or bowel incontinence. CT angiogram of the chest shows no evidence for pulmonary embolus. Diffuse patchy groundglass infiltrates throughout with moderate diffuse bronchial wall thickening. Concerning for atypical pneumonia. Patient also did have a fever in the ED of 100.7. Patient was started on broad-spectrum antibiotics with IV Rocephin and azithromycin. Patient was also started on IV steroids and breathing treatments for COPD exacerbation. Patient also started on CIWA protocol. Respiratory function slightly worsened. Pulmonology also consulted. Subjective: Patient seen and examined at bedside. Having some altered mentation, audible wheezing. Requires sitter at bedside. Pertinent positives and negatives as discussed above, a complete review of systems was performed and all other systems are negative. Vitals Signs Reviewed. General: Nontoxic, in mild distress, appears at stated age, obese Derm: Warm, dry Head: Atraumatic, normocephalic, symmetric Eyes: EOMI, no lid lag, anicteric sclera Mouth: No lip lesion, mucus membranes moist Cardiovascular: S1S2 reg, no murmur Lungs: Diffuse wheezing, likely upper respiratory, no accessory muscle use Abdominal: Soft, nontender to palpation, no guarding, no appreciable organomegaly Ext: No gross muscle atrophy, no edema, no contractures Neuro: CN II-XI grossly intact, no focal neuro deficits Psych: Alert, oriented x 2, appropriate affect Data Reviewed Today: Pertinent Labs: WBC 6.4, hemoglobin 12.2, pH 7.42, pCO2 53, bicarb 35, potassium 4.5, glucose 131, creatinine 0.59, AST 65, ALT 74, ALP 125, procalcitonin 0.08 Imaging: X-ray independently interpreted, does not show any opacities Assessment and Plan: Active: Sepsis secondary to acute bronchitis versus atypical pneumonia Acute COPD exacerbation Acute metabolic encephalopathy Acute alcohol withdrawal History of depression -Blood cultures negative growth to date, Legionella negative, initial respiratory viral panel was negative -Repeat respiratory viral pending -Status post azithromycin IV, continue IV ceftriaxone 1 g every 24 hours, total of 5 days -Continue IV Solu-Medrol 60 IV every 6 hours -Sitter at bedside -Pulmonology consulted -Continue DuoNebs 4 times daily and 4 times daily as needed -Continue Symbicort twice daily -IV Ativan as needed, monitor for sedation -Thiamine 100 mg oral daily -Continue sertraline 200 mg daily, Abilify 5 mg nightly Nicotine dependence -21 mg nicotine patch daily DVT -Continue Eliquis 5 twice daily Chronic: Hypertension Dyslipidemia GERD CHF? DVT ppx: Eliquis Code status: Full code Anticipated discharge place: Pending clinical course Anticipated discharge time: Pending clinical course Objective - Vital Signs Vital signs: Vital Signs Temp 97.8 F 11/28/23 12:05 Pulse 73 11/28/23 12:05 Resp 16 11/28/23 12:05 BP 146/97 11/28/23 12:05 Pulse Ox 90 L 11/28/23 12:05 FiO2 Intake & Output 11/27/23 11/28/23 11/28/23 18:59 06:59 18:59 Other: Voiding Method Toilet Toilet Bedside Commode Bedside Commode Diaper # Voids 4 1 - Labs CBC & Chem 7: 11/28/23 07:47 11/28/23 07:47 Labs: Abnormal Lab Results - Last 24 Hours (Table) 11/28/23 11/28/23 11/28/23 Range/Units 07:47 07:47 07:47 MCV 101.1 H (80.0-100.0) fL RDW 19.5 H (11.5-15.5) % Lymphocytes # 0.7 L (1.0-4.8) k/uL VBG pH 7.42 H (7.31-7.41) VBG pCO2 53 H (37-51) mmHg VBG HCO3 34 H (24-28) mmol/L Carbon Dioxide 35 H (22-30) mmol/L Glucose 131 H (74-99) mg/dL AST 65 H (14-36) U/L ALT 74 H (4-34) U/L Microbiology - Last 24 Hours (Table) 11/25/23 20:00 Blood Culture - Preliminary Blood 11/25/23 19:59 Blood Culture - Preliminary Blood
--- NOTE | 2023-11-28 15:45 | P.CNPUL ---
History of Present Illness Consult date: 11/28/23 Requesting physician: cJ Batista Reason for consult: COPD Chief complaint: Shortness of breath History of present illness: This is a 53-year-old female, known history of alcohol abuse, COPD, [id number] smoking history, was admitted to the hospital on 11/25/2023, she was admitted with 1 month history of cough wheezing shortness of breath. Last 1 month, her symptoms have been getting progressively worse. Finally she was brought into the ER, and she was admitted on 11/25/2023. Patient has been on maximal bronchodilator therapy and steroids, she has been on the CIWA protocol, continue s to have intermittent cough wheezing and shortness of breath. Hence this consult was initiated. Patient drinks 1 pint of vodka on a daily basis for the last 60 years, she has smoked 3 packs a day for the last 30 years. Chest x-ray was noted to be unremarkable, CT of the chest showed nonspecific groundglass appearance, the findings have been chronic, patient apparently had previous history of COVID-19 infection procalcitonin level is normal, COVID-19 screening has been negative. Considering the persistence of her symptoms of cough wheezing and shortness of breath, this consult was initiated. Patient is now on DuoNeb updrafts, she is also on Symbicort, Lasix 20 mg twice daily, methylpred nisolone 60 mg IV push every 6 hours, and she is also on Singulair as well as CIWA protocol. Earlier today the patient received Ativan, she seems to be a bit obtunded with the Ativan, her pCO2 earlier today was in the 50s with excellent compensatory picture metabolically with a pH of 7.4. After evaluating the patient, my recommendation is to continue the same medications, and I am recommending BiPAP for the time being 04/05/35% patient is not a great historian Review of Systems CONSTITUTIONAL: Denies any recent significant weight loss or weight gain. EYES: Denies change in vision. EARS, NOSE, MOUTH, THROAT: Denies headaches, denies sore throat. CARDIOVASCULAR: Denies chest pain, palpitations or syncopal episodes. RESPIRATORY: As noted in HPI GASTROINTESTINAL: Denies change in appetite, denies abdominal pain GENITOURINARY: Denies hematuria, denies infections. MUSKULOSKELETAL: Denies pain, denies swelling. INTEGUMENTARY: Denies rash, denies eczema. NEUROLOGICAL: Denies recent memory loss, no recent seizure activity. PSYCHIATRIC: Denies anxiety, denies depression. HEMATOLOGIC/LYMPHATIC: Denies anemia, denies enlarged lymph nodes. Past Medical History Past Medical History: COPD, Deep Vein Thrombosis (DVT), Hypertension Additional Past Medical History / Comment(s): seizures. alcohol abuse. History of Any Multi-Drug Resistant Organisms: None Reported Past Surgical History: Section Past Anesthesia/Blood Transfusion Reactions: No Reported Reaction Past Psychological History: Anxiety, Depression Smoking Status: Current every day smoker Past Alcohol Use History: Daily Past Drug Use History: Marijuana - Past Family History Mother History Unknown: Yes Medications and Allergies Home Medications Medication Instructions Recorded Confirmed Type Acetaminophen [Tylenol] 325 - 650 mg PO Q6H PRN 07/07/23 11/25/23 History Montelukast Sodium 10 mg PO DAILY 07/07/23 11/25/23 History Pantoprazole [Protonix] 40 mg PO DAILY 07/07/23 11/25/23 History Sertraline [Zoloft] 200 mg PO DAILY 07/07/23 11/25/23 History Losartan [Cozaar] 50 mg PO DAILY 30 Days #30 tab 07/10/23 11/25/23 Rx Metoprolol Tartrate [Lopressor] 25 mg PO BID 30 Days #60 tab 07/10/23 11/25/23 Rx Budesonide-Formot 160-4.5 Mcg 2 puff INHALATION RT-BID #1 each 07/19/23 11/25/23 Rx [Symbicort 160-4.5 Mcg Inhaler] Apixaban [Eliquis] 5 mg PO BID 08/14/23 11/25/23 History Nicotine 14Mg/24Hr Patch [Habitrol] 1 patch TRANSDERM DAILY 08/14/23 11/25/23 History ARIPiprazole [Abilify] 5 mg PO HS 09/24/23 11/25/23 History Furosemide [Lasix] 20 mg PO BID 09/24/23 11/25/23 History Ipratropium-Albuterol Nebulize 3 ml INHALATION RT-QID 09/24/23 11/25/23 History [Duoneb 0.5 mg-3 mg/3 ml Soln] Potassium Chloride ER [K-Dur 20] 20 meq PO DAILY 09/24/23 11/25/23 History Atorvastatin [Lipitor] 20 mg PO HS 30 Days #30 tab 09/26/23 11/25/23 Rx Allergies Allergy/AdvReac Type Severity Reaction Status Date / Time No Known Allergies Allergy Verified 11/25/23 17:39 Physical Exam Vitals: Vital Signs Temp Pulse Pulse Resp BP Pulse Ox 11/28/23 12:05 97.8 F 73 16 146/97 90 L 11/28/23 08:09 76 11/28/23 07:56 78 11/28/23 07:44 94 93 L 11/28/23 07:11 98.2 F 89 22 163/100 84 L 11/28/23 01:06 97.7 F 89 18 171/92 92 L 11/27/23 23:53 80 11/27/23 23:44 80 11/27/23 20:16 86 11/27/23 20:05 88 11/27/23 18:56 97.8 F 92 19 153/76 93 L 11/27/23 16:11 84 11/27/23 16:01 80 Intake and Output 11/28/23 11/28/23 11/28/23 06:59 14:59 22:59 Other: # Voids 1 GENERAL EXAM: Alert, obese 53-year-old female, on 2 L nasal cannula, in no distress. HEAD: Normocephalic. EYES: Normal reaction of pupils, equal size. NOSE: Clear with pink turbinates. THROAT: No erythema or exudates. NECK: No masses, no JVD. CHEST: No chest wall deformity. LUNGS: Crackles rhonchi and wheezes noted bilaterally. CVS: S1 and S2 normal with no audible murmur, regular rhythm. ABDOMEN: Obese, soft, no hepatosplenomegaly, normal bowel sounds, no guarding or rigidity. SKIN: No rashes CENTRAL NERVOUS SYSTEM: Patient is lethargic, received a dose of Ativan earlier today. But arousable and follows simple instructions. EXTREMITIES: No clubbing edema or cyanosis Results - Laboratory Findings CBC and BMP: 11/28/23 07:47 11/28/23 07:47 PT/INR, D-dimer PT 9.7 sec (10.0-12.5) L 11/25/23 15:52 INR 0.9 (<1.2) 11/25/23 15:52 D-Dimer 1.24 mg/L FEU (<0.60) H 11/25/23 15:52 Abnormal lab findings: Abnormal Labs 11/25/23 11/25/23 11/25/23 15:52 15:52 15:52 MCV RDW 19.4 H Lymphocytes # 0.8 L PT 9.7 L D-Dimer 1.24 H VBG pH VBG pCO2 VBG HCO3 Carbon Dioxide 35 H BUN 5 L Glucose Plasma Lactic Acid Chente Calcium 8.0 L AST 120 H ALT 78 H Alkaline Phosphatase 150 H 11/25/23 11/25/23 11/28/23 15:52 18:36 07:47 MCV 101.1 H RDW 19.5 H Lymphocytes # 0.7 L PT D-Dimer VBG pH VBG pCO2 VBG HCO3 Carbon Dioxide BUN Glucose Plasma Lactic Acid Chente 2.5 H* 2.4 H* Calcium AST ALT Alkaline Phosphatase 11/28/23 11/28/23 07:47 07:47 MCV RDW Lymphocytes # PT D-Dimer VBG pH 7.42 H VBG pCO2 53 H VBG HCO3 34 H Carbon Dioxide 35 H BUN Glucose 131 H Plasma Lactic Acid Chente Calcium AST 65 H ALT 74 H Alkaline Phosphatase - Diagnostic Findings Chest x-ray: image reviewed (As noted in HPI) CT scan - chest: image reviewed (As noted in HPI, the findings are nonspecific and have been present previously) Assessment and Plan Assessment: Impression: Acute hypoxic respiratory failure secondary to acute exacerbation of COPD Acute exacerbation of COPD Chronic and ongoing tobacco dependence History of alcoholism History of schizophrenia and bipolar disorder Benign essential hypertension GERD without esophagitis Morbid obesity Recommendation: Continue present treatment plan Consider stopping antibiotics since procalcitonin level is normal Patient will be placed on BiPAP 35% Continue DuoNeb Continue Symbicort Continue methylprednisolone Continue GI and DVT prophylaxis Reviewed chest x-ray findings and CT of the chest findings Continue [facility] protocol for her history of alcoholism Will continue to follow. Time with Patient: Greater than 30
[2023-11-28] MEDS: SYMBICORT 160-4.5 MCG INHALER INHALATION SCH (21:37)
--- NOTE | 2023-11-29 11:26 | P.PN ---
Subjective Progress Note Date: 11/29/23 Hospital Course: Patient is a 53-year-old female with PMH of COPD with chronic hypoxemic respir atory failure (on 2 L home oxygen), DVT on Eliquis, and hypertension came to the ER with progressively worsening shortness of breath. Patient woke up this morning feeling short of breath with some chest tightness worse on exertion. Patient reports that it was a challenge for her to get up and take few steps to get to the bathroom. Patient also endorsed lightheadedness and almost felt like passing out because of worsening dyspnea. Denies loss of consciousness, head trauma, or fall. Patient called the EMS who found her O2 sat in 60s. Patient reported that she is on a continuous home oxygen therapy which is 2 L by nasal cannula and has been stable with no increase in oxygen level. Patient denies overt chest pain, palpitation, and peripheral edema. No recent travel. No recent upper respite tract infection. However she has been feeling mild chills with tremors for the last 1 week. Patient has a history of alcohol and tobacco dependence. Patient currently smokes a pack every other day; used to smoke 3 packs/day x 30 years. She drinks 1 pint of vodka a day x 6 years. Her last drink was day before coming to the hospital. Patient denies auditory, visual, tactile hallucination. Denies seizure, tongue bite, urinary or bowel incontinence. CT angiogram of the chest shows no evidence for pulmonary embolus. Diffuse patchy groundglass infiltrates throughout with moderate diffuse bronchial wall thickening. Concerning for atypical pneumonia. Patient also did have a fever in the ED of 100.7. Patient was started on broad-spectrum antibiotics with IV Rocephin and azithromycin. Patient was also started on IV steroids and breathing treatments for COPD exacerbation. Patient also started on CIWA protocol. Respiratory function slightly worsened. Pulmonology also consulted. Currently on BiPAP Subjective: Patient seen and examined at bedside. Still encephalopathic. Sitter at bedside. Pertinent positives and negatives as discussed above, a complete review of syste ms was performed and all other systems are negative. Vitals Signs Reviewed. General: Nontoxic, in mild distress, appears at stated age, obese Derm: Warm, dry Head: Atraumatic, normocephalic, symmetric Eyes: EOMI, no lid lag, anicteric sclera Mouth: No lip lesion, mucus membranes moist Cardiovascular: S1S2 reg, no murmur Lungs: Diffuse wheezing, likely upper respiratory, no accessory muscle use Abdominal: Soft, nontender to palpation, no guarding, no appreciable organomegaly Ext: No gross muscle atrophy, no edema, no contractures Neuro: CN II-XI grossly intact, no focal neuro deficits Psych: Alert, oriented x 2, appropriate affect Data Reviewed Today: Pertinent Labs: No new labs Imaging: No new imaging Assessment and Plan: Active: Sepsis secondary to acute bronchitis versus atypical pneumonia Acute COPD exacerbation Acute metabolic encephalopathy Acute alcohol withdrawal History of depression -Blood cultures negative growth to date, Legionella negative, initial respiratory viral panel was negative -Status post azithromycin IV, continue IV ceftriaxone 1 g every 24 hours, total of 5 days -Continue IV Solu-Medrol 60 IV every 6 hours -Sitter at bedside -Pulmonology following, patient on BiPAP -Continue DuoNebs 4 times daily and 4 times daily as needed -Continue Symbicort twice daily -IV Ativan as needed, monitor for sedation -Thiamine 100 mg oral daily -Continue sertraline 200 mg daily, Abilify 5 mg nightly Nicotine dependence -21 mg nicotine patch daily DVT -Continue Eliquis 5 twice daily Chronic: Hypertension Dyslipidemia GERD CHF DVT ppx: Eliquis Code status: Full code Anticipated discharge place: Pending clinical course Anticipated discharge time: Pending clinical course Objective - Vital Signs Vital signs: Vital Signs Temp 98.1 F 11/29/23 09:35 Pulse 81 11/29/23 09:35 Resp 24 11/29/23 09:35 BP 146/90 11/29/23 09:35 Pulse Ox 96 11/29/23 09:35 FiO2 35 11/29/23 04:00 Intake & Output 11/28/23 11/29/23 11/29/23 18:59 06:59 18:59 Weight 116.3 kg Other: Voiding Method Toilet Toilet Bedside Commode Bedside Commode # Voids 1 1 # Bowel Movements 1 - Labs CBC & Chem 7: 11/28/23 07:47 11/28/23 07:47 Labs: Microbiology - Last 24 Hours (Table) 11/25/23 20:00 Blood Culture - Preliminary Blood 11/25/23 19:59 Blood Culture - Preliminary Blood
--- NOTE | 2023-11-29 17:01 | P.PN ---
Subjective Progress Note Date: 11/29/23 Principal diagnosis: Acute exacerbation of COPD and acute alcohol withdrawal This is a 53-year-old female, known history of alcohol abuse, COPD, [id number] smoking history, was admitted to the hospital on 11/25/2023, she was admitted with 1 month history of cough wheezing shortness of breath. Last 1 month, her symptoms have been getting progressively worse. Finally she was brought into the ER, and she was admitted on 11/25/2023. Patient has been on maximal bronchodilator therapy and steroids, she has been on the CIWA protocol, continues to have intermittent cough wheezing and shortness of breath. Hence this consult was initiated. Patient drinks 1 pint of vodka on a daily basis for the last 60 years, she has smoked 3 packs a day for the last 30 years. Chest x-ray was noted to be unremarkable, CT of the chest showed nonspecific groundglass appearance, the findings have been chronic, patient apparently had previous history of COVID-19 infection procalcitonin level is normal, COVID-19 screening has been negative. Considering the persistence of her symptoms of cough wheezing and shortness of breath, this consult was initiated. Patient is now on DuoNeb updrafts, she is also on Symbicort, Lasix 20 mg twice daily, methylprednisolone 60 mg IV push every 6 hours, and she is also on Singulair as well as CIWA protocol. Earlier today the patient received Ativan, she seems to be a bit obtunded with the Ativan, her pCO2 earlier today was in the 50s with excellent compensatory picture metabolically with a pH of 7.4. After evaluating the patient, my recommendation is to continue the same medications, and I am recommending BiPAP for the time being 12/6/35% patient is not a great historian Patient was evaluated today on 11/29/2023, patient was transferred yesterday from the [facility] down to the third floor because of intermittent episodes of agitation and needed close nursing care patient is on BiPAP today, 12/6/35% intermittently on nasal cannula. Doing well nonetheless continues to have intermittent cough wheezing and shortness of breath, her alcohol withdrawals symptoms are improved, patient is not requiring significant amount of sedation for alcohol withdrawal. WBC count is 6.4 hemoglobin 12.2 electrolytes are normal renal profile is normal Objective - Vital Signs Vital signs: Vital Signs Temp 97.1 F L 11/29/23 15:10 Pulse 80 11/29/23 16:34 Resp 22 11/29/23 15:10 BP 152/99 11/29/23 15:10 Pulse Ox 95 11/29/23 15:10 FiO2 35 11/29/23 16:21 Intake & Output 11/28/23 11/29/23 11/29/23 18:59 06:59 18:59 Intake Total 0 Output Total 600 Balance -600 Weight 116.3 kg Intake: Oral 0 Output: Urine 600 Other: Voiding Method Toilet Toilet Bedside Commode Bedside Commode # Voids 1 1 # Bowel Movements 1 - Exam GENERAL EXAM: Alert, obese 53-year-old female, on BiPAP 12/35% HEAD: Normocephalic. EYES: Normal reaction of pupils, equal size. NOSE: Clear with pink turbinates. THROAT: No erythema or exudates. NECK: No masses, no JVD. CHEST: No chest wall deformity. LUNGS: Rhonchi and wheezes persist bilaterally CVS: S1 and S2 normal with no audible murmur, regular rhythm. ABDOMEN: Obese, soft, no hepatosplenomegaly, normal bowel sounds, no guarding or rigidity. SKIN: No rashes CENTRAL NERVOUS SYSTEM: Arousable, follows simple instructions, no gross focal deficit, daughter is at bedside EXTREMITIES: No clubbing edema or cyanosis - Labs CBC & Chem 7: 11/28/23 07:47 11/28/23 07:47 Labs: Microbiology - Last 24 Hours (Table) 11/25/23 20:00 Blood Culture - Preliminary Blood 11/25/23 19:59 Blood Culture - Preliminary Blood Assessment and Plan Assessment: Impression: Acute hypoxic respiratory failure secondary to acute exacerbation of COPD Acute exacerbation of COPD Chronic and ongoing tobacco dependence History of alcoholism History of schizophrenia and bipolar disorder Benign essential hypertension GERD without esophagitis Morbid obesity Recommendation: Continue present treatment plan Consider stopping antibiotics Patient will be placed on BiPAP 12/35% Continue DuoNeb Continue Symbicort Continue methylprednisolone Continue GI and DVT prophylaxis Continue CIWA protocol for her history of alcoholism Will continue to follow. Time with Patient: Less than 30
[2023-11-30 12:27] VITALS: BMI 42.6
--- NOTE | 2023-11-30 14:40 | P.PN ---
Subjective Progress Note Date: 11/30/23 Principal diagnosis: Acute exacerbation of COPD and acute alcohol withdrawal This is a 53-year-old female, known history of alcohol abuse, COPD, [id number] smoking history, was admitted to the hospital on 11/25/2023, she was admitted with 1 month history of cough wheezing shortness of breath. Last 1 month, her symptoms have been getting progressively worse. Finally she was brought into the ER, and she was admitted on 11/25/2023. Patient has been on maximal bronchodilator therapy and steroids, she has been on the CIWA protocol, continues to have intermittent cough wheezing and shortness of breath. Hence this consult was initiated. Patient drinks 1 pint of vodka on a daily basis for the last 60 years, she has smoked 3 packs a day for the last 30 years. Chest x-ray was noted to be unremarkable, CT of the chest showed nonspecific groundglass appearance, the findings have been chronic, patient apparently had previous history of COVID-19 infection procalcitonin level is normal, COVID-19 screening has been negative. Considering the persistence of her symptoms of cough wheezing and shortness of breath, this consult was initiated. Patient is now on DuoNeb updrafts, she is also on Symbicort, Lasix 20 mg twice daily, methylprednisolone 60 mg IV push every 6 hours, and she is also on Singulair as well as CIWA protocol. Earlier today the patient received Ativan, she seems to be a bit obtunded with the Ativan, her pCO2 earlier today was in the 50s with excellent compensatory picture metabolically with a pH of 7.4. After evaluating the patient, my recommendation is to continue the same medications, and I am recommending BiPAP for the time being 12/6/35% patient is not a great historian Patient was evaluated today on 11/29/2023, patient was transferred yesterday from the [facility] down to the third floor because of intermittent episodes of agitation and needed close nursing care patient is on BiPAP today, 12/6/35% intermittently on nasal cannula. Doing well nonetheless continues to have intermittent cough wheezing and shortness of breath, her alcohol withdrawals symptoms are improved, patient is not requiring significant amount of sedation for alcohol withdrawal. WBC count is 6.4 hemoglobin 12.2 electrolytes are normal renal profile is normal Patient was evaluated today on 11/30/2023, today is the best she has been, feeling much better, breathing a lot easier, she is even sitting in bed on room air, not in any distress. Patient seems to be calm, not agitated, and not restless, on physical examination she sounded fairly clear today. no labs were done today Objective - Vital Signs Vital signs: Vital Signs Temp 98.3 F 11/30/23 12:00 Pulse 91 11/30/23 12:00 Resp 20 11/30/23 12:00 BP 133/79 11/30/23 12:00 Pulse Ox 93 L 11/30/23 12:00 FiO2 35 11/30/23 03:15 Intake & Output 11/29/23 11/30/23 11/30/23 18:59 06:59 18:59 Intake Total 0 360 Output Total 600 0 Balance -600 360 Weight 116.3 kg 116.3 kg Intake: Oral 0 360 Output: Urine 600 0 Stool 0 Urine/Stool Mix 0 Oral Regurgitation 0 Other 0 Other: Voiding Method Toilet Toilet Bedside Commode Bedside Commode # Voids 1 1 0 # Bowel Movements 1 0 - Exam GENERAL EXAM: Alert, obese 53-year-old female, on room air HEAD: Normocephalic. EYES: Normal reaction of pupils, equal size. NOSE: Clear with pink turbinates. THROAT: No erythema or exudates. NECK: No masses, no JVD. CHEST: No chest wall deformity. LUNGS: Clear bilaterally no rhonchi no wheezes CVS: S1 and S2 normal with no audible murmur, regular rhythm. ABDOMEN: Obese, soft, no hepatosplenomegaly, normal bowel sounds, no guarding or rigidity. SKIN: No rashes CENTRAL NERVOUS SYSTEM: Alert oriented x 3 no gross focal deficit EXTREMITIES: No clubbing edema or cyanosis - Labs CBC & Chem 7: 11/28/23 07:47 11/28/23 07:47 Assessment and Plan Assessment: Impression: Acute hypoxic respiratory failure secondary to acute exacerbation of COPD Acute exacerbation of COPD Chronic and ongoing tobacco dependence History of alcoholism History of schizophrenia and bipolar disorder Benign essential hypertension GERD without esophagitis Morbid obesity Recommendation: Continue present treatment plan Consider stopping antibiotics Continue DuoNeb Continue Symbicort Continue methylprednisolone Continue GI and DVT prophylaxis Continue WA protocol for her history of alcoholism Consider discharge planning in the next 24 hours if the patient continues to do well tomorrow. Will continue to follow. Time with Patient: Less than 30
--- NOTE | 2023-11-30 18:18 | P.PN ---
Subjective Progress Note Date: 11/30/23 Hospital Course: Patient is a 53-year-old female with PMH of COPD with chronic hypoxemic respi ratory failure (on 2 L home oxygen), DVT on Eliquis, and hypertension came to the ER with progressively worsening shortness of breath. Patient woke up this morning feeling short of breath with some chest tightness worse on exertion. Patient reports that it was a challenge for her to get up and take few steps to get to the bathroom. Patient also endorsed lightheadedness and almost felt like passing out because of worsening dyspnea. Denies loss of consciousness, head trauma, or fall. Patient called the EMS who found her O2 sat in 60s. Patient reported that she is on a continuous home oxygen therapy which is 2 L by nasal cannula and has been stable with no increase in oxygen level. Patient denies overt chest pain, palpitation, and peripheral edema. No recent travel. No recent upper respite tract infection. However she has been feeling mild chills with tremors for the last 1 week. Patient has a history of alcohol and tobacco dependence. Patient currently smokes a pack every other day; used to smoke 3 packs/day x 30 years. She drinks 1 pint of vodka a day x 6 years. Her last drink was day before coming to the hospital. Patient denies auditory, visual, tactile hallucination. Denies seizure, tongue bite, urinary or bowel incontinence. CT angiogram of the chest shows no evidence for pulmonary embolus. Diffuse patchy groundglass infiltrates throughout with moderate diffuse bronchial wall thickening. Concerning for atypical pneumonia. Patient also did have a fever in the ED of 100.7. Patient was started on broad-spectrum antibiotics with IV Rocephin and azithromycin. Patient was also started on IV steroids and breathing treatments for COPD exacerbation. Patient also started on CIWA protocol. Respiratory function slightly worsened. Pulmonology also consulted. Was briefly on BiPAP. Respiratory function improved. 11/29 53-year-old female patient seen today in room 357. She was sitting in bed and feels a lot better today and mentions that her breathing is also better today. Was able to get up and go to the bathroom. Denies shortness of breath, cough, chest pain, weakness. Physical exam: Vitals are reviewed General: Nontoxic, in mild distress, appears at stated age, obese Derm: Warm, dry Head: Atraumatic, normocephalic, symmetric Eyes: EOMI, no lid lag, anicteric sclera Mouth: No lip lesion, mucus membranes moist Cardiovascular: S1S2 reg, no murmur Lungs: Clear to auscultation bilaterally, no accessory muscle use, supplemental oxygen Abdominal: Soft, nontender to palpation, no guarding, no appreciable organomegaly Ext: No gross muscle atrophy, no contractures Neuro: CN II-XI grossly intact, no focal neuro deficits Psych: Alert, oriented x 3, appropriate affect Data reviewed today: -No new labs, no new imaging Assessment and plan: 53-year-old female with past medical history of COPD with chronic hypoxemic re spiratory failure, DVT on Eliquis, hypertension who presented to the ER with worsening shortness of breath is diagnosed with acute on chronic hypoxemic respiratory failure secondary to COPD exacerbation. Acute on chronic hypoxic respiratory failure, secondary to acute COPD e xacerbation: -95% O2 saturation on 3L O2. -Patient is on respiratory treatments -DuoNeb 3 mL QID, and QID PRN, Symbicort 2 puff BID, IV Solu-Medrol 60 mg IV Q6H -Patient is on 3L of Oxygen, baseline home oxygen. -Discussed management with pulmonology, potential discharge tomorrow -Groundglass opacities on CTA previously present, procalcitonin normal, clinical suspicion of bacterial pneumonia is low, antibiotics discontinued SIRS present on admission, unclear etiology, resolved -Low suspicion for bacterial pneumonia Hypertension: -BP today 116/71 -Losartan 50 mg p.o. daily -Unclear why patient is on Lasix 20 mg twice daily and metoprolol tartrate 25 twice daily, should be titrated down outpatient Alcohol dependence Alcohol withdrawal syndrome Acute encephalopathy, resolved H/o Alcohol abuse Transaminitis, secondary to above -Thiamine 100 mg oral daily -Folic acid 1 mg p.o. daily -Multivitamins 1 each p.o. daily -Discontinue Ativan, out of withdrawal period -Sitter discontinued, mental status back to baseline History of depression: -Sertraline 200 mg daily -Abilify 5 mg nightly Dyslipidemia: -Atorvastatin 20 mg p.o. HS Nicotine dependence -Nicotine 21 mg patch transdermal daily History of DVT -Continue Eliquis 5 twice daily DVT prophylaxis: Eliquis 5 mg p.o. twice daily GI prophylaxis: Protonix 40 mg p.o. daily Disposition: Likely discharge home tomorrow I have seen and evaluated the patient today. Discussed with the resident and agree with the residents finding and plan as documented in the resident's note. Changes highlighted in blue font. Objective - Vital Signs Vital signs: Vital Signs Temp 98.8 F 11/30/23 16:22 Pulse 79 11/30/23 16:22 Resp 20 11/30/23 16:22 BP 116/71 11/30/23 16:22 Pulse Ox 95 11/30/23 16:22 FiO2 35 11/30/23 03:15 Intake & Output 11/29/23 11/30/23 11/30/23 18:59 06:59 18:59 Intake Total 0 360 Output Total 600 0 Balance -600 360 Weight 116.3 kg 116.3 kg Intake: Oral 0 360 Output: Urine 600 0 Stool 0 Urine/Stool Mix 0 Oral Regurgitation 0 Other 0 Other: Voiding Method Toilet Toilet Bedside Commode Bedside Commode # Voids 1 1 0 # Bowel Movements 1 0 - Labs CBC & Chem 7: 11/28/23 07:47 11/28/23 07:47
[2023-12-01] MEDS: predniSONE 20 MG TAB PO SCH (08:55)
[2023-12-01 08:57] VITALS: RESP 20
[2023-12-01 11:25] VITALS: BP 164/92; TEMP 98
[2023-12-01 12:50] VITALS: PULSE 86
--- NOTE | 2023-12-01 12:52 | P.DS ---
Providers Date of admission: 11/25/23 19:49 Expected date of discharge: 12/01/23 Attending physician: Samm Amador MD Consults: 11/28/23 13:40 Consult Physician Routine Consulting Provider: Eliana Calle Consult Reason/Comments: worsening shortness of breath/wheezing Do you want consulting provider notified?: Yes Primary care physician: [facility] Course: Discharge diagnoses: Acute on chronic hypoxic respiratory failure, secondary to acute COPD exacerbation SIRS present on admission, unclear etiology, resolved Hypertension H/o Alcohol abuse Alcohol dependence Alcohol withdrawal syndrome Acute encephalopathy Transaminitis, secondary to alcohol abuse and withdrawal History of depression Dyslipidemia Nicotine dependence Hospital course: Patient is a 53-year-old female with past medical history of COPD with chronic hypoxemic respiratory failure(on 2 L home oxygen), DVT on Eliquis, hypertension seizures, alcohol and marijuana abuse, presented to the ED with progressively worsening shortness of breath. Patient admitted to feeling short of breath with some chest tightness which was worse on exertion. She experienced lightheadedness because of worsening dyspnea with O2 saturation in 60s. She also reported mild chills and tremors for the preceding 1 week and that it is a challenge for her to get up and take a few steps to get to the bathroom. She used continuous home oxygen therapy which is 2 L by nasal cannula. She admitted to alcohol dependence, drinking 1 pint of vodka a day for 6 years and, tobacco dependence, smoking 3 packs a day for 30 years. Denied chest pain, palpitation, peripheral edema, travel history, upper respiratory tract infection, loss of consciousness, head trauma or fall, auditory, visual, tactile hallucination, seizures, tongue bite, urinary or bowel incontinence. Vitals on presentation temperature 100.7, pulse 115, respiratory rate 34, BP 104/96, 96% O2 saturation on 4 L nasal cannula. EKG showed sinus tachycardia. Chest x-ray did not show any evidence for acute pulmonary disease. Labs on presentation were significant for D-dimer 1.24, lactic acid 2.5, AST 120, ALT 78, ALP 150, troponin <0.012. At that point the patient was admitted for further workup of shortness of breath. Chest CTA did not show evidence of pulmonary embolus, it showed diffuse patchy groundglass infiltrates throughout with moderate diffuse bronchial wall thickening, background COPD with moderate upper lung emphysema, moderate hepatic steatosis and bilateral lipid rich adrenal adenomas incidentally noted. She was started on DuoNebs, Solu-Medrol, oxygen 2 L by nasal cannula and also ceftriaxone and Zithromax for sepsis secondary to suspected pneumonia. CIWA protocol was started. 3 days later the patient was getting winded and appeared somnolent and pulmonology was consulted. Repeat chest x-ray showed chronic changes without evidence for acute pulmonary disease. Blood gas showed VBG pH 7.42, pCO2 53, bicarb 34. Pulm noted the patient seemed a bit obtunded with the Ativan and they put her on BiPAP with12/6/35%. Blood cultures came back negative, Legionella negative, initial respiratory viral panel was negative. Pro-Raphael level came back 0.08 and antibiotics were discontinued. She had intermittent episodes of agitation but later her alcohol withdrawal symptoms improved. The patient's respiratory function gradually improved. While in the hospital she was continued on atorvastatin for dyslipidemia, aripiprazole and sertraline for depression. Today the patient was seen and examined at bedside. She is sitting on the bed and does not complain of shortness of breath, cough, weakness and is doing well on 3 L of oxygen via nasal cannula. She seems to be at her baseline. Oxygen saturation is 93% on 3 L via nasal cannula. She is optimized for discharge home, she already has home oxygen. Her IV steroids have been changed to oral and will continue with oral prednisone 40 mg for 2 days. She has been given handouts for how to stop smoking, COPD, abuse of alcohol and alcohol withdrawal. We would recommend titrating Lasix and metoprolol outpatient. 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 Patient seen at bedside today and is feeling excited about discharge. Vital signs are reviewed and stable General: Nontoxic, no distress, appears at stated age, obese Derm: Warm, dry Head: Atraumatic, normocephalic, symmetric Eyes: EOMI, no lid lag, anicteric sclera Mouth: No lip lesion, mucus membranes moist Cardiovascular: S1S2 reg, no murmur Lungs: Clear to auscultation bilaterally, no accessory muscle use, supplemental oxygen Abdominal: Soft, nontender to palpation, no guarding, no appreciable organomegaly Ext: No gross muscle atrophy, no contractures Neuro: CN II-XI grossly intact, no focal neuro deficits Psych: Alert and oriented x 3, appropriate affect A total of 35 time were spent preparing this complex discharge summary. Patient was discharged on 12/01/2023 at 1139. I have seen and evaluated the patient today. Discussed with the resident and agree with the residents finding and plan as documented in the resident's note. Changes highlighted in blue font. Patient Condition at Discharge: Stable Plan - Discharge Summary New Discharge Prescriptions: New predniSONE [Deltasone] 40 mg PO DAILY #4 tab Folic Acid 1 mg PO DAILY #90 tab Thiamine [Vitamin B-1] 100 mg PO DAILY #90 tab Continue Acetaminophen [Tylenol] 325 - 650 mg PO Q6H PRN PRN Reason: Fever And/ Or Pain Montelukast Sodium 10 mg PO DAILY Budesonide-Formot 160-4.5 Mcg [Symbicort 160-4.5 Mcg Inhaler] 2 puff INHALATION RT-BID #1 each Apixaban [Eliquis] 5 mg PO BID ARIPiprazole [Abilify] 5 mg PO HS Sertraline [Zoloft] 200 mg PO DAILY Pantoprazole [Protonix] 40 mg PO DAILY Metoprolol Tartrate [Lopressor] 25 mg PO BID 30 Days #60 tab Losartan [Cozaar] 50 mg PO DAILY 30 Days #30 tab Nicotine 14Mg/24Hr Patch [Habitrol] 1 patch TRANSDERM DAILY Potassium Chloride ER [K-Dur 20] 20 meq PO DAILY Furosemide [Lasix] 20 mg PO BID Ipratropium-Albuterol Nebulize [Duoneb 0.5 mg-3 mg/3 ml Soln] 3 ml INHALATION RT-QID Atorvastatin [Lipitor] 20 mg PO HS 30 Days #30 tab Discharge Medication List Acetaminophen [Tylenol] 325 - 650 mg PO Q6H PRN 07/07/23 [History] Montelukast Sodium 10 mg PO DAILY 07/07/23 [History] Pantoprazole [Protonix] 40 mg PO DAILY 07/07/23 [History] Sertraline [Zoloft] 200 mg PO DAILY 07/07/23 [History] Losartan [Cozaar] 50 mg PO DAILY 30 Days #30 tab 07/10/23 [Rx] Metoprolol Tartrate [Lopressor] 25 mg PO BID 30 Days #60 tab 07/10/23 [Rx] Budesonide-Formot 160-4.5 Mcg [Symbicort 160-4.5 Mcg Inhaler] 2 puff INHALATION RT-BID #1 each 07/19/23 [Rx] Apixaban [Eliquis] 5 mg PO BID 08/14/23 [History] Nicotine 14Mg/24Hr Patch [Habitrol] 1 patch TRANSDERM DAILY 08/14/23 [History] ARIPiprazole [Abilify] 5 mg PO HS 09/24/23 [History] Furosemide [Lasix] 20 mg PO BID 09/24/23 [History] Ipratropium-Albuterol Nebulize [Duoneb 0.5 mg-3 mg/3 ml Soln] 3 ml INHALATION RT-QID 09/24/23 [History] Potassium Chloride ER [K-Dur 20] 20 meq PO DAILY 09/24/23 [History] Atorvastatin [Lipitor] 20 mg PO HS 30 Days #30 tab 09/26/23 [Rx] Folic Acid 1 mg PO DAILY #90 tab 12/01/23 [Rx] Thiamine [Vitamin B-1] 100 mg PO DAILY #90 tab 12/01/23 [Rx] predniSONE [Deltasone] 40 mg PO DAILY #4 tab 12/01/23 [Rx] Follow up Appointment(s)/Referral(s): Eliana Calle MD [STAFF PHYSICIAN] - 12/08/23 1:00 pm Lashay Coello MD [Primary Care Provider] - 12/14/23 10:30 am Patient Instructions/Handouts: How to Stop Smoking (DC), COPD (Chronic Obstructive Pulmonary Disease) (DC), Abuse of Alcohol (DC), Alcohol Withdrawal (DC) Activity/Diet/Wound Care/Special Instructions: Please see your PCP and pulmonology. Discharge Disposition: HOME SELF-CARE
--- NOTE | 2023-12-01 13:39 | P.PN ---
Subjective Progress Note Date: 12/01/23 Principal diagnosis: Acute exacerbation of COPD and acute alcohol withdrawal This is a 53-year-old female, known history of alcohol abuse, COPD, [id number] smoking history, was admitted to the hospital on 11/25/2023, she was admitted with 1 month history of cough wheezing shortness of breath. Last 1 month, her symptoms have been getting progressively worse. Finally she was brought into the ER, and she was admitted on 11/25/2023. Patient has been on maximal bronchodilator therapy and steroids, she has been on the CIWA protocol, continues to have intermittent cough wheezing and shortness of breath. Hence this consult was initiated. Patient drinks 1 pint of vodka on a daily basis for the last 60 years, she has smoked 3 packs a day for the last 30 years. Chest x-ray was noted to be unremarkable, CT of the chest showed nonspecific groundglass appearance, the findings have been chronic, patient apparently had previous history of COVID-19 infection procalcitonin level is normal, COVID-19 screening has been negative. Considering the persistence of her symptoms of cough wheezing and shortness of breath, this consult was initiated. Patient is now on DuoNeb updrafts, she is also on Symbicort, Lasix 20 mg twice daily, methylprednisolone 60 mg IV push every 6 hours, and she is also on Singulair as well as CIWA protocol. Earlier today the patient received Ativan, she seems to be a bit obtunded with the Ativan, her pCO2 earlier today was in the 50s with excellent compensatory picture metabolically with a pH of 7.4. After evaluating the patient, my recommendation is to continue the same medications, and I am recommending BiPAP for the time being 12/6/35% patient is not a great historian Patient was evaluated today on 11/29/2023, patient was transferred yesterday from the [facility] down to the third floor because of intermittent episodes of agitation and needed close nursing care patient is on BiPAP today, 12/6/35% intermittently on nasal cannula. Doing well nonetheless continues to have intermittent cough wheezing and shortness of breath, her alcohol withdrawals symptoms are improved, patient is not requiring significant amount of sedation for alcohol withdrawal. WBC count is 6.4 hemoglobin 12.2 electrolytes are normal renal profile is normal Patient was evaluated today on 11/30/2023, today is the best she has been, feeling much better, breathing a lot easier, she is even sitting in bed on room air, not in any distress. Patient seems to be calm, not agitated, and not restless, on physical examination she sounded fairly clear today. no labs were done today Patient was evaluated today on 12/01/2023, patient is feeling much better today, breathing easier, not in any distress. On physical examination she sounded clear, she is calm, not agitated, hence I will clear the patient to be discharged home today and follow-up on outpatient basis regarding her COPD. Objective - Vital Signs Vital signs: Vital Signs Temp 98.0 F 12/01/23 11:20 Pulse 86 12/01/23 12:49 Resp 20 12/01/23 11:20 BP 164/92 12/01/23 11:20 Pulse Ox 93 L 12/01/23 11:20 FiO2 35 12/01/23 04:53 Intake & Output 11/30/23 12/01/23 12/01/23 18:59 06:59 18:59 Intake Total 480 776 Output Total 0 Balance 480 776 Weight 116.3 kg 118 kg Intake: Oral 480 776 Output: Urine 0 Stool 0 Urine/Stool Mix 0 Oral Regurgitation 0 Other 0 Other: Voiding Method Toilet Toilet Bedside Commode Bedside Commode # Voids 0 1 # Bowel Movements 0 - Exam GENERAL EXAM: Alert, obese 53-year-old female, on room air HEAD: Normocephalic. EYES: Normal reaction of pupils, equal size. NOSE: Clear with pink turbinates. THROAT: No erythema or exudates. NECK: No masses, no JVD. CHEST: No chest wall deformity. LUNGS: Clear bilaterally no rhonchi no wheezes CVS: S1 and S2 normal with no audible murmur, regular rhythm. ABDOMEN: Obese, soft, no hepatosplenomegaly, normal bowel sounds, no guarding or rigidity. SKIN: No rashes CENTRAL NERVOUS SYSTEM: Alert oriented x 3 no gross focal deficit EXTREMITIES: No clubbing edema or cyanosis - Labs CBC & Chem 7: 11/28/23 07:47 11/28/23 07:47 Labs: Microbiology - Last 24 Hours (Table) 11/25/23 20:00 Blood Culture - Final Blood 11/25/23 19:59 Blood Culture - Final Blood Assessment and Plan Assessment: Impression: Acute hypoxic respiratory failure secondary to acute exacerbation of COPD Acute exacerbation of COPD Chronic and ongoing tobacco dependence History of alcoholism History of schizophrenia and bipolar disorder Benign essential hypertension GERD without esophagitis Morbid obesity Recommendation: Will clear the patient to be discharged home today Continue DuoNeb on outpatient basis Continue Symbicort on outpatient basis Prednisone 40 mg tapered over 12 to 16 days Follow-up on outpatient Time with Patient: Less than 30
== END 2023-12-01 13:42 | disposition home or self-care (01) | DRG 720 ==
LOC: EC 15:03 → 4SSUR 19:49 → 5NMEDONC 11-26 00:09 → 3SCARD 11-28 16:33
PROVIDERS: ADMIT Internal Medicine; ATTEND Internal Medicine
DX: A41.9 Sepsis, unspecified organism (principal); E66.01 Morbid (severe) obesity due to excess calories; E78.5 Hyperlipidemia, unspecified; F10.239 Alcohol dependence with withdrawal, unspecified; F17.200 Nicotine dependence, unspecified, uncomplicated; F20.9 Schizophrenia, unspecified; F41.9 Anxiety disorder, unspecified; G93.41 Metabolic encephalopathy; I11.0 Hypertensive heart disease with heart failure; I50.9 Heart failure, unspecified; J18.9 Pneumonia, unspecified organism; E87.3 Alkalosis; J44.0 Chronic obstructive pulmonary disease with (acute) lower respiratory infection; J44.1 Chronic obstructive pulmonary disease with (acute) exacerbation; J96.21 Acute and chronic respiratory failure with hypoxia; K21.9 Gastro-esophageal reflux disease without esophagitis; K70.10 Alcoholic hepatitis without ascites; Z68.41 Body mass index [BMI] 40.0-44.9, adult; Z99.81 Dependence on supplemental oxygen; Z56.0 Unemployment, unspecified; Z20.822 Contact with and (suspected) exposure to COVID-19; Z79.899 Other long term (current) drug therapy; Z79.51 Long term (current) use of inhaled steroids; Z79.01 Long term (current) use of anticoagulants; Z86.718 Personal history of other venous thrombosis and embolism
CPT/HCPCS: 36415; 71045; 71046; 71275; 80053; 82803; 83605; 83735; 83880; 84145; 84484; 85025; 85379; 85610; 85730; 87040; 87070; 87205; 87449; 87635; 87636; 93005; 94640; 94660; 94760; 96361; 96365; 96368; 96375; 96376; 99291

== ENCOUNTER 2024-02-07 15:17 | Emergency (ER) | payer OTHER ==
--- NOTE | 2024-02-07 16:07 | ED ---
General Adult HPI - General Chief complaint: Skin/Abscess/Foreign Body Stated complaint: L leg sore Time Seen by Provider: 02/07/24 15:43 Source: patient, RN notes reviewed, old records reviewed Mode of arrival: wheelchair Limitations: no limitations - History of Present Illness Initial comments: 53-year-old female presenting with pain and swelling on the left posterior thigh just below the buttock. Patient had noticed drainage from suspected abscess. No fevers. Patient denies systemic symptoms. No history of diabetes. Patient noticed this over the past several days. - Related Data Home Medications Medication Instructions Recorded Confirmed Acetaminophen [Tylenol] 325 - 650 mg PO Q6H PRN 07/07/23 11/25/23 Montelukast Sodium 10 mg PO DAILY 07/07/23 11/25/23 Pantoprazole [Protonix] 40 mg PO DAILY 07/07/23 11/25/23 Sertraline [Zoloft] 200 mg PO DAILY 07/07/23 11/25/23 Apixaban [Eliquis] 5 mg PO BID 08/14/23 11/25/23 Nicotine 14Mg/24Hr Patch [Habitrol] 1 patch TRANSDERM DAILY 08/14/23 11/25/23 ARIPiprazole [Abilify] 5 mg PO HS 09/24/23 11/25/23 Furosemide [Lasix] 20 mg PO BID 09/24/23 11/25/23 Ipratropium-Albuterol Nebulize 3 ml INHALATION RT-QID 09/24/23 11/25/23 [Duoneb 0.5 mg-3 mg/3 ml Soln] Potassium Chloride ER [K-Dur 20] 20 meq PO DAILY 09/24/23 11/25/23 Previous Rx's Medication Instructions Recorded Losartan [Cozaar] 50 mg PO DAILY 30 Days #30 tab 07/10/23 Metoprolol Tartrate [Lopressor] 25 mg PO BID 30 Days #60 tab 07/10/23 Budesonide-Formot 160-4.5 Mcg 2 puff INHALATION RT-BID #1 each 07/19/23 [Symbicort 160-4.5 Mcg Inhaler] Atorvastatin [Lipitor] 20 mg PO HS 30 Days #30 tab 09/26/23 Folic Acid 1 mg PO DAILY #90 tab 12/01/23 Thiamine [Vitamin B-1] 100 mg PO DAILY #90 tab 12/01/23 predniSONE [Deltasone] 40 mg PO DAILY #4 tab 12/01/23 Cephalexin [Keflex] 500 mg PO Q6HR 10 Days #40 cap 02/07/24 Sulfamethox-Tmp 800-160Mg [Bactrim 1 tab PO Q12HR #20 tab 02/07/24 DS 800-160 mg] Allergies Allergy/AdvReac Type Severity Reaction Status Date / Time No Known Allergies Allergy Verified 02/07/24 15:20 Review of Systems ROS Statement: Those systems with pertinent positive or pertinent negative responses have been documented in the HPI. ROS Other: All systems not noted in ROS Statement are negative. Past Medical History Past Medical History: COPD, Deep Vein Thrombosis (DVT), Hypertension Additional Past Medical History / Comment(s): seizures. alcohol abuse. History of Any Multi-Drug Resistant Organisms: None Reported Past Surgical History: Section Past Anesthesia/Blood Transfusion Reactions: No Reported Reaction Past Psychological History: Anxiety, Depression Smoking Status: Current every day smoker Past Alcohol Use History: Daily Past Drug Use History: Marijuana - Past Family History Mother History Unknown: Yes General Exam Limitations: no limitations General appearance: alert, in no apparent distress Head exam: Present: atraumatic, normocephalic Eye exam: Present: normal appearance, PERRL Respiratory exam: Present: decreased breath sounds. Absent: respiratory distress Cardiovascular Exam: Present: regular rate, normal rhythm Rectal exam: Present: other (Left posterior thigh just below the buttock 3 cm indurated abscess with ulceration and purulent drainage mild surrounding celluli tis.) Course Vital Signs 02/07/24 02/07/24 15:18 16:15 Temperature 98.1 F 98.4 F Pulse Rate 103 H 96 Respiratory 20 18 Rate Blood Pressure 150/93 149/70 O2 Sat by Pulse 97 97 Oximetry Procedures - Incision & Drainage Consent Obtained: verbal consent Indication: Abscess Site: lower extremity I&D Cleaning Method: Chloroprep Scalpel Used: #11 Ultrasound used: No Needle Aspiration Performed?: No Irrigation Performed?: Yes I&D Drainage Obtained: Pus Patient Tolerated Procedure: well Medical Decision Making - Medical Decision Making Was pt. sent in by a medical professional or institution (, PA, CHICKEN BUYER, urgent care, hospital, or penitentiary...) When possible be specific @ -No Did you speak to anyone other than the patient for history (EMS, parent, family, police, friend...)? What history was obtained from this source @ -No Did you review nursing and triage notes (agree or disagree)? Why? @ -I reviewed and agree with nursing and triage notes Were old charts reviewed (outside hosp., previous admission, EMS record, old EKG, old radiological studies, urgent care reports/EKG's, penitentiary records)? Report findings @ -No old charts were reviewed Differential Diagnosis:, Folliculitis, abscess, cellulitis, EKG interpreted by me (3pts min.). @ -As above X-rays interpreted by me (1pt min.). @ -None done CT interpreted by me (1pt min.). @ -None done U/S interpreted by me (1pt. min.). @ -None done What testing was considered but not performed or refused? (CT, X-rays, U/S, labs)? Why? @ -None What meds were considered but not given or refused? Why? @ -None Did you discuss the management of the patient with other professionals (professionals i.e. , PA, CHICKEN BUYER, lab, RT, psych nurse, social service manager, pumpman, teacher, aoc director combat operations officer, case therapist)? Give summary @ -No Was smoking cessation discussed for >3mins.? @ -No Was critical care preformed (if so, how long)? @ -No Were there social determinants of health that impacted care today? How? (Homelessness, low income, unemployed, alcoholism, drug addiction, transportation, low edu. Level, literacy, decrease access to med. care, senior living, rehab)? @ -No Was there de-escalation of care discussed even if they declined (Discuss DNR or withdrawal of care, Hospice)? DNR status @ -No What co-morbidities impacted this encounter? (DM, HTN, Smoking, COPD, CAD, Cancer, CVA, ARF, Chemo, Hep., AIDS, mental health diagnosis, sleep apnea, morbid obesity)? @ -None Was patient admitted / discharged? Hospital course, mention meds given and route, prescriptions, significant lab abnormalities, going to OR and other perti nent info. @ -53-year-old with abscess left posterior thigh mild surrounding cellulitis. There is drainage but this requires minimal incision to express the remaining fluctuant purulence. This is irrigated with normal saline. Patient is started on antibiotics and instructed on warm compresses. Undiagnosed new problem with uncertain prognosis? @ -No Drug Therapy requiring intensive monitoring for toxicity (Heparin, Nitro, Insulin, Cardizem)? @ -No Were any procedures done? @ -Yes, incision and drainage Diagnosis/symptom? @ -Left thigh abscess with cellulitis Acute, or Chronic, or Acute on Chronic? @ -Acute Uncomplicated (without systemic symptoms) or Complicated (systemic symptoms)? @ -Default Side effects of treatment? @ -No Exacerbation, Progression, or Severe Exacerbation? @ -No Poses a threat to life or bodily function? How? (Chest pain, [place], [place], pneumonia, PE, COPD, DKA, ARF, appy, cholecystitis, CVA, Diverticulitis, Homicidal, Suicidal, threat to staff... and all critical care pts) @ -No Disposition Clinical Impression: Abscess and cellulitis of gluteal region Disposition: HOME SELF-CARE Condition: Fair Instructions (If sedation given, give patient instructions): Abscess Incision and Drainage (ED), Abscess (ED) Prescriptions: Sulfamethox-Tmp 800-160Mg [Bactrim DS 800-160 mg] 1 tab PO Q12HR #20 tab Cephalexin [Keflex] 500 mg PO Q6HR 10 Days #40 cap Is patient prescribed a controlled substance at d/c from ED?: No Referrals: Lashay Coello MD [Primary Care Provider] - 1-2 days Time of Disposition: 16:06
[2024-02-07 16:17] VITALS: BP 149/70; PULSE 96; RESP 18; TEMP 98.4
== END 2024-02-07 16:26 | disposition home or self-care (01) ==
LOC: EC 15:17
CPT/HCPCS: 10060; 99283